=== PATIENT | female | born 1940 | race Caucasian/White ===

== ENCOUNTER 2016-07-27 20:22 | Emergency (ER) | payer OTHER, MEDICARE ==
--- NOTE | 2016-07-27 20:46 | EDPHY ---
H & P Stated Complaint: fell today, c/o L sided URIBE, L wrist, L rib pain Time Seen by Provider: 07/27/16 20:40 HPI/ROS: CHIEF COMPLAINT: Mechanical fall HISTORY OF PRESENT ILLNESS: This patient is a 75 year old female who was referred to the Emergency Department by [facility] for complaints of left rib pain and head trauma secondary to a mechanical fall this morning. She was working in her garage when she fell and hit the left side of her head on the brick side of the house. She presented to the clinic when her facial wounds were treated; the patient declined further imaging at that time. She then returned to the Clinic two hours later when she was developed low left sided rib pain . They referred her to the ED. Upon arrival, she tells me that her rib pain has entirely subsided. Although the provider at [facility] reported to our staff that the patient had complained of acute headache and confusion prompting her second visit, the patient denies headache at any point in time. She denies confusion, lightheadedness, gait or visual changes, or any additional neurological complaints. Medical history includes polycystic kidney disease for which she is currently on dialysis. REVIEW OF SYSTEMS: Aside from elements discussed in the HPI, a comprehensive 10-point review of systems was reviewed and is negative. PAST MEDICAL HISTORY: Polycystic kidney disease, on dialysis. Low platelets. No anticoagulant use. SOCIAL HISTORY: Roommate/POA at bedside. Smokes tobacco regularly. PHYSICAL EXAM: VITAL SIGNS: Reviewed by me; see NN. GENERAL: Well-developed, well-nourished, in no acute distress. HEENT: Head: Steri-stripped laceration over left islam, normocephalic. Face: Atraumatic. PERRL, EOMI, no nystagmus. Oropharynx: No trauma, normal occlusion. Neck: Nontender to palpation, no pain with range of motion, no adenopathy. CHEST: Nontender, no subcutaneous air palpable. Indicates area where pain had been previously is left lateral chest. LUNGS: Clear to auscultation bilaterally, breath sounds are equal. CARDIAC: Regular rate and rhythm, no rubs, or gallops. Systolic ejection murmur. ABDOMEN: Two bilateral palpable masses, presumably polycystic kidneys; no tenderness; bowel sounds normal. BACK: No CVA tenderness, no spinal tenderness. EXTREMITIES: Fistula to left upper extremity, ecchymosis to left upper extremity normal range of motion. PULSES: 2+ and equal throughout. NEURO: Alert and oriented x3, cranial nerves are intact throughout, normal motor , normal sensation. SKIN: Warm and dry, no rash. Portions of this note were transcribed by a biomedical engineering technician. I personally performed a history, physical exam, medical decision making, and confirmed accuracy of information the transcribed note. - Personal History Current Tetanus/Diphtheria Vaccine: Unsure Current Tetanus Diphtheria and Acellular Pertussis (TDAP): Unsure - Medical/Surgical History Hx Asthma: No Hx Chronic Respiratory Disease: No Hx Diabetes: No Hx Cardiac Disease: Yes Hx Renal Disease: Yes Hx Cirrhosis: No Hx Alcoholism: No Hx HIV/AIDS: No Hx Splenectomy or Spleen Trauma: No Other PMH: pmh- renal failyre with LUE fistula, EKWOK, polycystic kidney disease, htn, anemia - Social History Smoking Status: Current every day smoker Constitutional: Initial Vital Signs Temperature (C) 36.6 C 07/27/16 20:31 Heart Rate 83 07/27/16 20:31 Respiratory Rate 18 07/27/16 20:31 Blood Pressure 137/42 H 07/27/16 20:31 O2 Sat (%) 92 07/27/16 20:31 O2 Delivery Mode Room Air Allergies/Adverse Reactions: No Allergies [NKA] Allergy (Verified 07/27/16 20:29) Home Medications: Medication Instructions Recorded Epoetin Milind [Epogen 2000 UNIT/ML 20,000 unit SQ WE #0 12/19/15 (*)] Calcium Acetate [Phoslo (*)] 667 mg PO TIDMEAL 12/29/15 Herbals/Supplements -Info Only 1 ea PO DAILY 12/29/15 Labetalol HCl [Trandate 200 mg (*)] 300 mg PO DAILY 12/29/15 Labetalol HCl [Trandate] 300 mg PO DAILY@20 12/29/15 Lisinopril [Zestril 40 mg (*)] 40 mg PO BID 12/29/15 amLODIPine BESYLATE [Norvasc 10 mg 10 mg PO DAILY 12/29/15 (*)] Ferrous Sulfate [Ferrous Sulf 325 325 mg PO EVERY OTHER DAY 04/01/16 MG (*)] Sevelamer Carbonate [Renvela] 800 mg PO TIDMEAL 04/01/16 Renvela 07/27/16 Vitamin C 07/27/16 Medical Decision Making - Diagnostics Imaging: Study: CT of the head Indication: Trauma Results: CT scan of the head was obtained. The results of the study are: normal. The study was read by the radiologist, Dr. Joe Alatorre. I viewed the images myself on the PACS system. Study: CT of the abdomen and pelvis Indication: Trauma Results: CT scan of the abdomen and pelvis was obtained. The results of the study are: non-acute. The study was read by the radiologist, Dr. Joe Alatorre. I viewed the images myself on the PACS system. ED Course/Re-evaluation: Plan for CT of the head and CT of the abdomen and pelvis. Imagaing studies negative. Lower chest visualized on CT of abdomen pelvis normal. Patient states pain in lower ribs, but when she indicates were pain was, it seems to be upper left flank. Feel patient is ok for discharge. No SOB, chest pain currently, normal O2 sat, ambulatory without difficulty, brisk, conversant, anxious to go home. States feels well. Differential Diagnosis: Differential diagnosis of this patients injury was considered including but not limited to intracranial injury, long bone and pelvic bone fracture, spinal injury, intrathoracic injury, extremity injury, intra-abdominal injury, lacerations, abrasions, and contusions. Departure - Departure Disposition: Home, Routine, Self-Care Clinical Impression: Rib pain on left side Head trauma Qualifiers: Qualifier Code: (S09.90XA) Unspecified injury of head, initial encounter Fall Qualifiers: Qualifier Code: (W19.XXXA) Unspecified fall, initial encounter Condition: Good Instructions: Head Injury (ED) Additional Instructions: 1. Alternate 650mg Tylenol and 400mg Ibuprofen every 6 hours as needed for pain. 2. Return to the Emergency Department if you experience confusion, changes to your vision, difficulty speaking or walking, severe headache, or other serious concerns. 3. Follow-up with your primary care provider for further evaluation in 3-5 days if you do not return to feeling normal by that time. We have referred you to our on-call primary care provider if you do not already have one. Referrals: Tiffany Newman MD [Medical Doctor] - As per Instructions Report Scribed for: Taisha Erazo Report Scribed by: Alba Shrestha Date of Report: 07/27/16 Time of Report: 20:42
--- NOTE | 2016-07-27 21:42 | CT ---
CT Head (Without Contrast) at 2117 hours Indication: Trauma. Technique: Standard noncontrast head CT protocol utilizing 5-mm thick collimated slices and field-of -view of 23 cm. Dose reduction techniques were utilized. Findings: Minimal left periorbital soft tissue swelling. No scalp hematoma or acute skull or facial fracture. No intracranial hemorrhage, mass lesion, swelling, or extraaxial fluid collection. Minim al diffuse cerebral and cerebellar atrophy evidenced by enlargement of the overlying sulci. The vent ricular system is midline. Minimal low-attenuation subcortical white matter disease is present in th e frontal lobes. Minimal focal encephalomalacia involves the low left paramedian left frontal lobe. No evidence of acute ischemia or mass. Impression: 1. Minimal left periorbital soft tissue swelling. 2. No acute fracture. 3. No acute intracranial hemorrhage. 4. Mild atrophy and low left frontal encephalomalacia. Comment: Results were discussed with Dr. Erazo at 930 p.m. on July 27, 2016. E:TIERNEY/dayday
[2016-07-27 22:01] VITALS: BP 139/90; PULSE 76; RESP 16; TEMP 98.4; O2SAT 96
--- NOTE | 2016-07-27 22:15 | CT ---
CT Scan Abdomen and Pelvis, Without Contrast Indication: Fall. Left upper quadrant pain. Technique: Multidetector helical CT imaging was performed from the kidneys to the urinary bladder, w ithout contrast. Dose reduction techniques were utilized. Comparison: CT abdomen and pelvis dated December 29, 2015. Findings Abdomen: No acute fracture, pneumoperitoneum, free fluid, or evidence of solid organ injury. Numerous simple cysts scattered throughout the liver, the massively enlarged kidneys containing numer ous cysts consistent with autosomal dominant polycystic kidney disease are unchanged since December 2015. No evidence of hemorrhagic renal cyst. The noncontrast pancreas, contracted gallbladder, and bowel are unremarkable. Several diverticula throughout the descending and sigmoid colon are unchanged. T he adrenal glands are obscured. The lung bases are clear. The abdominal aorta is normal caliber, wi th extensive mural calcification. Pelvis: No bony lesions, adenopathy, or mass. Impressions 1. No acute fracture or evidence of solid organ injury. 2. Stigmata of autosomal polycystic kidney disease are unchanged. No hemorrhagic renal cyst. 3. Sigmoid diverticulosis, unchanged. Comment: Sensitivity for detecting low-grade solid organ contusions or lacerations is diminished sin ce IV contrast was not administered. Comment: Results were called to Dr. Erazo.
== END 2016-07-27 22:03 | disposition home or self-care (01) ==
DX: S09.90XA Unspecified injury of head, initial encounter (principal); S29.9XXA Unspecified injury of thorax, initial encounter; I10 Essential (primary) hypertension; F17.200 Nicotine dependence, unspecified, uncomplicated; Z99.2 Dependence on renal dialysis; W18.39XA Other fall on same level, initial encounter

== ENCOUNTER → 2017-02-08 | Outpatient (CLI) | payer OTHER, MEDICARE | LOC: BHFA 09:15 | PROVIDERS: ATTEND Internal Medicine Cardiovascular Disease | DX: I34.0 Nonrheumatic mitral (valve) insufficiency (principal); I10 Essential (primary) hypertension ==

== ENCOUNTER → 2017-02-17 | Outpatient (CLI) | payer OTHER, MEDICARE | LOC: FIMAGING 15:09 | PROVIDERS: ATTEND Thoracic Surgery (Cardiothoracic Vascular Surgery) | DX: R06.89 Other abnormalities of breathing (principal); I51.7 Cardiomegaly; I25.10 Atherosclerotic heart disease of native coronary artery without angina pectoris ==

== ENCOUNTER 2017-02-23 05:50 | Inpatient (IN) | payer OTHER, MEDICARE ==
[2017-02-23] MEDS ORDERED: VERAPAMIL 5 MG, NITROGLYCERIN 2.5 MG, HEPARIN 500 UNIT, SODIUM BICARBONATE 0.2 MEQ in L... MISC ONE (06:00)
[2017-02-23] MEDS ORDERED: niCARdipine/NACL 200 ML IV SCH (06:00)
[2017-02-23] MEDS ORDERED: CITRATE DEXTROSE SOLN 500 ML BAG MISC ONE (06:00)
[2017-02-23] MEDS ORDERED: PHENYLEPHRINE HCL 50 MG in NS 250 ML IV ONE (06:00)
[2017-02-23] MEDS ORDERED: NOREPINEPHRINE BITARTRATE 16 MG in NS 250 ML IV ONE (06:00)
[2017-02-23] MEDS ORDERED: MUPIROCIN 2% 22 GM OINT NS ONE (06:00)
[2017-02-23] MEDS ORDERED: ceFAZolin 2 GM/DEXTROSE 100 ML IV ONE (06:00)
[2017-02-23] MEDS ORDERED: INSULIN REGULAR HUMAN 100 UNIT in NS 100 ML IV ONE (06:00)
[2017-02-23] MEDS ORDERED: AMINOCAPROIC ACID 5 GM/20 ML VIAL IV ONE (06:00)
[2017-02-23] MEDS ORDERED: MANNITOL 25% 12.5 GM/50 ML VIAL IV ONE (06:00)
[2017-02-23] MEDS ORDERED: SODIUM BICARBONATE 20 MEQ, LIDOCAINE 1% 10 ML in NORMOSOL-R 1,000 ML MISC ONE (06:00)
[2017-02-23] MEDS ORDERED: LIDOCAINE 1% 2 ML INJ ID PRN (06:22)
[2017-02-23] MEDS ORDERED: NS 1,000 ML IV ONE (06:22)
[2017-02-23] MEDS ORDERED: MANNITOL 20% 125 ML IV ONE (06:30)
[2017-02-23] MEDS ORDERED: PROTAMINE SULFATE 50 MG/5 ML VIAL IVP ONE (06:34)
[2017-02-23] MEDS ORDERED: POTASSIUM Cl (KCl) 20 MEQ/50 ML BAG IV ONE (06:35)
[2017-02-23] MEDS ORDERED: DOPamine/DEXTROSE/250 ML BAG IV ONE (06:35)
[2017-02-23] MEDS ORDERED: CALCIUM CHLORIDE 1 GM/10 ML INJ ONE ×2 (06:35→06:36)
[2017-02-23] MEDS ORDERED: AMIODARONE HCL 150 MG/3 ML VIAL ONE ×2 (06:35→06:37)
[2017-02-23] MEDS ORDERED: AMINOCAPROIC ACID 5 GM/20 ML VIAL ONE ×2 (06:35→06:36)
[2017-02-23] MEDS ORDERED: niCARdipine/NACL/200 ML BAG IV ONE (06:35)
[2017-02-23] MEDS ORDERED: MILRINONE/DEXTROSE/100 ML BAG IV ONE (06:35)
[2017-02-23] MEDS ORDERED: NA BICARBONATE 50 MEQ/50 ML VIAL ONE (06:35)
[2017-02-23] MEDS ORDERED: ADENOSINE 6 MG/2 ML VIAL ONE (06:35)
[2017-02-23] MEDS ORDERED: ALBUMIN 5% 250 ML BOTTLE IV ONE (06:36)
[2017-02-23] MEDS ORDERED: ceFAZolin 1 GM VIAL ONE (06:36)
[2017-02-23] MEDS ORDERED: HEPARIN 10,000 UNIT/10 ML MDV ONE ×2 (06:36→06:37)
[2017-02-23] MEDS ORDERED: CITRATE DEXTROSE SOLN 500 ML BAG ONE (06:37)
[2017-02-23] MEDS ORDERED: methylPREDNISolone SOD SUCC 1 GM/8 ML VIAL ONE (06:37)
[2017-02-23] MEDS ORDERED: MAGNESIUM SULFATE 1 GM/2 ML VIAL ONE (06:37)
[2017-02-23] MEDS ORDERED: LIDOCAINE 2% 100 MG/5 ML SYR ONE (06:37)
--- NOTE | 2017-02-23 06:37 | PDGENHP ---
History and Physical - Chief Complaint CAD - History of Present Illness 76F with ESRD here for elective CABG in anticipation of receiving a renal transplant. Pt seen yesterday at [facility] where final questions were answered. She reports feeling well although c/o shoulder and knee pain. Denies CP/SOB. History Information - Allergies/Home Medication List Allergies/Adverse Reactions: No Allergies [NKA] Allergy (Verified 02/15/17 12:22) Home Medications: Epoetin Milind [Epogen 2000 UNIT/ML (*)] #0 12/19/15 [Last Taken 02/22/17] Labetalol HCl [Trandate] 12/29/15 [Last Taken 02/22/17] amLODIPine BESYLATE [Norvasc 10 mg (*)] 12/29/15 [Last Taken 02/22/17] Renvela 07/27/16 [Last Taken 02/22/17] Vitamin C 07/27/16 [Last Taken Unknown] Align 02/15/17 [Last Taken 02/22/17] IRON 02/15/17 [Last Taken 02/22/17] Lisinopril 02/15/17 [Last Taken 02/22/17] I have personally reviewed and updated: family history, medical history, social history, surgical history - Past Medical History coronary artery disease, COPD, ESRD, hypertension Additional medical history: mod-sev MR, PKD, chronic anemia, thrombocyopenia - Social History Smoking Status: Current every day smoker Review of Systems Constitutional: Reports: no symptoms EENMT: Reports: no symptoms Cardiac: Reports: no symptoms Respiratory: Reports: no symptoms Gastrointestinal: Reports: no symptoms Genitourinary: Reports: no symptoms Muscolosketal: Reports: joint pain Skin: Reports: no symptoms Neurological: Reports: no symptoms Physical Exam Constitutional: no apparent distress, appears nourished, not in pain Eyes: anicteric sclera Ears, Nose, Mouth, Throat: moist mucous membranes, hard of hearing Cardiovascular: regular rate and rhythym, systolic murmur Respiratory: no respiratory distress Gastrointestinal: soft, non-tender abdomen, distension Genitourinary: no bladder fullness Skin: warm, normal color Musculoskeletal: full muscle strength Neurologic: AAOx3 Psychiatric: interacting appropriately, not anxious, not encephalopathic, thought process linear Lab Data & Imaging Review All pre-op labs reviewed Visualized and Interpreted Chest x-ray results: Yes Chest X-Ray results: no infiltrate Assessment & Plan Assessment: 76F with severe CAD/ESRD Plan: CABG today with intra-op HD
[2017-02-23] MEDS ORDERED: MIDAZOLAM 2 MG/2 ML VIAL IVP ONE (07:01)
--- NOTE | 2017-02-23 07:01 | PDANEPAE ---
ANE History of Present Illness cab ANE Past Medical History - Cardiovascular History Hx Hypertension: Yes Hx Arrhythmias: Yes Hx Chest Pain: No Hx Coronary Artery / Peripheral Vascular Disease: Yes Hx CHF / Valvular Disease: No Hx Palpitations: No Cardiovascular History Comment: HTN. MURMUR. CAD 3V. MITRAL INSUFFICIENCY. LEFT CEPHALIC VEIN STENT - Pulmonary History Hx COPD: Yes Hx Asthma/Reactive Airway Disease: No Hx Recent Upper Respiratory Infection: No Hx Oxygen in Use at Home: No Hx Sleep Apnea: No Sleep Apnea Screening Result - Last Documented: Negative Pulmonary History Comment: POSSIBLE COPD. SOB, PT BELIEVES THIS IS FROM HER ENLARGED KIDNEYS, VERY ANXIETY PRODUCING - Neurologic History Hx Cerebrovascular Accident: No Hx Seizures: No Hx Dementia: No Neurologic History Comment: POSS STROKE IN LEFT EYE THAT CAUSED BLEEDING- UNKNOWN - Endocrine History Hx Diabetes: No - Renal History Hx Renal Disorders: Yes Renal History Comment: POLYCYSTIC KIDNEY. DIALYSIS M-W-. KIDNEYS ARE ABOUT 12 POUNDS EACH PER PT - Liver History Hx Hepatic Disorders: Yes Hepatic History Comment: THROMBOCYTOPENIA - Neurological & Psychiatric Hx Hx Neurological and Psychiatric Disorders: No - Cancer History Hx Cancer: No - Congenital Disorder History Hx Congenital Disorders: No Congenital History Comment: GENETIC POLYCYSTIC KIDNEYS - GI History Hx Gastrointestinal Disorders: Yes Gastrointestinal History Comment: ULERACTIVE COLITIS- USES PROBIOTIC - Other Health History Other Health History: WEARS BILATERAL HEARING AIDES. WEARS GLASSES. SCABS AND ITCHING. BILAT ROTATOR CUFF TEARS- RANGE OF MOTION EXTREMELY LIMITED, FLUID BUILT UP IN SHOULDERS. CATARACT TO LEFT CURRENTLY. BLOOD BEHIND LEFT EYE- SEE' S DIEGO FOR INJECTIONS - Chronic Pain History Chronic Pain: Yes (BILATERAL KNEES, BACK PAIN) - Surgical History Prior Surgeries: LEFT KNEE SURG- ARTHROSCOPIC. CATARACT SURGERY RIGHT EYE. T& A. RIGHT BREAST BX. FISTULA REPAIR X3 LEFT ARM. LEFT CEPHALIC VEIN STENT. ORAL SURGERY ANE Review of Systems - Exercise capacity METS (RN): 2 METS ANE Patient History - Allergies Allergies/Adverse Reactions: No Allergies [NKA] Allergy (Verified 02/15/17 12:22) - Home Medications Home Medications: Epoetin Milind [Epogen 2000 UNIT/ML (*)] #0 12/19/15 [Last Taken 02/22/17] Labetalol HCl [Trandate] 12/29/15 [Last Taken 02/22/17] amLODIPine BESYLATE [Norvasc 10 mg (*)] 12/29/15 [Last Taken 02/22/17] Renvela 07/27/16 [Last Taken 02/22/17] Vitamin C 07/27/16 [Last Taken Unknown] Align 02/15/17 [Last Taken 02/22/17] IRON 02/15/17 [Last Taken 02/22/17] Lisinopril 02/15/17 [Last Taken 02/22/17] - NPO status NPO Since - Liquids (Date): 02/22/17 NPO Since - Liquids (Time): 00:00 NPO Since - Solids (Date): 02/22/17 NPO Since - Solids (Time): 21:00 - Anes Hx Anes Hx: no prior problems - Smoking Hx Smoking Status: Light smoker - Family Anes Hx Family Hx Anesthesia Complications: NONE ANE Labs/Vital Signs - Vital Signs Blood Pressure: 149/51 Heart Rate: 67 Respiratory Rate: 22 O2 Sat (%): 96 Height: 162.3 cm Weight: 70.1 kg ANE Physical Exam - Airway Mallampati Score: Class 2 Mouth exam: normal dental/mouth exam - Pulmonary Pulmonary: no respiratory distress - Cardiovascular Cardiovascular: regular rate and rhythym - ASA Status ASA Status: III ANE Anesthesia Plan Anesthesia Plan: general endotracheal anesthesia Lines/Monitors: arterial line, central line, ENDY
[2017-02-23] MEDS ORDERED: ROCURONIUM 50 MG/5 ML VIAL ONE ×2 (07:11→09:40)
[2017-02-23] MEDS ORDERED: PROPOFOL 200 MG/20 ML VIAL ONE (07:12)
[2017-02-23] MEDS ORDERED: LIDOCAINE 2% 5 ML SDV ONE (07:12)
[2017-02-23] MEDS ORDERED: PHENYLEPHRINE 10 MG/ML SDV ONE (07:12)
[2017-02-23] MEDS ORDERED: fentaNYL 100 MCG/2 ML INJ ONE ×5 (07:12→07:13)
[2017-02-23] MEDS ORDERED: MINERAL OIL 10 ML VIAL ONE (07:36)
[2017-02-23] MEDS ORDERED: VERAPAMIL 5 MG/2 ML VIAL ONE (07:36)
[2017-02-23] MEDS ORDERED: PAPAVERINE HCL 60 MG/2 ML SDV ONE (07:36)
[2017-02-23] MEDS ORDERED: epHEDrine SULFATE 10 MG/ML SYR ONE (08:38)
[2017-02-23] MEDS ORDERED: MIDAZOLAM 2 MG/2 ML VIAL ONE (09:39)
[2017-02-23] MEDS ORDERED: CISATRACURIUM BESYLATE 20 MG/10 ML VIAL IV ONE (10:25)
[2017-02-23] MEDS ORDERED: MAGNESIUM SULF 2 GM/WATER 50 ML BAG IV ONE (11:26)
[2017-02-23] MEDS ORDERED: NEOSTIGMINE METHYLSULFATE 5 MG/5 ML SYR ONE (11:42)
[2017-02-23] MEDS ORDERED: GLYCOPYRROLATE 0.2 MG/1 ML VIAL ONE ×2 (11:42)
[2017-02-23 11:47] LABS: HEMOGLOBIN A1C 4.5 % (4.0-6.0)
[2017-02-23] MEDS ORDERED: SUCCINYLCHOLINE CHLORIDE*ANESTHESIA ONLY*200 MG/10 ML SYR IVP ONE (11:51)
[2017-02-23] MEDS ORDERED: METOCLOPRAMIDE 10 MG/2 ML VIAL IVP PRN (12:22)
[2017-02-23] MEDS ORDERED: BISACODYL 10 MG SUPP PR PRN (12:22)
[2017-02-23] MEDS ORDERED: POTASSIUM Cl (KCl) 50 ML IV PRN (12:22)
[2017-02-23] MEDS ORDERED: LACTULOSE 20 GM/30 ML UDCUP PO PRN (12:22)
[2017-02-23] MEDS ORDERED: MEPERIDINE 25 MG/ML SYR IVP PRN (12:22)
[2017-02-23] MEDS ORDERED: ACETAMINOPHEN 650 MG SUPP PR PRN (12:22)
[2017-02-23] MEDS ORDERED: ONDANSETRON DISINTEGRATING 4 MG TAB PO PRN (12:22)
[2017-02-23] MEDS ORDERED: MAGNESIUM SULF 2 GM/WATER 50 ML IV ONE (12:22)
[2017-02-23] MEDS ORDERED: SODIUM CL NASAL 45 ML BTL EACHNARE PRN (12:22)
[2017-02-23] MEDS ORDERED: D50W 25 GM/50 ML SYR IVP PRN (12:22)
[2017-02-23] MEDS ORDERED: ALBUMIN 5% 250 ML IV PRN (12:22)
[2017-02-23] MEDS ORDERED: CEPACOL LOZENGE PO PRN (12:22)
[2017-02-23] MEDS ORDERED: POLYETHYLENE GLYCOL 3350 17 GM PKT PO PRN (12:22)
[2017-02-23] MEDS ORDERED: MAGNESIUM HYDROXIDE 30 ML UDCUP PO PRN (12:22)
[2017-02-23] MEDS ORDERED: ONDANSETRON 4 MG/2 ML VIAL IVP PRN (12:22)
[2017-02-23] MEDS ORDERED: PANTOPRAZOLE SODIUM 40 MG in NS 100 ML IV ONE (12:22)
[2017-02-23] MEDS ORDERED: INSULIN REGULAR HUMAN 100 UNIT in NS 100 ML IV SCH (12:30)
--- NOTE | 2017-02-23 12:37 | POSTANESTH ---
Post Anesthetic Evaluation Cardiovascular Status: Normal, Stable Respiratory Status: Normal, Stable Level of Consciousness/Mental Status: Can Participate in Eval Pain Control: Adequate, Prn Tx Ordered Nausea/Vomiting Control: Adequate, Prn Tx Ordered Complications Possibly Related to Anesthesia: None Noted
[2017-02-23] MEDS ORDERED: ALBUTEROL 3 ML DEYVIAL IH PRN (12:38)
[2017-02-23] MEDS ORDERED: NALOXONE HCL 0.4 MG/ML INJ IVP PRN (12:38)
--- NOTE | 2017-02-23 12:55 | POSTOPPROG ---
Post Op Note Date of Operation: 02/23/17 Surgeon: Chan Ortega Pit Steward: Guille Anesthesiologist: Tyrel Anesthesia: GET(General Endotracheal) Pre-op Diagnosis: ASHD, CRF,MR, ischemic CM Procedure: CAB 4 Markham-Lad, SVG-Dg, Lcx,RCA, EVH, DAVID atriclip Inf/Abcess present in the surg proc area at time of surgery?: No EBL: 50-100
[2017-02-23] MEDS ORDERED: KETOROLAC 15 MG/1 ML SDV IVP ONE (13:00)
[2017-02-23] MEDS ORDERED: LORazepam 2 MG/ML INJ ONE (13:11)
[2017-02-23] MEDS ORDERED: LORazepam 2 MG/ML INJ IVP ONE (13:30)
--- NOTE | 2017-02-23 13:57 | GOP ---
[f rep st] OPERATIVE REPORT DATE OF OPERATION: 02/23/2017 SURGEON: Chan Ortega DO PREOPERATIVE DIAGNOSIS: Arteriosclerotic heart disease and moderate mitral insufficiency. POSTOPERATIVE DIAGNOSIS: Arteriosclerotic heart disease and moderate mitral insufficiency. PROCEDURE PERFORMED: 1. Coronary artery bypass grafting x4 with the left internal mammary artery to the left anterior de scending, saphenous vein graft to the diagonal, saphenous vein graft to the lateral circumflex, saph enous vein graft to the right coronary artery. 2. Endoscopic vein harvest. 3. AtriClip to the left atrial appendage. FINDINGS: The patient was noted to have [id number] mitral regurgitation preoperatively. She is a chronic hemodialysis patient. She had never had atrial fibrillation or congestive heart failur e. She had typical anginal symptoms. In anticipation of resecting her kidneys because of polycysti c kidney disease, she was advised to undergo coronary bypass grafting. The plan was to not address her mitral valve unless it looked worse today at surgery because of the ongoing dialysis and concern s for infection. DESCRIPTION OF PROCEDURE: She was brought to the operating room and intubated, and monitoring lines were placed. She was prepped and draped in sterile classical manner. Sternotomy was performed. L eft internal mammary artery was harvested. Vein was harvested from the leg by Siddharth Han PA-C, wh o first assisted throughout the procedure. Patient was then heparinized and cannulated in standard fashion. Intraoperative transesophageal echo revealed [id number] mitral regurgitation reviewe d with Dr. Finney, with relatively preserved LV function and mild enlargement of the left atrium. G iven her age and comorbidities, it was felt to be best to avoid putting a prosthetic valve in her, s preethi the likelihood repair looked to be low, particularly given her extensive mitral annular calcifi cation. Cardiopulmonary bypass was begun. Cardioplegic arrest was obtained with antegrade cardioplegia, top ical hypothermia, and systemic cooling. Hemodialysis was performed on pump to manage potassium and volumes. Intermittent cardioplegia was administered throughout the procedure. After cardioplegic a rrest was obtained, all distal's and proximal's were performed with a cross-clamp on. Her distal ta rgets were excellent, measuring 3 mm or more in diameter. Conduits were excellent. We then placed an AtriClip across the base of the left atrial appendage. Cross-clamp was removed with suction on t he ascending aortic vent. Spontaneous cardiac activity was noted to resume. The patient was easily weaned from bypass. Heparin was reversed with protamine. The cannula was removed and oversewn. T wo pacing wires and 1 left pleural and 1 mediastinal drain were placed. The thymic fat and pericard ium were closed. Chest was closed in standard fashion. Patient was returned to ICU in stable condi tion. /[id number]/MODL
[2017-02-23] MEDS: fentaNYL 100 MCG/2 ML INJ IVP PRN ×4 (14:25→19:14)
[2017-02-23 16:13] LABS: CALCULATED OXYGEN SATURATION 92 % (92-95)
[2017-02-23] MEDS: DEXMEDETOMIDINE HCL 400 MCG in NS 100 ML IV SCH ×2 (21:38→23:49)
[2017-02-23] MEDS: ceFAZolin 2 GM/DEXTROSE 100 ML IV SCH (21:41)
[2017-02-23] MEDS: MUPIROCIN 2% 22 GM OINT NS SCH (22:33)
[2017-02-23] MEDS: SENNOSIDES/DOCUSATE SODIUM TAB PO SCH (22:33)
--- NOTE | 2017-02-23 23:18 | GCON ---
[f rep st] CONSULTATION BENZOL OPERATOR CONSULTATION REASON FOR CONSULTATION: Patient examined postoperatively after receiving coronary bypass graft. HISTORY OF PRESENT ILLNESS: The patient is a 76-year-old white female with an extensive past medica l history of polycystic kidney disease, for which she has end-stage renal disease. She is on dialys is. She is also awaiting possible transplant at the [facility]. She has a history of h ypertension, ulcerative colitis, and anemia. Again, she is examined postoperatively. Currently, kristina us is still somewhat somnolent after surgery. All history is gleaned from the medical record. PAST MEDICAL HISTORY: Significant for end-stage renal disease, polycystic kidney disease, hypertens ion, anemia, ulcerative colitis, and coronary artery disease. ALLERGIES: No known allergies to medications. SOCIAL HISTORY: She is a half-pack smoker and has smoked for many years. No significant alcohol us e. MEDICATIONS: At home include Epogen, labetalol, amlodipine, Renvela, vitamin C, Align, iron, and li sinopril. PHYSICAL EXAMINATION: VITAL SIGNS: Blood pressure is 149/51, pulse 67, respirations 22, temperatur e 36.6, oxygen saturation is 96% on supplemental oxygen. GENERAL: She is a mildly overweight, elde rly white female, who is resting comfortably postoperatively. HEENT: Eyes are MATTIE, EOMI. Throat shows no erythema or tonsillar hypertrophy. NECK: Supple. There is no cervical adenopathy. HEART : Regular rate and rhythm with a 2/6 systolic murmur at the left sternal border without radiation. LUNGS: Diminished breath sounds. Mild prolongation of expiratory phase, but no wheeze. ABDOMEN: Distended. Bowel sounds are markedly diminished. EXTREMITIES: Left extremity shows a fistula. LABORATORY DATA: Hemoglobin A1c is 4.5. All the rest of her labs are currently pending. IMPRESSION: 1. Status post coronary bypass graft. 2. End-stage renal disease. 3. Polycystic kidney disease. 4. Hypertension. 5. Tobacco abuse. RECOMMENDATIONS: 1. Adequate pain control. 2. Wean FiO2 as tolerated. 3. DVT and PE prophylaxis, holding anticoagulation for now. 4. Dialysis per Nephrology. /[id number]/MODL
[2017-02-23 23:38] LABS: CALCULATED OXYGEN SATURATION 88 % (92-95); O2 CONCENTRATIION 25 % (0-100)
--- NOTE | 2017-02-23 23:38 | GCON ---
[f rep st] CONSULTATION DATE OF CONSULTATION: 02/23/2017 REASON FOR CONSULTATION: Opinion regarding end-stage kidney failure. HISTORY OF PRESENT ILLNESS: The patient is a 76-year-old female with end-stage kidney disease due t o autosomal dominant polycystic kidneys. She is currently on 3 times weekly hemodialysis on Mondays , Wednesdays, and Fridays. The patient has known vascular disease and has been evaluated for her co ronary disease. She had significant 4-vessel disease and underwent coronary artery bypass grafting x4 today. She also has moderate to severe mitral regurgitation, but she seems to be tolerating that okay. Mitral valve repair was not undertaken during her surgery today. Her surgery included BOB to LAD graft, saphenous vein graft to the diagonal, circumflex and right coronary arteries. Currently, the patient is still sedated. She has an oral airway in place. She arouses, but does no t answer questions. PAST MEDICAL HISTORY: Significant. 1. End-stage kidney failure due to autosomal dominant polycystic kidney disease. 2. Autosomal dominant polycystic kidney disease. 3. COPD. 4. Hypertension. 5. Mitral regurgitation. 6. Anemia. 7. Secondary hyperparathyroidism. 8. History of ulcerative colitis. 9. Status post left knee arthroscopy. 10. History of AV fistula with multiple repairs. CURRENT MEDICATIONS: Includes 1. Fentanyl. 2. Dulcolax. 3. Aspirin 81 mg daily. 4. Albuterol. 5. Insulin as necessary. 6. Lactulose. 7. Reglan. 8. Morphine. 9. Narcan. 10. Nicardipine. 11. Protonix. 12. She also has Demerol and magnesium written for. I would not give her those medicines. ALLERGIES: None. FAMILY HISTORY: Positive for polycystic kidney disease. SOCIAL HISTORY: She was formerly employed at [employer]. She is now retired. She denies alcohol, IV o r recreational drugs. REVIEW OF SYSTEMS: Not obtainable from the patient today. PHYSICAL EXAMINATION: VITAL SIGNS: Blood pressure is 149/51, pulse 67, respirations 22, temperatur e 36.6 degrees. GENERAL: She is sedated. HEENT: Pupils are reactive to light. Extraocular movem ents are intact. Mucous membranes are moist. NECK: No lymphadenopathy or thyromegaly. HEART: Re gular. No rub. No S3. LUNGS: No rhonchi or wheezes. ABDOMEN: Quiet, nontender, nondistended. EXTREMITIES: No edema. NEUROLOGIC: No asterixis. SKIN: Occasional ecchymoses. LYMPH: No palpa ble lymphadenopathy or lymphedema. MUSCULOSKELETAL: No effusions or tenderness. LABORATORY: Postoperatively, her potassium was 4.3. Hemoglobin A1c 4.5. IMPRESSION: 1. End-stage kidney failure on 3 times weekly dialysis. 2. Coronary artery disease. 3. Hypertension. 4. Chronic obstructive pulmonary disease. 5. Anemia of chronic kidney disease. 6. Secondary hyperparathyroidism. RECOMMENDATIONS: 1. As the patient did have intraoperative hemodialysis today, we will assess for dialysis needs blair orrow. I suspect she will be able to have her next dialysis on Tuesday. 2. Pain control. 3. Blood pressure control. Thank you for allowing me to participate in the care of your patient. If there are any questions, desi schaeffer do not hesitate to contact us. We will be following along with you. /[id number]/MODL
[2017-02-24] MEDS: fentaNYL 100 MCG/2 ML INJ IVP PRN (04:27)
[2017-02-24] MEDS: LORazepam 2 MG/ML INJ IVP PRN ×2 (04:32→23:34)
[2017-02-24] MEDS: DEXMEDETOMIDINE HCL 400 MCG in NS 100 ML IV SCH (04:42)
[2017-02-24] MEDS: ceFAZolin 2 GM/DEXTROSE 100 ML IV SCH (05:06)
[2017-02-24 05:24] LABS: % IMMATURE GRANULYOCYTES 0.4 % (0.0-1.1); ABSOLUTE IMMATURE GRANULOCYTES 0.03 10^3/uL (0.00-0.10); ADD DIFF? NO; ADD MORPH? NO; ADD SCAN? NO; ATYPICAL LYMPHOCYTE FLAG 0 (0-99); FRAGMENT RBC FLAG 0 (0-99); HEMATOCRIT 26.2 % (38.0-47.0); HEMOGLOBIN 8.8 g/dL (12.6-16.3); LEFT SHIFT FLG 0 (0-99); LIPEMIA HEMOLYSIS FLAG 80 (0-99); MEAN CELL HEMOGLOBIN 32.1 pg (27.9-34.1); MEAN CELL HEMOGLOBIN CONCENTR. 33.6 g/dL (32.4-36.7); MEAN CELL VOLUME 95.6 fL (81.5-99.8); MEAN PLATELET VOLUME 11.8 fL (8.7-11.7); PLATELET CLUMPS FLAG 0 (0-99); PLATELET COUNT 79 10^3/uL (150-400); RED BLOOD CELL COUNT 2.74 10^6/uL (4.18-5.33); RED CELL DISTRIBUTION WIDTH 19.3 % (11.5-15.2)
[2017-02-24 05:38] LABS: ANION GAP 12 mEq/L (8-16); CALCIUM 9.1 mg/dL (8.5-10.4); CARBON DIOXIDE 22 mEq/l (22-31); CHLORIDE 100 mEq/L (97-110); CREATININE 5.1 mg/dL (0.6-1.0); GLOMERULAR FILTRATION RATE 8; GLUCOSE 94 mg/dL (70-100); POTASSIUM 5.4 mEq/L (3.5-5.2); SODIUM 134 mEq/L (134-144)
[2017-02-24] MEDS ORDERED: HEPARIN 5,000 UNIT/0.5 ML SYR SC SCH (06:00)
--- NOTE | 2017-02-24 07:21 | SOAPPROG ---
SOAP Progress Note Assessment/Plan: Assessment: POD#1 CABG x 4 (BOB-LAD, SV-D1, SV-LCX, SV-RCA), EVH LLE, prophylactic AtriClip ligation left atrial appendage Dialysis access LUE AVF Asx CAD - Discovered during cardiac clearance (abnl MPI/nuc) for kidney transplant listing. Full revascularization achieved w CABG. Extubated in the OR. No prolonged vasoactive gtts, dysrhythmias, or backup pacing. Secondary prevention with ASA, BB as tolerated, and statin when eating well. Acute expected blood loss anemia with thrombocytopenia and coagulopathy - Baseline Hct 27, plt 70s range. Procrit on HD. Surgical coagulopathy corrected with 4u PRBC and 1u platelets. No evidence active bleeding. VTE prophylaxis with ASA and SCDs. Postop acute encephalopathy - Agitation and confusion of unclear etiology. ETOH use denied. Responsive to anxiolytics. No focal neurologic deficits. Appears to be clearing. HTN - Controlled on combination therapy. Early postop control with nicardipine. Transition back to labetalol planned. Mild-moderate MS/MR - Significant MAC. Surveillance per cards. ESRD/PKD - Dialyzed intraop. No significant volume overload. Nephrology following. Tobacco abuse - 1/2 ppd, 25 pk yr hx, quitting 2 wks ago. Nl PFTs in Jul 2015. Plan: Routine POD#1 orders re lines, drains and mobility. Strict NPO until orals cleared by WIRELESS OPERATOR. HD tomorrow or as per nephrology. Observe in ICU today. 02/24/17 07:17 Subjective: Doing ok. Thirsty. No nausea. No dizziness OOB. Objective: Vital Signs Temp Pulse Resp BP Pulse Ox 37.3 C 69 16 137/39 H 92 02/24/17 04:00 02/24/17 07:00 02/24/17 07:00 02/24/17 07:00 02/24/17 07:00 Laboratory Results 02/24/17 05:00 02/24/17 05:00 02/23/17 02/24/17 02/25/17 05:59 05:59 05:59 Intake Total 754.1 250 Output Total 1274 Balance -519.9 250 No gtts, backup pacing or dysrhythmias overnoc. Transitioned from precedex to lorazepam for agitation/anxiety. Robust SBP. Min suppl O2 req. CTOP moderate but quality thin. Labs as expected. Physical Exam - Physical Exam General Appearance: alert, no apparent distress Respiratory: lungs clear (grossly), other (blakes x 2 y-d to pleurovac, serosang drainage, no tidal, no air leak) Cardiac/Chest: regular rate, rhythm, other (Sternum grossly stable. Sternotomy CDI. Vwires intact.) Abdomen: normal bowel sounds, non-tender, soft Skin: warm/dry Extremities: swelling (trace-1+), other (LLE wrap intact) ICD10 Worksheet Patient Problems: Problems Problem Status Onset S/P CABG x 4 Acute Anemia Chronic Coronary arteriosclerosis Chronic ESRD (end stage renal disease) on dialysis Chronic Hypertension Chronic Polycystic kidney disease Chronic Thrombocytopenia Chronic
--- NOTE | 2017-02-24 08:28 | PDINTPN ---
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 Query alcohol. Patient is markedly confused and somewhat agitated * Tobacco abuse * Hypertension Plan: Dialysis today Continue pain meds Blood pressure control Continued Re orientation Subjective: Sitting up in chair. Markedly confused and agitated. Objective: Vital Signs Temp Pulse Resp BP Pulse Ox 37.0 C 69 17 124/39 H 93 02/24/17 07:57 02/24/17 07:57 02/24/17 07:57 02/24/17 07:57 02/24/17 07:57 Laboratory Results 02/24/17 05:00 02/24/17 05:00 02/23/17 02/24/17 02/25/17 05:59 05:59 05:59 Intake Total 754.1 250 Output Total 1274 Balance -519.9 250 Physical Exam - Physical Exam General Appearance: other (Confused), No alert EENT: PERRL/EOMI, normal ENT inspection Neck: non-tender, full range of motion, supple, normal inspection Respiratory: decreased breath sounds, prolonged expiration, No wheezing Cardiac/Chest: normal peripheral pulses, regular rate, rhythm, systolic murmur Abdomen: normal bowel sounds, non-tender, soft Pelvic Exam: deferred Rectal: deferred Skin: normal color, warm/dry Extremities: normal range of motion, non-tender, normal inspection, normal capillary refill Neuro/Psych: No alert ICD10 Worksheet Patient Problems: Problems Problem Status Onset S/P CABG x 4 Acute Anemia Chronic Coronary arteriosclerosis Chronic ESRD (end stage renal disease) on dialysis Chronic Hypertension Chronic Polycystic kidney disease Chronic Thrombocytopenia Chronic
[2017-02-24] MEDS: HYDROCODONE/APAP 5/325 TAB PO PRN ×2 (08:40→15:12)
[2017-02-24] MEDS: ASPIRIN 81 MG CHEWABLE TAB PO SCH (08:41)
[2017-02-24] MEDS: MUPIROCIN 2% 22 GM OINT NS SCH ×2 (08:43→21:12)
[2017-02-24] MEDS ORDERED: METOPROLOL TARTRATE 25 MG TAB PO PRN (09:33)
[2017-02-24] MEDS: SENNOSIDES/DOCUSATE SODIUM TAB PO SCH ×2 (10:14→21:11)
--- NOTE | 2017-02-24 10:24 | SOAPPROG ---
[facility] Progress Note Assessment/Plan: Assessment: 1. ESRD Intraop HD yesterday. K early this am 5.4. Will dialyze today, no UF. 2. Anemia Mild decrease, but stable 3. Doing well post op, with exception of some delirium. 4. Urology seeing related to future nephrectomies Plan: 02/24/17 10:20 Subjective: Stable postop Objective: Vital Signs Temp Pulse Resp BP Pulse Ox 37.0 C 71 16 142/41 H 98 02/24/17 07:57 02/24/17 10:00 02/24/17 10:00 02/24/17 10:00 02/24/17 10:00 Laboratory Results 02/24/17 05:00 02/24/17 05:00 02/23/17 02/24/17 02/25/17 05:59 05:59 05:59 Intake Total 754.1 250 Output Total 1274 Balance -519.9 250 Physical Exam - Physical Exam General Appearance: other (confused) Respiratory: lungs clear Cardiac/Chest: regular rate, rhythm Abdomen: other (distended relating to polycystic kidneys) Extremities: pedal edema Neuro/Psych: disoriented to place, disoriented to time ICD10 Worksheet Patient Problems: Problems Problem Status Onset S/P CABG x 4 Acute Anemia Chronic Coronary arteriosclerosis Chronic ESRD (end stage renal disease) on dialysis Chronic Hypertension Chronic Polycystic kidney disease Chronic Thrombocytopenia Chronic
[2017-02-24 11:04] LABS: POTASSIUM 5.1 mEq/L (3.5-5.2)
--- NOTE | 2017-02-24 11:10 | GCON ---
[f rep st] CONSULTATION DATE OF CONSULTATION: 02/24/2017 REASON FOR CONSULT: Polycystic kidney disease, end-stage kidney failure. HISTORY OF PRESENT ILLNESS: This is a 76-year-old female, who has a known history including signifi cant polycystic kidney disease causing end-stage renal disease, for which she undergoes dialysis 3 t imes a week, along with a history of hypertension, ulcerative colitis and anemia. She was admitted to the hospital and underwent coronary bypass graft, and is being seen after this procedure in parti al evaluation of her kidneys. She reports that she is being perhaps considered for a kidney transpl ant at the [facility] but was told that she did have enough room in her abdomen unless s he had a nephrectomy. She reports talking to Dr. Manan Cain at the [facility], jackelin pantoja recently according to her history, regarding a possible single or bilateral nephrectomy in prepa ration for kidney transplant. However, she also states that she has not decided if she wants to hav e the procedure done or with whom. PAST MEDICAL HISTORY: Significant for end-stage renal disease, polycystic kidney disease, hypertens ion, anemia, ulcerative colitis, coronary artery disease. SURGICAL HISTORY: Includes coronary bypass graft done on 02/23/2017. ALLERGIES: No known drug allergies. SOCIAL HISTORY: Half pack smoker for many years. Reportedly no significant alcohol use. MEDICATIONS: Epogen, labetalol, amlodipine, Renvela, vitamin C, Align, iron, lisinopril. PHYSICAL EXAM: VITAL SIGNS: Blood pressure 142/41, heart rate 71, respirations 16, O2 98 on 2 L/mi nute, temperature 37. GENERAL: This is a well-developed, well-nourished female in no acute distres s. HEENT: Normocephalic, atraumatic. Extraocular movements intact. NECK: Supple. No lymphadeno aimee palpable, although patient has many monitors in place. RESPIRATORY: Patient is breathing wit h the assistance of oxygen, otherwise normal breath sounds, no accessory respiratory muscle use. CA RDIAC: No lower extremity edema. No JVD at the time of exam, regular rate. GI: Abdomen in genera l is somewhat diffuse and distended, likely from polycystic kidneys. No palpable hepatosplenomegaly . No palpable pain. She as noted does have a palpable mass diffusely from likely polycystic kidney disease, polycystic kidneys. INTEGUMENT: Patient's skin is somewhat bronzed. No obvious rashes o r lesions otherwise. MUSCULOSKELETAL: She is lying in bed, moving upper extremities without diffic ulty. NEURO: Patient was alert and oriented. Able to give a seemingly appropriate history of kidn ey disease. LABS: White blood cell count 7.54, hemoglobin 8.8, hematocrit 26.2, platelets 79. Chemistry: Sodi um 134, potassium 5.4, chloride 100, carbon dioxide 22, and anion gap 12, BUN 39, creatinine 5.1. G lucose 94. Estimated GFR is 8. Calcium 9.1. The patient did have a CT scan of the abdomen and pel vis done in June that I have personally reviewed which shows extensive bilateral cysts on both ki dneys consistent with polycystic kidney disease. ASSESSMENT: Polycystic kidney disease, end-stage kidney disease. PLAN: It sounds like patient is under consideration for a kidney transplant done at the [facility]. In order to likely accommodate a transplanted kidney, she would need to have at least a single if not bilateral nephrectomy done. By her history, she has been discussing this with Dr. Samia bashir at the [facility]. We will be happy to provide further assistance in helping th is patient consider her surgical options through our office if she desires. /[id number]/MODL
[2017-02-24] MEDS: PANTOPRAZOLE SODIUM 40 MG TAB PO SCH (12:04)
[2017-02-24 13:44] LABS: ANION GAP 16 mEq/L (8-16); CALCIUM 9.1 mg/dL (8.5-10.4); CARBON DIOXIDE 20 mEq/l (22-31); CHLORIDE 96 mEq/L (97-110); CREATININE 5.4 mg/dL (0.6-1.0); GLOMERULAR FILTRATION RATE 8; GLUCOSE 121 mg/dL (70-100); POTASSIUM 5.1 mEq/L (3.5-5.2); SODIUM 132 mEq/L (134-144)
[2017-02-24 13:50] LABS: HEPATITIS Bs Ab QUANT <5.0 mIU/mL
[2017-02-24] MEDS: traMADol 50 MG TAB PO PRN (15:12)
[2017-02-24] MEDS ORDERED: KETOROLAC 15 MG/1 ML SDV IVP ONE (17:30)
[2017-02-24 18:23] LABS: POTASSIUM 5.2 mEq/L (3.5-5.2)
[2017-02-24] MEDS: ACETAMINOPHEN 325 MG TAB PO PRN (21:11)
[2017-02-24] MEDS: METOPROLOL TARTRATE 25 MG TAB PO SCH (21:12)
[2017-02-25 01:38] LABS: POTASSIUM 5.1 mEq/L (3.5-5.2)
[2017-02-25 05:49] LABS: % IMMATURE GRANULYOCYTES 0.9 % (0.0-1.1); ABSOLUTE IMMATURE GRANULOCYTES 0.05 10^3/uL (0.00-0.10); ADD DIFF? NO; ADD MORPH? YES; ADD SCAN? NO; ATYPICAL LYMPHOCYTE FLAG 0 (0-99); FRAGMENT RBC FLAG 0 (0-99); HEMOGLOBIN 6.9 g/dL (12.6-16.3); LEFT SHIFT FLG 0 (0-99); LIPEMIA HEMOLYSIS FLAG 80 (0-99); MEAN CELL HEMOGLOBIN 31.9 pg (27.9-34.1); MEAN CELL HEMOGLOBIN CONCENTR. 32.9 g/dL (32.4-36.7); MEAN CELL VOLUME 97.2 fL (81.5-99.8); MEAN PLATELET VOLUME 10.8 fL (8.7-11.7); PLATELET CLUMPS FLAG 0 (0-99); PLATELET COUNT 75 10^3/uL (150-400); RED BLOOD CELL COUNT 2.16 10^6/uL (4.18-5.33); RED CELL DISTRIBUTION WIDTH 18.4 % (11.5-15.2)
[2017-02-25 06:22] LABS: ANION GAP 14 mEq/L (8-16); CALCIUM 9.2 mg/dL (8.5-10.4); CARBON DIOXIDE 21 mEq/l (22-31); CHLORIDE 95 mEq/L (97-110); CREATININE 6.5 mg/dL (0.6-1.0); GLOMERULAR FILTRATION RATE 6; GLUCOSE 96 mg/dL (70-100); POTASSIUM 5.1 mEq/L (3.5-5.2); SODIUM 130 mEq/L (134-144)
--- NOTE | 2017-02-25 06:44 | SOAPPROG ---
SOAP Progress Note Assessment/Plan: POD#2 CABG x 4 (BOB-LAD, SV-D1, SV-LCX, SV-RCA), EVH LLE, prophylactic AtriClip ligation left atrial appendage Dialysis access LUE AVF Asx CAD - Discovered during cardiac clearance (abnl MPI/nuc) for kidney transplant listing. Full revascularization achieved w CABG. Extubated in the OR. No prolonged vasoactive gtts, dysrhythmias, or backup pacing. Secondary prevention with ASA, BB as tolerated, and statin when eating well. Acute expected blood loss anemia with thrombocytopenia and coagulopathy - Baseline Hct 27, plt 70s range. Procrit on HD. Surgical coagulopathy corrected with 4u PRBC and 1u platelets. No evidence active bleeding. VTE prophylaxis with ASA and SCDs. Postop acute encephalopathy - Agitation and confusion of unclear etiology. ETOH use denied. Responsive to anxiolytics. No focal neurologic deficits. Appears to be clearing. HTN - Controlled on combination therapy. Early postop control with nicardipine. Beta-xiang started. Mild-moderate MS/MR - Significant MAC. Surveillance per cards. ESRD/PKD - Dialyzed intraop. No significant volume overload. Nephrology following. Tobacco abuse - 1/2 ppd, 25 pk yr hx, quitting 2 wks ago. Nl PFTs in Jul 2015. Subjective: Angry with the lack of attention to her needs. Pain under control. Denies SOB. Objective: Vital Signs Temp Pulse Resp BP Pulse Ox 36.7 C 73 16 143/43 H 97 02/25/17 00:00 02/25/17 04:00 02/25/17 04:00 02/25/17 04:00 02/25/17 04:00 Laboratory Results 02/25/17 05:40 02/25/17 05:40 02/24/17 02/25/17 02/26/17 05:59 05:59 05:59 Intake Total 754.1 1350 Output Total 1274 265 Balance -519.9 1085 Physical Exam - Physical Exam General Appearance: WD/WN, alert, no apparent distress EENT: No scleral icterus (R), No scleral icterus (L) Neck: normal inspection Respiratory: No respiratory distress Cardiac/Chest: regular rate, rhythm Abdomen: non-tender, soft, No distended Skin: normal color, warm/dry Extremities: No pedal edema Neuro/Psych: no motor/sensory deficits, alert, normal mood/affect, oriented x 3 ICD10 Worksheet Patient Problems: Problems Problem Status Onset S/P CABG x 4 Acute Anemia Chronic Coronary arteriosclerosis Chronic ESRD (end stage renal disease) on dialysis Chronic Hypertension Chronic Polycystic kidney disease Chronic Thrombocytopenia Chronic
[2017-02-25 06:57] LABS: HYPOCHROMIA 1+; PLATELET ESTIMATE DECREASED (ADEQ); POLYCHROMASIA 1+
[2017-02-25] MEDS: ACETAMINOPHEN 325 MG TAB PO PRN (07:11)
[2017-02-25] MEDS: traMADol 50 MG TAB PO PRN (08:38)
[2017-02-25] MEDS: METOPROLOL TARTRATE 25 MG TAB PO SCH ×3 (08:38→22:30)
[2017-02-25] MEDS: PANTOPRAZOLE SODIUM 40 MG TAB PO SCH (08:38)
[2017-02-25] MEDS ORDERED: MAGNESIUM HYDROXIDE 30 ML UDCUP PO PRN (08:38)
[2017-02-25] MEDS: ASPIRIN 81 MG CHEWABLE TAB PO SCH (08:38)
[2017-02-25] MEDS: SENNOSIDES/DOCUSATE SODIUM TAB PO SCH ×2 (08:38→22:13)
[2017-02-25] MEDS: HYDROCODONE/APAP 5/325 TAB PO PRN ×2 (08:39→13:46)
--- NOTE | 2017-02-25 08:55 | PDINTPN ---
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 Has concerns about dialysis. Denies any breathlessness but does admit to some appropriate chest pain Objective: Vital Signs Temp Pulse Resp BP Pulse Ox 36.7 C 77 20 138/73 H 96 02/25/17 00:00 02/25/17 08:38 02/25/17 06:00 02/25/17 08:38 02/25/17 06:00 Laboratory Results 02/25/17 07:50 02/25/17 05:40 02/24/17 02/25/17 02/26/17 05:59 05:59 05:59 Intake Total 754.1 1350 Output Total 1274 265 Balance -519.9 1085 Physical Exam - Physical Exam General Appearance: alert EENT: PERRL/EOMI, normal ENT inspection Neck: non-tender, full range of motion, supple, normal inspection Respiratory: crackles (Few), No respiratory distress, No wheezing Cardiac/Chest: normal peripheral pulses, regular rate, rhythm, systolic murmur Peripheral Pulses: 2+: carotid (R), carotid (L), femoral (R), femoral (L), dorsalis-pedis (R), dorsalis-pedis (L) Abdomen: normal bowel sounds, non-tender, soft Pelvic Exam: deferred Rectal: deferred Skin: normal color, warm/dry Neuro/Psych: no motor/sensory deficits, alert, normal mood/affect, oriented x 3 ICD10 Worksheet Patient Problems: Problems Problem Status Onset S/P CABG x 4 Acute Anemia Chronic Coronary arteriosclerosis Chronic ESRD (end stage renal disease) on dialysis Chronic Hypertension Chronic Polycystic kidney disease Chronic Thrombocytopenia Chronic
[2017-02-25] MEDS: MUPIROCIN 2% 22 GM OINT NS SCH (09:02)
--- NOTE | 2017-02-25 11:00 | SOAPPROG ---
SOAP Progress Note Assessment/Plan: Assessment/Plan: ESRD: Pt last dialyzed yesterday. - Will do HD again today per routine, unclear how long she will tolerate HD from pain and cramping. - Plan for next HD on Tuesday, but if required can be done over the weekend, will monitor. Anemia: Hgb down to 6.9, getting transfused while on HD today. Hyperkalemia: will modulate further with dialysis. Hyponatremia: will modulate with dialysis. Subjective: Ms. Blanco has a lot of concerns this am getting onto dialysis. Pt states that she gets severe cramping and wants to walk around in the middle of treatment, as she is allowed to in her dialysis unit, she gets rinsed back and walked and then put back on. She also does not want to lay in bed, concerned the cramping will get worse, although sitting in chair her groin pain gets worse. She denies any dyspnea or chest pain currently. Objective: Vital Signs Temp Pulse Resp BP Pulse Ox 36.9 C 77 19 138/73 H 96 02/25/17 08:00 02/25/17 08:38 02/25/17 08:00 02/25/17 08:38 02/25/17 08:00 Laboratory Results 02/25/17 07:50 02/25/17 05:40 02/24/17 02/25/17 02/26/17 05:59 05:59 05:59 Intake Total 754.1 1350 Output Total 1274 265 Balance -519.9 1085 General: alert and oriented, no acute distress Eyes; EOMI, PERRL OP: Clear CV: RRR Resp: nonlabored respiraitons on NC Abd: Soft, NT/ND Ext: trace edema BLE Neuro: CN II-XII grossly intact, no asterixis Psych; cooperative, appropriate mood and affect Access: LUE AVF with thrill and bruit appreciated ICD10 Worksheet Patient Problems: Problems Problem Status Onset S/P CABG x 4 Acute Anemia Chronic Coronary arteriosclerosis Chronic ESRD (end stage renal disease) on dialysis Chronic Hypertension Chronic Polycystic kidney disease Chronic Thrombocytopenia Chronic
[2017-02-25 11:38] LABS: MAGNESIUM 2.1 mg/dL (1.6-2.3); POTASSIUM 4.1 mEq/L (3.5-5.2)
[2017-02-25] MEDS ORDERED: LORazepam 2 MG/ML INJ IVP ONE ×2 (11:45→16:20)
[2017-02-25] MEDS ORDERED: D10W 250 ML PRN HYPOGLYCEMIA IV (12:30)
[2017-02-25] MEDS ORDERED: AMIODARONE HCL 200 ML IV ONE (13:55)
[2017-02-25] MEDS ORDERED: AMIODARONE HCL 100 ML IV ONE (13:55)
--- NOTE | 2017-02-25 14:50 | ASMTCASEMG ---
Living Arrangements What is your living Answers: Alone arrangement? Who do you live with? Type Of Residence What kind of residence do Answers: House you live in? Discharge Plan Comments Coordination Status Comments Notes: Patient has coronary artery disease and was admitted for an elective CABG in anticipation of receiving a renal transplant. Dr. Ortega is surgeon. PT/OT/SPL have been ordered. Awaiting therapies to d/t d/c plan. CM will follow. Date Signed: 02/25/2017 02:49 PM Electronically Signed By:Lissett Mccoy
[2017-02-25] MEDS ORDERED: LORazepam 0.5 MG TAB PO PRN (16:00)
[2017-02-25 19:37] LABS: POTASSIUM 4.4 mEq/L (3.5-5.2)
[2017-02-25] MEDS ORDERED: AMIODARONE HCL 540 MG in D5W 300 ML IV ONE (20:00)
[2017-02-25] MEDS: LORazepam 2 MG/ML INJ IVP PRN (22:01)
[2017-02-25] MEDS: OXYCODONE/APAP 5/325 TAB PO PRN (22:34)
[2017-02-25] MEDS ORDERED: HALOPERIDOL LACT 5 MG/ML INJ IVP ONE (23:01)
[2017-02-26] MEDS: LORazepam 2 MG/ML INJ IVP PRN (04:04)
[2017-02-26] MEDS: OXYCODONE/APAP 5/325 TAB PO PRN (05:40)
[2017-02-26] MEDS ORDERED: HALOPERIDOL LACT 5 MG/ML INJ IVP ONE (05:45)
[2017-02-26 06:38] LABS: % IMMATURE GRANULYOCYTES 1.2 % (0.0-1.1); ABSOLUTE IMMATURE GRANULOCYTES 0.08 10^3/uL (0.00-0.10); ADD DIFF? NO; ADD MORPH? NO; ADD SCAN? NO; ATYPICAL LYMPHOCYTE FLAG 0 (0-99); FRAGMENT RBC FLAG 0 (0-99); HEMATOCRIT 29.3 % (38.0-47.0); HEMOGLOBIN 9.9 g/dL (12.6-16.3); LEFT SHIFT FLG 0 (0-99); LIPEMIA HEMOLYSIS FLAG 90 (0-99); MEAN CELL HEMOGLOBIN 32.1 pg (27.9-34.1); MEAN CELL HEMOGLOBIN CONCENTR. 33.8 g/dL (32.4-36.7); MEAN CELL VOLUME 95.1 fL (81.5-99.8); MEAN PLATELET VOLUME 11.2 fL (8.7-11.7); PLATELET CLUMPS FLAG 10 (0-99); PLATELET COUNT 77 10^3/uL (150-400); RED BLOOD CELL COUNT 3.08 10^6/uL (4.18-5.33); RED CELL DISTRIBUTION WIDTH 17.2 % (11.5-15.2)
[2017-02-26 06:55] LABS: ALANINE AMINOTRANSFERASE 21 IU/L (9-52); ALBUMIN 3.2 g/dL (3.5-5.0); ALKALINE PHOSPHATASE 66 IU/L (38-126); ANION GAP 15 mEq/L (8-16); ASPARTATE AMINOTRANSFERASE 40 IU/L (14-46); BILIRUBIN,TOTAL 0.8 mg/dL (0.1-1.4); BILIRUBIN-CONJUGATED 0.7 mg/dL (0.0-0.5); BILIRUBIN-UNCONJUGATED 0.1 mg/dL (0.0-1.1); CALCIUM 9.4 mg/dL (8.5-10.4); CARBON DIOXIDE 22 mEq/l (22-31); CHLORIDE 95 mEq/L (97-110); CREATININE 5.3 mg/dL (0.6-1.0); GLOMERULAR FILTRATION RATE 8; GLUCOSE 104 mg/dL (70-100); POTASSIUM 4.8 mEq/L (3.5-5.2); SODIUM 132 mEq/L (134-144); TOTAL PROTEIN 5.1 g/dL (6.3-8.2)
[2017-02-26] MEDS ORDERED: OXYCODONE/APAP 5/325 TAB PO PRN (09:22)
--- NOTE | 2017-02-26 09:27 | SOAPPROG ---
SOAP Progress Note Assessment/Plan: Assessment: POD#3 CABG x 4 (BOB-LAD, SV-D1, SV-LCX, SV-RCA), EVH LLE, prophylactic AtriClip ligation left atrial appendage Dialysis access LUE AVF Asx CAD - Discovered during cardiac clearance (abnl MPI/nuc) for kidney transplant listing. Full revascularization achieved w CABG. Extubated in the OR. No prolonged vasoactive gtts, dysrhythmias, or backup pacing. Secondary prevention with ASA, BB as tolerated, and statin when eating well. Acute expected blood loss anemia with thrombocytopenia and coagulopathy - Baseline Hct 27, plt 70s range. Procrit on HD. Surgical coagulopathy corrected with 7u PRBC and 1u platelets. No evidence active bleeding. VTE prophylaxis with ASA and SCDs. Postop PAF - Onset during dialysis yest. SR restored on amio. Adjunctive BB uptitrated as tolerated. High threshold for DOAC as DAVID excluded. Postop acute encephalopathy - Agitation and confusion of unclear etiology. ETOH use denied. No focal neurologic deficits or metabolic derangements. Responsive to anxiolytics. HTN - Controlled on combination therapy. Early postop control with nicardipine. Transition back to labetalol and norvasc in progress. Mild-moderate MS/MR - Significant MAC. Surveillance per cards. ESRD/PKD - Dialyzed intraop. No significant volume overload. Nephrology following. Tobacco abuse - 1/2 ppd, 25 pk yr hx, quitting 2 wks ago. Nl PFTs in Jul 2015. Nebs and mucolytics prn. Plan: Change to scheduled lorazepam. Add Haldol prn severe agitation. Remove jodie drains. Clip Vwires. Cont IV maintenance amio until improved po. Switch metoprolol to 1/3 home dose labetalol. Resume Norvasc 10 mg daily. Bowel regimen. HD MWF. Dispo - Anticipate SNF after HD on Tue02/26/17 09:22 Subjective: Calm and cooperative. Light activity well tolerated. Still no appetite. Objective: Vital Signs Temp Pulse Resp BP Pulse Ox 36.8 C 69 14 167/58 H 97 02/26/17 07:43 02/26/17 07:43 02/26/17 07:43 02/26/17 07:43 02/26/17 07:43 Laboratory Results 02/26/17 06:20 02/26/17 06:22 02/25/17 02/26/17 02/27/17 05:59 05:59 05:59 Intake Total 1350 300.4 Output Total 265 320 Balance 1085 -19.6 Intermittent agitation and combativeness, worse in evening. Haldol used with good effect. Brief AF, holding SR since yest pm. Upward trending BP. Min suppl O2. CTOP at removal criteria. CXR-> hypovent, bibasilar atelectasis L>R. Labs, incl LFTs, ok. - Pending Discharge Pending Discharge Within 48 Hours: Yes Pending Discharge Date: 02/28/17 Pending Discharge Time: 11:00 Physical Exam - Physical Exam General Appearance: alert, no apparent distress Respiratory: crackles (diffuse), other (Blakes x 2 to bulb suction, thin serosang drainage) Cardiac/Chest: regular rate, rhythm, other (Sternum grossly stable. Sternotomy and LLE venotomy CDI. Vwires intact.) Abdomen: normal bowel sounds, non-tender, distended Skin: warm/dry Extremities: swelling (trace) ICD10 Worksheet Patient Problems: Problems Problem Status Onset Paroxysmal atrial fibrillation Acute S/P CABG x 4 Acute Anemia Chronic Coronary arteriosclerosis Chronic ESRD (end stage renal disease) on dialysis Chronic Hypertension Chronic Polycystic kidney disease Chronic Thrombocytopenia Chronic
[2017-02-26] MEDS: ASPIRIN 81 MG CHEWABLE TAB PO SCH (09:31)
[2017-02-26] MEDS: PANTOPRAZOLE SODIUM 40 MG TAB PO SCH (09:31)
[2017-02-26] MEDS: METOPROLOL TARTRATE 25 MG TAB PO SCH (09:34)
[2017-02-26] MEDS: SENNOSIDES/DOCUSATE SODIUM TAB PO SCH ×2 (09:36→22:14)
[2017-02-26] MEDS ORDERED: HALOPERIDOL LACT 5 MG/ML INJ IVP PRN (10:00)
[2017-02-26] MEDS ORDERED: LORazepam 0.5 MG TAB PO SCH (10:00)
[2017-02-26] MEDS: traMADol 50 MG TAB PO PRN (11:40)
[2017-02-26] MEDS ORDERED: IPRATROPIUM/ALBUTEROL 3 ML DEYVIAL IH PRN (12:20)
[2017-02-26] MEDS ORDERED: IPRATROPIUM/ALBUTEROL 3 ML DEYVIAL ONE (12:30)
--- NOTE | 2017-02-26 14:59 | SOAPPROG ---
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 She denies any cp , n/v. Some SOB but O2 sats ok. RN tells me she was ambulating and eating ok earlier. Drains removed. Objective: Vital Signs Temp Pulse Resp BP Pulse Ox 36.5 C 65 17 153/58 H 100 02/26/17 12:00 02/26/17 12:42 02/26/17 12:42 02/26/17 12:00 02/26/17 12:42 Laboratory Results 02/26/17 06:20 02/26/17 06:22 02/25/17 02/26/17 02/27/17 05:59 05:59 05:59 Intake Total 1350 300.4 250 Output Total 265 320 Balance 1085 -19.6 250 Physical Exam - Physical Exam General Appearance: no apparent distress, other (on O2 by NC) Neck: supple Respiratory: crackles (bases bilat) Cardiac/Chest: regular rate, rhythm Abdomen: non-tender, soft Extremities: other (no edema) Neuro/Psych: alert, oriented x 3 ICD10 Worksheet Patient Problems: Problems Problem Status Onset Paroxysmal atrial fibrillation Acute S/P CABG x 4 Acute Anemia Chronic Coronary arteriosclerosis Chronic ESRD (end stage renal disease) on dialysis Chronic Hypertension Chronic Polycystic kidney disease Chronic Thrombocytopenia Chronic
--- NOTE | 2017-02-26 15:32 | ASMTCMCOM ---
CM Note CM Note Notes: Reviewed chart, spoke w/RN and met w/patient. Per Milena Heck (Jordan SMITH) note plan for SNF d/c on Tuesday. Discussed w/patient. Pt expressed preference for [place] facilities in order to continue dialysis in [place]. Case management faxed referrals to the following [facility]: [facility], [facility], [facility]. In addition, faxed referral to [facility] [place]. Case management will follow. Date Signed: 02/26/2017 03:32 PM Electronically Signed By:Jaquelin Garcia
[2017-02-26] MEDS ORDERED: LORazepam 0.5 MG TAB PO PRN (17:39)
[2017-02-26] MEDS: LORazepam 0.5 MG TAB PO SCH (17:44)
[2017-02-26] MEDS: Sevelamer Carbonate [Renvela] 800 MG PO SCH (18:24)
[2017-02-26] MEDS: CALCIUM ACETATE 667 MG CAP PO SCH (18:35)
[2017-02-26 19:19] LABS: POTASSIUM 5.1 mEq/L (3.5-5.2)
[2017-02-26] MEDS: LABETALOL HCL 100 MG TAB PO SCH (22:13)
[2017-02-27] MEDS: LORazepam 0.5 MG TAB PO SCH ×4 (00:30→21:06)
[2017-02-27 06:36] LABS: HEMATOCRIT 28.7 % (38.0-47.0); HEMOGLOBIN 9.7 g/dL (12.6-16.3)
[2017-02-27 06:56] LABS: ALBUMIN 2.9 g/dL (3.5-5.0); ANION GAP 14 mEq/L (8-16); CALCIUM 9.3 mg/dL (8.5-10.4); CARBON DIOXIDE 23 mEq/l (22-31); CHLORIDE 93 mEq/L (97-110); CREATININE 6.5 mg/dL (0.6-1.0); GLOMERULAR FILTRATION RATE 6; GLUCOSE 87 mg/dL (70-100); POTASSIUM 5.2 mEq/L (3.5-5.2); SODIUM 130 mEq/L (134-144)
--- NOTE | 2017-02-27 07:37 | SOAPPROG ---
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 Denies cp. Occasional SOB sensation but O2 sats ok. Sitting up in chair, ate breakfast ok. Objective: Vital Signs Temp Pulse Resp BP Pulse Ox 36.5 C 68 14 162/72 H 98 02/27/17 07:03 02/27/17 07:03 02/27/17 07:03 02/27/17 07:03 02/27/17 07:03 Laboratory Results 02/27/17 06:20 02/27/17 06:20 02/26/17 02/27/17 02/28/17 05:59 05:59 05:59 Intake Total 300.4 700 Output Total 320 Balance -19.6 700 Physical Exam - Physical Exam General Appearance: no apparent distress, other (sitting in chair) EENT: other Neck: other (RIJ central line) Respiratory: lungs clear Cardiac/Chest: regular rate, rhythm, other (sternal incision c/d/i) Abdomen: non-tender, soft Skin: warm/dry Extremities: other (trace LE edema, AVF +thrill.bruit) Neuro/Psych: alert, oriented x 3 ICD10 Worksheet Patient Problems: Problems Problem Status Onset Paroxysmal atrial fibrillation Acute S/P CABG x 4 Acute Anemia Chronic Coronary arteriosclerosis Chronic ESRD (end stage renal disease) on dialysis Chronic Hypertension Chronic Polycystic kidney disease Chronic Thrombocytopenia Chronic
[2017-02-27] MEDS: PANTOPRAZOLE SODIUM 40 MG TAB PO SCH (07:57)
[2017-02-27] MEDS: FERROUS SULFATE 325 MG TAB PO SCH (07:57)
[2017-02-27] MEDS: ASPIRIN 81 MG CHEWABLE TAB PO SCH (07:58)
[2017-02-27] MEDS: SENNOSIDES/DOCUSATE SODIUM TAB PO SCH ×2 (07:58→21:06)
[2017-02-27] MEDS: LABETALOL HCL 100 MG TAB PO SCH (07:58)
[2017-02-27] MEDS: AMIODARONE HCL 200 MG TAB PO SCH (07:58)
[2017-02-27] MEDS: Sevelamer Carbonate [Renvela] 800 MG PO SCH (07:59)
[2017-02-27] MEDS: CALCIUM ACETATE 667 MG CAP PO SCH ×3 (07:59→21:10)
--- NOTE | 2017-02-27 08:17 | SOAPPROG ---
SOAP Progress Note Assessment/Plan: Assessment: POD#4 CABG x 4 (BOB-LAD, SV-D1, SV-LCX, SV-RCA), EVH LLE, prophylactic AtriClip ligation left atrial appendage Dialysis access LUE AVF Asx CAD - Discovered during cardiac clearance (abnl MPI/nuc) for kidney transplant listing. Full revascularization achieved w CABG. Extubated in the OR. No prolonged vasoactive gtts, dysrhythmias, or backup pacing. Secondary prevention with ASA, statin and BB uptitrated as tolerated. Acute expected blood loss anemia with thrombocytopenia and coagulopathy - Baseline Hct 27, plt 70s range. Procrit on HD. Surgical coagulopathy corrected with 7u PRBC and 1u platelets. No evidence active bleeding. VTE prophylaxis with ASA and SCDs. Postop PAF - Onset during dialysis on POD#2. SR promptly restored on amio. Holding SR on adjunctive BB. High threshold for DOAC as DAVID excluded. Postop acute encephalopathy - Agitation and confusion of unclear etiology. ETOH use denied. No focal neurologic deficits or metabolic derangements. Responsive to anxiolytics. HTN - Controlled on combination therapy. Early postop control with nicardipine. Transition back to home doses labetalol and norvasc in progress. Mild-moderate MS/MR - Significant MAC. Surveillance per cards. ESRD/PKD - Dialyzed intraop. No significant volume overload. Nephrology following. Tobacco abuse - 1/2 ppd, 25 pk yr hx, quitting 2 wks ago. Nl PFTs in Jul 2015. Nebs and mucolytics prn. Plan: Cont scheduled lorazepam. Cont Haldol prn severe agitation. Cont Amio 200 mg daily. Cont Norvasc 10 mg daily. Inc labetalol to 2/3 home dose. Start lipitor. HD MWF. Dispo - Anticipate SNF ([facility]) after HD on 02/27/17 08:14 Subjective: Up and about this am with good stamina. Pulling 1000 on IS. Roommate helping her decide on best SNF location. Objective: Vital Signs Temp Pulse Resp BP Pulse Ox 36.5 C 68 14 162/72 H 98 02/27/17 07:03 02/27/17 07:03 02/27/17 07:03 02/27/17 07:03 02/27/17 07:03 Laboratory Results 02/27/17 06:20 02/27/17 06:20 02/26/17 02/27/17 02/28/17 05:59 05:59 05:59 Intake Total 300.4 700 Output Total 320 Balance -19.6 700 HR and rhythm stable. SBP remains elev on CCB and inc BB. Suppl O2 needs resolving. Labs ok. - Pending Discharge Pending Discharge Within 24 Hours: Yes Pending Discharge Date: 02/28/17 Pending Discharge Time: 11:00 Physical Exam - Physical Exam General Appearance: alert, no apparent distress Respiratory: decreased breath sounds (bases) Cardiac/Chest: regular rate, rhythm, other (Sternum grossly stable. Sternotomy and LLE venotomy CDI) Abdomen: normal bowel sounds Skin: warm/dry Extremities: other (no visible edema) ICD10 Worksheet Patient Problems: Problems Problem Status Onset Paroxysmal atrial fibrillation Acute S/P CABG x 4 Acute Anemia Chronic Coronary arteriosclerosis Chronic ESRD (end stage renal disease) on dialysis Chronic Hypertension Chronic Polycystic kidney disease Chronic Thrombocytopenia Chronic
[2017-02-27] MEDS ORDERED: LABETALOL HCL 100 MG TAB PO ONE (09:00)
[2017-02-27] MEDS: SEVELAMER HCL 800 MG TAB PO SCH ×4 (12:28→21:06)
[2017-02-27] MEDS ORDERED: LABETALOL HCL 100 MG TAB ONE (12:32)
[2017-02-27 18:43] LABS: POTASSIUM 5.1 mEq/L (3.5-5.2)
[2017-02-27] MEDS ORDERED: LABETALOL HCL 200 MG TAB PO SCH (21:00)
[2017-02-27] MEDS: ATORVASTATIN CALCIUM 10 MG TAB PO SCH (21:06)
[2017-02-28 03:43] LABS: POTASSIUM 5.4 mEq/L (3.5-5.2)
--- NOTE | 2017-02-28 07:34 | SOAPPROG ---
SOAP Progress Note Assessment/Plan: POD#5 CABG x 4 (BOB-LAD, SV-D1, SV-LCX, SV-RCA), EVH LLE, prophylactic AtriClip ligation left atrial appendage Dialysis access LUE AVF Asx CAD - Discovered during cardiac clearance (abnl MPI/nuc) for kidney transplant listing. Full revascularization achieved w CABG. Extubated in the OR. No prolonged vasoactive gtts, dysrhythmias, or backup pacing. Secondary prevention with ASA, BB as tolerated, and statin when eating well. Acute expected blood loss anemia with thrombocytopenia and coagulopathy - Surgical coagulopathy corrected with 7u PRBC and 1u platelets. No evidence active bleeding. VTE prophylaxis with ASA and SCDs. Postop acute encephalopathy - Resolved. HTN - Controlled on combination therapy. Mild-moderate MS/MR - Significant MAC. Surveillance per cards. ESRD/PKD - Dialyzed intraop. Nephrology following. Tobacco abuse - 1/2 ppd, 25 pk yr hx, quitting 2 wks ago. Nl PFTs in Jul 2015. Subjective: No complaints. Would like to be discharfed today after HD. Objective: Vital Signs Temp Pulse Resp BP Pulse Ox 36.7 C 75 20 160/80 H 94 02/28/17 04:00 02/28/17 04:00 02/28/17 04:00 02/28/17 04:00 02/28/17 04:00 Laboratory Results 02/27/17 06:20 02/28/17 03:25 02/27/17 02/28/17 03/01/17 05:59 05:59 05:59 Intake Total 700 300 Balance 700 300 Physical Exam - Physical Exam General Appearance: WD/WN, alert, no apparent distress EENT: No scleral icterus (R), No scleral icterus (L) Neck: normal inspection Respiratory: No respiratory distress Cardiac/Chest: regular rate, rhythm Abdomen: non-tender, soft, No distended Skin: normal color, warm/dry Extremities: No pedal edema Neuro/Psych: no motor/sensory deficits, alert, normal mood/affect, oriented x 3 ICD10 Worksheet Patient Problems: Problems Problem Status Onset Paroxysmal atrial fibrillation Acute S/P CABG x 4 Acute Anemia Chronic Coronary arteriosclerosis Chronic ESRD (end stage renal disease) on dialysis Chronic Hypertension Chronic Polycystic kidney disease Chronic Thrombocytopenia Chronic
[2017-02-28] MEDS: CALCIUM ACETATE 667 MG CAP PO SCH ×3 (09:28→16:27)
[2017-02-28] MEDS: AMIODARONE HCL 200 MG TAB PO SCH (09:29)
[2017-02-28] MEDS: ASPIRIN 81 MG CHEWABLE TAB PO SCH (09:29)
[2017-02-28] MEDS: SENNOSIDES/DOCUSATE SODIUM TAB PO SCH ×2 (09:30→20:18)
--- NOTE | 2017-02-28 10:08 | SOAPPROG ---
SOAP Progress Note Assessment/Plan: Assessment: 1)ESRD- HD MWF -Next HD today 2)s/p CABG- progressing well, encouraged IS use 3)Anemia of CKD -s/p PRBCS with HD Tuesday -will give Epo with HD Tuesday 4)MBD of CKD -renal diet, on binder -phos high- ensure Ca Acetate given with meals and renal diet (I discussed with RN) 5)Anxiety -discussed with RN, she is taking low dose ativan which is helping- improved and discussed with RN changing it to prn use now 6)mild hyperK- -ensure renal diet- I reviewed with RN as well 7)HTN -improved on home meds- i will defer to cards for management given recent CABG Alyssia Cage MD [facility] [phone] pager 02/28/17 10:15 Subjective: Sitting in chair, looks much better today. No BM and plans to try now. Thinks breathing much better. No cp. Nursing reports anxiety better, much calmer. Objective: Vital Signs Temp Pulse Resp BP Pulse Ox 36.7 C 69 20 161/58 H 97 02/28/17 04:00 02/28/17 08:00 02/28/17 08:00 02/28/17 08:00 02/28/17 08:00 Laboratory Results 02/27/17 06:20 02/28/17 03:25 02/27/17 02/28/17 03/01/17 05:59 05:59 05:59 Intake Total 700 300 Balance 700 300 Physical Exam - Physical Exam General Appearance: no apparent distress, other (looks much better, sitting in chair) EENT: other (mmm) Neck: supple, other (RIJ triple lumen c/d/i) Respiratory: other (crackles base bilat) Cardiac/Chest: regular rate, rhythm, other (incision c/d/i) Abdomen: normal bowel sounds, non-tender, soft Extremities: other (AVF +thrill/bruit) Neuro/Psych: alert, oriented x 3 ICD10 Worksheet Patient Problems: Problems Problem Status Onset Paroxysmal atrial fibrillation Acute S/P CABG x 4 Acute Anemia Chronic Coronary arteriosclerosis Chronic ESRD (end stage renal disease) on dialysis Chronic Hypertension Chronic Polycystic kidney disease Chronic Thrombocytopenia Chronic
[2017-02-28] MEDS: PANTOPRAZOLE SODIUM 40 MG TAB PO SCH (10:10)
[2017-02-28] MEDS: SEVELAMER HCL 800 MG TAB PO SCH (10:10)
[2017-02-28] MEDS: LORazepam 0.5 MG TAB PO SCH (10:11)
[2017-02-28] MEDS: ASCORBIC ACID 500 MG TAB PO SCH (10:11)
[2017-02-28] MEDS ORDERED: EPOETIN ALFA 10,000 UNIT/ML VIAL SC SCH ×2 (10:30→15:30)
[2017-02-28] MEDS ORDERED: LORazepam 0.5 MG TAB PO PRN (11:51)
--- NOTE | 2017-02-28 12:43 | ASMTCMCOM ---
CM Note CM Note Notes: Spoke with [facility] who confirmed that they will be able to take patient on Tuesday. They said because patient is getting dialysis and they would not be able to get her until later today they felt that Tuesday would be preferable. She also said they would be better staffed on Tuesday. Case management will continue to follow. Date Signed: 02/28/2017 12:42 PM Electronically Signed By:Kym Hurst
[2017-02-28] MEDS: LABETALOL HCL 200 MG TAB PO SCH ×2 (15:02→20:19)
[2017-02-28] MEDS: ATORVASTATIN CALCIUM 10 MG TAB PO SCH (20:18)
[2017-03-01 04:29] VITALS: O2SAT 94
[2017-03-01 06:02] LABS: ALBUMIN 2.7 g/dL (3.5-5.0); ANION GAP 12 mEq/L (8-16); CALCIUM 9.1 mg/dL (8.5-10.4); CARBON DIOXIDE 23 mEq/l (22-31); CHLORIDE 96 mEq/L (97-110); CREATININE 6.1 mg/dL (0.6-1.0); GLOMERULAR FILTRATION RATE 7; GLUCOSE 92 mg/dL (70-100); POTASSIUM 4.4 mEq/L (3.5-5.2); SODIUM 131 mEq/L (134-144)
[2017-03-01 08:00] VITALS: BP 161/55; PULSE 74; RESP 15; TEMP 97.5
[2017-03-01] MEDS: ACETAMINOPHEN 325 MG TAB PO PRN (08:11)
--- NOTE | 2017-03-01 08:53 | PDIAF ---
- Diagnosis Diagnosis: CAD s/p CABG, postop PAF, postop deirium/anxiety, ESRD on HD M,W,F Code Status: Full Code - Medication Management Discharge Medications: Medications to Continue on Transfer amLODIPine BESYLATE [Norvasc 10 mg (*)] 10 mg PO DAILY 12/29/15 [Last Taken ] Ascorbic Acid [Vitamin C 500 mg (*)] 500 mg PO DAILY 07/27/16 [Last Taken Unknown] Sevelamer Carbonate [Renvela] 800 mg PO BIDMEAL 07/27/16 [Last Taken 02/22/17] Ferrous Sulfate [Ferrous Sulf 325 MG (*)] 325 mg PO Q48H 02/15/17 [Last Taken ] Calcium Acetate [Phoslo (*)] 4 cap PO TIDMEAL 02/26/17 [Last Taken Unknown] Labetalol HCl [Trandate 200 mg (*)] 300 mg PO BID 02/26/17 [Last Taken Unknown] Acetaminophen [Tylenol 325mg (*)] 325 - 650 mg PO Q4HRS PRN #0 tab 02/28/17 [ Last Taken Unknown] Amiodarone HCl [Pacerone (*)] 200 mg PO DAILY #0 tab 02/28/17 [Last Taken Unknown] Aspirin [Aspirin 81mg (*)] 81 mg PO DAILY #0 tab.chew 02/28/17 [Last Taken Unknown] Atorvastatin Calcium [Lipitor 10 mg (*)] 10 mg PO HS #0 tab 02/28/17 [Last Taken Unknown] Epoetin Milind [Procrit 59920 UNIT/ML (*)] 5,000 unit SC Q7D #0 vial 02/28/17 [ Last Taken Unknown] LORazepam [Ativan (*)] 0.5 mg PO BID PRN #0 tab 02/28/17 [Last Taken Unknown] Discharge Medications: Refer to the Discharge Home Medication list for PRN reason. PICC Care - Routine: N/A - Orders Services needed: Registered Nurse (cardiorespiratory monitoring), Physical Therapy (sternal precautions x 3 more weeks), Occupational Therapy (functional mobility) Oxygen: 1-2 Lpm continuously or as directed by SpO2; titrate to sat > 89% Diet Recommendation: potassium restricted, cardiac -low fat low salt Diet Texture: Regular Texture Diet, Thin Liquids, Meds Whole in Puree Wound Care Instructions: Daily soap and water. Ok to leave all wounds open to air. Avoid underwater immersion until scabs off. Avoid ointments until scabs off Activity/Weight Bearing Restrictions: Avoid lifting > 10 lbs with an outstretched arm. Avoid push pull activities Additional: No BPs LUE (AV fistula). Call [facility] ([place]) for resting HR < 60 or > 120, SBP < 88 or > 180, or any wound concerns. Call trauma coordinator ( [facility]) for any labwork questions or fistula concerns. - Labs/Radiology Imaging Orders: CXR prior to surgical appt. Please budget 30 min for radiology dept. - Follow Up Care Current Providers and Referrals: Deidre Mahajan MD [Primary Care Provider] - Chan Ortega DO [Doctor of Osteopathy] - 03/08/17 10:00 am Ced Rivera MD [Medical Doctor] - (Follow up in 6 weeks. Appointment to be established during surgical visit)
[2017-03-01] MEDS: LABETALOL HCL 200 MG TAB PO SCH (09:42)
[2017-03-01] MEDS: CALCIUM ACETATE 667 MG CAP PO SCH (09:42)
[2017-03-01] MEDS: AMIODARONE HCL 200 MG TAB PO SCH (09:42)
[2017-03-01] MEDS: ASCORBIC ACID 500 MG TAB PO SCH (09:42)
[2017-03-01] MEDS: ASPIRIN 81 MG CHEWABLE TAB PO SCH (09:43)
[2017-03-01] MEDS: PANTOPRAZOLE SODIUM 40 MG TAB PO SCH (09:43)
[2017-03-01] MEDS: SENNOSIDES/DOCUSATE SODIUM TAB PO SCH (09:43)
[2017-03-01] MEDS: FERROUS SULFATE 325 MG TAB PO SCH (09:43)
--- NOTE | 2017-03-01 12:51 | SOAPPROG ---
CINTHYA Progress Note Assessment/Plan: Assessment:Plan: ESRD-Hd MWF at [facility] [phone] -next Hd tomorrow as outpatient -she will get transportation from [facility] to there -DC reviewed Volume overload-after CABG -UF as tolerated Access-stable Anemia-on EPO -she will get this at the dialysis unit, so she does not need to have that given at Rehab HTN-should get better as her volume status normalizes Anxiety-chronic issue -she appears to be doing pretty well right now 03/01/17 12:51 Subjective: stable overnite Objective: Vital Signs Temp Pulse Resp BP Pulse Ox 36.4 C 74 15 161/55 H 94 03/01/17 07:55 03/01/17 07:55 03/01/17 07:55 03/01/17 07:55 03/01/17 07:55 Laboratory Results 02/27/17 06:20 03/01/17 05:25 02/28/17 03/01/17 03/02/17 05:59 05:59 05:59 Intake Total 300 500 Output Total 300 Balance 300 200 Physical Exam - Physical Exam General Appearance: alert, no apparent distress EENT: normal ENT inspection Neck: normal inspection Respiratory: decreased breath sounds (1/4 at bases bilaterally), No respiratory distress Cardiac/Chest: regular rate, rhythm, No diastolic murmur, No systolic murmur Abdomen: normal bowel sounds, non-tender, soft, distended, other (PCKD) Skin: other (bruising in LLE) Extremities: swelling (into thighs) Neuro/Psych: alert, normal mood/affect (at baseline) ICD10 Worksheet Patient Problems: Problems Problem Status Onset Paroxysmal atrial fibrillation Acute S/P CABG x 4 Acute Anemia Chronic Coronary arteriosclerosis Chronic ESRD (end stage renal disease) on dialysis Chronic Hypertension Chronic Polycystic kidney disease Chronic Thrombocytopenia Chronic
--- NOTE | 2017-03-01 16:48 | PDDCSUM ---
Discharge Summary Discharge Summary: DATE OF ADMISSION: 02/23/17 DATE OF DISCHARGE: 03/01/17 DISPOSITION: Transferred to [facility] PRINCIPAL DISCHARGE DIAGNOSES: 1. Severe multivessel coronary artery disease treated with coronary artery bypass grafting x 4 2. Acute on chronic anemia 3. Acute on chronic thrombocytopenia 4. Postoperative paroxysmal atrial fibrillation 5. Postoperative confusional state attributed to hyperactive delirium FOLLOW UP APPOINTMENTS: 1. CV surgery: with Dr Ortega at [facility] on 03/08 at 10am. 2. Cardiology: with Dr Rivera at [facility] within 4-6 weeks. Appointment to be established during surgical visit. FOLLOW UP TESTING: CXR prior to surgical appointment ALLERGIES/SENSITIVITIES: NKDA DISCHARGE MEDICATIONS: see medical administration record for full details Essentially as on admission (Vit C, Renvela, Phoslo, ferrous sulfate, labetalol , amlodipine)with the following adjustments: 1. Hold Lisinopril 40 mg BID 2. Decrease Epogen to 5,000 units q7d on HD NEW prescriptions: 1. ASA 81 mg daily 2. Lipitor 10 mg daily or as directed by cardiology 3. Amiodarone 200 mg daily thru 03/13/17 4. Lorazepam 0.5 mg BID prn anxiety 5. O2 continuously at 1-2 Lpm, or as directed by SpO2. CONSULTANTS: Nephrology (Patricia), Pulmonology/critical care (Jose) PROCEDURES/IMAGIN/30 ([place]): Coronary artery bypass grafting x 4 (BOB-LAD, SV-D1, SV-LCX, SV- RCA). Takedown left internal mammary artery. EVH left thigh. Prophylactic AtriClip ligation of the left atrial appendage. HISTORY OF PRESENT ILLNESS: 76 yo female with ESRD, discovered during cardiac clearance for kidney transplant listing to have severe multivessel CAD. No associated LVSD or significant valvular dysfunction. Admitted for elective surgical revascularization. PERTINENT PAST MEDICAL HISTORY: ESRD/polycystic kidney disease, secondary hyperparathyroidism, anemia of chronic disease, chronic thrombocytopenia, multiple revisions of AV fistula, severe mitral annular calcification with mild to moderate MS and MR, HTN, tobacco abuse, chronic anxiety ABBREVIATED HOSPITAL COURSE BY ACTIVE PROBLEM LIST: 1. Asx CAD with preserved LV systolic fx - Full revascularization achieved w CABG. Extubated in the OR. Hemodynamically stable postop course. Secondary prevention with ASA, BB, and statin. Skilled by PT for SNF rehab to regain functional mobility. 2. Acute expected blood loss anemia with thrombocytopenia and coagulopathy - Baseline Hct 27, plt 70s range. Surgical coagulopathy expected and corrected with 7u PRBC and 1u platelets. Adjustments to Procrit dose made by nephrology. Iron supplement resumed. 3. Postop PAF - Onset during dialysis on POD#2. SR promptly restored on amio. Sufficient BP to escalate BB back to home dosage. High threshold for DOAC as DAVID excluded. 4. Postop acute encephalopathy - Fluctuating agitation and confusion early postop. ETOH use denied. No focal neurologic deficits, metabolic derangements, or evidence of infection. Responsive to haldol, lorazepam, reorientation and sleep. Presumed delirium. SNF rehab to enforce sternal precautions. 5. HTN - Controlled on combination therapy. Staggered reintroduction of home meds. Insufficient BP for ACEI. 6. ESRD/LUE AVF - Dialyzed intraop. No significant volume overload. Postop HD directed by nephrology. To resume dialysis at [facility] 03/02/17. 7. Tobacco abuse - 1/2 ppd, 25 pk yr hx, quitting 2 wks ago. Nl PFTs in Jul 2015. No postop need for bronchodilators or mucolytics.
== END 2017-03-01 14:30 | DRG 235 ==
LOC: F3N 05:50 → F2N 11:23 → F2W 02-25 14:55
PROVIDERS: ADMIT Thoracic Surgery (Cardiothoracic Vascular Surgery); ATTEND Thoracic Surgery (Cardiothoracic Vascular Surgery)
PROC: 5A1D00Z (ICD-10-PCS; principal; 2017-02-23 07:15)
PROC: 021209W Bypass Coronary Artery, Three Arteries from Aorta with Autologous Venous Tissue, Open Approach (ICD-10-PCS; principal; 2017-02-23 07:15)
PROC: 02100Z9 Bypass Coronary Artery, One Artery from Left Internal Mammary, Open Approach (ICD-10-PCS; principal; 2017-02-23 07:15)
PROC: 02L70CK Occlusion of Left Atrial Appendage with Extraluminal Device, Open Approach (ICD-10-PCS; principal; 2017-02-23 07:15)
PROC: 5A1221Z Performance of Cardiac Output, Continuous (ICD-10-PCS; principal; 2017-02-23 07:15)
PROC: 06BQ0ZZ Excision of Left Saphenous Vein, Open Approach (ICD-10-PCS; principal; 2017-02-23 07:15)
DX: I25.10 Atherosclerotic heart disease of native coronary artery without angina pectoris (principal); N18.6 End stage renal disease; D62 Acute posthemorrhagic anemia; Q61.2 Polycystic kidney, adult type; G93.40 Encephalopathy, unspecified; I48.0 Paroxysmal atrial fibrillation; E87.5 Hyperkalemia; E87.1 Hypo-osmolality and hyponatremia; I34.0 Nonrheumatic mitral (valve) insufficiency; N25.81 Secondary hyperparathyroidism of renal origin; D69.6 Thrombocytopenia, unspecified; F41.9 Anxiety disorder, unspecified; D63.1 Anemia in chronic kidney disease; J44.9 Chronic obstructive pulmonary disease, unspecified; F17.210 Nicotine dependence, cigarettes, uncomplicated; Z99.2 Dependence on renal dialysis
CPT/HCPCS: 82947-QW; 86704-90; 92507-GN; 92523-GN; 92526-GN; 92610-GN; 97116-GP; 97161-GP; 97166-GO; 97530-GP; 97535-GO; G8978-GP-CK; G8979-GP-CI; G8987-GO-CL; G8988-GO-CI; G8996-GN-CI; G8997-GN-CI; G9165-GN-CK; G9166-GN-CK; G9167-GN-CK; J0153; J0171; J0282; J0330; J0690; J0885; J1265; J1644; J1815; J1885; J2001; J2060; J2150; J2250; J2260; J2370; J2440; J2704; J2710; J2720; J2930; J3010; J7060; P9016; P9035; P9041

== ENCOUNTER → 2017-03-08 | Outpatient (CLI) | payer OTHER, MEDICARE | LOC: FIMAGING 09:50 | PROVIDERS: ATTEND Thoracic Surgery (Cardiothoracic Vascular Surgery) | DX: J98.11 Atelectasis (principal); Z98.890 Other specified postprocedural states; Z86.79 Personal history of other diseases of the circulatory system ==

== ENCOUNTER → 2017-03-14 | Outpatient (CLI) | payer OTHER, MEDICARE | LOC: FIMAGING 08:14 | PROVIDERS: ATTEND Ophthalmology | DX: I70.8 Atherosclerosis of other arteries (principal); I10 Essential (primary) hypertension; F17.200 Nicotine dependence, unspecified, uncomplicated ==

== ENCOUNTER 2017-07-13 18:38 | Inpatient (IN) | payer OTHER, MEDICARE ==
[2017-07-13] MEDS ORDERED: IPRATROPIUM/ALBUTEROL 3 ML DEYVIAL IH ONE (19:18)
--- NOTE | 2017-07-13 19:29 | EDPHY ---
H & P Stated Complaint: Sob with extertion Time Seen by Provider: 07/13/17 19:05 HPI/ROS: CHIEF COMPLAINT: Dyspnea HISTORY OF PRESENT ILLNESS: The patine is a 76 y/o female with recent bilateral nephrectomy (May 2017) and CABGx4 (January 2017) complaining of worsening shortness of breath over the last couple days. She's had shortness of breath for many months that seemed to worsen after her CABG in January 2017, about 6 months ago. On Tuesday, she was extremely short of breath walking around her house and felt chilled like she had a fever. She continued to feel short of breath yesterday and today, but her chills resolved. After dialysis today she felt wheezy and her friend brought her to the ED for evaluation. She does not use home O2. She also notes her right upper shoulder developed a fluid collection after having the blood pressure cuff on it for 3 hours at dialysis. Patient did have her typical and usual dialysis today. She has baseline decreased appetite, occasional leg swelling before dialysis, and baseline rhinorrhea. She did not get a flu vaccination this season. No sore throat, sneezing, chest pain, abdominal pain, palpitations, vomiting, diarrhea, urinary complaints, headache, lightheadedness. REVIEW OF SYSTEMS: Aside from elements discussed in the HPI, a comprehensive 10-point review of systems was reviewed and is negative. PAST MEDICAL HISTORY: 1. CABG x4 2016 2. Polycystic kidney disease on dialysis for last 5 years. 3. Double nephrectomy at [facility] 06/16/17 due to severely enlarged kidneys ( 25lbs). 4. COPD SOCIAL HISTORY: Smoker. Friend at bedside is good historian of patient's history. VITAL SIGNS: Reviewed by me. BP 170/50, 95% on room air. GENERAL: Well-developed, well-nourished, slightly tachypneic, intermittent wheezes heard. HEENT: Atraumatic. Eyes: No icterus, no injection. Mouth: moist mucous membranes. Mild erythema of posterior pharynx, no lesions. Neck: supple with no adenopathy. LUNGS: Wheezes and wet-sounding rhonchi especially at bases, no rales. Tachypneic. Diminished breath sounds on the left. CARDIAC: Regular rate and rhythm, systolic murmur, no gallops. Questionable pericardial rub. ABDOMEN: Soft, nontender, nondistended, bowel sounds normal. Well-healed midline scarring. BACK: No CVA tenderness. EXTREMITIES: No trauma. Trace pitting edema over bilateral low extremities. Subcutaneous fluid collection hematoma vs. seroma right shoulder. Left upper arm fistula with palpable thrill and bruit. NEURO: Alert and oriented, grossly nonfocal. SKIN: Warm and dry, no rash. PSYCHIATRIC: Normal mentation, no agitation. Portions of this note were transcribed by a medical editor. I personally performed a history, physical exam, medical decision making, and confirmed accuracy of information the transcribed note. - Personal History Current Tetanus Diphtheria and Acellular Pertussis (TDAP): Yes - Medical/Surgical History Hx Asthma: No Hx Chronic Respiratory Disease: Yes Hx Diabetes: No Hx Cardiac Disease: Yes Hx Renal Disease: Yes Hx Cirrhosis: No Hx Alcoholism: No Hx HIV/AIDS: No Hx Splenectomy or Spleen Trauma: No Other PMH: pmh- renal failyre with LUE fistula, [place], polycystic kidney disease, htn, anemia, COPD, bilat nephrectomy 05/2017 - Social History Smoking Status: Current every day smoker Constitutional: Initial Vital Signs Temperature (C) 37.1 C 07/13/17 18:55 Heart Rate 76 07/13/17 18:55 Respiratory Rate 24 H 07/13/17 18:55 Blood Pressure 170/50 H 07/13/17 18:55 O2 Sat (%) 95 07/13/17 18:55 O2 Delivery Mode Nasal Cannula O2 (L/minute) 2 Allergies/Adverse Reactions: No Allergies [NKA] Allergy (Verified 02/15/17 12:22) No Allergies Allergy (Unknown, Uncoded 03/18/17 14:51) Home Medications: Medication Instructions Recorded Sevelamer Carbonate [Renvela] 800 mg PO BIDMEAL 07/27/16 Labetalol HCl [Trandate 200 mg (*)] 300 mg PO BID 02/26/17 Epoetin Milind [Procrit 69212 5,000 unit SC Q7D #0 vial 02/28/17 UNIT/ML (*)] Align 07/13/17 Lipitor 07/13/17 Lisinopril 07/13/17 RENVELA 07/13/17 VITAMIN D 07/13/17 Medical Decision Making - Diagnostics EKG Interpretation: 12-LEAD EKG: Please see the full report in [facility]. My interpretation: Sinus rhythm Imaging Results: Imaging Impressions Chest X-Ray 07/13/17 19:44 Impression: 1. Suspect congestive heart failure/fluid overload. 2. Left basilar opacity is probably atelectasis versus less likely pneumonia. 3. Patchy right lung opacity is suspicious for superimposed pneumonia rather than asymmetric cardiogenic pulmonary edema. Imaging: I viewed and interpreted images myself ED Course/Re-evaluation: This is a 76 y/o female arriving from dialysis with increasing shortness of breath over last week in the setting of bilateral nephrectomy almost 4 weeks ago and CABG x4 6 months ago. She has wheezes and wet-sounding rhonchi especially at bases and is tachypneic. Benign abdomen. Plan for IV, labs, chest x-ray, EKG, and limited bedside cardiac ultrasound to rule out pericardial effusion. Duo neb ordered for wheezes. Procedure: Limited transthoracic echocardiogram. A limited transthoracic echocardiogram was performed and interpreted by myself for dyspnea, possible rub on auscultation. Limited transthoracic echocardiogram: The pericardium was visualized and found to be negative for pericardial fluid. Cardiac activity was present. The procedure was interpreted and performed by myself, Dr. Erazo. Labs show BNP 50,000, anemia, leukopenia. Chest x-ray: Fluid overload, and left-sided pleural effusion. Patchy consolidation on the right lung suspicious for pneumonia. Patient did provide a history initially that she felt chilled and maybe had a fever 2 days ago. Influenza is negative. Lactic acid was drawn and ceftriaxone was administered. Reassessed patient and discussed results thus far. Recommended admission for CHF , effusion, and anemia, which she agrees to. 1000mg PO Tylenol ordered for pain at her request. Spoke with hospitalist service. Dr. Mora accepts admission. Differential Diagnosis: Differential diagnosis for the patient's shortness of breath was considered including but not limited to pulmonary infectious processes, COPD exacerbation, pulmonary emboli, pulmonary edema, congestive heart failure, and cardiac causes. - Data Points Laboratory Results: Laboratory Results 07/13/17 19:35 07/13/17 19:35 07/13/17 07/13/17 07/13/17 19:50 19:35 19:35 WBC 1.68 10^3/uL L 10^3/uL (3.80-9.50) RBC 1.95 10^6/uL L 10^6/uL (4.18-5.33) Hgb 6.6 g/dL L g/dL (12.6-16.3) Hct 20.4 % L % (38.0-47.0) MCV 104.6 fL H fL (81.5-99.8) MCH 33.8 pg pg (27.9-34.1) MCHC 32.4 g/dL g/dL (32.4-36.7) RDW 16.6 % H % (11.5-15.2) Plt Count 78 10^3/uL L 10^3/uL (150-400) MPV 9.7 fL fL (8.7-11.7) Neut % (Auto) 79.7 % H % (39.3-74.2) Lymph % (Auto) 3.0 % L % (15.0-45.0) Emery % (Auto) 13.7 % H % (4.5-13.0) Eos % (Auto) 3.6 % % (0.6-7.6) Baso % (Auto) 0.0 % L % (0.3-1.7) Nucleat RBC Rel Count 0.0 % % (0.0-0.2) Absolute Neuts (auto) 1.34 10^3/uL L 10^3/uL (1.70-6.50) Absolute Lymphs (auto) 0.05 10^3/uL L 10^3/uL (1.00-3.00) Absolute Monos (auto) 0.23 10^3/uL L 10^3/uL (0.30-0.80) Absolute Eos (auto) 0.06 10^3/uL 10^3/uL (0.03-0.40) Absolute Basos (auto) 0.00 10^3/uL L 10^3/uL (0.02-0.10) Absolute Nucleated RBC 0.00 10^3/uL 10^3/uL (0-0.01) Immature Gran % 0.0 % % (0.0-1.1) Immature Gran # 0.00 10^3/uL 10^3/uL (0.00-0.10) Platelet Estimate DECREASED L (ADEQ) Polychromasia 1+ H Hypochromasia 2+ H Tear Drop Cells 1+ H Oval Macrocytes 1+ H Elliptocytes 1+ H Keratocytes 1+ H Smear Review By Pending Sodium 136 mEq/L mEq/L (135-145) Potassium 4.2 mEq/L mEq/L (3.5-5.2) Chloride 96 mEq/L L mEq/L (97-110) Carbon Dioxide 29 mEq/l mEq/l (22-31) Anion Gap 11 mEq/L mEq/L (8-16) BUN 35 mg/dL H mg/dL (7-23) Creatinine 5.1 mg/dL H mg/dL (0.6-1.0) Estimated GFR 8 Glucose 82 mg/dL mg/dL (70-100) Calcium 9.0 mg/dL mg/dL (8.5-10.4) Total Bilirubin 0.5 mg/dL mg/dL (0.1-1.4) Conjugated Bilirubin 0.4 mg/dL mg/dL (0.0-0.5) Unconjugated Bilirubin 0.1 mg/dL mg/dL (0.0-1.1) AST 8 IU/L L IU/L (14-46) ALT 15 IU/L IU/L (9-52) Alkaline Phosphatase 74 IU/L IU/L (38-126) Troponin I 0.030 ng/mL ng/mL (0.000-0.034) NT-Pro-B Natriuret Pep 60548 pg/mL H pg/mL (0-125) Total Protein 4.8 g/dL L g/dL (6.3-8.2) Albumin 2.8 g/dL L g/dL (3.5-5.0) Nasal Influenza A PCR NEGATIVE FOR FLU A (NEGATIVE) Nasal Influenza B PCR NEGATIVE FOR FLU B (NEGATIVE) Medications Given: Discontinued Medications Acetaminophen (Tylenol) 1,000 mg PO EDNOW ONE Stop: 07/13/17 21:23 Last Admin: 07/13/17 21:25 Dose: 1,000 mg Albuterol (Proventil Neb) 3 ml IH EDNOW ONE Stop: 07/13/17 19:45 Last Admin: 07/13/17 19:50 Dose: 3 ml Albuterol/Ipratropium (Duoneb) 3 ml IH EDNOW ONE Stop: 07/13/17 19:19 Last Admin: 07/13/17 19:22 Dose: 3 ml Furosemide (Lasix Injection) 20 mg IVP EDNOW ONE Stop: 07/13/17 21:06 Last Admin: 07/13/17 21:44 Dose: Not Given Departure - Departure Disposition: [facility] Inpatient Acute Clinical Impression: Pleural effusion, Possible pneumonia CHF (congestive heart failure) Qualifiers: Congestive heart failure type: unspecified Congestive heart failure chronicity : unspecified Qualified Code(s): I50.9 - Heart failure, unspecified Anemia Qualifiers: Anemia type: other cause Other causes of anemia: other cause, not classified Qualified Code(s): D64.89 - Other specified anemias Leukopenia Qualifiers: Leukopenia type: other Qualified Code(s): D72.818 - Other decreased white blood cell count Condition: Fair Report Scribed for: Taisha Erazo Report Scribed by: Fiona Bran Date of Report: 07/13/17 Time of Report: 19:29
--- NOTE | 2017-07-13 19:33 | CPEKG ---
Heart Rate: 75 RR Interval: 800 P-R Interval: 152 QRSD Interval: 90 QT Interval: 420 QTC Interval: 470 P Leslie: 64 QRS Leslie: 48 T Wave Leslie: 45 EKG Severity - NORMAL ECG - EKG Impression: SINUS RHYTHM Electronically Signed By: Taisha Erazo 13-Jul-2017 20:01:14
[2017-07-13] MEDS ORDERED: ALBUTEROL 3 ML DEYVIAL IH ONE (19:44)
[2017-07-13 19:51] LABS: PLATELET COUNT 78 10^3/uL (150-400)
[2017-07-13] MEDS ORDERED: ACETAMINOPHEN 500 MG TAB PO ONE (21:22)
[2017-07-13] MEDS: FUROSEMIDE 20 MG/2 ML VIAL IVP ONE ×2 (21:25→21:44)
[2017-07-13] MEDS ORDERED: traMADol 50 MG TAB PO ONE (21:44)
[2017-07-13] MEDS ORDERED: traMADol 50 MG TAB ONE (21:45)
[2017-07-13] MEDS ORDERED: ACETAMINOPHEN 325 MG TAB PO PRN (22:59)
[2017-07-13] MEDS ORDERED: ONDANSETRON 4 MG/2 ML VIAL IVP PRN (22:59)
--- NOTE | 2017-07-13 23:31 | PDGENHP ---
History and Physical - Chief Complaint shortness of breath - History of Present Illness Source - patient provides history and appears reliable. HPI - Pleasant 76 yo F with pmhx significant for ESRD on HD 2/2 hx PCKD s/p bilateral nephrectomy completed 05/2017 at [place], CAD s/p CABG 4v 01/2017, CHF, PAF, anemia of chronic kidney disease, HTN, COPD and Ulcerative colitis to presents to the ED today with c/o progressively worsening SOB x 2 days from her baseline. Patient reports she developed URI sx 4 days ago. unsure if any sick contacts and reports some exposure possibly during dialysis which he undergoes MWF. Primary [employer] Dr. [place]. Patient reports subjective fevers/ chills on Tuesday but nothing since that time. acute worsening of chronic LED. + orthopnea. + cough nonproductive but congested sounding. pt with chronic rhinorrhea at her baseline. Patient noted she had decreased appetite without nausea/vomiting. Patient completed her dialysis today and at home had significant COLON with only short distances at home. She asked her friend/ roommate to drive her to the ED for further evaluation. Patient denies any chest pain, palpitations, presyncope. History Information - Allergies/Home Medication List Allergies/Adverse Reactions: No Allergies [NKA] Allergy (Verified 02/15/17 12:22) No Allergies Allergy (Unknown, Uncoded 03/18/17 14:51) Home Medications: Labetalol HCl [Trandate 200 mg (*)] 200 mg PO BID 02/26/17 [Last Taken 07/13/17 09:00] Aspirin EC [Aspirin EC 81 mg (*)] 81 mg PO DAILY 07/13/17 [Last Taken 07/13/17] Atorvastatin Calcium [Lipitor 10 mg (*)] 10 mg PO DAILY 07/13/17 [Last Taken ] Calcitriol [Calcitriol (*)] 0.75 mcg PO AD 07/13/17 [Last Taken 07/13/17] Epoetin Milind [Epogen] 20,000 unit IJ AD 07/13/17 [Last Taken 07/13/17] Ferrous Sulfate [Ferrous Sulf 325 MG (*)] 325 mg PO Q2D 07/13/17 [Last Taken ] Herbals/Supplements -Info Only 1 ea PO DAILY 07/13/17 [Last Taken 07/13/17] Lisinopril [Zestril 40 mg (*)] 40 mg PO BID 07/13/17 [Last Taken 07/13/17 09:00] Sevelamer Carbonate [Renvela] 1,600 mg PO BID PRN 07/13/17 [Last Taken 07/13/17] Sevelamer Carbonate [Renvela] 3,200 mg PO TIDMEAL 07/13/17 [Last Taken 07/13/17 09:00] I have personally reviewed and updated: family history, medical history, social history, surgical history - Past Medical History coronary artery disease, COPD, ESRD, hypertension Additional medical history: ESRD on HD, PCKD s/p bilateral nephrectomy, CHF, PAF , CAD s/p CABG, thrombocytopenia, anemia of chronic kidney disease, HTN, COPD, Ulcerative colitis. mild/mod mitral valve stenosis/regurg - Surgical History Additional surgical history: bilateral nephrectomy 05/2017, CABG x 4v, LUE fistula, T/A, breast bx that was benign, LUE fistula with multiple revisions, R cataract extraction/lens placement. - Family History Additional family history: mother - PCKD - Social History Smoking Status: Current every day smoker Tobacco Use: Cigarettes (pt reports occasionally) Alcohol Use: None Drug Use: None Additional social history: COR - FULL but no prolonged life support. Patient roommate Sudha Moe [facility]. Review of Systems Review of Systems: ROS: 10pt was reviewed & negative except for what was stated in HPI & below Constitutional: Reports: chills, fever, recent illness EENMT: Reports: nose congestion, other (wears glasses). Denies: blurred vision , double vision, sore throat Cardiac: Reports: edema. Denies: chest pain, palpitations, syncope Respiratory: Reports: cough, orthopnea, shortness of breath. Denies: wheezing Gastrointestinal: Reports: no symptoms. Denies: vomitting, black stools, diarrhea, nausea Genitourinary: Reports: other (anuric) Muscolosketal: Reports: joint pain (left knee, bilateral rotator cuff tear), joint swelling (right shoulder effusion), other Skin: Reports: no symptoms Neurological: Reports: no symptoms. Denies: anxiety, depressed, headache, numbness Hematologic/Lymphatic: Reports: anemia, easy bruising. Denies: easy bleeding Physical Exam Physical Exam: Selected Entries 07/13/17 18:55 Blood Pressure Automatic Method Heart Rate 76 Respiratory 24 H Rate O2 Sat (%) 95 Temperature (C) 37.1 C Blood Pressure 170/50 H Mean Arterial 90 Pressure (MAP) O2 Delivery Room Air Mode Temperature Oral Source Temp Pulse Resp BP Pulse Ox 37.1 C 76 16 182/66 H 99 07/13/17 18:55 07/13/17 23:24 07/13/17 23:24 07/13/17 23:24 07/13/17 23:24 O2 (L/minute) 2 Constitutional: no apparent distress, chronically ill appearing, No uncomfortable Eyes: PERRL, anicteric sclera, EOMI, other (right lens reflex), No scleral injection Ears, Nose, Mouth, Throat: dry mucous membranes, other (no nasal discharge. ), No poor dentition Cardiovascular: regular rate and rhythym, systolic murmur, JVD, edema (2+ bilateral LE.), No tachycardia Peripheral Pulses: 1+: dorsalis-pedis (R), dorsalis-pedis (L) Respiratory: no respiratory distress, reduced air movement (bibasilar), inspiratory crackles (right anterior/posterior mid-lungfields) Gastrointestinal: normoactive bowel sounds, soft, non-tender abdomen, no palpable masses, tenderness (minimal ttp at surgical scar.), other (well healed midline lower abdominal scar.), No guarding, No rebound Skin: warm, normal color, other (bruising right lower abdomen, bilateral forearms), No abrasion Musculoskeletal: joint effusion (right shoulder), generalized weakness, No joint tenderness Neurologic: AAOx3, sensation intact bilaterally, weakness (generalized.), CN II- XII Intact, No facial droop Psychiatric: interacting appropriately, not anxious, not encephalopathic, thought process linear, No depressed Lymph, Heme, Immunologic: other (bruises various stages of healing right lower abdomen, forearms.), No petechiae Lab Data & Imaging Review 07/13/17 19:35 07/14/17 05:52 WBC 1.68 10^3/uL (3.80-9.50) L 07/13/17 19:35 RBC 1.95 10^6/uL (4.18-5.33) L 07/13/17 19:35 Hgb 6.6 g/dL (12.6-16.3) L 07/13/17 19:35 Hct 20.4 % (38.0-47.0) L 07/13/17 19:35 MCV 104.6 fL (81.5-99.8) H 07/13/17 19:35 MCH 33.8 pg (27.9-34.1) 07/13/17 19:35 MCHC 32.4 g/dL (32.4-36.7) 07/13/17 19:35 RDW 16.6 % (11.5-15.2) H 07/13/17 19:35 Plt Count 78 10^3/uL (150-400) L 07/13/17 19:35 MPV 9.7 fL (8.7-11.7) 07/13/17 19:35 Neut % (Auto) 79.7 % (39.3-74.2) H 07/13/17 19:35 Lymph % (Auto) 3.0 % (15.0-45.0) L 07/13/17 19:35 [place] % (Auto) 13.7 % (4.5-13.0) H 07/13/17 19:35 Eos % (Auto) 3.6 % (0.6-7.6) 07/13/17 19:35 Baso % (Auto) 0.0 % (0.3-1.7) L 07/13/17 19:35 Nucleat RBC Rel Count 0.0 % (0.0-0.2) 07/13/17 19:35 Absolute Neuts (auto) 1.34 10^3/uL (1.70-6.50) L 07/13/17 19:35 Absolute Lymphs (auto) 0.05 10^3/uL (1.00-3.00) L 07/13/17 19:35 Absolute Monos (auto) 0.23 10^3/uL (0.30-0.80) L 07/13/17 19:35 Absolute Eos (auto) 0.06 10^3/uL (0.03-0.40) 07/13/17 19:35 Absolute Basos (auto) 0.00 10^3/uL (0.02-0.10) L 07/13/17 19:35 Absolute Nucleated RBC 0.00 10^3/uL (0-0.01) 07/13/17 19:35 Immature Gran % 0.0 % (0.0-1.1) 07/13/17 19:35 Immature Gran # 0.00 10^3/uL (0.00-0.10) 07/13/17 19:35 Platelet Estimate DECREASED (ADEQ) L 07/13/17 19:35 Polychromasia 1+ H 07/13/17 19:35 Hypochromasia 2+ H 07/13/17 19:35 Tear Drop Cells 1+ H 07/13/17 19:35 Oval Macrocytes 1+ H 07/13/17 19:35 Elliptocytes 1+ H 07/13/17 19:35 Keratocytes 1+ H 07/13/17 19:35 VBG Lactic Acid 0.7 mmol/L (0.7-2.1) 07/13/17 22:10 Sodium 136 mEq/L (135-145) 07/13/17 19:35 Potassium 4.2 mEq/L (3.5-5.2) 07/13/17 19:35 Chloride 96 mEq/L (97-110) L 07/13/17 19:35 Carbon Dioxide 29 mEq/l (22-31) 07/13/17 19:35 Anion Gap 11 mEq/L (8-16) 07/13/17 19:35 BUN 35 mg/dL (7-23) H 07/13/17 19:35 Creatinine 5.1 mg/dL (0.6-1.0) H 07/13/17 19:35 Estimated GFR 8 07/13/17 19:35 Glucose 82 mg/dL (70-100) 07/13/17 19:35 Calcium 9.0 mg/dL (8.5-10.4) 07/13/17 19:35 Total Bilirubin 0.5 mg/dL (0.1-1.4) 07/13/17 19:35 Conjugated Bilirubin 0.4 mg/dL (0.0-0.5) 07/13/17 19:35 Unconjugated Bilirubin 0.1 mg/dL (0.0-1.1) 07/13/17 19:35 AST 8 IU/L (14-46) L 01/17/18 19:35 ALT 15 IU/L (9-52) 07/13/17 19:35 Alkaline Phosphatase 74 IU/L (38-126) 07/13/17 19:35 Troponin I 0.030 ng/mL (0.000-0.034) 07/13/17 19:35 NT-Pro-B Natriuret Pep 37794 pg/mL (0-125) H 07/13/17 19:35 Total Protein 4.8 g/dL (6.3-8.2) L 07/13/17 19:35 Albumin 2.8 g/dL (3.5-5.0) L 07/13/17 19:35 Nasal Influenza A PCR NEGATIVE FOR FLU A (NEGATIVE) 07/13/17 19:50 Nasal Influenza B PCR NEGATIVE FOR FLU B (NEGATIVE) 07/13/17 19:50 Imaging Review: PA and Lateral Chest Clinical Indications: Shortness of breath in a 76-year-old female; comparison prior study March 08, 2017. Findings: Heart is enlarged. Perihilar opacities are seen more prominent on the right side in the upper lobe. Stigmata of prior open heart surgery noted. There is a left pleural effusion and left basilar opacity is noted. Impression: 1. Suspect congestive heart failure/fluid overload. 2. Left basilar opacity is probably atelectasis versus less likely pneumonia. 3. Patchy right lung opacity is suspicious for superimposed pneumonia rather than asymmetric cardiogenic pulmonary edema. Visualized and Interpreted Chest x-ray results: Yes Chest X-Ray results: infiltrate, effusion EKG additional interpertation: NSR 70s. small q waves inferolateral leads. no acute ST elevations. QTc 470. Assessment & Plan Assessment: Very Pleasant 76 yo F with pmx significant for ESRD, PCKD s/p bilateral nephrectomy, CAD s/p CABG x4v, CHF, COPD, HTN, HLD, #PNA - Patient without sirs/sepsis criteria but new leukopenia. R infiltrate with coarse breath sounds on exam. pt with subjective fevers/chills and leukopenia. patient started on levaquin respiratory dosing will plan to continue with appropriate renal dosing. flu negative. #CHF (congestive heart failure) - acute on chronic decompensated NOS with hx multivalvular heart disease. no available echo for [facility] [place] will try to obtain o/p records in AM. pt reports recent echo completed at [place] in May and believes EF was preserved. pt followed by Dr. Ced Rivera. with with pleural effusions, edema and evidence of volume overload. nephrology consultation to assist with HD. #dyspnea - multifactorial including pna, chf, effusions. plan as above. #Leukopenia (Acute) - patient appears to now have pancytopenia previously with anemia and thrombocytopenia. no SIRS criteria. additionally patient reports she has had evaluation o/p with hematology reports of which I also do not have access to at this time #Pleural effusion (Acute) - insetting of chf exacerbation, ESRD on HD. nephrology consultation as above. #Anemia of chronic kidney disease. patient with a few small old contusions bilateral forearms and right lower abdomen but no evidence of active bleeding. she is on EPO. h/h noted to be declined 6.6/20.4 but BP and HR stable. will defer transfusion until evaluation by nephrology to go along with HD. holding patient ASA at this time. #hypoalbuminemia - likely related to chf, esrd and acute illness contributing. #PAF - postoperative after CABG 01/2017. currently NSR pt on labetalol will continue. #benign essential HTN - continue patient labetalol. pt concerned her lisinopril which has also been ordered. hydralazine prn. #hx PCKD s/p bilateral nephrectomy #colitis - asymptomatic at this time. afebrile. #COPD without exacerbation - oxygen prn. neb prn. FEN - SLIV. fluid/salt restriction. electrolytes will be monitored placement as appropriate. renal diet. PPX - SCDs if tolerated with edema. no anticoagulation with pancytopenia COR - FULL. no prolonged intubation patient roommate Angelica Moe is MDPOA. Dispo - Admit observation at this time pending specialty recs.
[2017-07-13] MEDS: LABETALOL HCL 200 MG TAB PO SCH (23:43)
[2017-07-14] MEDS: LISINOPRIL 40 MG TAB PO SCH ×3 (00:45→19:53)
[2017-07-14] MEDS: ALBUTEROL 3 ML DEYVIAL IH PRN ×4 (04:02→22:17)
[2017-07-14 06:08] LABS: PLATELET COUNT 65 10^3/uL (150-400)
[2017-07-14] MEDS ORDERED: ACETAMINOPHEN 325 MG TAB PO ONE (08:49)
--- NOTE | 2017-07-14 09:35 | GCON ---
[f rep st] CONSULTATION DATE OF CONSULTATION: 07/14/2017 REASON FOR CONSULTATION: Opinion regarding end-stage kidney failure. HISTORY OF PRESENT ILLNESS: The patient is a very pleasant, nearly 77-year-old female with end-stage kidney failure due to autosomal dominant polycystic kidney disease. She is on dialysis Mondays, Tue, and Fridays. The patient had a busy 2017. She underwent bypass surgery in January and had b ilateral nephrectomies of her polycystic kidneys at the [facility] on June 16, 2017. The patien judd says she has been doing reasonably well until the past few days when she had increasing shortness o f breath, cough, sputum production, decreased energy, and anorexia. She denies having had fevers, bl urry vision, double vision, headache, orthopnea, paroxysmal nocturnal dyspnea, palpitations, syncope, hemoptysis, hematemesis, epistaxis, melena, or hematochezia. She missed her dialysis treatment ; she did have dialysis yesterday. PAST MEDICAL HISTORY: Significant for: 1. End-stage kidney failure on 3 times weekly hemodialysis. 2. Autosomal dominant polycystic kidney disease. 3. Bilateral nephrectomies on 06/16/2017. 4. Coronary artery disease. 5. Status post coronary artery bypass grafting in January 2017. 6. Anemia of chronic kidney disease. 7. Peripheral vascular occlusive disease. 8. COPD. 9. Ulcerative colitis. 10. Secondary hyperparathyroidism. 11. Left upper extremity arteriovenous fistula. 12. Tobacco use. ALLERGIES: None. CURRENT MEDICATIONS: Include: 1. Tylenol. 2. Albuterol. 3. Lipitor 10 mg a day. 4. Calcitriol 0.75 mcg daily. 5. Iron sulfate 325 mg twice daily. 6. Labetalol 200 mg twice daily. 7. Levaquin 500 mg IV x1. 8. Lisinopril 40 mg twice daily. 9. Renvela 3200 mg with meals, 2400 mg with snacks. 10. Zofran as needed. 11. Tramadol as needed. FAMILY HISTORY: Positive for polycystic kidney disease. SOCIAL HISTORY: She is not . She has a roommate. She continues to smoke daily. She does no t use alcohol, IV or recreational drugs. REVIEW OF SYSTEMS: A complete 12-point review of systems was performed with pertinent positives and negatives as per the previous sections. PHYSICAL EXAMINATION: VITAL SIGNS: Blood pressure is 203/175, pulse 75, respirations 18, temperatur e 37.2. GENERAL: She is awake, alert, cooperative. She is short of breath and has supplemental oxy gen in place. NECK: No lymphadenopathy or thyromegaly. She has bilateral carotid artery bruits. H EART: Regular with a grade 2/6 systolic murmur. No rub. LUNGS: Decreased breath sounds throughout . She does have rales in her bases bilaterally. No rhonchi. She has occasional end-expiratory whee zes as well. ABDOMEN: Bowel sounds are positive. Soft, nontender, nondistended. EXTREMITIES: Pos itive for edema. No cyanosis or clubbing. NEUROLOGIC: No asterixis. She moves all her extremities . SKIN: No unusual rashes or lesions. LYMPH: No palpable lymphadenopathy or lymphedema. MUSCULOS KELETAL: No effusions or tenderness. She has a left upper arm arteriovenous fistula with a good bru it and thrill. LABORATORY: WBC 1.67, hemoglobin 5.9, hematocrit 18.6, platelet count 65,000. Serum sodium is 139, potassium 4.8, chloride 96, CO2 of 29, BUN 41, creatinine 5.7, glucose 82, calcium 9, magnesium 1.9, phosphorus 5.1, albumin 2.8, total protein of 4.8, AST 8, ALT 15. BNP 50,500. Troponin 0.03. Lacti c acid 0.7. Influenza A and B are negative. Total bilirubin is 0.5. Chest x-ray showed a likely right lower lobe pneumonia. IMPRESSION: 1. End-stage kidney failure on 3 times weekly dialysis Mondays, Wednesdays, and Fridays. She missed her Tuesday dialysis treatment this week. She did have dialysis yesterday, and we will plan on dialy sis tomorrow and potentially Tuesday as well. 2. Pancytopenia for which she has been seen by Hematology and Oncology here in [place] in the last 4 or 5 months, per her report. She says she had a bone marrow biopsy that was negative. 3. Fairly profound anemia with a hemoglobin of 5.9. When she had her [place] kidneys, there was appa rently enough intrinsic erythropoietin production so that her anemia was not quite this profound. I suspect with removal of her kidneys in May, we are now seeing resultant under-production of red blood cells. We will transfuse her slowly over 4 hours today. We will also give her a transfusion o n dialysis tomorrow. 4. Pneumonia. She has received Levaquin in the emergency department. 5. Coronary artery disease, status post recent bypass grafting, seems to be quiescent today. 6. Hypertension, needs better control. She is currently taking labetalol and lisinopril for her blo od pressure. We may need to add some hydralazine unless her blood pressure comes under better contro l. RECOMMENDATIONS: 1. We will transfuse her slowly over 4 hours today for her anemia and shortness of breath. 2. Continue her antibiotics. 3. Dialysis tomorrow and likely again on Tuesday. 4. Supplemental oxygen as necessary. Thank you for allowing me to participate in the care of your patient. If there are any questions, pl ease do not hesitate to contact us. We will be following along with you. /[id number]/MODL
[2017-07-14] MEDS: ATORVASTATIN CALCIUM 10 MG TAB PO SCH (09:41)
[2017-07-14] MEDS: LABETALOL HCL 200 MG TAB PO SCH ×2 (09:42→19:53)
[2017-07-14] MEDS: SEVELAMER CARBONATE 3200 MG PO SCH ×3 (10:00→18:33)
--- NOTE | 2017-07-14 14:41 | GCON ---
[f rep st] CONSULTATION CHIEF COMPLAINT: Shortness of breath. This patient is admitted to the hospital with shortness of breath. She has known coronary artery disease, had bypass surgery January 2017. Did very well with that. She had [address] Cahn Ortega. She has been fine in all regards to the heart, except she has been increasingly short of breath. Her history includes polycystic kidneys that were removed at [facility] in [place], [place] on . She was discharged from [place], and returned to [place] on 06/23/2017. She had 1 of the k idneys removed because they were so large, they were just making it impossible for her to breathe, an d that was very uncomfortable. Her breathing did get better after surgery. She felt better after morales rgery, but over the last couple weeks, she has felt more shortness of breath, and she missed her dial ysis on Tuesday and then came in yesterday because of increasing shortness of breath. She has no fever, chills, or cough. She has no sputum production. She has no new rashes. Her blood pressure is elevated, which is often the case. She does not complain of nausea or vomiting right now. She has been as active as she can be, but she has been slowing down because she is short of breath. She missed her dialysis on Tuesday because of shortness of breath and feeling too sick. She intermitt ently has a cough. She intermittently has poor appetite. She is a very brave woman, and is putting up with all these illnesses in an amazing fashion. She has been on dialysis for 5 years. Usually she does not miss at all. She had her kidneys removed because they had gotten so large, they were pressing hard on her stomach. She could not bend over, her stomach was entirely bloated and full, according to her, of kidneys. CARDIAC RISK FACTORS: Positive for hypertension, for known coronary artery disease with bypass in 2016. Cardiac risk factors are positive for smoking. She has positive family history also of premature cor onary disease. Cardiac risk factors negative for diabetes, hyperuricemia, obesity. ALLERGIES: None. MEDICATIONS: She is on quite a group of medications. Renvela, lisinopril, many herbs, iron, Epogen, labetalol, aspirin, atorvastatin, calcitriol, Epogen. REVIEW OF SYSTEMS: 10-point review of systems negative, except as noted above and noted in the recor d. Review of systems includes COPD. End-stage renal disease. Hypertension. Bilateral nephrectomy. Thrombocytopenia. Chronic anemia. Ulcerative colitis. COPD. History in the past of valvular mitral stenosis and regurgitation. SURGICAL HISTORY: As above, including bilateral nephrectomies, bypass surgery, left upper extremity fistula, tonsillectomy, breast biopsy, left upper extremity fistula, multiple revisions, right catara ct extraction. FAMILY HISTORY: Her parents did have coronary artery disease at young age. Her mother at 58, a nd other members had it very young as well. The mother also had polycystic kidney disease. SOCIAL HISTORY: She was born in [place], [place]. She came out here in the early 1970s, and has be en here since. She lives with a roommate. 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 She does smoke. She does not drink significant amounts of alcohol. PHYSICAL EXAMINATION: VITAL SIGNS: Her blood pressure is 175/100. NECK: Supple. CARDIOVASCULAR: S1, S2. Systolic murmur at the left sternal border. No diastolic murmur. No S3, S4. No rubs. PU LMONARY: Rhonchi bilaterally. Decreased breath sounds bilaterally. ABDOMEN: Soft, nontender, with out masses. EXTREMITIES: Trace edema. NEURO: She is weak and she is tired. PSYCH: No obvious an xiety or depression. SKIN: Age-related changes. DIAGNOSTIC DATA: White count 1.6, hematocrit 18.6, platelet count 65. Sodium 139, potassium 4.8, ch loride 96, BUN 41, creatinine 5.7. BNP 50,000. Chest x-ray: She has fluid overload, basilar opacity on the left. Patchy right lung opacity with a question of superimposed pneumonia or asymmetric cardiogenic pulmonary edema. Electrocardiogram demonstrates sinus rhythm, diffuse nonspecific ST-T changes. ASSESSMENT AND PLAN: 1. Fluid overload. 2. Coronary artery disease. 3. End-stage renal disease. 4. Missed dialysis on Tuesday. 5. Smoking history. 6. Early history of premature coronary artery disease. 7. Polycystic kidney disease. 8. Status post bilateral nephrectomies. She is currently doing better, sitting here in the hospital. She is going to be dialyzed tomorrow, a nd they will start to take off some of this fluid. There is nothing to suggest an acute coronary syndrome. There is nothing to suggest that her coronar y anatomy is in any way compromised. I think she should do very well overall. We will watch her with you, and Renal has seen her and is going to coordinate the getting off the flu id from her. She has a ridiculously low white count, and this is something the hospitalists are looking at. She h as a chronic anemia, which is very significant. At this point in time, we will follow her with you clinically. I do not think we need to intervene a ny more aggressively than that right at this minute, but were prepared to do anything as required as she did goes through this process. All her questions have been answered. Thank you very much. /[id number]/MODL
[2017-07-14] MEDS ORDERED: SEVELAMER CARBONATE 800 MG PO PRN (15:45)
--- NOTE | 2017-07-14 16:05 | HOSPPROG ---
Hospitalist Progress Note Assessment/Plan: new patient encounter medically complex #Volume overload #ESRD, hx of polycystic kidney diseas, s/p bilateral nephrectomies -Renal following #Right sided pneumonia #HTN #Anemia, pancytopenia -s/p one unit PRBC today #CAD, Recent Bypass, pAfib -in SR -no active cardiac issues -cards following Plan: -s/p PRBC transfusion today, will get another unit tomorrow -Levaquin, check PC -Dialysis tomorrow, remove fluid -start Hydralazine PRN for elevated BP. -PT/OT -change to inpatient Subjective: feels better. Just had one unit blood. tolerated well. pleasant. no cp. no increased work of breathing Objective: Vital Signs Temp Pulse Resp BP Pulse Ox 37 C 70 22 H 170/55 H 99 07/14/17 15:29 07/14/17 15:29 07/14/17 15:29 07/14/17 15:29 07/14/17 15:29 Laboratory Results 07/14/17 05:52 07/14/17 05:52 - Physical Exam Constitutional: no apparent distress Eyes: PERRL Ears, Nose, Mouth, Throat: moist mucous membranes Cardiovascular: regular rate and rhythym, edema Respiratory: other (coarse) Gastrointestinal: normoactive bowel sounds, soft, non-tender abdomen Skin: warm Neurologic: AAOx3 Psychiatric: interacting appropriately, not anxious, not encephalopathic Lymph, Heme, Immunologic: No petechiae ICD10 Worksheet Patient Problems: Problems Problem Status Onset CHF (congestive heart failure) Acute Leukopenia Acute Pleural effusion Acute Anemia Chronic Paroxysmal atrial fibrillation Acute S/P CABG x 4 Acute chronic disease mgmt/transitional care Acute Coronary arteriosclerosis Chronic ESRD (end stage renal disease) on dialysis Chronic Hypertension Chronic Polycystic kidney disease Chronic Thrombocytopenia Chronic
[2017-07-14] MEDS: hydrALAZINE 20 MG/ML VIAL IVP PRN (22:13)
[2017-07-14] MEDS ORDERED: diphenhydrAMINE 25 MG CAP PO PRN (22:43)
[2017-07-15 05:23] LABS: PLATELET COUNT 86 10^3/uL (150-400)
[2017-07-15] MEDS: hydrALAZINE 20 MG/ML VIAL IVP PRN (06:26)
--- NOTE | 2017-07-15 09:29 | SOAPPROG ---
SODAVIDA Progress Note Assessment/Plan: Assessment/Plan: ESRD: on HD MWF. - Pt seen on HD this am. - Next HD planned for Tuesday. HTN: uncontrolled, noted that these are ankle pressures. - Will continue current meds. - Will add po hydralazine, which can be uptitrated if needed. - Will also remove fluid on HD today. Anemia: Hgb up to 7.8 s/p 1 unit PRBCs. She may have more profound anemia s/p bilateral nephrectomies and has higher epo needs, also noted to be pancytopenic. - Will continue to monitor. - Please let us know if you want pt to be transfused on HD at any time. - Will continue epo. Subjective: No acute events overnight. Pt states that her breathing feels a little better today. She has had elevated BP in 200s, these are ankle pressures. Objective: Vital Signs Temp Pulse Resp BP Pulse Ox 36.9 C 78 25 H 205/68 H 100 07/15/17 04:00 07/15/17 04:00 07/15/17 04:00 07/15/17 06:26 07/15/17 04:00 Laboratory Results 07/15/17 04:50 07/15/17 04:50 07/14/17 07/15/17 07/16/17 05:59 05:59 05:59 Intake Total 450 Balance 450 General: alert and oriented, no acute distress Eyes: EOMI, PERRL OP: Clear CV: RRR Resp: nonlabored respirations on NC Abd: Soft, NT Ext: trace edema BLE Neuro: CN II-XII grossly intact, no asterixis Psych: cooperative, appropriate mood and affect Access: LUE AVF cannulated ICD10 Worksheet Patient Problems: Problems Problem Status Onset CHF (congestive heart failure) Acute Leukopenia Acute Pleural effusion Acute Anemia Chronic Paroxysmal atrial fibrillation Acute S/P CABG x 4 Acute chronic disease mgmt/transitional care Acute Coronary arteriosclerosis Chronic ESRD (end stage renal disease) on dialysis Chronic Hypertension Chronic Polycystic kidney disease Chronic Thrombocytopenia Chronic
[2017-07-15] MEDS: CALCITRIOL 0.25 MCG CAP PO SCH (09:43)
[2017-07-15] MEDS: FERROUS SULFATE 325 MG TAB PO SCH (09:43)
[2017-07-15] MEDS: ATORVASTATIN CALCIUM 10 MG TAB PO SCH (09:44)
[2017-07-15] MEDS: LISINOPRIL 40 MG TAB PO SCH ×2 (09:44→20:27)
[2017-07-15] MEDS: LABETALOL HCL 200 MG TAB PO SCH ×2 (09:44→20:27)
[2017-07-15] MEDS: hydrALAZINE 25 MG TAB PO SCH ×4 (09:52→22:38)
--- NOTE | 2017-07-15 10:07 | PDMN ---
Medical Necessity Medical necessity: change to IP; los>2mn for volume overload, PNA, anemia, pancytopenia, and HTN; requires further transfusions 07/14&, HD 07/15, add prn Hydralazine for elevated BP, PT/OT; comorbid CAD/CABG, afib, ESRD on HD s/p bilat nephrectomy, COPD, CHF; per order and progress note 07/14/17
--- NOTE | 2017-07-15 10:16 | ASMTCASEMG ---
Living Arrangements What is your living Answers: Alone arrangement? Who do you live with? Type Of Residence What kind of residence do Answers: House you live in? Discharge Plan Comments Coordination Status Comments Notes: Pt is a 76 y/o female admitted for dyspnea, CHF, anemia, and leukopenia. Pt had a CABG in Jan 2017. Pt is on a MWF schedule for dialysis. Needs are TBD at this time. No therapies ordered. CM available for d/c needs. Plan: TBD Date Signed: 07/15/2017 10:15 AM Electronically Signed By:BRIDGETT Rojas
[2017-07-15] MEDS: Sevelamer Carbonate [Renvela] 800MG TAB PO SCH ×3 (11:34→17:03)
--- NOTE | 2017-07-15 12:28 | HOSPPROG ---
Hospitalist Progress Note Assessment/Plan: medically complex #Volume overload #ESRD, hx of polycystic kidney diseas, s/p bilateral nephrectomies -Renal following #Right sided pneumonia #HTN with HTN urgency #Anemia, pancytopenia -s/p one unit PRBC on 07/14 #CAD, Recent Bypass, pAfib -in SR -no active cardiac issues -cards following #Encephalopathy, will follow #Generalized Weakness Plan: -getting dialysis now. -bp is better with fluid removal. Will also provide a.m. meds which have not yet been given. Hydralazine IV PRN -hold off on additional blood today -cont Levaquin, Pharmacy to dose -PT/OT -cont inpatient Subjective: getting dialysis. no cp or sob. had elevated bp in the 200's systolic yesterday evening and overnight. She was given hydralazine but we were not notified. She does not focal deficits. BP now decreasing while getting dialysis Objective: Vital Signs Temp Pulse Resp BP Pulse Ox 37.1 C 71 40 H 182/49 H 100 07/15/17 11:41 07/15/17 11:41 07/15/17 11:41 07/15/17 11:41 07/15/17 11:41 Laboratory Results 07/15/17 04:50 07/15/17 04:50 07/14/17 07/15/17 07/16/17 05:59 05:59 05:59 Intake Total 450 Balance 450 - Physical Exam Constitutional: no apparent distress Eyes: PERRL Ears, Nose, Mouth, Throat: moist mucous membranes, hearing normal Cardiovascular: regular rate and rhythym, edema Respiratory: reduced air movement Gastrointestinal: normoactive bowel sounds, soft, non-tender abdomen Skin: warm Musculoskeletal: generalized weakness Neurologic: No AAOx3 Psychiatric: not anxious, encephalopathic, No interacting appropriately, No not encephalopathic, No thought process linear Lymph, Heme, Immunologic: petechiae ICD10 Worksheet Patient Problems: Problems Problem Status Onset CHF (congestive heart failure) Acute Leukopenia Acute Pleural effusion Acute Anemia Chronic Paroxysmal atrial fibrillation Acute S/P CABG x 4 Acute chronic disease mgmt/transitional care Acute Coronary arteriosclerosis Chronic ESRD (end stage renal disease) on dialysis Chronic Hypertension Chronic Polycystic kidney disease Chronic Thrombocytopenia Chronic
[2017-07-15] MEDS: ASPIRIN EC 81 MG TAB PO SCH (12:38)
--- NOTE | 2017-07-15 12:39 | SOAPPROG ---
CINTHYA Progress Note Assessment/Plan: Assessment: 1. Coronary artery disease 2. Dyslipidemia 3. End-stage renal disease 4. Polycystic kidney disease 5. pneumonia She is doing very well today and feels much better. she did get several L of fluid off with this dialysis. Renal is going to decide what they would like to dialyze her again. there is nothing to suggest an acute coronary syndrome or any significant cardiovascular deterioration we will sign off the case if there is anything we can do to help please let us know and we are happy to see her any time. Plan: 07/15/17 12:40 Subjective: She is feeling much better today. her breathing is much better she has no nausea vomiting she is not having chest pain she is having no fevers or chills. Objective: Vital Signs Temp Pulse Resp BP Pulse Ox 37.1 C 71 40 H 182/49 H 100 07/15/17 11:41 07/15/17 11:41 07/15/17 11:41 07/15/17 11:41 07/15/17 11:41 Laboratory Results 07/15/17 04:50 07/15/17 04:50 07/14/17 07/15/17 07/16/17 05:59 05:59 05:59 Intake Total 450 Balance 450 Selected Entries 07/13/17 07/13/17 07/14/17 20:50 23:24 00:00 Heart Rate 79 76 68 Blood Pressure 179/71 H 168/59 H Mean Arterial 107 H 95 Pressure (MAP) 07/14/17 07/14/17 04:00 07:47 Heart Rate 70 75 Blood Pressure 137/102 H 203/175 H Mean Arterial 113 H 184 H Pressure (MAP) Laboratory Tests 07/13/17 07/13/17 07/13/17 19:35 19:35 19:50 WBC 1.68 L RBC 1.95 L Hgb 6.6 L Hct 20.4 L MCV 104.6 H Plt Count 78 L Creatinine 5.1 H NT-Pro-B Natriuret Pep 33391 H Nasal Influenza A PCR NEGATIVE FOR FLU A Nasal Influenza B PCR NEGATIVE FOR FLU B 07/14/17 07/14/17 05:52 05:52 WBC 1.61 L RBC 1.77 L Hgb 5.9 L* Hct MCV 105.1 H Plt Count 65 L Creatinine 5.7 H NT-Pro-B Natriuret Pep Nasal Influenza A PCR Nasal Influenza B PCR Physical Exam - Physical Exam General Appearance: alert, no apparent distress Neck: non-tender (All) Respiratory: rhonchi Cardiac/Chest: regular rate, rhythm, edema, JVD, systolic murmur, No gallop Abdomen: non-tender, soft, No organomegaly Skin: pallor Extremities: non-tender, pedal edema Neuro/Psych: alert, normal mood/affect ICD10 Worksheet Patient Problems: Problems Problem Status Onset CHF (congestive heart failure) Acute Leukopenia Acute Pleural effusion Acute Anemia Chronic Paroxysmal atrial fibrillation Acute S/P CABG x 4 Acute chronic disease mgmt/transitional care Acute Coronary arteriosclerosis Chronic ESRD (end stage renal disease) on dialysis Chronic Hypertension Chronic Polycystic kidney disease Chronic Thrombocytopenia Chronic
[2017-07-16 05:43] LABS: PLATELET COUNT 87 10^3/uL (150-400)
[2017-07-16] MEDS: hydrALAZINE 25 MG TAB PO SCH ×4 (06:17→20:58)
[2017-07-16] MEDS ORDERED: SEVELAMER HCL 800 MG TAB PO PRN (08:47)
--- NOTE | 2017-07-16 08:53 | SOAPPROG ---
SODAVIDA Progress Note Assessment/Plan: Assessment/Plan: ESRD: on HD MWF. - Next HD planned for Tuesday. HTN: still not controlled but improved with hydralazine. - Will continue current meds. - Will also help modulate with fluid removal, will plan on extra UF tomorrow. Anemia: Hgb up to 7.8 s/p 1 unit PRBCs and stable there. She may have more profound anemia s/p bilateral nephrectomies and has higher epo needs, also noted to be pancytopenic. - Will continue to monitor. - Please let us know if you want pt to be transfused on HD at any time. - Will continue epo, last dose was on 07/13/17. Subjective: No acute events overnight. Pt has had better BP with hydralazine. She had HD yesterday with 2.5L removed and tolerated well. She notes she is still wheezing. Objective: Vital Signs Temp Pulse Resp BP Pulse Ox 36.8 C 74 20 163/82 H 100 07/16/17 07:46 07/16/17 07:46 07/16/17 07:46 07/16/17 07:46 07/16/17 07:46 Laboratory Results 07/16/17 04:29 07/16/17 04:29 07/15/17 07/16/17 07/17/17 05:59 05:59 05:59 Intake Total 450 250 Balance 450 250 General: alert and oriented, no acute distress Eyes: EOMI, PERRL OP: Clear CV: RRR Resp: CTAB, nonlabored respirations on NC Abd: Soft, NT Ext: no edema BLE Neuro: CN II-XII Grossly intact, no asterixis Psych: cooperative, appropriate mood and affect Access: LUE AVF with thrill and bruit appreciated ICD10 Worksheet Patient Problems: Problems Problem Status Onset CHF (congestive heart failure) Acute Leukopenia Acute Pleural effusion Acute Anemia Chronic Paroxysmal atrial fibrillation Acute S/P CABG x 4 Acute chronic disease mgmt/transitional care Acute Coronary arteriosclerosis Chronic ESRD (end stage renal disease) on dialysis Chronic Hypertension Chronic Polycystic kidney disease Chronic Thrombocytopenia Chronic
[2017-07-16] MEDS: FERROUS SULFATE 325 MG TAB PO SCH (09:26)
[2017-07-16] MEDS: LABETALOL HCL 200 MG TAB PO SCH ×2 (09:26→20:58)
[2017-07-16] MEDS: ASPIRIN EC 81 MG TAB PO SCH (09:26)
[2017-07-16] MEDS: ATORVASTATIN CALCIUM 10 MG TAB PO SCH (09:27)
[2017-07-16] MEDS: LISINOPRIL 40 MG TAB PO SCH ×2 (09:27→20:57)
[2017-07-16] MEDS: Sevelamer Carbonate [Renvela] 800MG TAB PO SCH ×3 (09:33→18:11)
[2017-07-16] MEDS ORDERED: SEVELAMER HCL 800 MG TAB PO SCH (12:00)
[2017-07-16] MEDS ORDERED: SEVELAMER CARBONATE 800 MG PO PRN (12:48)
--- NOTE | 2017-07-16 14:29 | HOSPPROG ---
Hospitalist Progress Note Assessment/Plan: medically complex #Volume overload, improving #ESRD, hx of polycystic kidney diseas, s/p bilateral nephrectomies -Renal following #Right sided pneumonia #HTN with HTN urgency, improving #Anemia, pancytopenia -s/p one unit PRBC on 07/14 -stable, no further decrease #CAD, Recent Bypass, pAfib -in SR -no active cardiac issues -cards following #Encephalopathy, resolved #Generalized Weakness Plan: -HD tomorrow -check labs tomorrow -cont bp meds -cont Levaquin, Pharmacy to dose -PT/OT -cont inpatient Subjective: feels better. no cp or sob. no n/v Objective: Vital Signs Temp Pulse Resp BP Pulse Ox 36.6 C 69 20 134/67 H 98 07/16/17 11:24 07/16/17 11:24 07/16/17 11:24 07/16/17 11:24 07/16/17 11:24 Laboratory Results 07/16/17 04:29 07/16/17 04:29 07/15/17 07/16/17 07/17/17 05:59 05:59 05:59 Intake Total 450 250 Balance 450 250 - Physical Exam Constitutional: no apparent distress Eyes: PERRL Ears, Nose, Mouth, Throat: moist mucous membranes, hearing normal Cardiovascular: regular rate and rhythym, No edema Respiratory: no respiratory distress Gastrointestinal: normoactive bowel sounds Genitourinary: no bladder fullness Skin: warm Musculoskeletal: full muscle strength Neurologic: AAOx3 Psychiatric: interacting appropriately, not anxious, not encephalopathic Lymph, Heme, Immunologic: No petechiae ICD10 Worksheet Patient Problems: Problems Problem Status Onset CHF (congestive heart failure) Acute Leukopenia Acute Pleural effusion Acute Anemia Chronic Paroxysmal atrial fibrillation Acute S/P CABG x 4 Acute chronic disease mgmt/transitional care Acute Coronary arteriosclerosis Chronic ESRD (end stage renal disease) on dialysis Chronic Hypertension Chronic Polycystic kidney disease Chronic Thrombocytopenia Chronic
[2017-07-17] MEDS: hydrALAZINE 25 MG TAB PO SCH ×4 (07:11→20:18)
[2017-07-17] MEDS: Sevelamer Carbonate [Renvela] 800MG TAB PO SCH ×3 (10:31→19:17)
[2017-07-17] MEDS: ATORVASTATIN CALCIUM 10 MG TAB PO SCH (10:32)
[2017-07-17] MEDS: LABETALOL HCL 200 MG TAB PO SCH ×2 (10:35→20:18)
[2017-07-17] MEDS: LISINOPRIL 40 MG TAB PO SCH ×2 (10:35→20:18)
[2017-07-17] MEDS: ASPIRIN EC 81 MG TAB PO SCH (10:35)
--- NOTE | 2017-07-17 13:29 | HOSPPROG ---
Hospitalist Progress Note Assessment/Plan: medically complex #Volume overload, improving #ESRD, hx of polycystic kidney diseas, s/p bilateral nephrectomies -Renal following #Right sided pneumonia #HTN with HTN urgency, improving #Anemia, pancytopenia -s/p one unit PRBC on 07/14 -decreased further today. Plan for 1 unit transfusion on 07/18 during dialysis #CAD, Recent Bypass, pAfib -in SR -no active cardiac issues -cards following #Encephalopathy, resolved #Generalized Weakness Plan: -HD tomorrow -transfusion during HD -cont bp meds -cont Levaquin, Pharmacy to dose -PT/OT -cont inpatient, likely d/c tomorrow after HD Subjective: no complaints. Had HD today. Hgb has decreased. Objective: Vital Signs Temp Pulse Resp BP Pulse Ox 36.7 C 65 12 139/41 H 92 07/17/17 04:00 07/17/17 13:12 07/17/17 10:26 07/17/17 13:07 07/17/17 13:12 Laboratory Results 07/17/17 04:20 07/17/17 04:20 07/16/17 07/17/17 07/18/17 05:59 05:59 05:59 Intake Total 250 750 Balance 250 750 - Physical Exam Constitutional: no apparent distress Eyes: PERRL Ears, Nose, Mouth, Throat: moist mucous membranes Cardiovascular: regular rate and rhythym, No edema Respiratory: no respiratory distress, clear to auscultation Gastrointestinal: normoactive bowel sounds, soft, non-tender abdomen Skin: warm Musculoskeletal: full muscle strength Neurologic: AAOx3 Psychiatric: interacting appropriately, not anxious, not encephalopathic Lymph, Heme, Immunologic: No petechiae ICD10 Worksheet Patient Problems: Problems Problem Status Onset CHF (congestive heart failure) Acute Leukopenia Acute Pleural effusion Acute Anemia Chronic Paroxysmal atrial fibrillation Acute S/P CABG x 4 Acute chronic disease mgmt/transitional care Acute Coronary arteriosclerosis Chronic ESRD (end stage renal disease) on dialysis Chronic Hypertension Chronic Polycystic kidney disease Chronic Thrombocytopenia Chronic
--- NOTE | 2017-07-17 15:25 | SOAPPROG ---
SOAP Progress Note Assessment/Plan: Assessment/Plan: ESRD: on HD MWF. - Next HD planned for Tuesday. HTN: improved with addition of hydralazine and fluid removal, will continue to monitor. Anemia: Hgb up to 7.8 s/p 1 unit PRBCs, now down to 7.0 She may have more profound anemia s/p bilateral nephrectomies and has higher epo needs, also noted to be pancytopenic. - Will transfuse 1 unit PRBCs on HD tomorrow. - Will continue epo, last dose was on 07/13/17. Subjective: No acute events overnight. Pt had UF today and tolerated well. Her breathing is overall improved, now just having some congestion. Objective: Vital Signs Temp Pulse Resp BP Pulse Ox 36.7 C 65 12 139/41 H 92 07/17/17 04:00 07/17/17 13:12 07/17/17 10:26 07/17/17 13:07 07/17/17 13:12 Laboratory Results 07/17/17 04:20 07/17/17 04:20 07/16/17 07/17/17 07/18/17 05:59 05:59 05:59 Intake Total 250 750 Balance 250 750 General: alert and oriented, no acute distress Eyes: EOMI, PERRL OP: Clear CV: RRR Resp: nonlabored respirations, CTAb Abd: Soft, NT/ND Ext: no edema BLE neuro: CN II-XII grossly intact, no asterixis Psych: cooperative, appropriate mood and affect Access: LUE AVF with thrill and bruit appreciated ICD10 Worksheet Patient Problems: Problems Problem Status Onset CHF (congestive heart failure) Acute Leukopenia Acute Pleural effusion Acute Anemia Chronic Paroxysmal atrial fibrillation Acute S/P CABG x 4 Acute chronic disease mgmt/transitional care Acute Coronary arteriosclerosis Chronic ESRD (end stage renal disease) on dialysis Chronic Hypertension Chronic Polycystic kidney disease Chronic Thrombocytopenia Chronic
[2017-07-17] MEDS: hydrALAZINE 20 MG/ML VIAL IVP PRN (17:29)
[2017-07-18 02:08] LABS: HEPATITIS B SURFACE ANTIGEN NEGATIVE (NEGATIVE)
[2017-07-18 02:26] LABS: HEPATITIS B CORE AB TOTAL NEGATIVE (NEGATIVE)
[2017-07-18] MEDS ORDERED: EPOETIN ALFA 10,000 UNIT/ML VIAL SC ONE (06:45)
[2017-07-18] MEDS: hydrALAZINE 25 MG TAB PO SCH ×5 (06:54→20:18)
[2017-07-18] MEDS: LISINOPRIL 40 MG TAB PO SCH ×2 (07:29→20:18)
[2017-07-18] MEDS: LABETALOL HCL 200 MG TAB PO SCH ×2 (07:30→20:17)
[2017-07-18] MEDS: ASPIRIN EC 81 MG TAB PO SCH (07:30)
[2017-07-18] MEDS: ATORVASTATIN CALCIUM 10 MG TAB PO SCH (07:31)
[2017-07-18] MEDS: CALCITRIOL 0.25 MCG CAP PO SCH (07:41)
[2017-07-18] MEDS: Sevelamer Carbonate [Renvela] 800MG TAB PO SCH ×4 (07:41→18:19)
[2017-07-18] MEDS ORDERED: hydrALAZINE 25 MG TAB PO ONE (09:42)
--- NOTE | 2017-07-18 10:02 | SOAPPROG ---
CINTHYA Progress Note Assessment/Plan: Assessment/Plan: ESRD: on HD MWF. - Pt seen on HD this am. - Next HD on Tuesday per routine, can be done at outpatient dialysis unit if discharged. HTN: remains uncontrolled, agree with increasing hyrdralazine and continuing other meds. Anemia: Hgb up to 7.8 s/p 1 unit PRBCs and then again drifted down to 7.0 She may have more profound anemia s/p bilateral nephrectomies and has higher epo needs, also noted to be pancytopenic. - Pt transfused 1 unit PRBCs today on HD. - Will continue epo, gave dose today. Subjective: No acute events overnight. Pt again had HTN early this am up to 200s systolic, down with dialysis and meds this am but still elevated. Pt feeling well, hoping to go home today. She still has some congestion. Objective: Vital Signs Temp Pulse Resp BP Pulse Ox 36.6 C 62 16 204/94 H 98 07/18/17 04:00 07/18/17 07:58 07/18/17 04:00 07/18/17 07:58 07/18/17 04:00 Laboratory Results 07/18/17 04:35 07/18/17 04:35 07/17/17 07/18/17 07/19/17 05:59 05:59 05:59 Intake Total 1100 0 Balance 1100 0 General: alert and oriented, no acute distress Eyes; EOMI, PERRL OP: clear CV: RRR Resp: nonlabored respirations on NC Abd: Soft, NT/ND Ext: no edema BLE Neuro: CN II-XII Grossly intact, no asterixis Psych: cooperative, appropriate mood and affect Access: LUE AVF cannulated ICD10 Worksheet Patient Problems: Problems Problem Status Onset CHF (congestive heart failure) Acute Leukopenia Acute Pleural effusion Acute Anemia Chronic Paroxysmal atrial fibrillation Acute S/P CABG x 4 Acute chronic disease mgmt/transitional care Acute Coronary arteriosclerosis Chronic ESRD (end stage renal disease) on dialysis Chronic Hypertension Chronic Polycystic kidney disease Chronic Thrombocytopenia Chronic
[2017-07-18] MEDS: guaiFENesin 600 MG TAB.ER PO SCH ×2 (14:15→20:17)
[2017-07-18] MEDS: FLUTICASONE NASAL 120 SPRAYS/16 GM MDI EACHNARE SCH (14:34)
--- NOTE | 2017-07-18 15:34 | HOSPPROG ---
Hospitalist Progress Note Assessment/Plan: Assessment: 76 yo F p/w hypertensive emergency resulting in acute diastolic CHF in setting of ESRD Plan: # Acute diastolic CHF exacerbation. 2/2 elevated SBP s/p bilat nephrectomies -attempting to manage SBP w/ a goal range 120-160 -volume removal w/ HD -cont supp o2, wean # ESRD. Hx of polycystic kidney disease, s/p bilateral nephrectomies 06/12 -HD today -appreciate ongoing renal mgmt # Possible right sided pneumonia. POA, evidenced by CXR w/ R and left infiltrates, leukopenia, resp sx -renally dosed levofloxacin, D#5/6 # Hypertensive emergency. Evidenced by dCHF, controlled w/ IV hydral + HD -adjusted to hydralazine 50mg qid today, cont lisinopril 40 bid, labet 200 bid -patient very concerned about her BP and risk of readmission, counseled her that given that we have made these adjustments today, will monitor for additional 24hrs to ensure they are successful prior to DC # Pancytopenia. Unclear etiology, although worsening anemia may be 2/2 nephrectomy -s/p one 2u PRBC, monitor # CAD. Chronic, recent Bypass, cont ASA, bblocker # Paroxysmal Afib. Cont bblocker, not on AC # Atelectasis. Acute, 2/2 PNA, IS # Pleural effusion. Acute, 2/2 CHF # Sinus congestion. Patient very symptomatic, does not appear to have over sinusitis -start flonase, anti-histamine, mucolytic, gauge effect Diet. Renal PPx. High risk, Hep SC Code. Full Dispo. ADD 07/19, pending stabilization of BP Subjective: patient very anxious about BP, reports significant sinus congestion Objective: Vital Signs Temp Pulse Resp BP Pulse Ox 36.3 C 79 15 165/75 H 98 07/18/17 12:00 07/18/17 12:00 07/18/17 12:00 07/18/17 12:00 07/18/17 12:00 Laboratory Results 07/18/17 04:35 07/18/17 04:35 07/17/17 07/18/17 07/19/17 05:59 05:59 05:59 Intake Total 1100 0 Balance 1100 0 - Physical Exam Constitutional: no apparent distress, not in pain, chronically ill appearing, uncomfortable Ears, Nose, Mouth, Throat: moist mucous membranes, hearing normal, ears appear normal, no oral mucosal ulcers Cardiovascular: systolic murmur (II/ at sternum and apex), edema (trace bilat LE), No irregularly irregular, No tachycardia Respiratory: reduced air movement (R base), inspiratory crackles, No expiratory wheeze, No bronchial breath sounds Gastrointestinal: normoactive bowel sounds, soft, non-tender abdomen, no palpable masses, No distension Neurologic: AAOx3, No weakness, No numbness Psychiatric: not encephalopathic, anxious, No agitated ICD10 Worksheet Patient Problems: Problems Problem Status Onset CHF (congestive heart failure) Acute Leukopenia Acute Pleural effusion Acute Anemia Chronic Paroxysmal atrial fibrillation Acute S/P CABG x 4 Acute chronic disease mgmt/transitional care Acute Coronary arteriosclerosis Chronic ESRD (end stage renal disease) on dialysis Chronic Hypertension Chronic Polycystic kidney disease Chronic Thrombocytopenia Chronic
--- NOTE | 2017-07-18 16:13 | ASMTCMCOM ---
CM Note CM Note Notes: Chart reviewed. Patient also discussed in rounds. Dialysis today, Initially hypertensive but did get blood. Plan to dc home tomorrow. No needs identified. CM available should needs arise. Date Signed: 07/18/2017 04:12 PM Electronically Signed By:Lisa Paulino RN
[2017-07-18] MEDS ORDERED: CETIRIZINE 10 MG TAB PO SCH (21:00)
[2017-07-19] MEDS: hydrALAZINE 25 MG TAB PO SCH ×2 (06:53→12:23)
[2017-07-19] MEDS: guaiFENesin 600 MG TAB.ER PO SCH (09:01)
[2017-07-19] MEDS: ATORVASTATIN CALCIUM 10 MG TAB PO SCH (09:01)
[2017-07-19] MEDS: ASPIRIN EC 81 MG TAB PO SCH (09:01)
[2017-07-19] MEDS: LABETALOL HCL 200 MG TAB PO SCH (09:01)
[2017-07-19] MEDS: FERROUS SULFATE 325 MG TAB PO SCH ×2 (09:01→09:21)
[2017-07-19] MEDS: LISINOPRIL 40 MG TAB PO SCH (09:02)
[2017-07-19] MEDS: FLUTICASONE NASAL 120 SPRAYS/16 GM MDI EACHNARE SCH (09:04)
[2017-07-19] MEDS: Sevelamer Carbonate [Renvela] 800MG TAB PO SCH ×2 (09:21→12:23)
[2017-07-19 11:42] VITALS: BP 145/55; PULSE 65; RESP 18; TEMP 98.2; O2SAT 95
--- NOTE | 2017-07-19 12:30 | SOAPPROG ---
SOAP Progress Note Assessment/Plan: Assessment: ESRD, meryl HD without problems Pneumonia: Levaquin anemia and SOB, better after transfusion Plan: Home today follow up outpatient HD usual day and time 07/19/17 12:27 Subjective: feels a lot better than when I last saw her SOB improved, still has a stuffy nose no cp nausea vomiting or anorexia spirits and energy good Objective: Vital Signs Temp Pulse Resp BP Pulse Ox 36.8 C 65 18 145/55 H 95 07/19/17 11:42 07/19/17 11:42 07/19/17 11:42 07/19/17 11:42 07/19/17 11:42 Laboratory Results 07/19/17 04:21 07/19/17 04:21 07/18/17 07/19/17 07/20/17 05:59 05:59 05:59 Intake Total 0 0 Balance 0 0 Physical Exam - Physical Exam General Appearance: alert, thin Respiratory: No rhonchi, No wheezing Cardiac/Chest: regular rate, rhythm, edema, systolic murmur, No friction rub Abdomen: normal bowel sounds, non-tender, soft Extremities: No pedal edema Neuro/Psych: alert, normal mood/affect, oriented x 3 ICD10 Worksheet Patient Problems: Problems Problem Status Onset CHF (congestive heart failure) Acute Leukopenia Acute Pleural effusion Acute Anemia Chronic Paroxysmal atrial fibrillation Acute S/P CABG x 4 Acute chronic disease mgmt/transitional care Acute Coronary arteriosclerosis Chronic ESRD (end stage renal disease) on dialysis Chronic Hypertension Chronic Polycystic kidney disease Chronic Thrombocytopenia Chronic
--- NOTE | 2017-07-19 17:25 | ASDISCHSUM ---
Discharge Information Plan Status:Home with No Needs Medically Cleared to Leave:07/18/2017 Discharge Date:07/19/2017 02:18 PM CM D/C Disposition:Home, Routine, Self-Care ADT D/C Disposition:Home, Routine, Self-Care Projected Discharge Date:07/19/2017 02:18 PM Transportation at D/C: Discharge Delay Reason: Follow-Up Date:07/19/2017 02:18 PM Discharge Slot: Final Diagnosis: Placement Information Patient Contact Information Contact Name:BETZY Relationship:Friend Address:[address] [place] [address] Work Phone: City:[place] Alternate Phone: State/Zip Code:[place] [address] Email: Financial Information Financial Class: Primary Plan Desc:MEDICARE INPATIENT Primary Plan Number:[id number] Secondary Plan Desc:[employer]/M[employer] SUPPLEMENT Secondary Plan Number:[id number] Assessment Information LACE LACE Acuity / Level of Care Answers: Was the patient admitted to hospital via the emergency department? Yes: Comorbidities - select Answers: Moderate or severe liver all that apply disease or renal disease Emergency dept visits in Answers: 2 last 6 months Score: 9 Date Signed: 07/14/2017 02:52 PM Electronically Signed By:Beckie Kirkland RN [facility] Initial CM Assessment Living Arrangements What is your living Answers: Alone arrangement? Who do you live with? Type Of Residence What kind of residence do Answers: House you live in? Discharge Plan Comments Coordination Status Comments Notes: Pt is a 76 y/o female admitted for dyspnea, CHF, anemia, and leukopenia. Pt had a CABG in Jan 2017. Pt is on a MWF schedule for dialysis. Needs are TBD at this time. No therapies ordered. CM available for d/c needs. Plan: TBD Date Signed: 07/15/2017 10:15 AM Electronically Signed By:BRIDGETT Rojas [facility] CM Progress Note CM Note CM Note Notes: Chart reviewed. Patient also discussed in rounds. Dialysis today, Initially hypertensive but did get blood. Plan to dc home tomorrow. No needs identified. CM available should needs arise. Date Signed: 07/18/2017 04:12 PM Electronically Signed By:Lisa Paulino RN Intervention Information
--- NOTE | 2017-07-19 19:44 | PDDCSUM ---
Discharge Summary Discharge Summary: DISCHARGE SUMMARY FOLLOW-UP ITEMS: Fall blood pressure readings at hemodialysis center DATE OF ADMISSION: 07/13/2017 DATE OF DISCHARGE: 07/19/2017 DISCHARGE DIAGNOSES: 1. Acute diastolic congestive heart failure exacerbation 2. End-stage renal disease 3. Possible right-sided pneumonia present on admission 4. Acute hypertensive emergency 5. Pancytopenia 6. Chronic coronary artery disease 7. Paroxysmal atrial fibrillation 8. Acute atelectasis and pleural effusion 9. Sinus congestion CONSULTATIONS: Nephrology PROCEDURES / IMAGING: Hemodialysis CHIEF COMPLAINT: Acute shortness of breath, sinus congestion SUBJECTIVE: Patient is feeling well at time discharge, she is requesting discharge, her sinus congestion has improved PHYSICAL EXAM ON DISCHARGE: Systolic blood pressure 1 40-180, lungs are clear to auscultation bilaterally, alert awake oriented x3, no lower extremity edema LABS ON DISCHARGE: Hemoglobin 8.8, white blood count 3000, potassium 4.6, hep panel negative HOSPITAL COURSE BY PROBLEM: 1. Acute diastolic congestive heart failure exacerbation. Evidenced by interstitial markings on chest x-ray and pleural effusion, secondary to elevated systolic blood pressure and hypertensive emergency status post bilateral nephrectomies. Patient received volume removal with hemodialysis and had up titration of her antihypertensives. She appeared to be euvolemic at time of discharge. She ongoing management her hemodialysis center. 2. End-stage renal disease. Patient has a history of polycystic kidney disease and she is status post recent bilateral nephrectomies in May of 2017. She received ongoing dialysis and I discussed her case with Dr. Siddharth Gomez prior to discharge. Will monitor this patient as outpatient. 3. Possible right-sided pneumonia. Present on admission, evidenced by chest x- ray with right-sided and left-sided infiltrates as well as leukopenia and respiratory symptoms. Patient received 6 days of renally dosed levofloxacin. 4. Acute hypertensive emergency. Evidenced by systolic blood pressure greater than 200 with resultant diastolic CHF, patient initially received IV hydralazine and then up titration of her oral hydralazine. This was up titrated to 50 mg 4 times daily and she was continued on her lisinopril 40 mg twice daily, labetalol 200 mg twice daily. To receive ongoing up titration of the hydralazine as an outpatient if needed and should be noted that her right lower extremity blood pressure readings do correlate to her right upper extremity blood pressure readings. 5. Pancytopenia. Unclear etiology, happy panel negative, may be secondary to recent nephrectomy. She did receive 2 U packed red blood cells. She demonstrates no evidence of blood loss. 6. Acute atelectasis and pleural effusion. Most likely secondary to pneumonia and CHF, incentive spirometer. Volume removal with HD. 7. Paroxysmal atrial fibrillation. Patient was continued on her beta-xiang, she is currently not on systemic anticoagulation, she is on aspirin for CVA prevention. 8. Sinus congestion. Unclear whether patient is experiencing seasonal rhinitis or recent URI, but she did respond well to supportive care with cetirizine, Mucinex, Flonase, continue. DISCHARGE MEDICATIONS: Please see official discharge medication reconciliation sheet in chart , continue all home medications with the addition of scheduled Mucinex, scheduled cetirizine, scheduled Flonase, up titration of hydralazine to 50 mg 4 times daily. DISCHARGE INSTRUCTIONS: Please follow up at hemodialysis tomorrow and have blood pressure reassess. TIME SPENT: Greater than 30 minutes were spent on direct patient care, as well as discharge planning and preparation.
== END 2017-07-19 14:18 | disposition home or self-care (01) | DRG 291 ==
LOC: F2W 07-14 15:45 → OBSVTOIN 07-14 15:49
PROVIDERS: ADMIT Internal Medicine; ATTEND Internal Medicine
PROC: 30233N1 Transfusion of Nonautologous Red Blood Cells into Peripheral Vein, Percutaneous Approach (ICD-10-PCS; 2017-07-14)
PROC: 5A1D70Z Performance of Urinary Filtration, Intermittent, Less than 6 Hours Per Day (ICD-10-PCS; principal; 2017-07-15)
DX: I13.2 Hypertensive heart and chronic kidney disease with heart failure and with stage 5 chronic kidney disease, or end stage renal disease (principal); I50.31 Acute diastolic (congestive) heart failure; N18.6 End stage renal disease; J18.9 Pneumonia, unspecified organism; I16.1 Hypertensive emergency; D61.818 Other pancytopenia; J98.11 Atelectasis; I25.10 Atherosclerotic heart disease of native coronary artery without angina pectoris; I48.0 Paroxysmal atrial fibrillation; R09.81 Nasal congestion; Z95.1 Presence of aortocoronary bypass graft; Z63.1 Problems in relationship with in-laws; Z99.2 Dependence on renal dialysis
CPT/HCPCS: 86704-90; 97161-GP; 97166-GO; 97535-GO; G0378; G8978-GP-CJ; G8979-GP-CI; G8987-GO-CJ; G8988-GO-CH; J0360; J0885; J1200; J1940; J1956; J7613; P9016

== ENCOUNTER → 2017-08-01 | Outpatient (CLI) | payer OTHER, MEDICARE | LOC: FIMAGING 15:32 | PROVIDERS: ATTEND Internal Medicine Nephrology | DX: M79.89 Other specified soft tissue disorders (principal); M71.22 Synovial cyst of popliteal space [Baker], left knee; Z95.1 Presence of aortocoronary bypass graft ==

== ENCOUNTER → 2017-08-23 | Outpatient (CLI) | payer OTHER, MEDICARE | LOC: FIMAGING 13:39 | PROVIDERS: ATTEND Orthopaedic Surgery Sports Medicine | DX: R22.42 Localized swelling, mass and lump, left lower limb (principal); M17.12 Unilateral primary osteoarthritis, left knee; R93.6 Abnormal findings on diagnostic imaging of limbs ==

== ENCOUNTER 2017-10-11 15:03 | Emergency (ER) | payer OTHER, MEDICARE ==
--- NOTE | 2017-10-11 15:19 | EDPHY ---
H & P Time Seen by Provider: 10/11/17 15:03 HPI/ROS: Chief complaint. Fall HPI. 77-year-old female presents emergency EMS. She had a fall the wind knocked her over. She was home in her yd in the large just when taking patient onto her left side. She had also fallen onto her left side 3 days ago. She did not strike head lose consciousness. She has no neck or back pain. Chest discomfort breathing. Abdominal pain. She has abrasions knee, left hand and laceration to the wrist and left upper arm. The patient has end-stage renal failure Tuesday dialysis. The injury to her left arm is just above the AV shunt and there was concern by the patient that it may have injured discharged. ROS Constitutional. no fever/chills, no weakness Eyes. no problems with vision ENT. no sore throat, no nasal drainage Cardiovascular. no chest pain Respiratory. no shortness of breath, no cough Abdominal. no abdominal pain, no nausea/vomiting, no diarrhea . no problems urinating MS. No neck or back pain Skin. Abrasion to left knee, left hand, laceration to left wrist and left upper arm Lymph. no swollen glands Neuro. no headache, no dizziness, no difficulty walking or with speech Past Medical/Surgical History: Past medical history significant for polycystic kidney disease with bilateral nephrectomies. Tuesday dialysis AV fistula in the left upper extremity. Hypertension, anemia, COPD, coronary artery bypass Social History: Single, daily smoker, no alcohol Smoking Status: Current every day smoker Physical Exam: General Appearance: Alert pleasant well-developed female mild distress vital signs significant for blood pressure 155/101 Eyes: Pupils equal and round no pallor or injection. ENT, Mouth: Mucous membranes are moist. Respiratory: There are no retractions, lungs are clear to auscultation. Cardiovascular: Regular rate and rhythm. Gastrointestinal: Abdomen is soft and nontender, no masses, bowel sounds normal. Neurological: Awake and alert, sensory and motor exams grossly normal. Skin: Skin tear to the left upper arm, measuring 3 cm, above and lateral to the AV fistula which appears to be intact in functioning. Skin tear to the left wrist measuring 2 cm. Superficial abrasion to the 4th metacarpal left hand and to the left anterior knee Musculoskeletal: Neck is supple nontender. Extremities symmetrical, full range of motion. Psychiatric: Patient is oriented X 3, there is no agitation. Constitutional: Initial Vital Signs Temperature (C) 36.5 C 10/11/17 15:15 Heart Rate 72 10/11/17 15:15 Respiratory Rate 18 10/11/17 15:15 Blood Pressure 155/101 H 10/11/17 15:15 O2 Sat (%) 97 10/11/17 15:15 O2 Delivery Mode Room Air Allergies/Adverse Reactions: No Allergies [NKA] Allergy (Verified 02/15/17 12:22) No Allergies Allergy (Unknown, Uncoded 03/18/17 14:51) Home Medications: Medication Instructions Recorded Labetalol HCl [Trandate 200 mg (*)] 200 mg PO BID 02/26/17 Aspirin EC [Aspirin EC 81 mg (*)] 81 mg PO DAILY 07/13/17 Atorvastatin Calcium [Lipitor 10 10 mg PO DAILY 07/13/17 mg (*)] Calcitriol [Calcitriol (*)] 0.75 mcg PO AD 07/13/17 Epoetin Milind [Epogen] 20,000 unit IJ AD 07/13/17 Ferrous Sulfate [Ferrous Sulf 325 325 mg PO Q2D 07/13/17 MG (*)] Herbals/Supplements -Info Only 1 ea PO DAILY 07/13/17 Lisinopril [Zestril 40 mg (*)] 40 mg PO BID 07/13/17 Sevelamer Carbonate [Renvela] 1,600 mg PO BID PRN 07/13/17 Sevelamer Carbonate [Renvela] 3,200 mg PO TIDMEAL 07/13/17 Cetirizine [ZyrTEC 10 mg (*)] 10 mg PO HS #10 tab 07/19/17 Fluticasone Nasal [Flonase Nasal 2 sprays EACHNARE DAILY #1 mdi 07/19/17 [place]] guaiFENesin [Mucinex 600 MG (*)] 1,200 mg PO BID #20 tab.er 07/19/17 hydrALAZINE [Apresoline] 50 mg PO QID #120 tab 07/19/17 Medical Decision Making Procedures: Wounds are cleaned and dressed using Steri-Strips ED Course/Re-evaluation: Re-evaluation again at 4:05 p.m.. Patient is stable. Wounds are being cleaned and dressed Recheck again at 4:50 p.m.. Patient is stable. The patient and I discussed treatment plan including criteria for return importance of follow-up and further evaluation. She expresses understanding and agreement Differential Diagnosis: This appears to be all superficial injuries. I considered fractures and dislocations. No evidence for injury to the AV shunt. Departure - Departure Disposition: Home, Routine, Self-Care Clinical Impression: Laceration of arm, left, multiple sites Qualifiers: Encounter type: initial encounter Qualified Code(s): S41.112A - Laceration without foreign body of left upper arm, initial encounter Condition: Good Instructions: Laceration Without Closure (ED) Additional Instructions: Keep cut clean and dry. You may shower. Return for signs of infection. Steri- Strips on for 10 days. You may go to dialysis tomorrow Referrals: NONE *PRIMARY CARE P,. [Primary Care Provider] - As per Instructions
[2017-10-11] MEDS ORDERED: LET GEL TOPICAL 1 EA SYR TP ONE (15:44)
[2017-10-11 17:12] VITALS: BP 161/83
== END 2017-10-11 17:12 | disposition home or self-care (01) ==
LOC: EDUNIT#
DX: S41.112A Laceration without foreign body of left upper arm, initial encounter (principal); J44.9 Chronic obstructive pulmonary disease, unspecified; I25.10 Atherosclerotic heart disease of native coronary artery without angina pectoris; I12.0 Hypertensive chronic kidney disease with stage 5 chronic kidney disease or end stage renal disease; N18.6 End stage renal disease; F17.200 Nicotine dependence, unspecified, uncomplicated; Z79.82 Long term (current) use of aspirin; W01.0XXA Fall on same level from slipping, tripping and stumbling without subsequent striking against object, initial encounter; Y92.009 Unspecified place in unspecified non-institutional (private) residence as the place of occurrence of the external cause; Y99.8 Other external cause status; Y93.89 Activity, other specified

== ENCOUNTER → 2017-10-17 | Outpatient (CLI) | payer OTHER, MEDICARE | LOC: FIMAGING 15:25 | PROVIDERS: ATTEND Family Medicine | DX: J90 Pleural effusion, not elsewhere classified (principal); Z95.1 Presence of aortocoronary bypass graft ==

== ENCOUNTER 2017-12-19 08:28 | Emergency (ER) | payer OTHER, MEDICARE ==
[2017-12-19] MEDS ORDERED: oxyCODONE IR 5 MG TAB PO ONE (08:57)
--- NOTE | 2017-12-19 08:57 | EDPHY ---
H & P Stated Complaint: chronic l shoulder pain/rotator cuff/mri months ago Time Seen by Provider: 12/19/17 08:50 HPI/ROS: HPI: This is a 77-year-old female who presents with Chief Complaint: chronic l shoulder pain/rotator cuff/mri months ago Location: Left shoulder Quality: Pain Duration: Since yesterday Signs and Symptoms: No bleeding, no radiation, no numbness, no weakness, no tingling, no incontinence, + decreased range of motion, no swelling, + pain, no fever Timing: Acute on chronic Severity: 12/04 Context: Patient is right-hand dominant, presents with complaints of left shoulder pain since yesterday a insidious onset that is now constant in nature and worsened with touching the area are attempting to move her arms overhead. Patient reports that she is followed by Orthopedics, Dr. Tolbert, who has followed her over the last 1-2 years for bilateral chronic shoulder pain secondary to rotator cuff arthropathy. She reports that she has limited range of motion at baseline and has to wear wig for the last several years as she is unable to extend her arms over her head. Patient reports that her pain is minimally worsened from her baseline. She took Tylenol last night and this morning without any pain relief. She called Dr. Tolbert's office this morning and was unable to get an appointment as he is only in the office on Tuesday and . In the past he has done intra-articular steroid injections and she believes that she may benefit from another one. She denies any trauma, injury, swelling. Denies paresthesias, weakness, chest pain, shortness of breath, dizziness, nausea, vomiting. Patient is end stage renal disease patient on Tuesday schedule and is supposed to be at [facility] at 10 o'clock in approximately 1 hr. Modifying Factors: Comment: ROS: see HPI Constitutional: No fever, no chills, no weight loss Eyes: No blurred vision Respiratory: No shortness of breath, no cough Cardiovascular: No chest pain Gastrointestinal: No nausea, no vomiting no diarrhea Genitourinary: No dysuria Extremities: No myalgias Neurologic: No weakness, no numbness Skin: No rashes Hematologic: No bruising, no bleeding MEDICAL/SURGICAL/SOCIAL HISTORY: Medical history: pmh- renal failyre with LUE fistula, [place], polycystic kidney disease, htn, anemia, COPD, bilat nephrectomy 05/2017, CABG Feb 10 Surgical history: Av fistula Social history: Disable. Retired. Lives with a roommate. CONSTITUTIONAL: Chronically ill-appearing but polite and cooperative elderly white female, awake and alert, no obvious distress HEENT: Atraumatic and normocephalic. EXTREMITIES: 2/2 pulses, strength 5/5, left arm shows AV fistula that has good pulses. No erythema, warmth, tenderness, swelling. Left SHOULDER: Deltoid strength is only 3/5 but equal bilaterally. Patient has relatively good internal rotation external rotation. Patient is unable to perform arc test or to lift arms above breast level secondary to to rotator cuff injury. DIP/PIP/ MCP flexion/extension intact with good light touch sensation. no deformities, no clubbing, no cyanosis or edema. NEUROLOGICAL: no focal neuro deficits. GCS 15. Light touch sensation intact. SKIN: Warm and dry, no erythema. no rash. Good capillary refill. Source: Patient, Old records Exam Limitations: No limitations - Personal History Current Tetanus Diphtheria and Acellular Pertussis (TDAP): Yes - Medical/Surgical History Hx Asthma: No Hx Chronic Respiratory Disease: Yes Hx Diabetes: No Hx Cardiac Disease: Yes Hx Renal Disease: Yes Hx Cirrhosis: No Hx Alcoholism: No Hx HIV/AIDS: No Hx Splenectomy or Spleen Trauma: No Other PMH: pmh- renal failyre with LUE fistula, [place], polycystic kidney disease, htn, anemia, COPD, bilat nephrectomy 05/2017, CABG Feb 10 - Social History Smoking Status: Current every day smoker Constitutional: Initial Vital Signs Temperature (C) 36.8 C 12/19/17 08:35 Heart Rate 72 12/19/17 08:35 Respiratory Rate 18 12/19/17 08:35 Blood Pressure 183/57 H 12/19/17 08:35 O2 Sat (%) 97 12/19/17 08:35 O2 Delivery Mode Room Air Allergies/Adverse Reactions: No Known Allergies Allergy (Unverified 12/19/17 08:32) Home Medications: Medication Instructions Recorded Labetalol HCl [Trandate 200 mg (*)] 200 mg PO BID 02/26/17 Aspirin EC [Aspirin EC 81 mg (*)] 81 mg PO DAILY 07/13/17 Atorvastatin Calcium [Lipitor 10 10 mg PO DAILY 07/13/17 mg (*)] Calcitriol [Calcitriol (*)] 0.75 mcg PO AD 07/13/17 Epoetin Milind [Epogen] 20,000 unit IJ AD 07/13/17 Ferrous Sulfate [Ferrous Sulf 325 325 mg PO Q2D 07/13/17 MG (*)] Herbals/Supplements -Info Only 1 ea PO DAILY 07/13/17 Lisinopril [Zestril 40 mg (*)] 40 mg PO BID 07/13/17 Sevelamer Carbonate [Renvela] 1,600 mg PO BID PRN 07/13/17 Sevelamer Carbonate [Renvela] 3,200 mg PO TIDMEAL 07/13/17 Cetirizine [ZyrTEC 10 mg (*)] 10 mg PO HS #10 tab 07/19/17 Fluticasone Nasal [Flonase Nasal 2 sprays EACHNARE DAILY #1 mdi 07/19/17 [place]] guaiFENesin [Mucinex 600 MG (*)] 1,200 mg PO BID #20 tab.er 07/19/17 hydrALAZINE [Apresoline] 50 mg PO QID #120 tab 07/19/17 Amlodipine Bes/Olmesartan Med 12/19/17 oxyCODONE/APAP 5/325 [Percocet 1 - 2 tab PO Q4H PRN #10 tab 12/19/17 5/325 (*)] Medical Decision Making ED Course/Re-evaluation: Vital signs reviewed and noted elevated blood pressure consistent with end- stage renal disease and hypertension. Patient is scheduled to be at dialysis in approximately 1 hr. Patient has an orthopedist that she has followed for over 2 years regarding her bilateral shoulder chronic pain related to a rotator cuff arthropathy. She has had recent MRIs of both shoulders. She has been deemed a poor surgical candidate. I do not feel like this is cardiac in nature at this time. Patient given oxycodone 5 mg x1 in the ER with adequate pain relief. She is not a good NSAID candidate. I did give her a small prescription of Percocet dispense #10 with a follow-up appointment on Tuesday or with her orthopedist. She may benefit from intra-articular steroid injection. No signs of neurovascular compromise/tenting of skin/compartment syndrome/ extremities and joints examined above and below area of concern and are neurovascularly intact/DVT/septic arthritis/gouty arthropathy. This patient was seen under the supervision of my secondary supervising physician. I evaluated care for this patient independently. Discussed this patient with Dr. Oconnell who did not see the patient. Differential Diagnosis: Differential diagnosis includes but is not limited to rotator cuff arthropathy, labral tear, acute on chronic shoulder pain, acute coronary syndrome, deep venous thrombosis, AV fistula malfunction. Departure - Departure Disposition: Home, Routine, Self-Care Clinical Impression: Chronic pain in left shoulder, Left rotator cuff tear arthropathy, Uncontrolled pain Condition: Good Instructions: Shoulder Pain (ED) Additional Instructions: Take Tylenol 650 mg every 4 hours as needed for pain. Use Percocet every 6 hours as needed for severe/break through pain. Do not use Tylenol and Percocet concomitantly. Apply a heating pad for 30 minutes at a time; 2-3 times per day for the next 1- 2 days. Follow up with Orthopedics in 1-3 days at which time they will evaluate and recommend with you if conservative management versus further adjuvant therapy is indicated. Please go directly to dialysis as previously scheduled. Referrals: Gilbert Tolbert MD [Medical Doctor] - 2-3 days without fail Prescriptions: oxyCODONE/APAP 5/325 [Percocet 5/325 (*)] 1 - 2 tab PO Q4H PRN #10 tab PRN Reason: Pain, Severe
[2017-12-19 09:07] VITALS: BP 158/90
== END 2017-12-19 09:07 | disposition home or self-care (01) ==
DX: M75.102 Unspecified rotator cuff tear or rupture of left shoulder, not specified as traumatic (principal); G89.29 Other chronic pain; I10 Essential (primary) hypertension; J44.9 Chronic obstructive pulmonary disease, unspecified; F17.200 Nicotine dependence, unspecified, uncomplicated; Z79.82 Long term (current) use of aspirin

== ENCOUNTER 2018-01-22 18:48 | Inpatient (IN) | payer OTHER, MEDICARE ==
--- NOTE | 2018-01-22 19:11 | EDPHY ---
H & P Stated Complaint: fall, R hip deform Time Seen by Provider: 01/22/18 18:58 HPI/ROS: CHIEF COMPLAINT: Right hip pain right pelvic pain HISTORY OF PRESENT ILLNESS: 77-year-old female with extensive medical history including history of CABG in January 2017, bilateral nephrectomy at the [facility] in May 2017, Tuesday dialysis schedule, arrives via ambulance with her partner complaining of acute right hip and pelvic pain. She describes sitting down on a chair on her concrete patio when the chair foot slipped and she landed hard on her buttock and right hip. She is unable to bear weight. Noted shortening and malrotation by EMS. Skin intact. This was a mechanical incident. No head injury. No chest pain or injury. No back pain injury. No neck pain or injury. No peripheral paresthesia, weakness, numbness. No prolonged periods of mobility on the ground. PRIMARY CARE PROVIDER: Zaina REVIEW OF SYSTEMS: A ten point review of systems was performed and is negative with the exception of the items mentioned in the HPI PAST MEDICAL/SURGICAL HISTORY: Tuesday dialysis schedule. Today is Tuesday and she has recently kept her Tuesday dialysis. History of CABG. History of left upper extremity fistula. History of polycystic kidney disease with subsequent bilateral nephrectomy at the [facility] in May 2017. CABG x4 January 2017. SOCIAL HISTORY: denies alcohol use at time of incident PHYSICAL EXAM 1) GENERAL: Well-developed, well-nourished, alert and oriented. Appears uncomfortable Answering questions appropriately. 2) HEAD: Normocephalic, atraumatic 3) HEENT: Pupils equal, round, reactive to light bilaterally. Negative Horn[place]. Nasopharynx, oropharynx, clear. No deformity or angulation of nose. No septal hematoma. No rhinorrhea. No oral trauma. Ears bilaterally with normal tympanic membranes. No hemotympanum. No fluid or blood in the external auditory canal. No raccoon eyes. No Wade sign. Teeth are normally aligned with no gross malocclusion, TMJ bilaterally nontender, facial bones nontender including the zygomatic arch, maxilla mandible. 4) NECK: No cervical collar is on. Posterior cervical spine is nontender, no stepoff, no effusion. Full range of motion which does not elicit any midline cervical spine pain, no posterior midline tenderness, no step-off. 5) LUNGS: Clear to auscultation bilaterally, no wheezes, no rhonchi, no retractions. No obvious signs of trauma. No chest wall pain. No flaring, no grunting. Moving symmetrically. No crepitus. 6) HEART: Regular rate and rhythm, 7) ABDOMEN: No guarding, no rebound, no focal tenderness, no peritoneal signs, no signs of trauma, no ecchymosis 8) MUSCULOSKELETAL: Right lower extremity: Shortening and external rotation noted. Brisk DP PT pulses. Tender to palpation proximal femur. Intact skin. Soft compartments. Brisk capillary refill. Pain to the hip and pelvis and femur with movement. Knee, ankle foot nontender with DP PT pulses present and brisk. Normal color temperature. Brisk capillary refill. Otherwise, Moving all extremities, no focal areas of tenderness, no obvious trauma. 9) BACK: No midline vertebral tenderness, no fluctuance, no step-off, no obvious trauma, no visual or palpable abnormality. 10) SKIN: No laceration. No abrasion DIFFERENTIAL DIAGNOSIS: In no particular order including but not limited to fracture, sprain, strain, dislocation - Personal History Current Tetanus/Diphtheria Vaccine: Yes - Medical/Surgical History Hx Asthma: No Hx Chronic Respiratory Disease: Yes Hx Diabetes: No Hx Cardiac Disease: Yes Hx Renal Disease: Yes Hx Cirrhosis: No Hx Alcoholism: No Hx HIV/AIDS: No Hx Splenectomy or Spleen Trauma: No Other PMH: pmh- renal failyre with LUE fistula, [place], polycystic kidney disease, htn, anemia, COPD, bilat nephrectomy 05/2017, CABG Feb 10 - Social History Smoking Status: Current every day smoker Constitutional: Initial Vital Signs Temperature (C) 36.4 C 01/22/18 18:55 Heart Rate 69 01/22/18 18:55 Respiratory Rate 18 01/22/18 18:55 Blood Pressure 174/101 H 01/22/18 18:55 O2 Sat (%) 94 01/22/18 18:55 O2 Delivery Mode Room Air Allergies/Adverse Reactions: No Known Allergies Allergy (Verified 01/22/18 18:55) Home Medications: Medication Instructions Recorded Labetalol HCl [Trandate 200 mg (*)] 200 mg PO BID 02/26/17 Aspirin EC [Aspirin EC 81 mg (*)] 81 mg PO DAILY 07/13/17 Atorvastatin Calcium [Lipitor 10 10 mg PO DAILY 07/13/17 mg (*)] Calcitriol [Calcitriol (*)] 0.75 mcg PO AD 07/13/17 Epoetin Milind [Epogen] 20,000 unit IJ AD 07/13/17 Ferrous Sulfate [Ferrous Sulf 325 325 mg PO Q2D 07/13/17 MG (*)] Herbals/Supplements -Info Only 1 ea PO Q2D 07/13/17 Lisinopril [Zestril 40 mg (*)] 40 mg PO BID 07/13/17 Sevelamer Carbonate [Renvela] 1,600 mg PO BID PRN 07/13/17 Sevelamer Carbonate [Renvela] 3,200 mg PO TIDMEAL 07/13/17 hydrALAZINE [Apresoline] 50 mg PO QID #120 tab 07/19/17 amLODIPine BESYLATE [Amlodipine 5 mg PO DAILY 12/19/17 Besylate] Cinacalcet HCl [Sensipar (*)] 30 mg PO DAILY 01/22/18 Parenteral Amino Acid 20% No.1 2,000 ml IV AD 01/22/18 [Prosol] Medical Decision Making - Diagnostics Imaging Results: Imaging Impressions Chest X-Ray 01/22/18 19:07 Impression: 1. Difficult to exclude impending CHF on this supine chest x-ray. 2. Chronic versus recurrent left lower lobe consolidation with effusion. 2. Right Hip Technique: AP pelvis and frog-leg right hip. Clinical Indications: Trauma, fall, pain Findings: Is an acute comminuted right intertrochanteric hip fracture with 90 degrees angulation between the femoral neck and the femoral shaft. No pelvic ring fracture is identified. There is dense atherosclerotic calcification. There are lower abdominal surgical clips. Impression: Intertrochanteric right hip fracture. 3. Right femur, 4 views History: Trauma, pain, fall Findings: The comminuted intertrochanteric hip fracture is confirmed. The more distal femur is intact. Knee joint is normally aligned. There is a small knee joint effusion. It is difficult to exclude an acute quadriceps tendon avulsion of hypertrophic change of the anterior superior patella. There is atherosclerotic calcification of the superficial femoral artery. Pression: 1. Intertrochanteric hip fracture 2. Cannot exclude a quadriceps tendon avulsion of anterior superior patellar spurs. Femur X-Ray 01/22/18 19:07 Impression: 1. Difficult to exclude impending CHF on this supine chest x-ray. 2. Chronic versus recurrent left lower lobe consolidation with effusion. 2. Right Hip Technique: AP pelvis and frog-leg right hip. Clinical Indications: Trauma, fall, pain Findings: Is an acute comminuted right intertrochanteric hip fracture with 90 degrees angulation between the femoral neck and the femoral shaft. No pelvic ring fracture is identified. There is dense atherosclerotic calcification. There are lower abdominal surgical clips. Impression: Intertrochanteric right hip fracture. 3. Right femur, 4 views History: Trauma, pain, fall Findings: The comminuted intertrochanteric hip fracture is confirmed. The more distal femur is intact. Knee joint is normally aligned. There is a small knee joint effusion. It is difficult to exclude an acute quadriceps tendon avulsion of hypertrophic change of the anterior superior patella. There is atherosclerotic calcification of the superficial femoral artery. Pression: 1. Intertrochanteric hip fracture 2. Cannot exclude a quadriceps tendon avulsion of anterior superior patellar spurs. Hip X-Ray 01/22/18 19:07 Impression: 1. Difficult to exclude impending CHF on this supine chest x-ray. 2. Chronic versus recurrent left lower lobe consolidation with effusion. 2. Right Hip Technique: AP pelvis and frog-leg right hip. Clinical Indications: Trauma, fall, pain Findings: Is an acute comminuted right intertrochanteric hip fracture with 90 degrees angulation between the femoral neck and the femoral shaft. No pelvic ring fracture is identified. There is dense atherosclerotic calcification. There are lower abdominal surgical clips. Impression: Intertrochanteric right hip fracture. 3. Right femur, 4 views History: Trauma, pain, fall Findings: The comminuted intertrochanteric hip fracture is confirmed. The more distal femur is intact. Knee joint is normally aligned. There is a small knee joint effusion. It is difficult to exclude an acute quadriceps tendon avulsion of hypertrophic change of the anterior superior patella. There is atherosclerotic calcification of the superficial femoral artery. Pression: 1. Intertrochanteric hip fracture 2. Cannot exclude a quadriceps tendon avulsion of anterior superior patellar spurs. Images reviewed myself ED Course/Re-evaluation: 7:10 p.m.: Patient was evaluated by myself and case discussed with Dr. Suzie Snyder secondary supervising physician after evaluating the patient. The patient has soft compartments with suspected hip fracture. Will obtain imaging studies. She has multiple medical comorbidities. Her she is here with her power of business attorney/partner. 8:40 p.m.: Phone Consultation with on-call orthopedics Dr. Zay Fuentes has reviewed the patient's images. Will plan on possible operative intervention tomorrow 8:42 p.m.: Phone Consultation with hospitalist Dr. Benjamin Geiger who will admit patient - Data Points Laboratory Results: Laboratory Results 01/22/18 19:57 01/22/18 19:57 01/22/18 01/22/18 01/22/18 19:57 19:57 19:57 WBC 9.07 10^3/uL 10^3/uL (3.80-9.50) RBC 2.21 10^6/uL L 10^6/uL (4.18-5.33) Hgb 7.5 g/dL L g/dL (12.6-16.3) Hct 23.0 % L % (38.0-47.0) MCV 104.1 fL H fL (81.5-99.8) MCH 33.9 pg pg (27.9-34.1) MCHC 32.6 g/dL g/dL (32.4-36.7) RDW 14.7 % % (11.5-15.2) Plt Count 112 10^3/uL L 10^3/uL (150-400) MPV 9.3 fL fL (8.7-11.7) Neut % (Auto) Not Reported Lymph % (Auto) Not Reported Boundary % (Auto) Not Reported Eos % (Auto) Not Reported Baso % (Auto) Not Reported Nucleat RBC Rel Count Not Reported Absolute Neuts (auto) Not Reported Absolute Lymphs (auto) Not Reported Absolute Monos (auto) Not Reported Absolute Eos (auto) Not Reported Absolute Basos (auto) Not Reported Absolute Nucleated RBC Not Reported Immature Gran % Not Reported Seg Neutrophils % 88.0 % % Band Neutrophils % 0 % % Lymphocytes % 2.0 % % Monocytes % 3.0 % % Eosinophils % 6.0 % % Basophils % 0 % % Metamyelocytes % 1.0 % % Myelocytes % 0 % % Promyelocytes % 0 % % Blast Cells % 0 % % Immature Gran # Not Reported Absolute Seg Neuts 7.98 10^/uL H 10^/uL (1.70-6.50) Absolute Band Neuts 0.00 10^3/uL 10^3/uL (0.00-0.70) Absolute Lymphocytes 0.18 10^3/uL L 10^3/uL (1.00-3.00) Absolute Monocytes 0.27 10^3/uL L 10^3/uL (0.30-0.80) Absolute Eosinophils 0.54 10^3/uL H 10^3/uL (0.03-0.40) Absolute Basophils 0.00 10^3/uL L 10^3/uL (0.02-0.10) Absolute Metamyelocyte 0.09 10^3/mL H 10^3/mL (0.00-0.00) Absolute Myelocytes 0.00 10^3/mL 10^3/mL (0.00-0.00) Absolute Promyelocytes 0.00 10^3/uL 10^3/uL (0.00-0.00) Absolute Plasma Cells 0.00 10^3/uL 10^3/uL (0.00-0.00) Nucleated RBCs 0 /100 WBC /100 WBC (0-0) Absolute Blast Cells 0.00 10^3/uL 10^3/uL (0.00-0.00) Plasma Cells % 0 % % Platelet Estimate DECREASED L (ADEQ) Polychromasia 1+ H Hypochromasia 1+ H Tear Drop Cells 1+ H Oval Macrocytes 1+ H Schistocytes 1+ H PT 13.9 SEC SEC (12.0-15.0) INR 1.05 (0.83-1.16) APTT 29.8 SEC SEC (23.0-38.0) Sodium 132 mEq/L L mEq/L (135-145) Potassium 4.9 mEq/L mEq/L (3.3-5.0) Chloride 94 mEq/L L mEq/L (97-110) Carbon Dioxide 26 mEq/l mEq/l (22-31) Anion Gap 12 mEq/L mEq/L (8-16) BUN 63 mg/dL H mg/dL (7-23) Creatinine 6.0 mg/dL H mg/dL (0.6-1.0) Estimated GFR 7 Glucose 101 mg/dL H mg/dL (70-100) Calcium 9.0 mg/dL mg/dL (8.5-10.4) Medications Given: Discontinued Medications Fentanyl (Sublimaze) 50 mcg IVP EDNOW ONE Stop: 01/22/18 19:26 Last Admin: 01/22/18 19:27 Dose: 50 mcg Lorazepam (Ativan Injection) 1 mg IVP EDNOW ONE Stop: 01/22/18 19:19 Last Admin: 01/22/18 19:21 Dose: 1 mg Departure - Departure Disposition: [facility] Inpatient Acute Clinical Impression: Closed right hip fracture Qualifiers: Encounter type: initial encounter Qualified Code(s): S72.001A - Fracture of unspecified part of neck of right femur, initial encounter for closed fracture Condition: Fair
[2018-01-22] MEDS ORDERED: LORazepam 2 MG/ML INJ IVP ONE (19:18)
[2018-01-22] MEDS ORDERED: fentaNYL 100 MCG/2 ML INJ ONE (19:19)
[2018-01-22] MEDS ORDERED: fentaNYL 100 MCG/2 ML INJ IVP ONE (19:25)
[2018-01-22 20:12] LABS: PLATELET COUNT 112 10^3/uL (150-400)
[2018-01-22 20:20] LABS: INR 1.05 (0.83-1.16); PROTIME(PATIENT) 13.9 SEC (12.0-15.0)
--- NOTE | 2018-01-22 20:57 | CPEKG ---
Heart Rate: 68 RR Interval: 882 P-R Interval: 180 QRSD Interval: 98 QT Interval: 440 QTC Interval: 469 P [place]: 72 QRS [place]: 72 T Wave [place]: 68 EKG Severity - NORMAL ECG - EKG Impression: SINUS RHYTHM Electronically Signed By: Patricio Mcgill 23-Jan-2018 08:46:14
--- NOTE | 2018-01-22 20:58 | SOAPPROG ---
SOAP Progress Note Assessment/Plan: Assessment: Left femur subtroch fracture Plan: OR tomorrow for TFN is able to be medically cleared for surgery, tentatively planning for 17:00 NPO after midnight full consult to follow 01/22/18 20:57 Objective: Vital Signs Temp Pulse Resp BP Pulse Ox 36.4 C 67 20 169/59 H 96 01/22/18 18:55 01/22/18 20:03 01/22/18 20:03 01/22/18 20:03 01/22/18 20:03 PT 13.9 SEC (12.0-15.0) 01/22/18 19:57 INR 1.05 (0.83-1.16) 01/22/18 19:57 ICD10 Worksheet Patient Problems: Problems Problem Status Onset CHF (congestive heart failure) Acute Leukopenia Acute Paroxysmal atrial fibrillation Acute Pleural effusion Acute S/P CABG x 4 Acute chronic disease mgmt/transitional care Acute Anemia Chronic Coronary arteriosclerosis Chronic ESRD (end stage renal disease) on dialysis Chronic Hypertension Chronic Polycystic kidney disease Chronic Thrombocytopenia Chronic
[2018-01-22] MEDS ORDERED: ONDANSETRON 4 MG/2 ML VIAL IVP PRN (21:30)
[2018-01-22] MEDS ORDERED: ONDANSETRON DISINTEGRATING 4 MG TAB PO PRN (21:30)
[2018-01-22] MEDS: fentaNYL 100 MCG/2 ML INJ IVP PRN (22:06)
--- NOTE | 2018-01-22 23:18 | PDGENHP ---
History and Physical - Chief Complaint R hip pain - History of Present Illness 77 yo F w/ hx of ESRD on HD w/w PCKD s/p b/l nephrectomy, CAD s/p CABG 01/2017, CHF, pAF, anemia, HTN, COPD, and UC presents with R hip pain. Patient tells me that she was trying to sit on a patio chair when the chair gave out and she fell onto her R hip. She immediately experienced severe pain so she came to the ED. She denies head trauma or LOC. In the ED XR was notable for R intertrochanteric femur fracture. The remainder of her work-up is generally at her baseline with anemia and labs c/w ESRD. At the time my evaluation patient is only complaining of R hip pain. She denies chest pain, shortness of breath, orthopnea, or fever. Case discussed with Dr. Geiger. Previous records reviewed including DC Summary by Dr. Fofana dated 07/19/17. History Information - Allergies/Home Medication List Allergies/Adverse Reactions: No Known Allergies Allergy (Verified 01/22/18 18:55) Home Medications: Labetalol HCl [Trandate 200 mg (*)] 200 mg PO BID 02/26/17 [Last Taken 07/13/17 09:00] Aspirin EC [Aspirin EC 81 mg (*)] 81 mg PO DAILY 07/13/17 [Last Taken 07/13/17] Atorvastatin Calcium [Lipitor 10 mg (*)] 10 mg PO DAILY 07/13/17 [Last Taken ] Calcitriol [Calcitriol (*)] 0.75 mcg PO AD 07/13/17 [Last Taken 07/13/17] Epoetin Milind [Epogen] 20,000 unit IJ AD 07/13/17 [Last Taken 07/13/17] Ferrous Sulfate [Ferrous Sulf 325 MG (*)] 325 mg PO Q2D 07/13/17 [Last Taken ] Herbals/Supplements -Info Only 1 ea PO Q2D 07/13/17 [Last Taken 07/13/17] Lisinopril [Zestril 40 mg (*)] 40 mg PO BID 07/13/17 [Last Taken 07/13/17 09:00] Sevelamer Carbonate [Renvela] 1,600 mg PO BID PRN 07/13/17 [Last Taken 07/13/17] Sevelamer Carbonate [Renvela] 3,200 mg PO TIDMEAL 07/13/17 [Last Taken 07/13/17 09:00] amLODIPine BESYLATE [Amlodipine Besylate] 5 mg PO DAILY 12/19/17 [Last Taken Unknown] Cinacalcet HCl [Sensipar (*)] 30 mg PO DAILY 01/22/18 [Last Taken Unknown] Parenteral Amino Acid 20% No.1 [Prosol] 2,000 ml IV AD 01/22/18 [Last Taken Unknown] I have personally reviewed and updated: family history, medical history - Past Medical History coronary artery disease, COPD, ESRD, hypertension Additional medical history: ESRD on HD, PCKD s/p bilateral nephrectomy, CHF, PAF , CAD s/p CABG, thrombocytopenia, anemia of chronic kidney disease, HTN, COPD, Ulcerative colitis. mild/mod mitral valve stenosis/regurg - Surgical History Additional surgical history: bilateral nephrectomy 05/2017, CABG x 4v, LUE fistula, T/A, breast bx that was benign, LUE fistula with multiple revisions, R cataract extraction/lens placement. - Family History Additional family history: mother - PCKD - Social History Smoking Status: Current every day smoker Additional social history: COR - FULL but no prolonged life support. Patient roommate Sudha Moe [facility]. Review of Systems Review of Systems: ROS: 10pt was reviewed & negative except for what was stated in HPI & below Physical Exam Physical Exam: Temp Pulse Resp BP Pulse Ox 36.4 C 67 20 176/62 H 95 01/22/18 18:55 01/22/18 21:03 01/22/18 21:03 01/22/18 21:03 01/22/18 21:03 Constitutional: appears nourished, uncomfortable Eyes: PERRL, EOMI Ears, Nose, Mouth, Throat: moist mucous membranes, no oral mucosal ulcers Cardiovascular: regular rate and rhythym, other (Whooshing murmur throughout cardiac cycle 2/2 fistula) Gastrointestinal: normoactive bowel sounds, soft, non-tender abdomen Skin: warm, normal color Musculoskeletal: other (R hip ttp, painful ROM, LUE fistula w/ palpable thrill) Neurologic: AAOx3, CN II-XII Intact Psychiatric: interacting appropriately, not anxious, other (Mildly sedated 2/2 pain medication.) Lab Data & Imaging Review 01/22/18 19:57 01/22/18 19:57 WBC 9.07 10^3/uL (3.80-9.50) 01/22/18 19:57 RBC 2.21 10^6/uL (4.18-5.33) L 01/22/18 19:57 Hgb 7.5 g/dL (12.6-16.3) L 01/22/18 19:57 Hct 23.0 % (38.0-47.0) L 01/22/18 19:57 MCV 104.1 fL (81.5-99.8) H 01/22/18 19:57 MCH 33.9 pg (27.9-34.1) 01/22/18 19:57 MCHC 32.6 g/dL (32.4-36.7) 01/22/18 19:57 RDW 14.7 % (11.5-15.2) 01/22/18 19:57 Plt Count 112 10^3/uL (150-400) L 01/22/18 19:57 MPV 9.3 fL (8.7-11.7) 01/22/18 19:57 Neut % (Auto) Not Reported 01/22/18 19:57 Lymph % (Auto) Not Reported 01/22/18 19:57 Stearns % (Auto) Not Reported 01/22/18 19:57 Eos % (Auto) Not Reported 01/22/18 19:57 Baso % (Auto) Not Reported 01/22/18 19:57 Nucleat RBC Rel Count Not Reported 01/22/18 19:57 Absolute Neuts (auto) Not Reported 01/22/18 19:57 Absolute Lymphs (auto) Not Reported 01/22/18 19:57 Absolute Monos (auto) Not Reported 01/22/18 19:57 Absolute Eos (auto) Not Reported 01/22/18 19:57 Absolute Basos (auto) Not Reported 01/22/18 19:57 Absolute Nucleated RBC Not Reported 01/22/18 19:57 Immature Gran % Not Reported 01/22/18 19:57 Seg Neutrophils % 88.0 % 01/22/18 19:57 Band Neutrophils % 0 % 01/22/18 19:57 Lymphocytes % 2.0 % 01/22/18 19:57 Monocytes % 3.0 % 01/22/18 19:57 Eosinophils % 6.0 % 01/22/18 19:57 Basophils % 0 % 01/22/18 19:57 Metamyelocytes % 1.0 % 01/22/18 19:57 Myelocytes % 0 % 01/22/18 19:57 Promyelocytes % 0 % 01/22/18 19:57 Blast Cells % 0 % 01/22/18 19:57 Immature Gran # Not Reported 01/22/18 19:57 Absolute Seg Neuts 7.98 10^/uL (1.70-6.50) H 01/22/18 19:57 Absolute Band Neuts 0.00 10^3/uL (0.00-0.70) 01/22/18 19:57 Absolute Lymphocytes 0.18 10^3/uL (1.00-3.00) L 01/22/18 19:57 Absolute Monocytes 0.27 10^3/uL (0.30-0.80) L 01/22/18 19:57 Absolute Eosinophils 0.54 10^3/uL (0.03-0.40) H 01/22/18 19:57 Absolute Basophils 0.00 10^3/uL (0.02-0.10) L 01/22/18 19:57 Absolute Metamyelocyte 0.09 10^3/mL (0.00-0.00) H 01/22/18 19:57 Absolute Myelocytes 0.00 10^3/mL (0.00-0.00) 01/22/18 19:57 Absolute Promyelocytes 0.00 10^3/uL (0.00-0.00) 01/22/18 19:57 Absolute Plasma Cells 0.00 10^3/uL (0.00-0.00) 01/22/18 19:57 Nucleated RBCs 0 /100 WBC (0-0) 01/22/18 19:57 Absolute Blast Cells 0.00 10^3/uL (0.00-0.00) 01/22/18 19:57 Plasma Cells % 0 % 01/22/18 19:57 Platelet Estimate DECREASED (ADEQ) L 01/22/18 19:57 Polychromasia 1+ H 01/22/18 19:57 Hypochromasia 1+ H 01/22/18 19:57 Tear Drop Cells 1+ H 01/22/18 19:57 Oval Macrocytes 1+ H 01/22/18 19:57 Schistocytes 1+ H 01/22/18 19:57 PT 13.9 SEC (12.0-15.0) 01/22/18 19:57 INR 1.05 (0.83-1.16) 01/22/18 19:57 APTT 29.8 SEC (23.0-38.0) 01/22/18 19:57 Sodium 132 mEq/L (135-145) L 01/22/18 19:57 Potassium 4.9 mEq/L (3.3-5.0) 01/22/18 19:57 Chloride 94 mEq/L (97-110) L 01/22/18 19:57 Carbon Dioxide 26 mEq/l (22-31) 01/22/18 19:57 Anion Gap 12 mEq/L (8-16) 01/22/18 19:57 BUN 63 mg/dL (7-23) H 01/22/18 19:57 Creatinine 6.0 mg/dL (0.6-1.0) H 01/22/18 19:57 Estimated GFR 7 01/22/18 19:57 Glucose 101 mg/dL (70-100) H 01/22/18 19:57 Calcium 9.0 mg/dL (8.5-10.4) 01/22/18 19:57 Imaging Review: Imaging Impressions Chest X-Ray 01/22/18 19:07 Impression: 1. Difficult to exclude impending CHF on this supine chest x-ray. 2. Chronic versus recurrent left lower lobe consolidation with effusion. 2. Right Hip Technique: AP pelvis and frog-leg right hip. Clinical Indications: Trauma, fall, pain Findings: Is an acute comminuted right intertrochanteric hip fracture with 90 degrees angulation between the femoral neck and the femoral shaft. No pelvic ring fracture is identified. There is dense atherosclerotic calcification. There are lower abdominal surgical clips. Impression: Intertrochanteric right hip fracture. 3. Right femur, 4 views History: Trauma, pain, fall Findings: The comminuted intertrochanteric hip fracture is confirmed. The more distal femur is intact. Knee joint is normally aligned. There is a small knee joint effusion. It is difficult to exclude an acute quadriceps tendon avulsion of hypertrophic change of the anterior superior patella. There is atherosclerotic calcification of the superficial femoral artery. Pression: 1. Intertrochanteric hip fracture 2. Cannot exclude a quadriceps tendon avulsion of anterior superior patellar spurs. Femur X-Ray 01/22/18 19:07 Impression: 1. Difficult to exclude impending CHF on this supine chest x-ray. 2. Chronic versus recurrent left lower lobe consolidation with effusion. 2. Right Hip Technique: AP pelvis and frog-leg right hip. Clinical Indications: Trauma, fall, pain Findings: Is an acute comminuted right intertrochanteric hip fracture with 90 degrees angulation between the femoral neck and the femoral shaft. No pelvic ring fracture is identified. There is dense atherosclerotic calcification. There are lower abdominal surgical clips. Impression: Intertrochanteric right hip fracture. 3. Right femur, 4 views History: Trauma, pain, fall Findings: The comminuted intertrochanteric hip fracture is confirmed. The more distal femur is intact. Knee joint is normally aligned. There is a small knee joint effusion. It is difficult to exclude an acute quadriceps tendon avulsion of hypertrophic change of the anterior superior patella. There is atherosclerotic calcification of the superficial femoral artery. Pression: 1. Intertrochanteric hip fracture 2. Cannot exclude a quadriceps tendon avulsion of anterior superior patellar spurs. Hip X-Ray 01/22/18 19:07 Impression: 1. Difficult to exclude impending CHF on this supine chest x-ray. 2. Chronic versus recurrent left lower lobe consolidation with effusion. 2. Right Hip Technique: AP pelvis and frog-leg right hip. Clinical Indications: Trauma, fall, pain Findings: Is an acute comminuted right intertrochanteric hip fracture with 90 degrees angulation between the femoral neck and the femoral shaft. No pelvic ring fracture is identified. There is dense atherosclerotic calcification. There are lower abdominal surgical clips. Impression: Intertrochanteric right hip fracture. 3. Right femur, 4 views History: Trauma, pain, fall Findings: The comminuted intertrochanteric hip fracture is confirmed. The more distal femur is intact. Knee joint is normally aligned. There is a small knee joint effusion. It is difficult to exclude an acute quadriceps tendon avulsion of hypertrophic change of the anterior superior patella. There is atherosclerotic calcification of the superficial femoral artery. Pression: 1. Intertrochanteric hip fracture 2. Cannot exclude a quadriceps tendon avulsion of anterior superior patellar spurs. Assessment & Plan Assessment: 77 yo F w/ hx of ESRD on HD w/w PCKD s/p b/l nephrectomy, CAD s/p CABG 01/2017, CHF, pAF, anemia, HTN, COPD, and UC presents with R hip pain found to have R intertrochanteric hip fracture. Plan: 1. R intertrochanteric hip fracture - Suffered as a result of mechanical fall from standing height. This qualifies as a fragility fracture and she should be evaluated and treated for osteoporosis in the outpatient setting. In terms of surgical risk, the patient has multiple chronic medical conditions (ESRD, CHF, pAF, COPD) but these appear to be well controlled. She has been recently revascularized from a cardiac standpoint (02/10 CABG), is currently in NSR, is compliant with MWF HD, and has no signs of acute respiratory disease. NSQIP calculator results detailing her surgical risk is displayed below. Tentative plan is for TFN by Dr. Fuentes tomorrow afternoon, which is safe from a medical standpoint. I will maintain NPO after midnight and check Vitamin D with morning labs. 2. ESRD - Compliant with MWF HD. Current laboratory work-up consistent with ESRD. - Continue home medications 3. CAD - S/p CABG 02/10; denies chest pain and ECG in NSR with no signs of acute ischemia. - Continue home medications 4. pAF - Currently in NSR, will monitor on telemetry. 5. dCHF - Currently without signs of acute exacerbation. CXR does show some vascular congestion but she is saturating high 90's on RA and has no other signs of volume overload. 6. Anemia - Near baseline, most likely 2/2 ESRD. May need blood transfusion after surgery. Currently on iron and Epo therapy. - Monitor CBC 7. HTN - Continue home medications (amlodipine, lisinopril, labetalol, hydralazine). 8 COPD - Current smoker, no signs of acute exacerbation. Diet - NPO @ [place] Code - Full Ppx - SCDs Dispo - Admit under observation status
[2018-01-23] MEDS: oxyCODONE IR 5 MG TAB PO PRN (01:59)
[2018-01-23] MEDS: ACETAMINOPHEN 325 MG TAB PO PRN ×2 (02:05→22:44)
[2018-01-23] MEDS: fentaNYL 100 MCG/2 ML INJ IVP PRN ×6 (03:58→19:10)
[2018-01-23 05:16] LABS: INR 1.19 (0.83-1.16); PROTIME(PATIENT) 15.3 SEC (12.0-15.0)
[2018-01-23] MEDS: hydrALAZINE 25 MG TAB PO SCH ×4 (06:24→21:43)
[2018-01-23 06:51] LABS: PLATELET COUNT 84 10^3/uL (150-400)
[2018-01-23] MEDS: amLODIPine BESYLATE 5 MG TAB PO SCH (10:52)
[2018-01-23] MEDS: SEVELAMER HCL 800 MG TAB PO SCH ×3 (10:52→18:15)
[2018-01-23] MEDS: ASPIRIN EC 81 MG TAB PO SCH (10:53)
[2018-01-23] MEDS: LABETALOL HCL 200 MG TAB PO SCH ×2 (10:53→21:43)
[2018-01-23] MEDS: LISINOPRIL 40 MG TAB PO SCH ×2 (10:53→21:43)
[2018-01-23] MEDS: ATORVASTATIN CALCIUM 10 MG TAB PO SCH (10:53)
[2018-01-23] MEDS: CINACALCET HCL 30 MG TAB PO SCH (10:53)
--- NOTE | 2018-01-23 11:33 | GCON ---
[f rep st] CONSULTATION EMERGENCY ROOM CONSULT NOTE DATE OF CONSULTATION: 01/23/2018 CHIEF COMPLAINT: Right femur fracture, subtroch fracture. HISTORY OF PRESENT ILLNESS: A 77-year-old female with multiple medical problems , who fell onto her right hip. She had severe pain and was taken to the hospital and the right subtrochanteric femur fracture was identified. She was admitted to the hospital by the hospitalist service. She complains really mostly of right hip and thigh pain. She also complains of some anterior knee pain and has some chronic knee pain on the left side. PAST MEDICAL HISTORY: Significant for end-stage kidney disease, status post bilateral nephrectomy, coronary artery disease and CABG, CHF, anemia, hypertension, COPD. MEDICATIONS: Please see inpatient medication list. ALLERGIES: No known drug allergies. SURGICAL HISTORY: As above, plus a fistula and a breast biopsy. FAMILY HISTORY: Mother has PCKD. SOCIAL HISTORY: She is a current everyday smoker. She has a DPOA. REVIEW OF SYSTEMS: Ten-point review of systems is negative other than what is above. PHYSICAL EXAM: GENERAL: She appears alert. She is in mild distress. She is hard of hearing. HEENT: Eyes are equal and reactive. Her face is atraumatic. Her mouth shows moist mucous membranes. CARDIAC: Her heart is regular rate and rhythm. RESPIRATORY: Her lungs, she has good inspiratory effort. ABDOMEN : Soft. EXTREMITIES: Upper extremities are without abnormality. She moves them well. No pain. Is neurovascular intact. Her right lower extremity is externally rotated. She has significant swelling about the thigh. The compartments are soft. Her knee appears intact. She does not have significant pain around the knee or quad tendon. On the left knee, there is some bruising in the area of her quad tendon, however, this is intact. She can perform a straight leg-raise. She can move her left leg without abnormality. Distally, she is neurovascularly intact with 5/5 strength. IMAGING: X-rays show a comminuted multipart subtrochanteric right femur fracture. LABS: Her hemoglobin has significantly dropped today at 5.6. Please see inpatient record for full labs. IMPRESSION: Right subtrochanteric hip fracture. PLAN: I reviewed my findings with her, her durable [id number], and the hospitalists taking care of her. She will undergo a transfusion as her hemoglobin has dropped significantly. She may also undergo dialysis before the procedure based on the thoughts of the Internal Medicine physicians and Nephrology teams. We will aim to get her to the OR today, if at all possible, for fixation of her fracture once she is medically stable to do so. This will involve a TFN nail. I do not believe she has any quad tendon injury despite some suspicion from her initial presentation. This will be easier to evaluate after surgery when her hip is stabilized. She is n.p.o. We discussed risks including , heart attack, stroke, blood clots, continued pain, nonunion, malunion. She elects to proceed. /[id number]/MODL MTDD
--- NOTE | 2018-01-23 11:41 | SOAPPROG ---
SOAP Progress Note Assessment/Plan: Assessment: ESRD- [facility] MWF -HD today per usual schedule -AVF -will give PRBCs with HD -please minimize IVF post op given ESRD, risk of volume overload Femur Fx after mechanical fall -plans for OR later today Mild Hyperkalemia -run 2K bath with HD -renal diet when taking po Anemia CKD and acute blood loss -getting 2U PRBCs now with HD -will dose EPo 10,000 units sq weekly MBD of CKD -on cinacalcet, sevelamer-- will decrease dose of binder as anticipate won't eat as much -check phos am labs -renal diet when taking po CAD s/p CABG COPD UC I discussed with hospitalist Alyssia Cage MD [facility] pager [phone] 01/23/18 13:22 Subjective: 77 W with ESRD (PKD, [facility] MWF), CAD s/p CABG, UC, COPD admitted after fall at home with R femur fracture. Pt tried to sit in chair and fell down. No LOC. Hb down to 5.6 and getting PRBCs with HD. Seen on dialysis- using LUE AVF Qb 400, 2K/2.5Ca bath, goal UF 2kg. She is moaning in pain during HD then falls asleep after fentanyl. She has been on IDPN as outpt given poor nutritional status. Objective: Vital Signs Temp Pulse Resp BP Pulse Ox 36.9 C 76 20 133/49 H 90 L 01/23/18 08:00 01/23/18 08:00 01/23/18 08:00 01/23/18 08:00 01/23/18 08:00 Laboratory Results 01/23/18 06:15 01/23/18 04:51 PT 15.3 SEC (12.0-15.0) H 01/23/18 04:51 INR 1.19 (0.83-1.16) H 01/23/18 04:51 Physical Exam - Physical Exam General Appearance: other (chronically ill, moaning in pain, then fell asleep) EENT: other (mmm) Neck: supple Respiratory: lungs clear (ant bilat) Cardiac/Chest: regular rate, rhythm Abdomen: non-tender, soft Skin: warm/dry Extremities: other (no edema, abrasions/bruising) Neuro/Psych: other (sleeping but arouses) ICD10 Worksheet Patient Problems: Problems Problem Status Onset Closed right hip fracture Acute CHF (congestive heart failure) Acute Leukopenia Acute Paroxysmal atrial fibrillation Acute Pleural effusion Acute S/P CABG x 4 Acute chronic disease mgmt/transitional care Acute Anemia Chronic Coronary arteriosclerosis Chronic ESRD (end stage renal disease) on dialysis Chronic Hypertension Chronic Polycystic kidney disease Chronic Thrombocytopenia Chronic
[2018-01-23] MEDS: hydrALAZINE 20 MG/ML VIAL IVP PRN (12:56)
[2018-01-23] MEDS ORDERED: LIDOCAINE 1% 300 MG/30 ML SDV ONE (13:00)
[2018-01-23] MEDS ORDERED: hydrALAZINE 20 MG/ML VIAL IVP ONE (13:14)
[2018-01-23] MEDS ORDERED: ENALAPRILAT DIHYDRATE 1.25 MG/ML VIAL IVP PRN (13:16)
[2018-01-23] MEDS: HYDROmorphONE/DILAUDID 1 MG/ML INJ IVP PRN (14:08)
--- NOTE | 2018-01-23 14:29 | HOSPPROG ---
Hospitalist Progress Note Assessment/Plan: 77y female with c/o fall and hip pain. First encounter, chart reviewed. D/W Dr Cage #Femur fx -mechanical fall -to OR today with Dr Fuentes #ESRD -MWF -HD today per usual schedule -AVF -will give 2 units PRBCs with HD -please minimize IVF post op given ESRD, risk of volume overload #pain -start dilaudid #Mild Hyperkalemia -manage with HD -renal diet when taking po #Anemia CKD and acute blood loss -getting 2U PRBCs with HD -will dose EPo 10,000 units sq weekly # CAD - S/p CABG 02/10; denies chest pain and ECG in NSR with no signs of acute ischemia. - Continue home medications # pAF - Currently in NSR, will monitor on telemetry. # dCHF - Currently without signs of acute exacerbation. - CXR does show some vascular congestion but she is saturating high 90's on RA and has no other signs of volume overload. # Anemia - Near baseline, most likely 2/2 ESRD. - May need blood transfusion after surgery. Currently on iron and Epo therapy. - Monitor CBC # HTN - Continue home medications (amlodipine, lisinopril, labetalol, hydralazine) -medications not given this am, pt refused -give hydralazine and vasotec IV until PO # COPD - Current smoker, no signs of acute exacerbation. Diet - NPO @ MN #Dispo -change to inpt status -to OR today -follow Subjective: C/O pain. Frustrated. Objective: Vital Signs Temp Pulse Resp BP Pulse Ox 36.9 C 76 20 204/69 H 90 L 01/23/18 08:00 01/23/18 08:00 01/23/18 08:00 01/23/18 12:56 01/23/18 08:00 Laboratory Results 01/23/18 06:15 01/23/18 04:51 PT 15.3 SEC (12.0-15.0) H 01/23/18 04:51 INR 1.19 (0.83-1.16) H 01/23/18 04:51 - Physical Exam Constitutional: appears nourished, chronically ill appearing, uncomfortable Eyes: PERRL, anicteric sclera, EOMI Ears, Nose, Mouth, Throat: moist mucous membranes, hearing normal, ears appear normal Cardiovascular: No JVD, No tachycardia, No edema Respiratory: no respiratory distress, no rales or rhonchi, reduced air movement Gastrointestinal: No tenderness, No ascites, No guarding Skin: warm, abrasion, erythema Musculoskeletal: joint tenderness, pain with ROM, muscular tenderness, generalized weakness Psychiatric: not anxious, poor insight, poor judgement, poor memory ICD10 Worksheet Patient Problems: Problems Problem Status Onset Closed right hip fracture Acute CHF (congestive heart failure) Acute Leukopenia Acute Paroxysmal atrial fibrillation Acute Pleural effusion Acute S/P CABG x 4 Acute chronic disease mgmt/transitional care Acute Anemia Chronic Coronary arteriosclerosis Chronic ESRD (end stage renal disease) on dialysis Chronic Hypertension Chronic Polycystic kidney disease Chronic Thrombocytopenia Chronic
[2018-01-23] MEDS ORDERED: NS 1,000 ML IV ONE (15:16)
--- NOTE | 2018-01-23 15:43 | PDANEPAE ---
ANE Past Medical History - Cardiovascular History Hx Hypertension: Yes Hx Arrhythmias: Yes Hx Chest Pain: No Hx Coronary Artery / Peripheral Vascular Disease: Yes Hx CHF / Valvular Disease: No Hx Palpitations: No Cardiovascular History Comment: HTN. MURMUR. CAD 3V. MITRAL INSUFFICIENCY. LEFT CEPHALIC VEIN STENT - Pulmonary History Hx COPD: Yes Hx Asthma/Reactive Airway Disease: No Hx Recent Upper Respiratory Infection: No Hx Oxygen in Use at Home: No Hx Sleep Apnea: No Sleep Apnea Screening Result - Last Documented: Positive Pulmonary History Comment: POSSIBLE COPD. SOB, PT BELIEVES THIS IS FROM HER ENLARGED KIDNEYS, VERY ANXIETY PRODUCING - Neurologic History Hx Cerebrovascular Accident: No Hx Seizures: No Hx Dementia: No Neurologic History Comment: POSS STROKE IN LEFT EYE THAT CAUSED BLEEDING- UNKNOWN - Endocrine History Hx Diabetes: No - Renal History Hx Renal Disorders: Yes Renal History Comment: POLYCYSTIC KIDNEY. DIALYSIS --. KIDNEYS ARE ABOUT 12 POUNDS EACH PER PT - Liver History Hx Hepatic Disorders: Yes Hepatic History Comment: THROMBOCYTOPENIA - Neurological & Psychiatric Hx Hx Neurological and Psychiatric Disorders: No - Cancer History Hx Cancer: No - Congenital Disorder History Hx Congenital Disorders: No Congenital History Comment: GENETIC POLYCYSTIC KIDNEYS - GI History Hx Gastrointestinal Disorders: Yes Gastrointestinal History Comment: ULERACTIVE COLITIS- USES PROBIOTIC - Other Health History Other Health History: WEARS BILATERAL HEARING AIDES. WEARS GLASSES. SCABS AND ITCHING. BILAT ROTATOR CUFF TEARS- RANGE OF MOTION EXTREMELY LIMITED, FLUID BUILT UP IN SHOULDERS. CATARACT TO LEFT CURRENTLY. BLOOD BEHIND LEFT EYE- SEE' S DIEGO FOR INJECTIONS - Chronic Pain History Chronic Pain: Yes (BILATERAL KNEES, BACK PAIN) - Surgical History Prior Surgeries: LEFT KNEE SURG- ARTHROSCOPIC. CATARACT SURGERY RIGHT EYE. T& A. RIGHT BREAST BX. FISTULA REPAIR X3 LEFT ARM. LEFT CEPHALIC VEIN STENT. ORAL SURGERY ANE Review of Systems Review of Systems: ANE Patient History - Allergies Allergies/Adverse Reactions: No Known Allergies Allergy (Verified 01/22/18 18:55) - Home Medications Home Medications: Labetalol HCl [Trandate 200 mg (*)] 200 mg PO BID 02/26/17 [Last Taken 07/13/17 09:00] Aspirin EC [Aspirin EC 81 mg (*)] 81 mg PO DAILY 07/13/17 [Last Taken 07/13/17] Atorvastatin Calcium [Lipitor 10 mg (*)] 10 mg PO DAILY 07/13/17 [Last Taken ] Calcitriol [Calcitriol (*)] 0.75 mcg PO AD 07/13/17 [Last Taken 07/13/17] Epoetin Milind [Epogen] 20,000 unit IJ AD 07/13/17 [Last Taken 07/13/17] Ferrous Sulfate [Ferrous Sulf 325 MG (*)] 325 mg PO Q2D 07/13/17 [Last Taken ] Herbals/Supplements -Info Only 1 ea PO Q2D 07/13/17 [Last Taken 07/13/17] Lisinopril [Zestril 40 mg (*)] 40 mg PO BID 07/13/17 [Last Taken 07/13/17 09:00] Sevelamer Carbonate [Renvela] 1,600 mg PO BID PRN 07/13/17 [Last Taken 07/13/17] Sevelamer Carbonate [Renvela] 3,200 mg PO TIDMEAL 07/13/17 [Last Taken 07/13/17 09:00] amLODIPine BESYLATE [Amlodipine Besylate] 5 mg PO DAILY 12/19/17 [Last Taken Unknown] Cinacalcet HCl [Sensipar (*)] 30 mg PO DAILY 01/22/18 [Last Taken Unknown] Parenteral Amino Acid 20% No.1 [Prosol] 2,000 ml IV AD 01/22/18 [Last Taken Unknown] - NPO status NPO Since - Liquids (Date): 01/22/18 NPO Since - Liquids (Time): 23:55 NPO Since - Solids (Date): 01/22/18 NPO Since - Solids (Time): 23:55 - Smoking Hx Smoking Status: Current every day smoker - Family Anes Hx Family Hx Anesthesia Complications: NONE ANE Labs/Vital Signs - Labs Result Diagrams: 01/23/18 14:35 01/23/18 04:51 - Vital Signs Blood Pressure: 145/48 Heart Rate: 92 Respiratory Rate: 14 O2 Sat (%): 97 Height: 157.48 cm Weight: 55.338 kg ANE Physical Exam - Airway Neck exam: FROM Mallampati Score: Class 3 Mouth exam: poor dentition - Pulmonary Pulmonary: no respiratory distress - Cardiovascular Cardiovascular: regular rate and rhythym - ASA Status ASA Status: IV, E ANE Anesthesia Plan Anesthesia Plan: general endotracheal anesthesia
[2018-01-23] MEDS ORDERED: CEFAZOLIN 1 GM/DEXTROSE/50 ML BAG IV ONE (15:57)
--- NOTE | 2018-01-23 16:13 | ASMTCMCOM ---
CM Note CM Note Notes: Pt came to ER after falling trying to sit in chair, she has a hip fracture and will go to OR today. Pt also gets dialysis MWF. Sudha Danilo is listed as a CW who is mdpoa but in H&P states she is a roomate. DC needs unclear, PT/OT to eval. DC Plan: TBD Date Signed: 01/23/2018 04:12 PM Electronically Signed By:Rosamaria Zapata RN
[2018-01-23] MEDS ORDERED: fentaNYL 100 MCG/2 ML INJ ONE ×3 (16:28→18:52)
[2018-01-23] MEDS ORDERED: PROPOFOL 200 MG/20 ML VIAL ONE (16:29)
[2018-01-23] MEDS ORDERED: ROCURONIUM 50 MG/5 ML VIAL ONE (16:29)
[2018-01-23] MEDS ORDERED: LIDOCAINE 2% 100 MG/5 ML SYR ONE (16:29)
--- NOTE | 2018-01-23 17:06 | PDMN ---
Medical Necessity Medical necessity: Status change OBS to Inpt per MD 01/23/18@1437. [facility] [id number] Open Repair, 3 days: 77 y/o w/ fall, right femur and hip fracture, surgery pending (fixation and TFN nail). On IV opioids and IV antiemetics for s/ sx control, H&H 5.6/17.3, transfusion required, hx CABG, end stage kidney disease w/ bilateral nephrectomy, hemodialysis, COPD.
[2018-01-23] MEDS ORDERED: BUPIVACAINE/EPI 0.5% 30 ML SDV ONE (17:26)
[2018-01-23] MEDS ORDERED: SUGAMMADEX SODIUM 200 MG/2 ML VIAL IVP ONE (18:09)
--- NOTE | 2018-01-23 18:37 | POSTOPPROG ---
Post Op Note Date of Operation: 01/23/18 Surgeon: Zay Fuentes Anesthesiologist: Paula Anesthesia: GET(General Endotracheal) Pre-op Diagnosis: R IT fx Post-op Diagnosis: same Indication: above Procedure: R TFN Findings: fx Inf/Abcess present in the surg proc area at time of surgery?: No EBL: 50-100
[2018-01-23] MEDS ORDERED: ONDANSETRON 4 MG/2 ML VIAL IVP PRN (18:38)
[2018-01-23] MEDS ORDERED: ALBUTEROL 3 ML DEYVIAL IH PRN (18:38)
[2018-01-23] MEDS ORDERED: NALOXONE HCL 0.4 MG/ML INJ IVP PRN (18:38)
--- NOTE | 2018-01-23 18:40 | POSTANESTH ---
Post Anesthetic Evaluation Cardiovascular Status: Similar to Pre-Op Cond Respiratory Status: Similar to Pre-op Cond. Level of Consciousness/Mental Status: Mildly Sleepy, Arousable Pain Control: Adequate, Prn Tx Ordered Nausea/Vomiting Control: Adequate, Prn Tx Ordered Complications Possibly Related to Anesthesia: None Noted
--- NOTE | 2018-01-23 19:14 | GOP ---
[f rep st] OPERATIVE REPORT DATE OF OPERATION: 01/23/2018 SURGEON: Zay Fuentes MD CONTENT ANALYST: None. ANESTHESIA: General. PREOPERATIVE DIAGNOSIS: Right intertrochanteric femur fracture, multiple three- part fracture. POSTOPERATIVE DIAGNOSIS: Right intertrochanteric femur fracture, multiple three -part fracture. PROCEDURE PERFORMED: FINDINGS: SPECIMENS: None. ESTIMATED BLOOD LOSS: 50 mL. INDICATIONS: This 77-year-old female sustained this fracture in a fall. She has significant medical comorbidities. She was admitted to the hospital, given 2 units of blood and dialyzed. She is deemed ready for surgery and we elected to proceed. She understood the risk of , heart attack, stroke, blood clot , nonunion, malunion, continued pain, need for rehabilitation. She elected to proceed. Informed consent obtained. All questions were answered. DESCRIPTION OF PROCEDURE: She was taken to the operative suite, sterilely prepped and draped in normal fashion, positioned on the fracture table. The fracture was reduced using the fracture table and this was confirmed by x-ray. Sterilely prepped and draped. Time-out was performed verifying site, side, location, and there was agreement with the team. I localized the spot for the incision, made an incision, dissected down the trochanter, placed the guide pin across the fracture, used the entry reamer. I placed a guide inocencia down the femur, measured this, selected the nail, reamed up starting with 8-1/2 end cutting reamer to the appropriate size nail. After reaming to 12.5, placed an 11 mm nail. I then used x-ray to get this in position. I used the aiming arm to direct for the blade. Placed a guidewire up this, checked this. Selected a 90 blade, drilled and placed this up and locked this into place. I then did perfect circles and placed the distal static screw in the distal slot hole. Final x-rays were taken confirming the fixation fracture reduction. She was irrigated, closed with #1 Vicryl, 2-0 Vicryl, 3-0 Quill, and Dermabond. She was taken to the PACU in stable condition. PROCEDURE: Open reduction internal fixation, right intertrochanteric femur fracture with a trochanteric fixation nail. IMPLANT: Synthes TFN nail 11 x 360 nail and a 5.0 locking screw, 90 helical blade. COMPLICATIONS: None. DRAINS: None. CONDITION: Stable. /[id number]/MODL MTDD
[2018-01-24] MEDS: ACETAMINOPHEN 325 MG TAB PO PRN (05:01)
[2018-01-24] MEDS: hydrALAZINE 25 MG TAB PO SCH ×5 (05:18→22:33)
[2018-01-24 05:41] LABS: PLATELET COUNT 91 10^3/uL (150-400)
--- NOTE | 2018-01-24 09:40 | SOAPPROG ---
CINTHYA Progress Note Assessment/Plan: Assessment: 77 y/o F with femoral fx s/p ORIF. ESRD- [facility] MWF -HD tomorrow -AVF Femur Fx after mechanical fall -s/p OR -pain management renally dosed Anemia -s/p 2U yesterday, drop to <7 again this am -transfusion again per primary team, 1U today -will dose EPO 10,000 units weekly, changing to IV MBD of CKD -on cinacalcet, sevelamer-resume once eating -phos mildly elevated -renal diet when taking po 01/24/18 10:26 Subjective: Didn't take meds this AM. Still bleeding and getting 1U today. Roommate at bedside. Refusing EPO subq as gets it IV as outpt. Objective: Vital Signs Temp Pulse Resp BP Pulse Ox 37.2 C 88 16 122/43 H 96 01/24/18 07:21 01/24/18 07:21 01/24/18 07:21 01/24/18 07:21 01/24/18 07:21 Laboratory Results 01/24/18 05:16 01/24/18 05:16 01/23/18 01/24/18 01/25/18 05:59 05:59 05:59 Intake Total 300 Output Total 100 Balance 200 PT 15.3 SEC (12.0-15.0) H 01/23/18 04:51 INR 1.19 (0.83-1.16) H 01/23/18 04:51 Physical Exam - Physical Exam General Appearance: WD/WN, alert, mild distress EENT: PERRL/EOMI Neck: non-tender, full range of motion, supple Respiratory: chest non-tender, lungs clear, normal breath sounds Cardiac/Chest: normal peripheral pulses, regular rate, rhythm, other (AVF intact ) Abdomen: normal bowel sounds, non-tender, soft Back: Normal inspection Skin: normal color, warm/dry Extremities: other (Femoral fx, wrapped) Neuro/Psych: alert, normal mood/affect, oriented x 3 ICD10 Worksheet Patient Problems: Problems Problem Status Onset Closed right hip fracture Acute CHF (congestive heart failure) Acute Leukopenia Acute Paroxysmal atrial fibrillation Acute Pleural effusion Acute S/P CABG x 4 Acute chronic disease mgmt/transitional care Acute Anemia Chronic Coronary arteriosclerosis Chronic ESRD (end stage renal disease) on dialysis Chronic Hypertension Chronic Polycystic kidney disease Chronic Thrombocytopenia Chronic
[2018-01-24] MEDS: SEVELAMER HCL 800 MG TAB PO SCH ×4 (09:43→18:41)
[2018-01-24] MEDS: LISINOPRIL 40 MG TAB PO SCH ×3 (09:44→23:19)
[2018-01-24] MEDS: amLODIPine BESYLATE 5 MG TAB PO SCH ×2 (09:46→10:17)
[2018-01-24] MEDS: ASPIRIN EC 81 MG TAB PO SCH (09:46)
[2018-01-24] MEDS: CINACALCET HCL 30 MG TAB PO SCH ×2 (09:46→10:17)
[2018-01-24] MEDS: LABETALOL HCL 200 MG TAB PO SCH ×2 (09:46→10:18)
[2018-01-24] MEDS: ATORVASTATIN CALCIUM 10 MG TAB PO SCH ×2 (09:46→10:17)
[2018-01-24] MEDS: EPOETIN ALFA 10,000 UNIT/ML VIAL SC SCH ×2 (10:00→10:17)
[2018-01-24] MEDS ORDERED: ACETAMINOPHEN 325 MG TAB PO ONE (10:01)
--- NOTE | 2018-01-24 10:21 | SOAPPROG ---
SOAP Progress Note Assessment/Plan: Assessment: Left femur subtroch fracture L TFN 01/23 Plan: Wt bearing as tolerated may shower leave dressing in place PTOT f/u with me in 10 days 01/22/18 20:57 01/24/18 10:20 Subjective: pain improved Objective: Vital Signs Temp Pulse Resp BP Pulse Ox 37.2 C 90 16 115/47 L 96 01/24/18 07:21 01/24/18 10:18 01/24/18 07:21 01/24/18 10:18 01/24/18 07:21 Laboratory Results 01/24/18 05:16 01/24/18 05:16 01/23/18 01/24/18 01/25/18 05:59 05:59 05:59 Intake Total 300 Output Total 100 Balance 200 PT 15.3 SEC (12.0-15.0) H 01/23/18 04:51 INR 1.19 (0.83-1.16) H 01/23/18 04:51 dressing cdi ICD10 Worksheet Patient Problems: Problems Problem Status Onset Closed right hip fracture Acute CHF (congestive heart failure) Acute Leukopenia Acute Paroxysmal atrial fibrillation Acute Pleural effusion Acute S/P CABG x 4 Acute chronic disease mgmt/transitional care Acute Anemia Chronic Coronary arteriosclerosis Chronic ESRD (end stage renal disease) on dialysis Chronic Hypertension Chronic Polycystic kidney disease Chronic Thrombocytopenia Chronic
[2018-01-24] MEDS ORDERED: EPOETIN ALFA 10,000 UNIT/ML VIAL IVP SCH (10:30)
[2018-01-24] MEDS: oxyCODONE IR 5 MG TAB PO PRN (10:45)
--- NOTE | 2018-01-24 11:29 | HOSPPROG ---
Hospitalist Progress Note Assessment/Plan: 77y female with c/o fall and hip pain. First encounter, chart reviewed. #left Femur subtrochanteric fx -s/p left TFN on 01/23 -wbat -f/u with Dr Fuentes in 7-10 days *acute blood loss anemia and also caused by CKD -had been given 2 units of PRBC's -will give another unit today -epo per nephrology *ESRD due to polycystic kidney disease -MWF hemodialysis #Mild Hyperkalemia -resolved *thrombocytopenia * CAD - S/p CABG 02/10 # pAF -in sinus # dCHF - Currently without signs of acute exacerbation. # HTN - Continue home medications (amlodipine, lisinopril, labetalol, hydralazine) # COPD - Current smoker, no signs of acute exacerbation. *dvt prophylaxis: robert elise, athrombic pumps, will need heparin sq but on hold due to requiring another transfusion Subjective: Love said her leg is very painful when trying to get oob. Objective: Vital Signs Temp Pulse Resp BP Pulse Ox 37.2 C 90 16 115/47 L 96 01/24/18 07:21 01/24/18 10:18 01/24/18 07:21 01/24/18 10:18 01/24/18 07:21 Laboratory Results 01/24/18 05:16 01/24/18 05:16 01/23/18 01/24/18 01/25/18 05:59 05:59 05:59 Intake Total 300 Output Total 100 Balance 200 PT 15.3 SEC (12.0-15.0) H 01/23/18 04:51 INR 1.19 (0.83-1.16) H 01/23/18 04:51 - Physical Exam Constitutional: chronically ill appearing, uncomfortable Eyes: PERRL Ears, Nose, Mouth, Throat: hearing normal Cardiovascular: regular rate and rhythym, other (loud systolic murmur noted on both left and right side, secondary from AV graft, fistula) Respiratory: no respiratory distress, reduced air movement Gastrointestinal: normoactive bowel sounds Skin: other (pale, greyish in color. right upper thigh area with swelling.) Neurologic: AAOx3 Psychiatric: interacting appropriately ICD10 Worksheet Patient Problems: Problems Problem Status Onset Closed right hip fracture Acute CHF (congestive heart failure) Acute Leukopenia Acute Paroxysmal atrial fibrillation Acute Pleural effusion Acute S/P CABG x 4 Acute chronic disease mgmt/transitional care Acute Anemia Chronic Coronary arteriosclerosis Chronic ESRD (end stage renal disease) on dialysis Chronic Hypertension Chronic Polycystic kidney disease Chronic Thrombocytopenia Chronic
[2018-01-24] MEDS: HYDROCODONE/APAP 5/325 TAB PO PRN ×3 (14:59→23:17)
[2018-01-25] MEDS: LABETALOL HCL 200 MG TAB PO SCH ×3 (00:06→20:56)
[2018-01-25] MEDS: HYDROCODONE/APAP 5/325 TAB PO PRN ×3 (00:17→11:21)
[2018-01-25 05:50] LABS: PLATELET COUNT 79 10^3/uL (150-400)
[2018-01-25] MEDS: hydrALAZINE 25 MG TAB PO SCH ×4 (06:23→20:55)
[2018-01-25] MEDS ORDERED: ACETAMINOPHEN 325 MG TAB PO ONE (09:38)
--- NOTE | 2018-01-25 09:56 | SOAPPROG ---
SOAP Progress Note Assessment/Plan: Assessment: Pt of Dr. New, ESRD due to PKD, CAD, known thrombocytopenia (has seen [facility]) presents s/p traumatic R femur fx. 1. Seen on dialysis Stable, doing ok 2. s/p repair R femur fracture Doing well postop 3. Anemia Will transfuse one additional unit 4. Nutritional Risk Follow closely 5. DC planning Plan: 01/25/18 09:40 Subjective: Doing well Objective: Vital Signs Temp Pulse Resp BP Pulse Ox 36.9 C 88 18 165/54 H 93 01/25/18 04:00 01/25/18 04:00 01/25/18 04:00 01/25/18 06:23 01/25/18 04:00 Laboratory Results 01/25/18 05:10 01/25/18 05:10 01/24/18 01/25/18 01/26/18 05:59 05:59 05:59 Intake Total 300 200 Output Total 100 Balance 200 200 PT 15.3 SEC (12.0-15.0) H 01/23/18 04:51 INR 1.19 (0.83-1.16) H 01/23/18 04:51 Physical Exam - Physical Exam General Appearance: no apparent distress Respiratory: lungs clear Cardiac/Chest: regular rate, rhythm Abdomen: soft Extremities: pedal edema Neuro/Psych: oriented x 3 ICD10 Worksheet Patient Problems: Problems Problem Status Onset Closed right hip fracture Acute CHF (congestive heart failure) Acute Leukopenia Acute Paroxysmal atrial fibrillation Acute Pleural effusion Acute S/P CABG x 4 Acute chronic disease mgmt/transitional care Acute Anemia Chronic Coronary arteriosclerosis Chronic ESRD (end stage renal disease) on dialysis Chronic Hypertension Chronic Polycystic kidney disease Chronic Thrombocytopenia Chronic
[2018-01-25] MEDS ORDERED: EPOETIN ALFA 10,000 UNIT/ML VIAL IVP SCH (10:00)
[2018-01-25] MEDS: SEVELAMER HCL 800 MG TAB PO SCH ×3 (10:25→18:09)
[2018-01-25] MEDS: LISINOPRIL 40 MG TAB PO SCH ×2 (12:22→20:56)
[2018-01-25] MEDS: ASPIRIN EC 81 MG TAB PO SCH (13:00)
[2018-01-25] MEDS: ATORVASTATIN CALCIUM 10 MG TAB PO SCH (13:01)
[2018-01-25] MEDS: amLODIPine BESYLATE 5 MG TAB PO SCH (13:01)
[2018-01-25] MEDS: HYDROmorphONE/DILAUDID 1 MG/ML INJ IVP PRN (13:06)
[2018-01-25] MEDS: CINACALCET HCL 30 MG TAB PO SCH (14:04)
--- NOTE | 2018-01-25 14:48 | HOSPPROG ---
Hospitalist Progress Note Assessment/Plan: 77y female with c/o fall and hip pain. First encounter, chart reviewed. #right Femur subtrochanteric fx -s/p left TFN on 01/23 -wbat -f/u with Dr Fuentes in 7-10 days *acute blood loss anemia and also caused by CKD -had been given a total of 4 units of PRBC's -epo per nephrology *ESRD due to polycystic kidney disease -MWF hemodialysis #Mild Hyperkalemia -resolved *thrombocytopenia -has been seen by [facility] * CAD - S/p CABG 02/10 -on aspirin therapy # pAF -in sinus # dCHF - Currently without signs of acute exacerbation. # HTN - Continue home medications (amlodipine, lisinopril, labetalol, hydralazine) # COPD - Current smoker, no signs of acute exacerbation. *dvt prophylaxis: robert elise, athrombic pumps, will need heparin sq but on hold due to requiring another transfusion P Subjective: Love is c/o intense pain in her leg. Appetite is better (her roommate brought her lunch) Objective: Vital Signs Temp Pulse Resp BP Pulse Ox 37.1 C 88 18 134/41 H 95 01/25/18 12:00 01/25/18 12:00 01/25/18 12:00 01/25/18 12:00 01/25/18 12:00 Laboratory Results 01/25/18 05:10 01/25/18 05:10 01/24/18 01/25/18 01/26/18 05:59 05:59 05:59 Intake Total 300 200 Output Total 100 Balance 200 200 PT 15.3 SEC (12.0-15.0) H 01/23/18 04:51 INR 1.19 (0.83-1.16) H 01/23/18 04:51 - Physical Exam Constitutional: chronically ill appearing, uncomfortable Eyes: PERRL Ears, Nose, Mouth, Throat: hearing normal Cardiovascular: regular rate and rhythym, systolic murmur (loud) Respiratory: no respiratory distress Gastrointestinal: normoactive bowel sounds Skin: warm Musculoskeletal: generalized weakness Neurologic: AAOx3 Psychiatric: interacting appropriately ICD10 Worksheet Patient Problems: Problems Problem Status Onset Closed right hip fracture Acute CHF (congestive heart failure) Acute Leukopenia Acute Paroxysmal atrial fibrillation Acute Pleural effusion Acute S/P CABG x 4 Acute chronic disease mgmt/transitional care Acute Anemia Chronic Coronary arteriosclerosis Chronic ESRD (end stage renal disease) on dialysis Chronic Hypertension Chronic Polycystic kidney disease Chronic Thrombocytopenia Chronic
[2018-01-25] MEDS ORDERED: POLYETHYLENE GLYCOL 3350 17 GM PKT PO PRN (14:56)
[2018-01-25] MEDS ORDERED: LACTULOSE 20 GM/30 ML UDCUP PO PRN (14:56)
[2018-01-25] MEDS ORDERED: BISACODYL 10 MG SUPP PR PRN (14:56)
--- NOTE | 2018-01-25 16:55 | SOAPPROG ---
SOAP Progress Note Assessment/Plan: Assessment: Left femur subtroch fracture L TFN 01/23 Plan: Wt bearing as tolerated may shower leave dressing in place PTOT f/u with me in 7-10 days 01/22/18 20:57 01/24/18 10:20 01/25/18 16:54 Subjective: pain in hip Objective: Vital Signs Temp Pulse Resp BP Pulse Ox 36.9 C 86 20 155/51 H 93 01/25/18 16:00 01/25/18 16:00 01/25/18 16:00 01/25/18 16:00 01/25/18 16:00 Laboratory Results 01/25/18 05:10 01/25/18 05:10 01/24/18 01/25/18 01/26/18 05:59 05:59 05:59 Intake Total 300 200 Output Total 100 Balance 200 200 PT 15.3 SEC (12.0-15.0) H 01/23/18 04:51 INR 1.19 (0.83-1.16) H 01/23/18 04:51 can range hip firing quad tendon nvi distally dressing cdi ICD10 Worksheet Patient Problems: Problems Problem Status Onset Closed right hip fracture Acute CHF (congestive heart failure) Acute Leukopenia Acute Paroxysmal atrial fibrillation Acute Pleural effusion Acute S/P CABG x 4 Acute chronic disease mgmt/transitional care Acute Anemia Chronic Coronary arteriosclerosis Chronic ESRD (end stage renal disease) on dialysis Chronic Hypertension Chronic Polycystic kidney disease Chronic Thrombocytopenia Chronic
[2018-01-25] MEDS: SENNOSIDES/DOCUSATE SODIUM TAB PO SCH (20:58)
[2018-01-25] MEDS: hydrALAZINE 20 MG/ML VIAL IVP PRN (23:38)
[2018-01-26] MEDS: HYDROCODONE/APAP 5/325 TAB PO PRN ×2 (00:35→11:26)
[2018-01-26 05:48] LABS: PLATELET COUNT 91 10^3/uL (150-400)
[2018-01-26] MEDS: hydrALAZINE 25 MG TAB PO SCH ×5 (07:33→22:47)
[2018-01-26] MEDS: ATORVASTATIN CALCIUM 10 MG TAB PO SCH (08:10)
[2018-01-26] MEDS: LISINOPRIL 40 MG TAB PO SCH ×2 (08:11→22:48)
[2018-01-26] MEDS: LABETALOL HCL 200 MG TAB PO SCH ×2 (08:12→22:48)
[2018-01-26] MEDS: amLODIPine BESYLATE 5 MG TAB PO SCH (08:12)
[2018-01-26] MEDS: SENNOSIDES/DOCUSATE SODIUM TAB PO SCH ×2 (08:13→22:48)
[2018-01-26] MEDS: SEVELAMER HCL 800 MG TAB PO SCH ×5 (08:13→16:27)
[2018-01-26] MEDS: CINACALCET HCL 30 MG TAB PO SCH (08:13)
--- NOTE | 2018-01-26 10:19 | SOAPPROG ---
SOAP Progress Note Assessment/Plan: Assessment: 1. ESRD. HD tomorrow on MWF schedule. 2. R hip fx. S/p TFN. PT/OT. CM working on SNF. 3. Anemia. S/p 4 units PRBCs. Continue procrit. 4. Malnutrition. Needs to drink 3 shakes per day. Plan: 01/26/18 10:18 Subjective: Slow progress with PT. No complaints otherwise. Objective: Vital Signs Temp Pulse Resp BP Pulse Ox 36.5 C 86 16 190/62 H 92 01/26/18 07:44 01/26/18 07:44 01/26/18 07:44 01/26/18 07:44 01/26/18 07:44 Laboratory Results 01/26/18 04:58 01/25/18 05:10 01/25/18 01/26/18 01/27/18 05:59 05:59 05:59 Intake Total 200 Output Total 0 Balance 200 0 PT 15.3 SEC (12.0-15.0) H 01/23/18 04:51 INR 1.19 (0.83-1.16) H 01/23/18 04:51 Alert, in good spirits, in bed RRR, radiated sys/mcghee bruit from AVF vs murmur CTAB Abdom soft, nontender No edema Ice pack on R hip ICD10 Worksheet Patient Problems: Problems Problem Status Onset CHF (congestive heart failure) Acute Pleural effusion Acute Leukopenia Acute Closed right hip fracture Acute chronic disease mgmt/transitional care Acute Paroxysmal atrial fibrillation Acute Coronary arteriosclerosis Chronic Thrombocytopenia Chronic Anemia Chronic Hypertension Chronic Polycystic kidney disease Chronic ESRD (end stage renal disease) on dialysis Chronic S/P CABG x 4 Acute
[2018-01-26] MEDS: ASPIRIN EC 81 MG TAB PO SCH ×3 (11:26→12:48)
--- NOTE | 2018-01-26 12:16 | HOSPPROG ---
Hospitalist Progress Note Assessment/Plan: 77y female with c/o fall and hip pain. #right Femur subtrochanteric fx -s/p left TFN on 01/23 -wbat -f/u with Dr Fuentes in 7-10 days *acute blood loss anemia and also caused by CKD -had been given a total of 4 units of PRBC's -epo per nephrology *ESRD due to polycystic kidney disease -MWF hemodialysis #Mild Hyperkalemia -resolved *thrombocytopenia -has been seen by [facility] * CAD - S/p CABG 02/10 -on aspirin therapy # pAF -in sinus # dCHF - Currently without signs of acute exacerbation. # HTN - Continue home medications (amlodipine, lisinopril, labetalol, hydralazine) # COPD - Current smoker, no signs of acute exacerbation. #Nutrition -supplement *dvt prophylaxis: robert elise, athrombic pumps, will need heparin sq but on hold due to requiring another transfusion *Dispo -will need SNF rehab with outpatient HD Subjective: Feeling better today. No pain currently. Eating well. Objective: Vital Signs Temp Pulse Resp BP Pulse Ox 36.5 C 86 16 190/62 H 92 01/26/18 07:44 01/26/18 07:44 01/26/18 07:44 01/26/18 07:44 01/26/18 07:44 Laboratory Results 01/26/18 04:58 01/25/18 05:10 01/25/18 01/26/18 01/27/18 05:59 05:59 05:59 Intake Total 200 Output Total 0 Balance 200 0 PT 15.3 SEC (12.0-15.0) H 01/23/18 04:51 INR 1.19 (0.83-1.16) H 01/23/18 04:51 - Physical Exam Constitutional: appears nourished, not in pain, chronically ill appearing Eyes: PERRL, anicteric sclera, EOMI Ears, Nose, Mouth, Throat: moist mucous membranes, hearing normal, ears appear normal Cardiovascular: edema, No JVD, No tachycardia Respiratory: no respiratory distress, no rales or rhonchi, reduced air movement Gastrointestinal: normoactive bowel sounds, No tenderness, No ascites Skin: warm, No mottled, No erythema Musculoskeletal: joint tenderness, pain with ROM, muscular tenderness, generalized weakness Neurologic: AAOx3 Psychiatric: interacting appropriately, not anxious, not encephalopathic, thought process linear ICD10 Worksheet Patient Problems: Problems Problem Status Onset CHF (congestive heart failure) Acute Pleural effusion Acute Leukopenia Acute Closed right hip fracture Acute chronic disease mgmt/transitional care Acute Paroxysmal atrial fibrillation Acute Coronary arteriosclerosis Chronic Thrombocytopenia Chronic Anemia Chronic Hypertension Chronic Polycystic kidney disease Chronic ESRD (end stage renal disease) on dialysis Chronic S/P CABG x 4 Acute
--- NOTE | 2018-01-26 15:42 | ASMTCMCOM ---
CM Note CM Note Notes: CM met w/ pt for dispo planning. Therapies are both recommending SNF. Referrals made to [facility], [facility], [facility] and [facility]. Pt will have her friend/roommate go look at them. Non triggering PASRR completed. CM to follow. Plan: SNF Date Signed: 01/26/2018 03:41 PM Electronically Signed By:BRIDGETT Rojas
--- NOTE | 2018-01-26 17:14 | SOAPPROG ---
SOAP Progress Note Assessment/Plan: Assessment: Left femur subtroch fracture L TFN 01/23 Plan: Wt bearing as tolerated may shower leave dressing in place PTOT f/u with me in 7-10 days 01/22/18 20:57 01/24/18 10:20 01/25/18 16:54 Subjective: pain in thigh, worse with movement Objective: Vital Signs Temp Pulse Resp BP Pulse Ox 36.6 C 70 16 128/40 H 95 01/26/18 12:00 01/26/18 12:00 01/26/18 12:00 01/26/18 12:00 01/26/18 12:00 Laboratory Results 01/26/18 04:58 01/25/18 05:10 01/25/18 01/26/18 01/27/18 05:59 05:59 05:59 Intake Total 200 Output Total 0 Balance 200 0 PT 15.3 SEC (12.0-15.0) H 01/23/18 04:51 INR 1.19 (0.83-1.16) H 01/23/18 04:51 sitting at side of bed dressing cdi ICD10 Worksheet Patient Problems: Problems Problem Status Onset Closed right hip fracture Acute CHF (congestive heart failure) Acute Leukopenia Acute Paroxysmal atrial fibrillation Acute Pleural effusion Acute S/P CABG x 4 Acute chronic disease mgmt/transitional care Acute Anemia Chronic Coronary arteriosclerosis Chronic ESRD (end stage renal disease) on dialysis Chronic Hypertension Chronic Polycystic kidney disease Chronic Thrombocytopenia Chronic
[2018-01-27] MEDS: ACETAMINOPHEN 325 MG TAB PO PRN (03:39)
[2018-01-27 05:35] LABS: PLATELET COUNT 109 10^3/uL (150-400)
[2018-01-27] MEDS: HYDROCODONE/APAP 5/325 TAB PO PRN ×2 (06:46→13:20)
[2018-01-27] MEDS: hydrALAZINE 25 MG TAB PO SCH ×4 (06:51→22:27)
[2018-01-27] MEDS: LABETALOL HCL 200 MG TAB PO SCH ×2 (08:54→22:27)
[2018-01-27] MEDS: SEVELAMER HCL 800 MG TAB PO SCH ×3 (08:54→18:34)
[2018-01-27] MEDS: CINACALCET HCL 30 MG TAB PO SCH (08:55)
[2018-01-27] MEDS: LISINOPRIL 40 MG TAB PO SCH ×2 (08:55→22:27)
[2018-01-27] MEDS: ASPIRIN EC 81 MG TAB PO SCH (08:55)
[2018-01-27] MEDS: amLODIPine BESYLATE 5 MG TAB PO SCH (08:55)
[2018-01-27] MEDS: ATORVASTATIN CALCIUM 10 MG TAB PO SCH (08:55)
[2018-01-27] MEDS: SENNOSIDES/DOCUSATE SODIUM TAB PO SCH ×2 (08:55→22:27)
--- NOTE | 2018-01-27 09:48 | SOAPPROG ---
CINTHYA Progress Note Assessment/Plan: Assessment: Pt of Dr. New, ESRD due to PKD, CAD, known thrombocytopenia (has seen [facility]) presents s/p traumatic R femur fx. 1. ESRD MWF, initially refused today. Now agrees to go. 2. s/p repair R femur fracture Doing well postop. Looking at DC to SNF with PT. 3. Anemia Improved with transfusions. On Epo. 4. Nutritional Risk Dietary consult, flavia 5. DC planning Subjective: A bit agitated, but doing ok Objective: Vital Signs Temp Pulse Resp BP Pulse Ox 37.2 C 85 20 151/63 H 91 L 01/27/18 08:00 01/27/18 08:00 01/27/18 08:00 01/27/18 08:00 01/27/18 08:00 Laboratory Results 01/27/18 05:08 01/27/18 05:08 01/26/18 01/27/18 01/28/18 05:59 05:59 05:59 Output Total 0 0 Balance 0 0 PT 15.3 SEC (12.0-15.0) H 01/23/18 04:51 INR 1.19 (0.83-1.16) H 01/23/18 04:51 Physical Exam - Physical Exam General Appearance: no apparent distress Respiratory: other (Decreased BS L base) Cardiac/Chest: regular rate, rhythm, systolic murmur Extremities: other (No ankle edema. 1+ R thigh edema) Neuro/Psych: oriented x 3 ICD10 Worksheet Patient Problems: Problems Problem Status Onset Closed right hip fracture Acute CHF (congestive heart failure) Acute Leukopenia Acute Paroxysmal atrial fibrillation Acute Pleural effusion Acute S/P CABG x 4 Acute chronic disease mgmt/transitional care Acute Anemia Chronic Coronary arteriosclerosis Chronic ESRD (end stage renal disease) on dialysis Chronic Hypertension Chronic Polycystic kidney disease Chronic Thrombocytopenia Chronic
--- NOTE | 2018-01-27 14:42 | HOSPPROG ---
Hospitalist Progress Note Assessment/Plan: 77y female with c/o fall and hip pain. #right Femur subtrochanteric fx -s/p left TFN on 01/23 -wbat -f/u with Dr Fuentes in 7-10 days *acute blood loss anemia and also caused by CKD -had been given a total of 4 units of PRBC's -epo per nephrology *ESRD due to polycystic kidney disease -MWF hemodialysis #Mild Hyperkalemia -resolved *thrombocytopenia -has been seen by [facility] * CAD - S/p CABG 02/10 -on aspirin therapy # pAF -in sinus # dCHF - Currently without signs of acute exacerbation. # HTN - Continue home medications (amlodipine, lisinopril, labetalol, hydralazine) # COPD - Current smoker, no signs of acute exacerbation. #Nutrition -supplement *dvt prophylaxis: robert elise, athrombic pumps, will need heparin sq but on hold due to requiring another transfusion *Dispo -anticipate DC to SNF in am Subjective: Doesn't want to go to HD today. Not feeling well. Minimal interaction. Objective: Vital Signs Temp Pulse Resp BP Pulse Ox 37.2 C 85 20 151/63 H 91 L 01/27/18 08:00 01/27/18 08:00 01/27/18 08:00 01/27/18 08:00 01/27/18 08:00 Laboratory Results 01/27/18 05:08 01/27/18 05:08 01/26/18 01/27/18 01/28/18 05:59 05:59 05:59 Output Total 0 0 Balance 0 0 PT 15.3 SEC (12.0-15.0) H 01/23/18 04:51 INR 1.19 (0.83-1.16) H 01/23/18 04:51 - Physical Exam Constitutional: appears nourished, chronically ill appearing Eyes: PERRL, anicteric sclera Ears, Nose, Mouth, Throat: moist mucous membranes, hearing normal Cardiovascular: No JVD, No edema Respiratory: no respiratory distress, reduced air movement Gastrointestinal: No tenderness, No ascites Skin: warm, normal color Musculoskeletal: joint tenderness, pain with ROM, generalized weakness Neurologic: AAOx3 Psychiatric: anxious, poor insight, poor judgement, poor memory ICD10 Worksheet Patient Problems: Problems Problem Status Onset CHF (congestive heart failure) Acute Pleural effusion Acute Leukopenia Acute Closed right hip fracture Acute chronic disease mgmt/transitional care Acute Paroxysmal atrial fibrillation Acute Coronary arteriosclerosis Chronic Thrombocytopenia Chronic Anemia Chronic Hypertension Chronic Polycystic kidney disease Chronic ESRD (end stage renal disease) on dialysis Chronic S/P CABG x 4 Acute
--- NOTE | 2018-01-27 16:12 | ASMTCMCOM ---
CM Note CM Note Notes: CM met w/ pt for dispo planning. [facility] has accepted pt. Pt reports that she needs to talk to her roommate before making a decision. Pt reports that she prefers [facility] and prefers to be closer to her [facility] (where she gets dialysis). [facility] is able to provide transportation there without any cost to pt. CM to follow. Plan: SNF Date Signed: 01/27/2018 04:11 PM Electronically Signed By:BRIDGETT Rojas
[2018-01-28 05:50] LABS: PLATELET COUNT 130 10^3/uL (150-400)
[2018-01-28] MEDS: hydrALAZINE 25 MG TAB PO SCH ×2 (06:28→12:11)
[2018-01-28] MEDS: SEVELAMER HCL 800 MG TAB PO SCH ×2 (07:50→12:20)
[2018-01-28] MEDS: ATORVASTATIN CALCIUM 10 MG TAB PO SCH (07:52)
[2018-01-28] MEDS: ASPIRIN EC 81 MG TAB PO SCH (07:52)
[2018-01-28] MEDS: LABETALOL HCL 200 MG TAB PO SCH (07:52)
[2018-01-28] MEDS: CINACALCET HCL 30 MG TAB PO SCH (07:52)
[2018-01-28] MEDS: LISINOPRIL 40 MG TAB PO SCH (07:55)
[2018-01-28] MEDS: amLODIPine BESYLATE 5 MG TAB PO SCH (07:56)
[2018-01-28] MEDS: HYDROCODONE/APAP 5/325 TAB PO PRN ×2 (07:56→12:20)
[2018-01-28] MEDS: SENNOSIDES/DOCUSATE SODIUM TAB PO SCH (08:00)
[2018-01-28 08:01] VITALS: BP 168/67
--- NOTE | 2018-01-28 09:16 | HOSPPROG ---
Hospitalist Progress Note Assessment/Plan: 77y female with c/o fall and hip pain. Reviewed her care with nephrology and oncology. To dc today. #right Femur subtrochanteric fx -s/p left TFN on 01/23 -wbat -f/u with Dr Fuentes in 7-10 days *acute blood loss anemia and also caused by CKD -had been given a total of 4 units of PRBC's -epo per nephrology *ESRD due to polycystic kidney disease -MWF hemodialysis #Mild Hyperkalemia -resolved *thrombocytopenia -has been seen by [facility] * CAD - S/p CABG 02/10 -on aspirin therapy # pAF -in sinus # dCHF - Currently without signs of acute exacerbation. # HTN - Continue home medications (amlodipine, lisinopril, labetalol, hydralazine) # COPD - Current smoker, no signs of acute exacerbation. *dvt prophylaxis: robert elise, athrombic pumps, curb-sided hematology about treated with DVT prophylaxis and there is no contraindications, have ordered this. P Subjective: Love still has pain but doing better. Objective: Vital Signs Temp Pulse Resp BP Pulse Ox 37.2 C 82 18 168/67 H 95 01/28/18 02:34 01/28/18 08:00 01/28/18 08:00 01/28/18 08:00 01/28/18 08:00 Laboratory Results 01/28/18 05:05 01/28/18 05:05 01/27/18 01/28/18 01/29/18 05:59 05:59 05:59 Intake Total 750 Output Total 0 Balance 0 750 PT 15.3 SEC (12.0-15.0) H 01/23/18 04:51 INR 1.19 (0.83-1.16) H 01/23/18 04:51 - Physical Exam Constitutional: appears nourished, chronically ill appearing, No not in pain Eyes: PERRL Ears, Nose, Mouth, Throat: hearing normal Cardiovascular: regular rate and rhythym, systolic murmur (loud) Respiratory: no respiratory distress Skin: warm, No normal color (pale) Musculoskeletal: generalized weakness Neurologic: AAOx3 Psychiatric: interacting appropriately ICD10 Worksheet Patient Problems: Problems Problem Status Onset Closed right hip fracture Acute CHF (congestive heart failure) Acute Leukopenia Acute Paroxysmal atrial fibrillation Acute Pleural effusion Acute S/P CABG x 4 Acute chronic disease mgmt/transitional care Acute Anemia Chronic Coronary arteriosclerosis Chronic ESRD (end stage renal disease) on dialysis Chronic Hypertension Chronic Polycystic kidney disease Chronic Thrombocytopenia Chronic
--- NOTE | 2018-01-28 10:32 | SOAPPROG ---
[facility] Progress Note Assessment/Plan: Assessment: Pt of Dr. New, ESRD due to PKD, CAD, known thrombocytopenia (has seen [facility]) presents s/p traumatic R femur fx. 1. ESRD MWF, I spoke with JULIUS Dunn today. Informed them that she would likely be back on Tuesday, and updated on Hct and Weight. 2. s/p repair R femur fracture Doing well postop. Looking at DC to SNF with PT. 3. Anemia Improved with transfusions. On Epo. 4. Nutritional Risk Dietary consult, flavia 5. DC planning Possible DC today 01/28/18 10:32 Subjective: Doing pretty well Objective: Vital Signs Temp Pulse Resp BP Pulse Ox 37.2 C 82 18 168/67 H 95 01/28/18 02:34 01/28/18 08:00 01/28/18 08:00 01/28/18 08:00 01/28/18 08:00 Laboratory Results 01/28/18 05:05 01/28/18 05:05 01/27/18 01/28/18 01/29/18 05:59 05:59 05:59 Intake Total 750 Output Total 0 Balance 0 750 PT 15.3 SEC (12.0-15.0) H 01/23/18 04:51 INR 1.19 (0.83-1.16) H 01/23/18 04:51 Physical Exam - Physical Exam General Appearance: no apparent distress Respiratory: lungs clear Cardiac/Chest: regular rate, rhythm Extremities: other (R thigh edema) Neuro/Psych: oriented x 3 ICD10 Worksheet Patient Problems: Problems Problem Status Onset CHF (congestive heart failure) Acute Pleural effusion Acute Leukopenia Acute Closed right hip fracture Acute chronic disease mgmt/transitional care Acute Paroxysmal atrial fibrillation Acute Coronary arteriosclerosis Chronic Thrombocytopenia Chronic Anemia Chronic Hypertension Chronic Polycystic kidney disease Chronic ESRD (end stage renal disease) on dialysis Chronic S/P CABG x 4 Acute
--- NOTE | 2018-01-28 11:02 | PDIAF ---
- Diagnosis Diagnosis: r femur fx s/p repair, anemia, ESRD, thrombocytopenia Code Status: Full Code - Medication Management Discharge Medications: Medications to Continue on Transfer Labetalol HCl [Trandate 200 mg (*)] 200 mg PO DAILY 02/26/17 [Last Taken 09:00] Aspirin EC [Aspirin EC 81 mg (*)] 81 mg PO HS 07/13/17 [Last Taken 07/13/17] Atorvastatin Calcium [Lipitor 10 mg (*)] 10 mg PO DAILY 07/13/17 [Last Taken ] Calcitriol [Calcitriol (*)] 0.75 mcg PO MWF 07/13/17 [Last Taken 07/13/17] Epoetin Milind [Epogen] 20,000 unit IJ WE 07/13/17 [Last Taken 07/13/17] Herbals/Supplements -Info Only 1 ea PO Q2D 07/13/17 [Last Taken 07/13/17] Sevelamer Carbonate [Renvela] 3,200 mg PO TIDMEAL 07/13/17 [Last Taken 07/13/17 09:00] amLODIPine BESYLATE [Amlodipine Besylate] 5 mg PO DAILY 12/19/17 [Last Taken Unknown] Cinacalcet HCl [Sensipar (*)] 30 mg PO DAILY 01/22/18 [Last Taken Unknown] Parenteral Amino Acid 20% No.1 [Prosol] 2,000 ml IV MWF 01/22/18 [Last Taken Unknown] Heparin [Heparin SC 5000 unit/0.5 ml (*)] 5,000 unit SC Q8HRS inj 01/28/18 [ Last Taken Unknown] Hydrocodone/APAP 5/325 [[place] 5/325 (*)] 1 - 2 tab PO Q4HRS PRN tab 01/28/18 [ Last Taken Unknown] Lisinopril [Zestril 40 mg (*)] 40 mg PO BID tab 01/28/18 [Last Taken Unknown] Polyethylene Glycol 3350 [Miralax 17 gm (*)] 17 gm PO DAILY PRN pkt 01/28/18 [ Last Taken Unknown] Sennosides/Docusate Sodium [Senokot-S] 1 - 2 tab PO BID tab 01/28/18 [Last Taken Unknown] Discharge Medications: Refer to the Discharge Home Medication list for PRN reason. PICC Care - Routine: N/A - Orders Services needed: Physical Therapy, Occupational Therapy Isolation Type: None Diet Recommendation: no restrictions on diet Diet Texture: Regular Texture Diet Additional Instructions: Wt bearing as tolerated may shower leave dressing in place patient needs dialysis 3 x week closely monitor platelet count / started on heparin sq, cont x 14 more days unless her platelets keep dropping - Labs/Radiology BMP Date: 01/30/17 CBC w/diff Date: 02/09/17 - Follow Up Care Current Providers and Referrals: Zay Fuentes MD [Medical Doctor] - follow up in 10 days (7-10 DAYS FOR OFFICE VISIT. CALL FOR APT. ) Patient,NotPresent [Unknown] - As per Instructions
--- NOTE | 2018-01-28 12:28 | ASDISCHSUM ---
Discharge Information Plan Status:SNF Medically Cleared to Leave:01/28/2018 Discharge Date:01/28/2018 CM D/C Disposition:Fdc Facility ADT D/C Disposition:Fdc Facility Projected Discharge Date:01/28/2018 11:00 AM Transportation at D/C:Wheelchair Van Discharge Delay Reason: Follow-Up Date:01/28/2018 11:00 AM Discharge Slot: Final Diagnosis: Placement Information Referral Type:*Shelter/SNF Referral ID:[id number] Provider Name:Garrett mathews [place] Address 1:[address] Address 2: City:[place] Selection Factors: State:[place] Patient Contact Information Contact Name:BETZY Relationship:Other Address:[address] Work Phone: City:[place] Alternate Phone: State/Zip Code:[place] [address] Email: Financial Information Financial Class:Medicare Primary Plan Desc:MEDICARE INPATIENT Primary Plan Number:[id number] Secondary Plan Desc:[employer]ARP/MDR SUPPLEMENT Secondary Plan Number:[id number] Assessment Information [facility] CM Progress Note CM Note CM Note Notes: Pt came to ER after falling trying to sit in chair, she has a hip fracture and will go to OR today. Pt also gets dialysis MWF. Sudha Torresmayi is listed as a CW who is mdpoa but in H&P states she is a roomate. DC needs unclear, PT/OT to [facility]. DC Plan: TBD Date Signed: 01/23/2018 04:12 PM Electronically Signed By:Rosamaria Zapata RN [facility] CM Progress Note CM Note CM Note Notes: CM met w/ pt for dispo planning. Therapies are both recommending SNF. Referrals made to [facility], [facility], [facility] and [facility]. Pt will have her friend/roommate go look at them. Non triggering PASRR completed. CM to follow. Plan: [facility] Date Signed: 01/26/2018 03:41 PM Electronically Signed By:BRIDGETT Rojas [facility] CM Progress Note CM Note CM Note Notes: CM met w/ pt for dispo planning. [facility], [facility] and [facility] has accepted pt. Pt reports that she needs to talk to her roommate before making a decision. Pt reports that she prefers [place] and prefers to be closer to her [facility] [place] (where she gets dialysis). [facility] is able to provide transportation there without any cost to pt. CM to follow. Plan: [facility] Date Signed: 01/27/2018 04:11 PM Electronically Signed By:BRIDGETT Rojas Intervention Information
--- NOTE | 2018-01-28 12:32 | ASMTLACE ---
LACE Length of stay for Answers: 4-6 days current admission Acuity / Level of Answers: Yes Care: Did the patient have an inpatient admission? Comorbidities - select Answers: Chronic pulmonary disease all that apply Congestive heart failure Coronary Artery Disease Other Notes: HTN; Polycystic kidney disease # of Emergency department Answers: 3-4 visits in the last 6 months Score: 17 Date Signed: 01/28/2018 12:32 PM Electronically Signed By:APRIL Trejo
[2018-01-28] MEDS ORDERED: HEPARIN 5,000 UNIT/0.5 ML INJ SC SCH (14:00)
--- NOTE | 2018-01-28 16:30 | GDS ---
[f rep st] DISCHARGE SUMMARY DISCHARGE DIAGNOSES: 1. Right femur subtrochanteric fracture, status post right trochanteric fixation nail. 2. Acute blood loss anemia. 3. End-stage renal disease due to polycystic kidney disease. 4. Mild hyperkalemia. 5. Thrombocytopenia. 6. Coronary artery disease. 7. Paroxysmal atrial fibrillation. 8. Diastolic congestive heart failure. 9. Hypertension. 10. Chronic obstructive pulmonary disease. CONSULTATIONS: 1. Zay Fuentes MD. 2. Alyssia Banda MD. HISTORY: Briefly, the patient is a very nice 77-year-old woman with end-stage renal disease as well as thrombocytopenia who fell onto her right hip and was noted to have a right subtrochanteric femur fracture. She had surgery. Her postop recovery was complicated due to needing multiple transfusions. She has chronic renal failure on dialysis and also had some blood loss anemia. Today she is feeling better and overall stable. [facility]. HOSPITAL COURSE: 1. Right femur subtrochanteric fracture. She is status post right TFN on . She needs to follow up with Dr. Fuentes in 7-10 days. 2. Acute blood loss anemia. This is also caused by chronic kidney disease. She was given a total of 4 units of packed red blood cells. She will be given Epogen when she has dialysis. 3. End-stage renal disease, Tuesday, Tuesday, Tuesday hemodialysis. 4. Mild hyperkalemia, resolved. 5. Thrombocytopenia. She has been seen by Dr. Calixto in the outpatient setting. 6. Coronary artery disease. She is status post CABG on February 10. She is on aspirin therapy. 7. Paroxysmal atrial fibrillation, currently in sinus. 8. Diastolic heart failure. She has no signs or symptoms of any type of exacerbation and appears to be euvolemic. 9. Hypertension. Home medications resumed. 10. COPD. Current smoker. She does not show any signs of acute exacerbation. DISCHARGE CONDITION: Stable. Blood pressure is 168/67. Heart rate of 82. Respiratory rate 18. O2 sats on 2 L are 95%. Temperature is 37.2 Celsius. MEDICATIONS AT DISCHARGE: Please see the EMR. DISCHARGE INSTRUCTIONS: 1. To further follow up with Dr. Fuentes and with Nephrology. 2. Weightbearing as tolerated and to leave dressing in place. 3. If she develops worsening hip pain, fever, chills to return to the ER. 4. Recommendation is to continue heparin as DVT prophylaxis and to monitor her platelet count. Greater than 30 minutes discharging and coordinating the patient's care. Copy requested to: Dr. Fuentes /[id number]/MODL MTDD
== END 2018-01-28 14:59 | DRG 480 ==
LOC: EDUNIT# → F3N 21:43 → OBSVTOIN 01-23 14:37 → F3E 01-24 16:21
PROVIDERS: ADMIT Internal Medicine; ATTEND Internal Medicine
PROC: 5A1D70Z Performance of Urinary Filtration, Intermittent, Less than 6 Hours Per Day (ICD-10-PCS; 2018-01-23)
PROC: 30233N1 Transfusion of Nonautologous Red Blood Cells into Peripheral Vein, Percutaneous Approach (ICD-10-PCS; 2018-01-23)
PROC: 0QS604Z Reposition Right Upper Femur with Internal Fixation Device, Open Approach (ICD-10-PCS; principal; 2018-01-23 17:00)
DX: S72.141A Displaced intertrochanteric fracture of right femur, initial encounter for closed fracture (principal); I13.2 Hypertensive heart and chronic kidney disease with heart failure and with stage 5 chronic kidney disease, or end stage renal disease; N18.6 End stage renal disease; I50.30 Unspecified diastolic (congestive) heart failure; D62 Acute posthemorrhagic anemia; W17.89XA Other fall from one level to another, initial encounter; E87.5 Hyperkalemia; D69.6 Thrombocytopenia, unspecified; I25.10 Atherosclerotic heart disease of native coronary artery without angina pectoris; I48.0 Paroxysmal atrial fibrillation; J44.9 Chronic obstructive pulmonary disease, unspecified; Z72.0 Tobacco use; Z95.1 Presence of aortocoronary bypass graft; Z90.5 Acquired absence of kidney; Z99.2 Dependence on renal dialysis
CPT/HCPCS: 96374; 97110-GP; 97116-GP; 97162-GP; 97166-GO; 97530-GO; 97530-GP; 97535-GO; C1713; C1769; G0378; G8978-GP-CM; G8979-GP-CK; G8987-GO-CM; G8988-GO-CL; J0360; J0690; J0885; J1170; J2001; J2060; J2405; J2704; J3010; P9016; P9040

== ENCOUNTER 2018-06-09 17:27 | Inpatient (IN) | payer OTHER, MEDICARE ==
--- NOTE | 2018-06-09 17:40 | EDPHY ---
H & P Time Seen by Provider: 06/09/18 17:39 HPI/ROS: CHIEF COMPLAINT: Dyspnea HISTORY OF PRESENT ILLNESS: The patient has a history of end-stage renal disease on hemodialysis and presents the emergency department today with complaints of acute dyspnea. The patient has had a productive cough and symptoms consistent with bronchitis for the past week. She does finished azithromycin. The patient has remained has been sick with similar symptoms. The patient has been receiving her hemodialysis. She denies any asymmetric calf pain or swelling. REVIEW OF SYSTEMS: A comprehensive 10 point review of systems is otherwise negative aside from elements mentioned in the history of present illness. Source: Patient Exam Limitations: No limitations - Medical/Surgical History Hx Asthma: No Hx Chronic Respiratory Disease: Yes Hx Diabetes: No Hx Cardiac Disease: Yes Hx Renal Disease: Yes Hx Cirrhosis: No Hx Alcoholism: No Hx HIV/AIDS: No Hx Splenectomy or Spleen Trauma: No Other PMH: pmh- renal failyre with LUE fistula, [place], polycystic kidney disease, htn, anemia, COPD, bilat nephrectomy 05/2017, CABG Feb 10 - Social History Smoking Status: Current every day smoker - Physical Exam Exam: General Appearance: Alert, no distress Eyes: Pupils equal and round no pallor or injection ENT, Mouth: Mucous membranes moist Respiratory: Diffuse expiratory wheezing Cardiovascular: Regular rate and rhythm Gastrointestinal: Abdomen is soft and nontender, no masses, bowel sounds normal Neurological: 5/5 strength all 4 extremities Skin: Warm and dry, no rashes Musculoskeletal: Neck is supple nontender Extremities: symmetrical, full range of motion Constitutional: Initial Vital Signs Temperature (C) 36.3 C 06/09/18 17:44 Heart Rate 71 06/09/18 17:44 Respiratory Rate 23 H 06/09/18 17:44 Blood Pressure 140/64 H 06/09/18 17:44 O2 Sat (%) 97 06/09/18 17:44 O2 Delivery Mode Nasal Cannula Allergies/Adverse Reactions: No Known Allergies Allergy (Verified 01/22/18 18:55) Home Medications: Medication Instructions Recorded Labetalol HCl [Trandate 200 mg (*)] 200 mg PO DAILY 02/26/17 Aspirin EC [Aspirin EC 81 mg (*)] 81 mg PO HS 07/13/17 Atorvastatin Calcium [Lipitor 10 10 mg PO DAILY 07/13/17 mg (*)] Calcitriol [Calcitriol (*)] 0.75 mcg PO MWF 07/13/17 Epoetin Milind [Epogen] 20,000 unit IJ WE 07/13/17 Herbals/Supplements -Info Only 1 ea PO Q2D 07/13/17 Sevelamer Carbonate [Renvela] 3,200 mg PO TIDMEAL 07/13/17 amLODIPine BESYLATE [Amlodipine 5 mg PO DAILY 12/19/17 Besylate] Cinacalcet HCl [Sensipar (*)] 30 mg PO DAILY 01/22/18 Parenteral Amino Acid 20% No.1 2,000 ml IV MWF 01/22/18 [Prosol] Heparin [Heparin SC 5000 unit/0.5 5,000 unit SC Q8HRS inj 01/28/18 ml (*)] Hydrocodone/APAP 5/325 [[place] 1 - 2 tab PO Q4HRS PRN tab 01/28/18 5/325 (*)] Lisinopril [Zestril 40 mg (*)] 40 mg PO BID tab 01/28/18 Polyethylene Glycol 3350 [Miralax 17 gm PO DAILY PRN pkt 01/28/18 17 gm (*)] Sennosides/Docusate Sodium 1 - 2 tab PO BID tab 01/28/18 [Senokot-S] Medical Decision Making - Diagnostics EKG Interpretation: EKG: Complete interpretation has been separately recorded in the [facility] archive. Summary impression: Sinus rhythm, rate 71, nonspecific ST T wave changes noted Imaging Results: Imaging Impressions Chest X-Ray 06/09/18 17:43 Impression: 1. Moderate left pleural effusion increased slightly since the prior study with adjacent compressive atelectatic change. 2. Patchy alveolar infiltrates perihilar region bilaterally. Consider fluid overload/CHF versus pneumonia.. ED Course/Re-evaluation: Patient presents to the ED with a one-week history of a respiratory illness with worsening dyspnea. The patient was noted to be mildly hypoxemic upon arrival. Chest x-ray demonstrates fluid overload with the possibility of an infiltrate. Influenza panel has been ordered. The patient will be given an IV dose of Levaquin. I do believe she needs to be admitted to the hospital in a setting of her tachypnea, hypoxemia and underlying chronic renal failure. Consultation was made with the hospitalist service at 7:30 p.m.. Differential Diagnosis: Differential diagnosis considered includes asthma, bronchitis, pneumonia, influenza - Data Points Laboratory Results: Laboratory Results 06/09/18 17:59 06/09/18 17:59 18 06/09/18 17:59 17:59 WBC 3.89 10^3/uL 10^3/uL (3.80-9.50) RBC 2.33 10^6/uL L 10^6/uL (4.18-5.33) Hgb 7.6 g/dL L g/dL (12.6-16.3) Hct 24.0 % L % (38.0-47.0) MCV 103.0 fL H fL (81.5-99.8) MCH 32.6 pg pg (27.9-34.1) MCHC 31.7 g/dL L g/dL (32.4-36.7) RDW 14.8 % % (11.5-15.2) Plt Count 149 10^3/uL L 10^3/uL (150-400) MPV 9.7 fL fL (8.7-11.7) Neut % (Auto) 85.1 % H % (39.3-74.2) Lymph % (Auto) 2.1 % L % (15.0-45.0) [place] % (Auto) 11.8 % % (4.5-13.0) Eos % (Auto) 0.5 % L % (0.6-7.6) Baso % (Auto) 0.0 % L % (0.3-1.7) Nucleat RBC Rel Count 0.0 % % (0.0-0.2) Absolute Neuts (auto) 3.31 10^3/uL 10^3/uL (1.70-6.50) Absolute Lymphs (auto) 0.08 10^3/uL L 10^3/uL (1.00-3.00) Absolute Monos (auto) 0.46 10^3/uL 10^3/uL (0.30-0.80) Absolute Eos (auto) 0.02 10^3/uL L 10^3/uL (0.03-0.40) Absolute Basos (auto) 0.00 10^3/uL L 10^3/uL (0.02-0.10) Absolute Nucleated RBC 0.00 10^3/uL 10^3/uL (0-0.01) Immature Gran % 0.5 % % (0.0-1.1) Immature Gran # 0.02 10^3/uL 10^3/uL (0.00-0.10) RBC/WBC/PLT Morphology TNP Platelet Estimate ADEQUATE (ADEQ) Sodium 136 mEq/L mEq/L (135-145) Potassium 3.2 mEq/L L mEq/L (3.5-5.2) Chloride 95 mEq/L L mEq/L (97-110) Carbon Dioxide 28 mEq/l mEq/l (22-31) Anion Gap 13 mEq/L mEq/L (6-14) BUN 31 mg/dL H mg/dL (7-23) Creatinine 2.6 mg/dL H mg/dL (0.6-1.0) Estimated GFR 18 Glucose 94 mg/dL mg/dL (70-100) Calcium 9.0 mg/dL mg/dL (8.5-10.4) Medications Given: Discontinued Medications Albuterol/Ipratropium (Duoneb) 3 ml EDNOW ONE Stop: 06/09/18 17:51 Last Admin: 06/09/18 17:52 Dose: 3 ml Departure - Departure Disposition: [facility] Inpatient Acute Clinical Impression: Acute bronchitis, CHF (congestive heart failure) Condition: Good Referrals: Deidre Mahajan MD [Primary Care Provider] - As per Instructions
[2018-06-09] MEDS ORDERED: IPRATROPIUM/ALBUTEROL 3 ML DEYVIAL ONE (17:45)
[2018-06-09] MEDS ORDERED: IPRATROPIUM/ALBUTEROL 3 ML DEYVIAL IH ONE (17:50)
[2018-06-09 18:12] LABS: PLATELET COUNT 149 10^3/uL (150-400)
[2018-06-09] MEDS ORDERED: levOFLOXACIN 500 MG/DEXTROSE 100 ML IV ONE (19:16)
--- NOTE | 2018-06-09 19:22 | CPEKG ---
Test Reason : OPEN Blood Pressure : / mmHG Vent. Rate : 071 BPM Atrial Rate : 070 BPM P-R Int : 179 ms QRS Dur : 099 ms QT Int : 438 ms P-R-T Axes : 071 062 057 degrees QTc Int : 476 ms Sinus rhythm Probable left atrial enlargement Left ventricular hypertrophy Nonspecific T abnormalities, anterior leads Confirmed by Sacha Oconnell ([id number]) on 06/09/2018 7:22:23 PM Referred By: Confirmed By:Sacha Oconnell
[2018-06-09] MEDS ORDERED: HYDROCODONE/APAP 5/325 TAB PO PRN (20:09)
[2018-06-09] MEDS ORDERED: ONDANSETRON 4 MG/2 ML VIAL IVP PRN (20:09)
[2018-06-09] MEDS ORDERED: oxyCODONE IR 5 MG TAB PO PRN (20:09)
[2018-06-09] MEDS ORDERED: ALBUTEROL 3 ML DEYVIAL IH PRN (20:09)
[2018-06-09] MEDS ORDERED: PROMETHAZINE HCL 25 MG/ML INJ IVP PRN (20:09)
[2018-06-09] MEDS ORDERED: ONDANSETRON DISINTEGRATING 4 MG TAB PO PRN (20:09)
[2018-06-09] MEDS: IPRATROPIUM/ALBUTEROL 3 ML DEYVIAL IH SCH ×2 (21:16→21:51)
[2018-06-09] MEDS: ACETAMINOPHEN 325 MG TAB PO PRN (21:27)
--- NOTE | 2018-06-09 21:50 | PDGENHP ---
History and Physical - Chief Complaint cough,sob - History of Present Illness 77 yo F with PMH of ESRD on MWF HD presenting with complaints of cough, sob and generalized weakness and malaise x 1 week. She notes her roommate has been sick with similar sxs. They were both treated by their PCP with abx, patient completed a z pack, but despite that she notes her sxs continued. Patient has felt so poorly that she has not been able to smoke this week or it makes her too wheezy and 'isn't worth it.' She notes she has not had chest pain, she did miss HD on Tuesday but made it up on Tuesday. She does have chronic shoulder and knee pains but no other acute complaints. History Information - Allergies/Home Medication List Allergies/Adverse Reactions: No Known Allergies Allergy (Verified 01/22/18 18:55) Home Medications: Labetalol HCl [Trandate 200 mg (*)] 200 mg PO DAILY 02/26/17 [Last Taken 09:00] Aspirin EC [Aspirin EC 81 mg (*)] 81 mg PO HS 07/13/17 [Last Taken 07/13/17] Atorvastatin Calcium [Lipitor 10 mg (*)] 10 mg PO DAILY 07/13/17 [Last Taken ] Calcitriol [Calcitriol (*)] 0.75 mcg PO MWF 07/13/17 [Last Taken 07/13/17] Epoetin Milind [Epogen] 20,000 unit IJ WE 07/13/17 [Last Taken 07/13/17] Herbals/Supplements -Info Only 1 ea PO Q2D 07/13/17 [Last Taken 07/13/17] Sevelamer Carbonate [Renvela] 3,200 mg PO TIDMEAL 07/13/17 [Last Taken 07/13/17 09:00] amLODIPine BESYLATE [Amlodipine Besylate] 5 mg PO DAILY 12/19/17 [Last Taken Unknown] Cinacalcet HCl [Sensipar (*)] 30 mg PO DAILY 01/22/18 [Last Taken Unknown] Parenteral Amino Acid 20% No.1 [Prosol] 2,000 ml IV MWF 01/22/18 [Last Taken Unknown] I have personally reviewed and updated: family history, medical history, social history, surgical history - Past Medical History coronary artery disease, COPD, ESRD, hypertension Additional medical history: ESRD on HD, PCKD s/p bilateral nephrectomy, CHF, PAF , CAD s/p CABG, thrombocytopenia, anemia of chronic kidney disease, HTN, COPD, Ulcerative colitis. mild/mod mitral valve stenosis/regurg - Surgical History Additional surgical history: bilateral nephrectomy 05/2017, CABG x 4v, LUE fistula, T/A, breast bx that was benign, LUE fistula with multiple revisions, R cataract extraction/lens placement. - Family History Positive for: non-pertinent Additional family history: mother - PCKD - Social History Smoking Status: Current every day smoker Alcohol Use: Occasionally Drug Use: None Additional social history: COR - FULL but no prolonged life support. Patient roommate Sudha Moe [facility]. Review of Systems Review of Systems: ROS: 10pt was reviewed & negative except for what was stated in HPI & below Physical Exam Physical Exam: Temp Pulse Resp BP Pulse Ox 37.3 C 69 22 H 151/62 H 95 06/09/18 21:10 06/09/18 21:10 06/09/18 21:10 06/09/18 21:10 06/09/18 21:10 O2 (L/minute) 2 Constitutional: no apparent distress, chronically ill appearing Eyes: PERRL Ears, Nose, Mouth, Throat: hearing normal, dry mucous membranes Cardiovascular: regular rate and rhythym, no murmur, rub, or gallop, No edema Respiratory: reduced air movement, inspiratory crackles, respiratory distress Gastrointestinal: normoactive bowel sounds, soft, non-tender abdomen Genitourinary: no bladder tenderness Skin: warm, normal color Musculoskeletal: full muscle strength Neurologic: AAOx3 Psychiatric: interacting appropriately, not anxious Lab Data & Imaging Review 06/09/18 17:59 06/09/18 17:59 WBC 3.89 10^3/uL (3.80-9.50) 06/09/18 17:59 RBC 2.33 10^6/uL (4.18-5.33) L 06/09/18 17:59 Hgb 7.6 g/dL (12.6-16.3) L 06/09/18 17:59 Hct 24.0 % (38.0-47.0) L 06/09/18 17:59 MCV 103.0 fL (81.5-99.8) H 06/09/18 17:59 MCH 32.6 pg (27.9-34.1) 18 17:59 MCHC 31.7 g/dL (32.4-36.7) L 06/09/18 17:59 RDW 14.8 % (11.5-15.2) 06/09/18 17:59 Plt Count 149 10^3/uL (150-400) L 06/09/18 17:59 MPV 9.7 fL (8.7-11.7) 06/09/18 17:59 Neut % (Auto) 85.1 % (39.3-74.2) H 06/09/18 17:59 Lymph % (Auto) 2.1 % (15.0-45.0) L 06/09/18 17:59 Alcorn % (Auto) 11.8 % (4.5-13.0) 06/09/18 17:59 Eos % (Auto) 0.5 % (0.6-7.6) L 06/09/18 17:59 Baso % (Auto) 0.0 % (0.3-1.7) L 06/09/18 17:59 Nucleat RBC Rel Count 0.0 % (0.0-0.2) 06/09/18 17:59 Absolute Neuts (auto) 3.31 10^3/uL (1.70-6.50) 06/09/18 17:59 Absolute Lymphs (auto) 0.08 10^3/uL (1.00-3.00) L 06/09/18 17:59 Absolute Monos (auto) 0.46 10^3/uL (0.30-0.80) 06/09/18 17:59 Absolute Eos (auto) 0.02 10^3/uL (0.03-0.40) L 06/09/18 17:59 Absolute Basos (auto) 0.00 10^3/uL (0.02-0.10) L 06/09/18 17:59 Absolute Nucleated RBC 0.00 10^3/uL (0-0.01) 06/09/18 17:59 Immature Gran % 0.5 % (0.0-1.1) 06/09/18 17:59 Immature Gran # 0.02 10^3/uL (0.00-0.10) 06/09/18 17:59 RBC/WBC/PLT Morphology TNP 06/09/18 17:59 Platelet Estimate ADEQUATE (ADEQ) 06/09/18 17:59 Sodium 136 mEq/L (135-145) 06/09/18 17:59 Potassium 3.2 mEq/L (3.5-5.2) L 06/09/18 17:59 Chloride 95 mEq/L (97-110) L 06/09/18 17:59 Carbon Dioxide 28 mEq/l (22-31) 06/09/18 17:59 Anion Gap 13 mEq/L (6-14) 06/09/18 17:59 BUN 31 mg/dL (7-23) H 06/09/18 17:59 Creatinine 2.6 mg/dL (0.6-1.0) H 06/09/18 17:59 Estimated GFR 18 06/09/18 17:59 Glucose 94 mg/dL (70-100) 06/09/18 17:59 Calcium 9.0 mg/dL (8.5-10.4) 06/09/18 17:59 Nasal Influenza A PCR NEGATIVE FOR FLU A (NEGATIVE) 06/09/18 19:15 Nasal Influenza B PCR NEGATIVE FOR FLU B (NEGATIVE) 06/09/18 19:15 RSV (PCR) RSV DETECTED (NEGATIVE) H 06/09/18 19:15 Visualized and Interpreted Chest x-ray results: Yes Chest X-Ray results: infiltrate (patchy bilateral alveolar infilatrates) Visualized and Interpreted EKG results: Yes EKG Interpretation: Positive for: LVH, normal sinsus rhythm Assessment & Plan Assessment: Acute bronchitis (Acute) CHF (congestive heart failure) (Acute) 77 yo F with hx of ESRD due to PCKD and bilateral nephrectomy presenting with copd exacerbation in setting of pna # pna: patchy bilateral infiltrates in clinical scenario most c/w pna, started on ctx/azithro, overall HD stable and not septic, cultures requested # copd exacerbation: in the setting of above, relatively mild and not hypoxic but poor air movement on exam and patient initially in significant respiratory distress, started scheduled nebs, short course of prednisone # ESRD: on MWF HD, due to PCKD/nephrectomy, renal aware # anemia: chronic and due to renal disease, at baseline # cad: s/p cabg x 4, no complaints of chest pain # p afib: currently in sr, continue home meds # IP status, will require > 48 hours stay for above given severity of presenting sxs and multiple comorbid conditions Patient new to my care. Old records reviewed and summarized as above, care plan reviewed with ER doctor and renal
[2018-06-09] MEDS: HEPARIN 5,000 UNIT/0.5 ML INJ SC SCH ×3 (22:31→22:58)
[2018-06-10] MEDS: ACETAMINOPHEN 325 MG TAB PO PRN ×2 (05:02→10:06)
[2018-06-10] MEDS: HEPARIN 5,000 UNIT/0.5 ML INJ SC SCH ×4 (05:04→19:26)
[2018-06-10 05:43] LABS: PLATELET COUNT 160 10^3/uL (150-400)
[2018-06-10] MEDS: IPRATROPIUM/ALBUTEROL 3 ML DEYVIAL IH SCH ×4 (05:50→20:36)
--- NOTE | 2018-06-10 07:55 | PDMN ---
Medical Necessity Medical necessity: Pt meets INPT criteria per MD as of 06/09/18 and [facility] [place] [facility] Pneumonia (est. LOS >2 MN for eval/tx of pneumonia with COPD exacerbation; hx ESRD on HD, anemia, CAD, PAF).
--- NOTE | 2018-06-10 08:51 | PDCONSULT ---
Pillow Cleaner Note: Assessment/Plan: ESRD: on HD MWF. - Will plan on HD on Tuesday per routine. Hypokalemia: K 3.3, will give small dose today and monitor. DAY: will check phos with am labs. Anemia: Hgb 7.0. - Will check iron studies. - Will give a dose of epo. - Would transfuse if Hgb < 7. Thank you for the interesting consult. Nephrology will continue to follow, please call if you have any additional questions or concerns. H & P Stated Complaint: shortness of breath Time Seen by Provider: 06/09/18 17:39 HPI/ROS: HPI: Ms. Blanco is a 77 yo F with ESRD on HD MWF at [facility] under Dr. Banda. Pt was dialyzed this week off schedule on /Tue/Tue, did complete dialysis yesterday. She came in with complaints of dyspnea and cough along with malaise coming on for a week. She notes her roommate had a similar problem. She was given a Z-pack as outpatient and completed it but felt no better. After HD yesterday she felt some dsypnea so came in. ROS: positive per HPI, rest of 10-point ROS Negative - Medical/Surgical History Hx Asthma: No Hx Chronic Respiratory Disease: Yes Hx Diabetes: No Hx Cardiac Disease: Yes Hx Renal Disease: Yes Hx Cirrhosis: No Hx Alcoholism: No Hx HIV/AIDS: No Hx Splenectomy or Spleen Trauma: No Other PMH: pmh- renal failyre with LUE fistula, QAWALANGIN, polycystic kidney disease, htn, anemia, COPD, bilat nephrectomy 05/2017, CABG x 4 Feb 10 - Social History Smoking Status: Current every day smoker - Physical Exam Exam: General: alert and oriented, no acute distress Eyes: EOMI, PERRL OP: Clear, MMM Neck: supple, no thyromegaly CV: RRR, no edema BLE Resp: CTA bilat, +rhales, +dry cough Abd: Soft, NT/ND Neuro: CN II-XII grossly intact, no asterixis Psych: cooperative, appropriate mood and affect Skin: C/D/I, no rash Access: LUE AVF with thrill and bruit appreciated Constitutional: Initial Vital Signs Temperature (C) 36.3 C 06/09/18 17:44 Heart Rate 71 06/09/18 17:44 Respiratory Rate 23 H 06/09/18 17:44 Blood Pressure 140/64 H 06/09/18 17:44 O2 Sat (%) 97 06/09/18 17:44 O2 Delivery Mode Nasal Cannula Allergies/Adverse Reactions: No Known Allergies Allergy (Verified 01/22/18 18:55) Home Medications: Medication Instructions Recorded Labetalol HCl [Trandate 200 mg (*)] 200 mg PO DAILY 02/26/17 Aspirin EC [Aspirin EC 81 mg (*)] 81 mg PO HS 07/13/17 Atorvastatin Calcium [Lipitor 10 10 mg PO DAILY 07/13/17 mg (*)] Calcitriol [Calcitriol (*)] 0.75 mcg PO MWF 07/13/17 Epoetin Milind [Epogen] 20,000 unit IJ WE 07/13/17 Herbals/Supplements -Info Only 1 ea PO Q2D 07/13/17 Sevelamer Carbonate [Renvela] 3,200 mg PO TIDMEAL 07/13/17 amLODIPine BESYLATE [Amlodipine 5 mg PO DAILY 12/19/17 Besylate] Cinacalcet HCl [Sensipar (*)] 30 mg PO DAILY 01/22/18 Parenteral Amino Acid 20% No.1 2,000 ml IV MWF 01/22/18 [Prosol] Heparin [Heparin SC 5000 unit/0.5 5,000 unit SC Q8HRS inj 01/28/18 ml (*)] Hydrocodone/APAP 5/325 [[place] 1 - 2 tab PO Q4HRS PRN tab 01/28/18 5/325 (*)] Lisinopril [Zestril 40 mg (*)] 40 mg PO BID tab 01/28/18 Polyethylene Glycol 3350 [Miralax 17 gm PO DAILY PRN pkt 01/28/18 17 gm (*)] Sennosides/Docusate Sodium 1 - 2 tab PO BID tab 01/28/18 [Senokot-S] Lab and Imaging 06/10/18 04:35 06/10/18 04:35 WBC 3.18 10^3/uL (3.80-9.50) L 06/10/18 04:35 RBC 2.21 10^6/uL (4.18-5.33) L 06/10/18 04:35 Hgb 7.0 g/dL (12.6-16.3) L 06/10/18 04:35 Hct 21.6 % (38.0-47.0) L 06/10/18 04:35 MCV 97.7 fL (81.5-99.8) 06/10/18 04:35 MCH 31.7 pg (27.9-34.1) 06/10/18 04:35 MCHC 32.4 g/dL (32.4-36.7) 06/10/18 04:35 RDW 15.1 % (11.5-15.2) 06/10/18 04:35 Plt Count 160 10^3/uL (150-400) 06/10/18 04:35 MPV 10.3 fL (8.7-11.7) 06/10/18 04:35 Neut % (Auto) 83.4 % (39.3-74.2) H 06/10/18 04:35 Lymph % (Auto) 3.5 % (15.0-45.0) L 06/10/18 04:35 Turner % (Auto) 11.9 % (4.5-13.0) 06/10/18 04:35 Eos % (Auto) 0.3 % (0.6-7.6) L 06/10/18 04:35 Baso % (Auto) 0.3 % (0.3-1.7) 06/10/18 04:35 Nucleat RBC Rel Count 0.0 % (0.0-0.2) 06/10/18 04:35 Absolute Neuts (auto) 2.65 10^3/uL (1.70-6.50) 06/10/18 04:35 Absolute Lymphs (auto) 0.11 10^3/uL (1.00-3.00) L 06/10/18 04:35 Absolute Monos (auto) 0.38 10^3/uL (0.30-0.80) 06/10/18 04:35 Absolute Eos (auto) 0.01 10^3/uL (0.03-0.40) L 06/10/18 04:35 Absolute Basos (auto) 0.01 10^3/uL (0.02-0.10) L 06/10/18 04:35 Absolute Nucleated RBC 0.00 10^3/uL (0-0.01) 06/10/18 04:35 Immature Gran % 0.6 % (0.0-1.1) 06/10/18 04:35 Immature Gran # 0.02 10^3/uL (0.00-0.10) 06/10/18 04:35 RBC/WBC/PLT Morphology TNP 06/10/18 04:35 Platelet Estimate ADEQUATE (ADEQ) 06/10/18 04:35 Rouleaux PRESENT H 06/10/18 04:35 Sodium 136 mEq/L (135-145) 06/10/18 04:35 Potassium 3.3 mEq/L (3.5-5.2) L 06/10/18 04:35 Chloride 99 mEq/L (97-110) 06/10/18 04:35 Carbon Dioxide 25 mEq/l (22-31) 06/10/18 04:35 Anion Gap 12 mEq/L (6-14) 06/10/18 04:35 BUN 38 mg/dL (7-23) H 06/10/18 04:35 Creatinine 3.3 mg/dL (0.6-1.0) H 06/10/18 04:35 Estimated GFR 14 06/10/18 04:35 Glucose 78 mg/dL (70-100) 06/10/18 04:35 Calcium 8.8 mg/dL (8.5-10.4) 06/10/18 04:35 Nasal Influenza A PCR NEGATIVE FOR FLU A (NEGATIVE) 06/09/18 19:15 Nasal Influenza B PCR NEGATIVE FOR FLU B (NEGATIVE) 06/09/18 19:15 RSV (PCR) RSV DETECTED (NEGATIVE) H 06/09/18 19:15
[2018-06-10] MEDS: predniSONE 20 MG TAB PO SCH (08:55)
[2018-06-10] MEDS ORDERED: POTASSIUM CL 10 MEQ TAB PO ONE (08:55)
[2018-06-10] MEDS ORDERED: AZITHROMYCIN IV 500 MG in NS 250 ML IV SCH (09:00)
[2018-06-10] MEDS ORDERED: EPOETIN ALFA 10,000 UNIT/ML VIAL SC ONE (09:00)
--- NOTE | 2018-06-10 16:17 | HOSPPROG ---
Hospitalist Progress Note Assessment/Plan: 77 yo F with hx of ESRD due to PCKD and bilateral nephrectomy presenting with worsening dyspnea found to have multifocal infiltrates and + RSV. 1. RSV pneumonia: Multifocal. Low suspicion that she has superimposed bacterial infection. - Discontinue antibiotics - Continue supportive care, scheduled nebs, prednisone - Droplet/contact precautions 2. Acute exacerbation of obstructive lung disease: - Management per above with bronchodilators, steroids - Discussed smoking cessation 3. Acute hypoxemic respiratory insufficiency: Requiring 2-3L due to above. Wean as able. 4. Anemia: Iron replete. - Renal planning on giving epo - Transfuse if hgb<7 5. ESRD / PCKD: On HD MWF. Plan to dialyze if still here Tuesday. Renal aware. Cont phos binders. 6. CAD: s/p 4v CABG. No anginal sxs. On aspirin and statin. 7. Paroxysmal atrial fibrillation: Currently in sinus. Continue home beta xiang. She is not anticoagulated. 8. HTN: Home meds VTE ppx: SQH Code: full Dispo: Remain inpatient for mgmt of respiratory issues above. Unsafe to dc given comorbid conditions. Hopefully dc in 1-2 days. Subjective: Slightly better breathing now that she's gotten nebs. + cough. No fevers. Roommate with same symtpoms. Objective: Vital Signs Temp Pulse Resp BP Pulse Ox 36.9 C 69 22 H 142/54 H 100 06/10/18 07:46 06/10/18 15:48 06/10/18 15:48 06/10/18 07:46 06/10/18 15:48 Laboratory Results 06/10/18 04:35 06/10/18 04:35 06/09/18 06/10/18 06/11/18 05:59 05:59 05:59 Intake Total 350 Balance 350 - Physical Exam Constitutional: no apparent distress, appears nourished, not in pain Eyes: PERRL, anicteric sclera, EOMI Ears, Nose, Mouth, Throat: moist mucous membranes, hearing normal, ears appear normal, no oral mucosal ulcers Cardiovascular: regular rate and rhythym, systolic murmur, No edema Respiratory: no respiratory distress, no rales or rhonchi, reduced air movement , No expiratory wheeze Gastrointestinal: normoactive bowel sounds, soft, non-tender abdomen, no palpable masses Genitourinary: no bladder fullness, no bladder tenderness, no renal bruits Skin: no rashes or abrasions, no fluctuance, no induration, other (left arm fistula with thrill) Musculoskeletal: full muscle strength, no muscle tenderness, normal joint ROM Neurologic: AAOx3, sensation intact bilaterally Psychiatric: interacting appropriately, not anxious, not encephalopathic, thought process linear ICD10 Worksheet Patient Problems: Problems Problem Status Onset Acute bronchitis Acute CHF (congestive heart failure) Acute Closed right hip fracture Acute Leukopenia Acute Paroxysmal atrial fibrillation Acute Pleural effusion Acute S/P CABG x 4 Acute chronic disease mgmt/transitional care Acute Anemia Chronic Coronary arteriosclerosis Chronic ESRD (end stage renal disease) on dialysis Chronic Hypertension Chronic Polycystic kidney disease Chronic Thrombocytopenia Chronic
--- NOTE | 2018-06-10 16:29 | ASMTLACE ---
TRAVIS Acuity / Level of Answers: Yes Care: Did the patient have an inpatient admission? Comorbidities - select Answers: Chronic pulmonary disease all that apply Congestive heart failure Coronary Artery Disease Moderate or severe liver or renal disease Other Notes: HTN, bilateral nephrectomy, PAF, s/p CABG, anemia # of Emergency department Answers: 1-2 visits in the last 6 months Score: 15 Date Signed: 06/10/2018 04:28 PM Electronically Signed By:Cecile Bernal RN
--- NOTE | 2018-06-10 16:32 | ASMTCMCOM ---
CM Note CM Note Notes: Reviewed chart. Pt admitted with possible bronchitis, ESRD and hypoxemia. Per unit rounds, pt has RSV with increased oxygen demands. History is extensive and includes CAD w/ CABG, anemia, COPD, ESRD, HTN, bilateral nephrectomy, CHF, PAF, with multiple surgeries. Pt lives with a roommate. Pt will likely discharge home independently with supplemental oxygen when medically stable. CM will cont to follow. Discharge Plan: Home independently with home oxygen Date Signed: 06/10/2018 04:32 PM Electronically Signed By:Cecile Bernal RN
[2018-06-10] MEDS: SEVELAMER HCL 800 MG TAB PO SCH (19:27)
[2018-06-10] MEDS: ASPIRIN EC 81 MG TAB PO SCH (21:41)
[2018-06-10] MEDS: LISINOPRIL 40 MG TAB PO SCH (21:41)
[2018-06-10] MEDS: guaiFENesin 600 MG TAB.ER PO SCH (21:41)
[2018-06-10] MEDS: BENZONATATE 100 MG CAP PO PRN (21:42)
[2018-06-11] MEDS: HEPARIN 5,000 UNIT/0.5 ML INJ SC SCH ×3 (02:09→19:54)
[2018-06-11] MEDS: IPRATROPIUM/ALBUTEROL 3 ML DEYVIAL IH SCH ×4 (06:12→20:54)
[2018-06-11] MEDS: SEVELAMER HCL 800 MG TAB PO SCH ×4 (09:42→17:31)
[2018-06-11] MEDS: BENZONATATE 100 MG CAP PO PRN ×3 (09:42→20:05)
[2018-06-11] MEDS: predniSONE 20 MG TAB PO SCH (09:43)
[2018-06-11] MEDS: guaiFENesin 600 MG TAB.ER PO SCH ×2 (09:43→20:06)
[2018-06-11] MEDS: CINACALCET HCL 30 MG TAB PO SCH ×2 (09:44→10:00)
[2018-06-11] MEDS: LABETALOL HCL 200 MG TAB PO SCH (09:44)
[2018-06-11] MEDS: LISINOPRIL 40 MG TAB PO SCH ×2 (09:44→20:05)
[2018-06-11] MEDS: ATORVASTATIN CALCIUM 10 MG TAB PO SCH ×2 (09:44→10:11)
--- NOTE | 2018-06-11 10:21 | SOAPPROG ---
SOAP Progress Note Assessment/Plan: Assessment: ESRD: on HD MWF. - HD tomorrow per routine, can be at her outpatient unit if discharged. Hypokalemia: improved with small replacement yesterday, will modulate on HD. DAY: phos 5.0, continue phos binder. HTN: continue home meds. Anemia: hgb 7.4, no need for transfusion or iron supplement. Pt gets epo per outpatient dialysis unit. Subjective: No acute events overnight. Pt states that she feels much better, Jimbo Traore helped with the wheezing a lot yesterday. Objective: Vital Signs Temp Pulse Resp BP Pulse Ox 36.4 C 71 17 151/54 H 97 06/11/18 08:14 06/11/18 09:44 06/11/18 08:14 06/11/18 09:44 06/11/18 08:14 Laboratory Results 06/11/18 08:25 06/11/18 04:10 06/10/18 06/11/18 06/12/18 05:59 05:59 05:59 Intake Total 350 200 300 Balance 350 200 300 General: alert and oriented, no acute distress Eyes: EOMI, PERRL OP: Clear, MMM Neck: supple CV: RRR Resp: nonlabored respirations on NC Abd: Soft, NT Ext: no edema BLE Neuro: CN II-XII grossly intact Psych: cooperative Access: LUE AVF with thrill and bruit appreciated ICD10 Worksheet Patient Problems: Problems Problem Status Onset Acute bronchitis Acute CHF (congestive heart failure) Acute Closed right hip fracture Acute Leukopenia Acute Paroxysmal atrial fibrillation Acute Pleural effusion Acute S/P CABG x 4 Acute chronic disease mgmt/transitional care Acute Anemia Chronic Coronary arteriosclerosis Chronic ESRD (end stage renal disease) on dialysis Chronic Hypertension Chronic Polycystic kidney disease Chronic Thrombocytopenia Chronic
--- NOTE | 2018-06-11 15:21 | HOSPPROG ---
Hospitalist Progress Note Assessment/Plan: 77 yo F with hx of ESRD due to PCKD and bilateral nephrectomy presenting with worsening dyspnea found to have multifocal infiltrates and + RSV. 1. RSV pneumonia: Multifocal. Low suspicion that she has superimposed bacterial infection. - Discontinued antibiotics - Continue supportive care, scheduled nebs, prednisone - Droplet/contact precautions 2. Acute exacerbation of obstructive lung disease: - Management per above with bronchodilators, steroids - Discussed smoking cessation 3. Acute hypoxemic respiratory insufficiency: Resolving, now mostly ok on room air. Wean as able. 4. Anemia: Iron replete. - Renal gave epo - Transfuse if hgb<7 5. ESRD 2/2 PCKD: On HD MWF. Plan to dialyze tomorrow. Renal aware. Cont phos binders. 6. CAD: s/p 4v CABG. No anginal sxs. On aspirin and statin. 7. Paroxysmal atrial fibrillation: Currently in sinus. Continue home beta xiang. She is not anticoagulated. 8. HTN: Home meds 9. Deconditioning: Therapy recommending home care. VTE ppx: SQH Code: full Dispo: Remain inpatient for mgmt of respiratory issues above. Unsafe to dc given comorbid conditions. Plan to dc tomorrow after HD. May need home health PT /OT pending final recs Subjective: Very anxious about going home today. Shortness of breath better. Cough better with tesslon. No fevers. Objective: Vital Signs Temp Pulse Resp BP Pulse Ox 36.4 C 66 24 H 151/54 H 94 06/11/18 08:14 06/11/18 10:39 06/11/18 12:27 06/11/18 09:44 06/11/18 12:27 Laboratory Results 06/11/18 08:25 06/11/18 04:10 06/10/18 06/11/18 06/12/18 05:59 05:59 05:59 Intake Total 350 200 300 Balance 350 200 300 - Physical Exam Constitutional: no apparent distress, chronically ill appearing Eyes: anicteric sclera Ears, Nose, Mouth, Throat: moist mucous membranes, hearing normal, ears appear normal, no oral mucosal ulcers Cardiovascular: regular rate and rhythym, no murmur, rub, or gallop, other (LUE AV fistula with good thrill), No edema Respiratory: no respiratory distress, reduced air movement, No expiratory wheeze Gastrointestinal: normoactive bowel sounds, soft, non-tender abdomen, no palpable masses Genitourinary: no bladder fullness, no bladder tenderness, no renal bruits Skin: no rashes or abrasions, no fluctuance, no induration Musculoskeletal: other (right shoulder weakness (chronic)) Neurologic: AAOx3, sensation intact bilaterally Psychiatric: interacting appropriately, not anxious, not encephalopathic, thought process linear ICD10 Worksheet Patient Problems: Problems Problem Status Onset Acute bronchitis Acute CHF (congestive heart failure) Acute Closed right hip fracture Acute Leukopenia Acute Paroxysmal atrial fibrillation Acute Pleural effusion Acute S/P CABG x 4 Acute chronic disease mgmt/transitional care Acute Anemia Chronic Coronary arteriosclerosis Chronic ESRD (end stage renal disease) on dialysis Chronic Hypertension Chronic Polycystic kidney disease Chronic Thrombocytopenia Chronic
[2018-06-11] MEDS: ASPIRIN EC 81 MG TAB PO SCH (20:05)
[2018-06-11] MEDS: ACETAMINOPHEN 325 MG TAB PO PRN (20:09)
[2018-06-12] MEDS: HEPARIN 5,000 UNIT/0.5 ML INJ SC SCH ×2 (02:49→13:02)
[2018-06-12 03:10] LABS: HEPATITIS B CORE AB IGM NEGATIVE (NEGATIVE); HEPATITIS B SURFACE ANTIGEN NEGATIVE (NEGATIVE)
[2018-06-12] MEDS: IPRATROPIUM/ALBUTEROL 3 ML DEYVIAL IH SCH ×2 (05:37→11:21)
[2018-06-12] MEDS: ACETAMINOPHEN 325 MG TAB PO PRN (07:28)
[2018-06-12] MEDS: BENZONATATE 100 MG CAP PO PRN (07:28)
[2018-06-12] MEDS: SEVELAMER HCL 800 MG TAB PO SCH ×2 (07:29→13:02)
--- NOTE | 2018-06-12 07:48 | SOAPPROG ---
SOAP Progress Note Assessment/Plan: Assessment: #ESRD- [facility] MWF -HD today- will increase UF now to goal 2kg #RSV- still sob, reassess after HD -steroids, nebs -underlying COPD. tobacco active use #Anemia CKD -will give Epo 10,000 units now -high ferritin, no IV iron -transfuse if Hb <7 -i have referred her to see GI as outpt (underlying ulcerative colitis with severe anemia despite high dose PAULIE) #HypoK- improved #MBD of CKD -renal diet when taking po -binder renagel #HTN- good control currently Alyssia Cage MD [facility] pager [phone] 06/12/18 08:06 Subjective: Seen on dialysis at 08:02. Using LUE AVF, Qb 350, 3K/2.5Ca bath, goal UF 2kg. sitting upright in bed, just finished breakfast. Still feels SOB. No cp, n/v, dizziness. Objective: Vital Signs Temp Pulse Resp BP Pulse Ox 36.8 C 76 12 132/60 H 92 06/12/18 05:33 06/12/18 05:40 06/12/18 05:40 06/12/18 05:33 06/12/18 05:40 Laboratory Results 06/11/18 08:25 06/11/18 04:10 06/11/18 06/12/18 06/13/18 05:59 05:59 05:59 Intake Total 200 900 Balance 200 900 Physical Exam - Physical Exam General Appearance: alert, no apparent distress, other (chronically ill appearing) EENT: other (mmm) Neck: supple Respiratory: other (coarse rales bilat) Cardiac/Chest: regular rate, rhythm, other (no rub) Abdomen: normal bowel sounds, non-tender, soft Skin: warm/dry Extremities: other (no edema) Neuro/Psych: alert, oriented x 3 ICD10 Worksheet Patient Problems: Problems Problem Status Onset Acute bronchitis Acute CHF (congestive heart failure) Acute Closed right hip fracture Acute Leukopenia Acute Paroxysmal atrial fibrillation Acute Pleural effusion Acute S/P CABG x 4 Acute chronic disease mgmt/transitional care Acute Anemia Chronic Coronary arteriosclerosis Chronic ESRD (end stage renal disease) on dialysis Chronic Hypertension Chronic Polycystic kidney disease Chronic Thrombocytopenia Chronic
[2018-06-12] MEDS ORDERED: EPOETIN ALFA 10,000 UNIT/ML VIAL SC SCH (08:00)
[2018-06-12] MEDS ORDERED: CALCITRIOL 0.25 MCG CAP PO SCH (08:00)
[2018-06-12] MEDS: guaiFENesin 600 MG TAB.ER PO SCH (08:17)
[2018-06-12] MEDS: predniSONE 20 MG TAB PO SCH (08:18)
[2018-06-12] MEDS: LISINOPRIL 40 MG TAB PO SCH (08:19)
[2018-06-12] MEDS: LABETALOL HCL 200 MG TAB PO SCH (08:19)
[2018-06-12 08:20] VITALS: BP 151/119
--- NOTE | 2018-06-12 12:14 | GDS ---
ALL DIAGNOSES: 1. Respiratory syncytial virus pneumonia. 2. Acute exacerbation of chronic obstructive pulmonary disease. 3. Acute hypoxic respiratory insufficiency. 4. Anemia of end-stage renal disease. 5. End-stage renal disease due to polycystic kidney disease. 6. Coronary artery disease, status post 4-vessel coronary artery bypass graft. 7. Paroxysmal atrial fibrillation. 8. Hypertension. HOSPITAL COURSE: This is a 77-year-old female admitted with respiratory failure due to a COPD exacer bation, as well as an RSV pneumonia. She was initially treated with antibiotics; however, those have been discontinued. She has had ongoing treatment with steroids, as well as nebulizers, with improve ment in her pulmonary function. On the day of discharge, she is saturating at 98% on room air. She has undergone dialysis as an inpatient without any issue. Given her anemia, which has been resistant to epo, she has been referred to see GI as an outpatient. On the day of discharge, she is quite anx ious to leave. She will be discharged to home with her roommate with home health care. She will als o get followup with Kami. She has been given prescriptions for prednisone, as well as Tessalon Brady pathak on discharge. /[id number]/MODL
--- NOTE | 2018-06-12 12:22 | PDIAF ---
- Diagnosis Diagnosis: RSV pneumonia, ESRD Code Status: Full Code - Medication Management Discharge Medications: electronically signed and located in the Home Medication List. - Orders Services needed: Home Care, Physical Therapy, Occupational Therapy Home Care Face to Face: I certify that this patient was under my care and that I had the required [id number] encounter meeting the encounter requirements on the discharge day. My findings support the fact that the patient is homebound as defined in Home Care Face to Face Continued: CMS Chapter 7 Medicare Benefits Manual 30.1.1 , The condition of the patient is such that there exists a normal inability to leave home and consequently, leaving home would require a considerable and taxing effort. Isolation Type: Contact Isolation, Droplet Isolation Additional Instructions: I sent prescriptions for prednisone (steroid) and tesslon perls (cough medication) to your pharmacy. You should take the prednisone for 5 more days. - Follow Up Care Current Providers and Referrals: Deidre Mahajan MD [Primary Care Provider] - As per Instructions
--- NOTE | 2018-06-12 14:20 | ASMTCMCOM ---
CM Note CM Note Notes: CM met with patient and room mate Chen. Chen states she is caregiver/ MDPOA, patient stated she is hard of hearing so CM spoke mostly with Chen. Love is currently working with [facility] and would like to continue services with them when she is discharged. Patient will likely discharge tomorrow to home after dialysis. CM call to [facility] [phone], spoke with Paulette, they will continue services. CM sent referral as well. CM to follow. Current discharge plan: Likely 06/[address] [facility]. Date Signed: 06/11/2018 01:44 PM Electronically Signed By:Lucie Sainz
--- NOTE | 2018-06-12 14:59 | ASMTCMCOM ---
CM Note CM Note Notes: Patient plan of care reviewed in am rounds. She is medically cleared for discharge to home with HHC. Final orders hard faxed and this CM spoke to [facility]. Per Viviana Funez, the patient is also current with palliative care at home and her room mate Chen is her POA. Plan: Dc to home with resumption of HHC. Date Signed: 06/12/2018 02:59 PM Electronically Signed By:Lisa Paulino RN
--- NOTE | 2018-06-12 15:01 | ASDISCHSUM ---
Discharge Information Plan Status:Home with Home Health Medically Cleared to Leave:06/11/2018 Discharge Date:06/12/2018 01:31 PM CM D/C Disposition:Home Health Service ADT D/C Disposition:Home Health Service Projected Discharge Date:06/12/2018 11:00 AM Transportation at D/C:Friend Discharge Delay Reason: Follow-Up Date:06/12/2018 11:00 AM Discharge Slot: Final Diagnosis: Placement Information Referral Type:*Home Health Care Services Referral ID:[id number] Provider Name:[facility] Address 1:[address] [facility] [place] Phone Number: Address 2: Fax Number: City:[place] Selection Factors: State:[place] Patient Contact Information Contact Name:MIKEKHUSHIEben Relationship:Other Address:[address] [place] [address] Work Phone: City:[facility] Phone: State/Zip Code:[place] [address] Email: Financial Information Financial Class:Medicare Primary Plan Desc:MEDICARE INPATIENT Primary Plan Number:[id number] Secondary Plan Desc:AARP/MDR SUPPLEMENT Secondary Plan Number:[id number] Assessment Information LACE LACE Acuity / Level of Answers: Yes Care: Did the patient have an inpatient admission? Comorbidities - select Answers: Chronic pulmonary disease all that apply Congestive heart failure Coronary Artery Disease Moderate or severe liver or renal disease Other Notes: HTN, bilateral nephrectomy, PAF, s/p CABG, anemia # of Emergency department Answers: 1-2 visits in the last 6 months Score: 15 Date Signed: 06/10/2018 04:28 PM Electronically Signed By:Cecile Bernal RN [facility] CM Progress Note CM Note CM Note Notes: Reviewed chart. Pt admitted with possible bronchitis, ESRD and hypoxemia. Per unit rounds, pt has RSV with increased oxygen demands. History is extensive and includes CAD w/ CABG, anemia, COPD, ESRD, HTN, bilateral nephrectomy, CHF, PAF, with multiple surgeries. Pt lives with a roommate. Pt will likely discharge home independently with supplemental oxygen when medically stable. CM will cont to follow. Discharge Plan: Home independently with home oxygen Date Signed: 06/10/2018 04:32 PM Electronically Signed By:Cecile Bernal RN [facility] Progress Note CM Note CM Note Notes: CM met with patient and room mate Chen. Chen states she is caregiver/ MDPOA, patient stated she is hard of hearing so CM spoke mostly with Love is currently working with [facility] and would like to continue services with them when she is discharged. Patient will likely discharge tomorrow to home after dialysis. CM call to [facility] [phone], spoke with Paulette, they will continue services. CM sent referral as well. CM to follow. Current discharge plan: Likely 06/12 with [facility]. Date Signed: 06/11/2018 01:44 PM Electronically Signed By:Lucie Sainz [facility] Progress Note CM Note CM Note Notes: Patient plan of care reviewed in am rounds. She is medically cleared for discharge to home with [facility]. Final orders hard faxed and this CM spoke to [facility]. Per Viviana Funez, the patient is also current with palliative care at home and her room mate Chen is her POA. Plan: Dc to home with resumption of C. Date Signed: 06/12/2018 02:59 PM Electronically Signed By:Lisa Paulino RN Intervention Information
== END 2018-06-12 13:31 | disposition home health service (06) | DRG 190 ==
LOC: F1N 20:52
PROVIDERS: ADMIT Internal Medicine; ATTEND Internal Medicine
PROC: 5A1D70Z Performance of Urinary Filtration, Intermittent, Less than 6 Hours Per Day (ICD-10-PCS; principal; 2018-06-09)
DX: J44.1 Chronic obstructive pulmonary disease with (acute) exacerbation (principal); J44.0 Chronic obstructive pulmonary disease with (acute) lower respiratory infection; J12.1 Respiratory syncytial virus pneumonia; J96.01 Acute respiratory failure with hypoxia; E87.6 Hypokalemia; D63.1 Anemia in chronic kidney disease; N18.6 End stage renal disease; K51.90 Ulcerative colitis, unspecified, without complications; M25.519 Pain in unspecified shoulder; M25.569 Pain in unspecified knee; I48.0 Paroxysmal atrial fibrillation; I25.10 Atherosclerotic heart disease of native coronary artery without angina pectoris; I10 Essential (primary) hypertension; Z99.2 Dependence on renal dialysis; Z95.1 Presence of aortocoronary bypass graft; Z90.5 Acquired absence of kidney; F17.210 Nicotine dependence, cigarettes, uncomplicated
CPT/HCPCS: 86705-90; 96365; 97110-GP; 97116-GP; 97161-GP; 97166-GO; 97535-GO; G8978-GP-CI; G8979-GP-CI; G8987-GO-CK; G8988-GO-CI; J0456; J0696; J0885; J1644; J1956; J7512

== ENCOUNTER 2018-10-03 10:45 | Day surgery (SDC) | payer OTHER, MEDICARE ==
[2018-10-03] MEDS ORDERED: LR 1,000 ML IV ONE (10:59)
[2018-10-03] MEDS ORDERED: NS 500 ML IV SCH (11:45)
--- NOTE | 2018-10-03 12:10 | PDGENHP ---
History & Physical Chief Complaint: anemia, heme positive History of Present Illness: heme pos, anemia out of range for her anemia. no n/ v, abdo pain, no diarrhea Pertinent Past, Social, Family History: CKD on HD, anemia. HTN,. no fhx colon cancer to her knowledge. no alcohol, 4/5 pack tobacco per day Relevant Physical Exam: A+Ox3. coarse bs, no raels no rhonchi. s1s2, RRR + 4/ 6 murmer. + Bs soft nt Cardiorespiratory Assessment: class 3
--- NOTE | 2018-10-03 12:10 | PDPROPOC ---
Sedation Plan of Care Sedation Plan of Care: vital signs stable, mental status noted, patient educated of risks, benefits, alternatives, patient can tolerate sedation ASA Classification: ASA 3 Planned drugs: fentanyl, midazolam Mallampati Score: Class 1 Mallampati Reference Image: Patient passed 3-3-2 rule?: Yes
[2018-10-03] MEDS ORDERED: fentaNYL 100 MCG/2 ML INJ ONE (12:19)
[2018-10-03] MEDS ORDERED: MIDAZOLAM 2 MG/2 ML VIAL ONE (12:19)
--- NOTE | 2018-10-03 13:24 | GIREPORT ---
[facility] Surgical Services - Endoscopy Department Patient Name: Love Blanco Procedure Date: 10/03/2018 12:42 PM Patient Type: Outpatient Attending / ER Physician: Rene Stanford MD Procedure: Colonoscopy Indications: Iron deficiency anemia secondary to chronic blood loss, Personal histor y of ulcerative colitis Providers: Rene Stanford MD Referring MD: MD Alyssia Nuñez MD Medicines: Fentanyl 100 micrograms IV, Midazolam 4 mg IV, (medications documented represent total dosages for multiple procedures) Complications: No immediate complications. Estimated blood loss: Minimal. Description of Procedure: After obtaining informed consent, the scope was passed under direct vis ion. Throughout the procedure, the patient's blood pressure, pulse, and oxyg en saturations were monitored continuously. The Colonoscope with irrigatio n channel was introduced through the anus and advanced to the terminal il eum, with identification of the appendiceal orifice and IC valve. The colono scopy was performed without difficulty. The patient tolerated the procedure w ell. The quality of the bowel preparation was adequate to identify polyps 6 mm and larger in size. Reddish particles present throughout colon - query her binding agent? Moderate Sedation: Moderate (conscious) sedation was administered by the endoscopy nurse ivette hannah supervised by the endoscopist. The following parameters were monitored: oxygen saturation, heart rate, blood pressure, and response to care. To tere physician intraservice time was 45 minutes. Findings: The digital rectal exam was normal. The terminal ileum appeared normal. Many medium-mouthed diverticula were found in the sigmoid colon and descending colon. Normal mucosa was found in the rectum, in the sigmoid colon, in the descending colon, in the transverse colon, in the ascending colon and i n the cecum. Two biopsies were taken every 10 cm with a cold forceps from the entire colon for ulcerative colitis surveillance. These biopsy specimen s from the right colon and left colon were sent to Pathology. Estimated b lood loss was minimal. Seven semi-sessile polyps were found in the transverse colon. The polyp s were 1 to 3 mm in size. These polyps were removed with a cold biopsy forceps. Resection and retrieval were complete. Estimated blood loss wa s minimal. The exam was otherwise without abnormality. Estimated Blood Loss: Estimated blood loss was minimal. Post Op Diagnosis: - The examined portion of the ileum was normal. - Diverticulosis in the sigmoid colon and in the descending colon. - Normal mucosa in the rectum, in the sigmoid colon, in the descending colon, in the transverse colon, in the ascending colon and in the cecum . Biopsied. - Seven 1 to 3 mm polyps in the transverse colon, removed with a cold b iopsy forceps. Resected and retrieved. Query pseudopolyps - The examination was otherwise normal. Recommendation: - Await pathology results. - My office will call with the pathology result with 5-7 days. If you h ave not heard from my office by 12-14, do not assume the pathology is hilary l, please call [phone] to get the pathology results. - Repeat colonoscopy date to be determined after pending pathology resu lts are reviewed for surveillance based on pathology results. - See EGD for other recommendations. Her anemia is from her upper GI tr act - Jennings's esophagitis, gastritis - Resume previous diet. - A high fiber diet may decrease risk of complications from diverticulo sis. There is no need to avoid seeds or nuts. - Discharge patient to home (ambulatory). - Return to primary care physician as previously scheduled. - Thank you for allowing me to help in your patient's care. Do not hesi pérez to call with any questions. Attending Participation: I personally performed the entire procedure. Abdoulaye Romero M.D Rene Stanford MD 10/03/2018 1:24:20 PM This report has been signed electronicallyMatthew MD Abdoulaye Number of Addenda: 0 Note Initiated On: 10/03/2018 12:42 PM Total Procedure Duration Time 0 hours 23 minutes 21 seconds [id number]
[2018-10-03 13:27] VITALS: BP 160/51
--- NOTE | 2018-10-03 13:30 | GIREPORT ---
[facility] Surgical Services - Endoscopy Department Patient Name: Love Blanco Procedure Date: 10/03/2018 12:11 PM Patient Type: Outpatient Attending MD/ ER Physician: Rene Stanford MD Procedure: Upper GI endoscopy Indications: Suspected upper gastrointestinal bleeding in patient with unexplained i siobhan deficiency anemia Providers: Rene Stanford MD Referring MD: MD Alyssia Nuñez MD Medicines: Fentanyl 75 micrograms IV, Midazolam 4 mg IV Complications: No immediate complications. Estimated blood loss: Minimal. Description of Procedure: After obtaining informed consent, the endoscope was passed under direct vision. Throughout the procedure, the patient's blood pressure, pulse, and oxygen saturations were monitored continuously. The Endoscope was intro duced through the mouth, and advanced to the second part of duodenum. The [facility] er GI endoscopy was accomplished without difficulty. The patient tolerated th e procedure well. Findings: There were esophageal mucosal changes consistent with long-segment Cox ett's esophagus present in the middle third of the esophagus and in the lower third of the esophagus. The maximum longitudinal extent of these mucosa l changes was 10 cm in length. Mucosa was biopsied with a cold forceps fo r histology. A total of 2 specimen bottles were sent to pathology. Estima robert blood loss was minimal. A hiatal hernia was present. Scattered moderate inflammation with hemorrhage characterized by conges tion (edema), erythema, friability and granularity was found in the gastric body and in the gastric antrum. Biopsies were taken with a cold forceps for histology. Estimated blood loss was minimal. Patchy erythematous mucosa without active bleeding and with no stigmata of bleeding was found in the duodenal bulb. The second portion of the duodenum was normal. The exam was otherwise without abnormality. Estimated Blood Loss: Estimated blood loss was minimal. 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 Biopsied. - Hiatal hernia. - Gastritis with hemorrhage. Biopsied. - Erythematous duodenopathy. - Normal second portion of the duodenum. - The examination was otherwise normal. Recommendation: - Await pathology results. - My office will call with the pathology result with 5-7 days. If you h ave not heard from my office by 12-14, do not assume the pathology is hilary l, please call [phone] to get the pathology results. - Repeat upper endoscopy after studies are complete for surveillance ba sed on pathology results. - Follow an antireflux regimen. - Use Protonix (pantoprazole) 40 mg PO daily indefinitely. Take 30-60 minutes before breakfast. - Use Zantac (ranitidine) 300 mg PO at bedtime for 1 month. - Perform a colonoscopy today. - Return to primary care physician as previously scheduled. - Return to GI clinic in 3 months. - Thank you for allowing me to help in your patient's care. Do not hesi pérez to call with any questions. Attending Participation: I personally performed the entire procedure. Abdoulaye Romero M.D Rene Stanford MD 10/03/2018 1:30:27 PM This report has been signed electronicallyMatthew MD Abdoulaye Number of Addenda: 0 Note Initiated On: 10/03/2018 12:11 PM [email or web address]
[2018-10-03] MEDS ORDERED: MIDAZOLAM 2 MG/2 ML VIAL IVP ONE (13:35)
[2018-10-03] MEDS ORDERED: fentaNYL 100 MCG/2 ML INJ IVP ONE (13:36)
== END 2018-10-03 14:20 | disposition home or self-care (01) ==
LOC: FSGY 10:45
PROVIDERS: ATTEND Internal Medicine Gastroenterology
PROC: 0DBE8ZX Excision of Large Intestine, Via Natural or Artificial Opening Endoscopic, Diagnostic (ICD-10-PCS; principal; 2018-10-03 12:00)
PROC: 0DB28ZX Excision of Middle Esophagus, Via Natural or Artificial Opening Endoscopic, Diagnostic (ICD-10-PCS; principal; 2018-10-03 12:00)
PROC: 0DB38ZX Excision of Lower Esophagus, Via Natural or Artificial Opening Endoscopic, Diagnostic (ICD-10-PCS; principal; 2018-10-03 12:00)
PROC: 0DB68ZX Excision of Stomach, Via Natural or Artificial Opening Endoscopic, Diagnostic (ICD-10-PCS; principal; 2018-10-03 12:00)
PROC: 0DBL8ZX Excision of Transverse Colon, Via Natural or Artificial Opening Endoscopic, Diagnostic (ICD-10-PCS; principal; 2018-10-03 12:00)
DX: K22.70 Barrett's esophagus without dysplasia (principal); K44.9 Diaphragmatic hernia without obstruction or gangrene; D12.3 Benign neoplasm of transverse colon; K51.90 Ulcerative colitis, unspecified, without complications; D50.9 Iron deficiency anemia, unspecified; N18.6 End stage renal disease; I12.0 Hypertensive chronic kidney disease with stage 5 chronic kidney disease or end stage renal disease; F17.210 Nicotine dependence, cigarettes, uncomplicated; Z99.2 Dependence on renal dialysis
CPT/HCPCS: J2250; J3010

== ENCOUNTER 2018-10-19 14:40 | Observation (INO) | payer OTHER, MEDICARE ==
[2018-10-19] MEDS ORDERED: NS 1,000 ML IV ONE (14:57)
[2018-10-19 15:23] LABS: PLATELET COUNT 142 10^3/uL (150-400)
--- NOTE | 2018-10-19 16:08 | EDPHY ---
H & P Stated Complaint: called by dialysis clinic due anemia and told to come for blood transfusion Time Seen by Provider: 10/19/18 14:51 HPI/ROS: CHIEF COMPLAINT: Sent here for low blood count HISTORY OF PRESENT ILLNESS: 78-year-old female, dialysis dependent, referred to the emergency department from her informix developer with reports that her hemoglobin and hematocrit are low. Patient was also evaluated about 2 weeks ago here at [facility] for blood in her stools. She reports having endoscopy as well as a colonoscopy and was told that it was rectal bleeding secondary to hard stools. She denies feeling lightheaded, dizzy, weak , tired, chest pain, or shortness of breath. She has dialyzed Tuesday and Tuesday. No fever, chills, chest pain, shortness of breath, palpitations, vomiting, diarrhea, headache, lightheadedness. REVIEW OF SYSTEMS: A comprehensive 10 system review of systems was reviewed and is otherwise negative aside from elements mentioned in the history of present illness and medical decision making. PAST MEDICAL HISTORY: Hypertension, polycystic kidney disease, bilateral nephrectomies, dialysis dependent SOCIAL HISTORY: Nonsmoker. No alcohol. Here with friends. Often receives care at [facility] VITAL SIGNS Reviewed by me. GENERAL: Well-developed, well-nourished, resting comfortably in no respiratory distress. HEENT: Atraumatic. Eyes: No icterus, no injection. Mouth: moist mucous membranes. No erythema or lesions. Neck: supple with no adenopathy. LUNGS: Clear to auscultation bilaterally, no wheezes, rhonchi or rales. CARDIAC: Harsh systolic murmur, regular rate and rhythm. ABDOMEN: Soft, nontender, nondistended, bowel sounds normal. BACK: No CVA tenderness. RECTAL: No hemorrhoids, nontender, small amount of stool present on glove, no melena EXTREMITIES: No trauma. No edema. Range of motion is normal throughout. Dialysis graft with palpable thrill and bruit present in the right upper extremity. NEURO: Alert and oriented, grossly nonfocal. SKIN: Warm and dry, no rash. PSYCHIATRIC: Normal mentation, no agitation. - Personal History Current Tetanus/Diphtheria Vaccine: Unsure Current Tetanus Diphtheria and Acellular Pertussis (TDAP): Unsure - Medical/Surgical History Hx Asthma: No Hx Chronic Respiratory Disease: Yes Hx Diabetes: No Hx Cardiac Disease: Yes Hx Renal Disease: Yes Hx Cirrhosis: No Hx Alcoholism: No Hx HIV/AIDS: No Hx Splenectomy or Spleen Trauma: No Other PMH: pmh- renal failyre with LUE fistula, [place], polycystic kidney disease, htn, anemia, COPD, bilat nephrectomy 05/2017, CABG x 4 Feb 10 - Social History Smoking Status: Heavy smoker Constitutional: Initial Vital Signs Temperature (C) 36.7 C 10/19/18 14:46 Heart Rate 64 10/19/18 14:46 Respiratory Rate 20 10/19/18 14:46 Blood Pressure 129/40 H 10/19/18 14:46 O2 Sat (%) 93 10/19/18 14:46 O2 Delivery Mode Room Air Allergies/Adverse Reactions: corn Allergy (Verified 10/19/18 14:49) raw oninons Allergy (Uncoded 10/19/18 14:49) Home Medications: Medication Instructions Recorded Labetalol HCl [Trandate 200 mg (*)] 02/26/17 Aspirin EC [Aspirin EC 81 mg (*)] 07/13/17 Epoetin Milind [Epogen] 07/13/17 Sevelamer Carbonate [Renvela] 07/13/17 amLODIPine BESYLATE [Amlodipine 12/19/17 Besylate] Parenteral Amino Acid 20% No.1 01/22/18 [Prosol] Kayexalate 15GM/60 ML Oral Liquid 08/08/18 Lisinopril [Zestril 40 mg (*)] 08/08/18 Medical Decision Making ED Course/Re-evaluation: Hemoglobin hematocrit here 6.4 /21. Potassium 3.6. Stool for occult blood: Patient admitted to the hospitalist service. - Data Points Laboratory Results: Laboratory Results 10/19/18 15:05 10/19/18 15:05 10/19/18 10/19/18 10/19/18 15:05 15:05 15:05 WBC RBC Hgb Hct MCV MCH MCHC RDW Plt Count MPV Neut % (Auto) Lymph % (Auto) Lassen % (Auto) Eos % (Auto) Baso % (Auto) Nucleat RBC Rel Count Absolute Neuts (auto) Absolute Lymphs (auto) Absolute Monos (auto) Absolute Eos (auto) Absolute Basos (auto) Absolute Nucleated RBC Immature Gran % Immature Gran # RBC/WBC/PLT Morphology Platelet Estimate Hypochromasia Basophilic Stippling Microcytic Cells Elliptocytes Schistocytes Smear Review By Sodium 135 mEq/L mEq/L (135-145) Potassium 3.6 mEq/L mEq/L (3.5-5.2) Chloride 96 mEq/L L mEq/L (97-110) Carbon Dioxide 25 mEq/l mEq/l (22-31) Anion Gap 14 mEq/L mEq/L (6-14) BUN 59 mg/dL H mg/dL (7-23) Creatinine 3.9 mg/dL H mg/dL (0.6-1.0) Estimated GFR 11 Glucose 97 mg/dL mg/dL (70-100) Calcium 8.6 mg/dL mg/dL (8.5-10.4) Stool Occult Bld Scrn Pending Patient ABO/Rh Pending Antibody Screen Pending Crossmatch IS Only See Detail 10/19/18 15:05 WBC 3.68 10^3/uL L 10^3/uL (3.80-9.50) RBC 2.22 10^6/uL L 10^6/uL (4.18-5.33) Hgb 6.4 g/dL L g/dL (12.6-16.3) Hct 21.0 % L % (38.0-47.0) MCV 94.6 fL fL (81.5-99.8) MCH 28.8 pg pg (27.9-34.1) MCHC 30.5 g/dL L g/dL (32.4-36.7) RDW 18.0 % H % (11.5-15.2) Plt Count 142 10^3/uL L 10^3/uL (150-400) MPV 9.9 fL fL (8.7-11.7) Neut % (Auto) 84.0 % H % (39.3-74.2) Lymph % (Auto) 3.8 % L % (15.0-45.0) Lassen % (Auto) 9.8 % % (4.5-13.0) Eos % (Auto) 1.9 % % (0.6-7.6) Baso % (Auto) 0.0 % L % (0.3-1.7) Nucleat RBC Rel Count 0.0 % % (0.0-0.2) Absolute Neuts (auto) 3.09 10^3/uL 10^3/uL (1.70-6.50) Absolute Lymphs (auto) 0.14 10^3/uL L 10^3/uL (1.00-3.00) Absolute Monos (auto) 0.36 10^3/uL 10^3/uL (0.30-0.80) Absolute Eos (auto) 0.07 10^3/uL 10^3/uL (0.03-0.40) Absolute Basos (auto) 0.00 10^3/uL L 10^3/uL (0.02-0.10) Absolute Nucleated RBC 0.00 10^3/uL 10^3/uL (0-0.01) Immature Gran % 0.5 % % (0.0-1.1) Immature Gran # 0.02 10^3/uL 10^3/uL (0.00-0.10) RBC/WBC/PLT Morphology TNP Platelet Estimate DECREASED L (ADEQ) Hypochromasia 1+ H Basophilic Stippling 1+ H Microcytic Cells 1+ H Elliptocytes 1+ H Schistocytes 1+ H Smear Review By Pending Sodium Potassium Chloride Carbon Dioxide Anion Gap BUN Creatinine Estimated GFR Glucose Calcium Stool Occult Bld Scrn Patient ABO/Rh Antibody Screen Crossmatch IS Only Departure - Departure Referrals: Deidre Mahajan MD [Primary Care Provider] - As per Instructions
[2018-10-19] MEDS ORDERED: ACETAMINOPHEN 325 MG TAB PO PRN (17:07)
[2018-10-19] MEDS ORDERED: ONDANSETRON 4 MG/2 ML VIAL IVP PRN (17:07)
[2018-10-19] MEDS ORDERED: ONDANSETRON DISINTEGRATING 4 MG TAB PO PRN (17:07)
--- NOTE | 2018-10-19 17:21 | PDGENHP ---
<Amanda Tsang - Last Filed: 10/19/18 17:56> History and Physical - Chief Complaint ESRD w/worsening anemia - History of Present Illness This is a 78 y/o female w/ESRD presenting to the ED upon the recommendation of her construction and maintenance inspector, Dr. Alyssia Rodas, for worsening anemia. She was seen here at [facility] 2 weeks prior w/positive stool Hemoccult and underwent a colonoscopy and endoscopy which revealed her anemia is from her upper GI-tract - Jennings's esophagitis, gastritis and seven polyps removed w/ 6 showing no pathologic features and one early tubular adenoma in one piece. It was recommended for her to utilize pantoprazole indefinitely and Zantac @ HS for one month however pt reports doing this for one week and then stopping, feeling like she doesn't need these medications. She denies: fevers, chills, CP, nausea , vomiting. Endorses occasional constipation but since being admitted to [facility] 2 weeks prior, she has had normal bowel movements; stool Hemoccult today was negative. She receives dialysis MWF. She is being admitted for treatment and monitoring of her worsening anemia. History Information - Allergies/Home Medication List Allergies/Adverse Reactions: corn Allergy (Verified 10/19/18 14:49) raw oninons Allergy (Uncoded 10/19/18 14:49) Home Medications: Labetalol HCl [Trandate 200 mg (*)] 200 mg PO BID 02/26/17 [Last Taken 10/02/18] Aspirin EC [Aspirin EC 81 mg (*)] 81 mg PO DAILY 07/13/17 [Last Taken 10/02/18] Epoetin Milind [Epogen] 20,000 unit IV MOWEFR 07/13/17 [Last Taken 10/02/18] Parenteral Amino Acid 20% No.1 [Prosol] 2,000 ml IV MOWEFR 01/22/18 [Last Taken 10/02/18] Lisinopril [Zestril 40 mg (*)] 40 mg PO DAILY 08/08/18 [Last Taken 10/02/18] Sevelamer HCl [Renagel 800mg (*)] 2 each PO PRN PRN 10/19/18 [Last Taken Unknown ] Sevelamer HCl [Renagel 800mg (*)] 3 each PO TIDMEAL 10/19/18 [Last Taken Unknown ] Sodium Polystyrene Sulfonate 30 gm PO TU 10/19/18 [Last Taken Unknown] amLODIPine BESYLATE [Norvasc 10 mg (*)] 10 mg PO DAILY 10/19/18 [Last Taken Unknown] I have personally reviewed and updated: family history, medical history, social history, surgical history - Past Medical History coronary artery disease, COPD, ESRD, hypertension Additional medical history: ESRD on HD, PCKD s/p bilateral nephrectomy, CHF, PAF , CAD s/p CABG, thrombocytopenia, anemia of chronic kidney disease, HTN, COPD, Ulcerative colitis. mild/mod mitral valve stenosis/regurg - Surgical History Additional surgical history: bilateral nephrectomy 05/2017, CABG x 4v, LUE fistula, T/A, breast bx that was benign, LUE fistula with multiple revisions, R cataract extraction/lens placement. - Family History Positive for: non-pertinent Additional family history: mother - PCKD - Social History Smoking Status: Heavy smoker Alcohol Use: None Drug Use: None Additional social history: COR - FULL but no prolonged life support. Patient roommate Sudha Moe [facility]. Participant of [facility] w/goals of care being continue w/dialysis, get stronger and be able to walk around the block w/ knee brace and to take a trip w/Sudha. Review of Systems Review of Systems: ROS: 10pt was reviewed & negative except for what was stated in HPI & below Constitutional: Reports: other ("I'm being admitted?? Why? I hate being in the hospital!") Physical Exam Physical Exam: Lab data and imaging were reviewed. WBC: 3.68 H/H: 6.4/21.0 Plt count: 142 Na: 135 K: 3.6 Chloride: 96 CO2: 25 BUN/Cr: 59/3.9 Stool Hemoccult: negative EKG: NSR, normal axis Temp Pulse Resp BP Pulse Ox 36.7 C 71 17 143/61 H 96 10/19/18 16:45 10/19/18 16:45 10/19/18 16:45 10/19/18 16:45 10/19/18 16:45 Constitutional: no apparent distress, appears nourished, not in pain Eyes: PERRL, anicteric sclera, EOMI Ears, Nose, Mouth, Throat: moist mucous membranes, ears appear normal, no oral mucosal ulcers, hard of hearing Cardiovascular: regular rate and rhythym, systolic murmur Peripheral Pulses: 1+: dorsalis-pedis (R), dorsalis-pedis (L) Respiratory: reduced air movement Gastrointestinal: normoactive bowel sounds, soft, non-tender abdomen, no palpable masses Genitourinary: no bladder fullness, no bladder tenderness Skin: warm, normal color, no rashes or abrasions, no fluctuance, no induration, other (LUE fistula - bruit heard, thrill felt), No mottled Musculoskeletal: full muscle strength, no muscle tenderness, normal joint ROM, no joint effusions Neurologic: AAOx3, sensation intact bilaterally, CN II-XII Intact Psychiatric: interacting appropriately, not anxious, not encephalopathic, thought process linear Lymph, Heme, Immunologic: no cervical LAD, no supraclavicular LAD Lab Data & Imaging Review 10/19/18 15:05 10/19/18 15:05 WBC 3.68 10^3/uL (3.80-9.50) L 10/19/18 15:05 RBC 2.22 10^6/uL (4.18-5.33) L 10/19/18 15:05 Hgb 6.4 g/dL (12.6-16.3) L 10/19/18 15:05 Hct 21.0 % (38.0-47.0) L 10/19/18 15:05 MCV 94.6 fL (81.5-99.8) 10/19/18 15:05 MCH 28.8 pg (27.9-34.1) 10/19/18 15:05 MCHC 30.5 g/dL (32.4-36.7) L 10/19/18 15:05 RDW 18.0 % (11.5-15.2) H 10/19/18 15:05 Plt Count 142 10^3/uL (150-400) L 10/19/18 15:05 MPV 9.9 fL (8.7-11.7) 10/19/18 15:05 Neut % (Auto) 84.0 % (39.3-74.2) H 10/19/18 15:05 Lymph % (Auto) 3.8 % (15.0-45.0) L 10/19/18 15:05 [place] % (Auto) 9.8 % (4.5-13.0) 10/19/18 15:05 Eos % (Auto) 1.9 % (0.6-7.6) 10/19/18 15:05 Baso % (Auto) 0.0 % (0.3-1.7) L 10/19/18 15:05 Nucleat RBC Rel Count 0.0 % (0.0-0.2) 10/19/18 15:05 Absolute Neuts (auto) 3.09 10^3/uL (1.70-6.50) 10/19/18 15:05 Absolute Lymphs (auto) 0.14 10^3/uL (1.00-3.00) L 10/19/18 15:05 Absolute Monos (auto) 0.36 10^3/uL (0.30-0.80) 10/19/18 15:05 Absolute Eos (auto) 0.07 10^3/uL (0.03-0.40) 10/19/18 15:05 Absolute Basos (auto) 0.00 10^3/uL (0.02-0.10) L 10/19/18 15:05 Absolute Nucleated RBC 0.00 10^3/uL (0-0.01) 10/19/18 15:05 Immature Gran % 0.5 % (0.0-1.1) 10/19/18 15:05 Immature Gran # 0.02 10^3/uL (0.00-0.10) 10/19/18 15:05 RBC/WBC/PLT Morphology TNP 10/19/18 15:05 Platelet Estimate DECREASED (ADEQ) L 10/19/18 15:05 Hypochromasia 1+ H 10/19/18 15:05 Basophilic Stippling 1+ H 10/19/18 15:05 Microcytic Cells 1+ H 10/19/18 15:05 Elliptocytes 1+ H 10/19/18 15:05 Schistocytes 1+ H 10/19/18 15:05 Smear Review By Nikos RIVERA MD 10/19/18 15:05 Sodium 135 mEq/L (135-145) 10/19/18 15:05 Potassium 3.6 mEq/L (3.5-5.2) 10/19/18 15:05 Chloride 96 mEq/L (97-110) L 10/19/18 15:05 Carbon Dioxide 25 mEq/l (22-31) 10/19/18 15:05 Anion Gap 14 mEq/L (6-14) 10/19/18 15:05 BUN 59 mg/dL (7-23) H 10/19/18 15:05 Creatinine 3.9 mg/dL (0.6-1.0) H 10/19/18 15:05 Estimated GFR 11 10/19/18 15:05 Glucose 97 mg/dL (70-100) 10/19/18 15:05 Calcium 8.6 mg/dL (8.5-10.4) 10/19/18 15:05 POC Troponin I 0.01 ng/mL (0.00-0.08) 10/19/18 16:44 Stool Occult Bld Scrn NEGATIVE (NEGATIVE) 10/19/18 15:05 Crossmatch IS Only See Detail 10/19/18 15:05 Assessment & Plan Plan: 78 y/o female w/hx of bilateral nephrectomies (May 2017) d/t polycystic kidney disease, ESRD w/dialysis MWF, anemia of chronic diseases, CABG x 4, CHF, thrombocytopenia, HTN, COPD, ulcerative colitis, LUE fistula presents to the ED under the recommendation from her construction and maintenance inspector, Dr. Rodas, d/t worsening anemia. She received dialysis yesterday. She was admitted here 2 weeks ago w/ positive stool Hemoccult and colonoscopy and EGD were performed w/results of Jennings's esophagitis, gastritis as etiology for anemia w/recommendation to indefinitely utilize pantoprazole and Zantac @ HS for one month however the pt refuses this recommendation as she feels like she doesn't need the medications. Denies lightheadedness, CP, nausea, vomiting. Hemodynamically stable w/vitals : BP 143/61, HR 71, 17 resp, 96%RA, 36.7c. #Anemia: Chronic and d/t renal disease/Jennings's esophagitis/gastritis and not too far off her baseline. She will receive one unit of RBCs tonight. She is asymptomatic; negative stool Hemoccult #ESRD: On MWF HD d/t PCKD/nephrectomies. Dr. Govaerts aware of pt's admission and will consult w/pt either tonight or in AM. He is aware she will need dialysis tomorrow. Holding home ASA, epoetin, sodium polystyrene. Cont sevelamer and amino acid. #CAD s/p CABG x 4: No c/o CP. #HTN: BP stable, cont home amlodipine, labetalol, lisinopril. #COPD/Tobacco cessation: No respiratory distress. Occasionally feels SOB but this is not abnormal to her, does not wear oxygen supplementation at home and is saturating high 90s here on RA. Educated pt on tobacco cessation. Diet: Renal Code: Full VTE ppx: SCDs Dispo: Admit to obs <Yevgeniy Crane - Last Filed: 10/23/18 15:13> History and Physical - History of Present Illness Review of Systems Review of Systems: Physical Exam Physical Exam: Temp Pulse Resp BP Pulse Ox 36.7 C 72 18 175/60 H 92 10/20/18 07:49 10/20/18 12:33 10/20/18 07:49 10/20/18 12:33 10/20/18 07:49 Lab Data & Imaging Review 10/20/18 04:00 10/19/18 15:05 WBC 3.68 10^3/uL (3.80-9.50) L 10/19/18 15:05 RBC 2.22 10^6/uL (4.18-5.33) L 10/19/18 15:05 Hgb 6.8 g/dL (12.6-16.3) L 10/20/18 04:00 Hct 21.1 % (38.0-47.0) L 10/20/18 04:00 MCV 94.6 fL (81.5-99.8) 10/19/18 15:05 MCH 28.8 pg (27.9-34.1) 10/19/18 15:05 MCHC 30.5 g/dL (32.4-36.7) L 10/19/18 15:05 RDW 18.0 % (11.5-15.2) H 10/19/18 15:05 Plt Count 142 10^3/uL (150-400) L 10/19/18 15:05 MPV 9.9 fL (8.7-11.7) 10/19/18 15:05 Neut % (Auto) 84.0 % (39.3-74.2) H 10/19/18 15:05 Lymph % (Auto) 3.8 % (15.0-45.0) L 10/19/18 15:05 [place] % (Auto) 9.8 % (4.5-13.0) 10/19/18 15:05 Eos % (Auto) 1.9 % (0.6-7.6) 10/19/18 15:05 Baso % (Auto) 0.0 % (0.3-1.7) L 10/19/18 15:05 Nucleat RBC Rel Count 0.0 % (0.0-0.2) 10/19/18 15:05 Absolute Neuts (auto) 3.09 10^3/uL (1.70-6.50) 10/19/18 15:05 Absolute Lymphs (auto) 0.14 10^3/uL (1.00-3.00) L 10/19/18 15:05 Absolute Monos (auto) 0.36 10^3/uL (0.30-0.80) 10/19/18 15:05 Absolute Eos (auto) 0.07 10^3/uL (0.03-0.40) 10/19/18 15:05 Absolute Basos (auto) 0.00 10^3/uL (0.02-0.10) L 10/19/18 15:05 Absolute Nucleated RBC 0.00 10^3/uL (0-0.01) 10/19/18 15:05 Immature Gran % 0.5 % (0.0-1.1) 10/19/18 15:05 Immature Gran # 0.02 10^3/uL (0.00-0.10) 10/19/18 15:05 RBC/WBC/PLT Morphology TNP 10/19/18 15:05 Platelet Estimate DECREASED (ADEQ) L 10/19/18 15:05 Hypochromasia 1+ H 10/19/18 15:05 Basophilic Stippling 1+ H 10/19/18 15:05 Microcytic Cells 1+ H 10/19/18 15:05 Elliptocytes 1+ H 10/19/18 15:05 Schistocytes 1+ H 10/19/18 15:05 Smear Review By Nikos RIVERA MD 10/19/18 15:05 Sodium 135 mEq/L (135-145) 10/19/18 15:05 Potassium 3.6 mEq/L (3.5-5.2) 10/19/18 15:05 Chloride 96 mEq/L (97-110) L 10/19/18 15:05 Carbon Dioxide 25 mEq/l (22-31) 10/19/18 15:05 Anion Gap 14 mEq/L (6-14) 10/19/18 15:05 BUN 59 mg/dL (7-23) H 10/19/18 15:05 Creatinine 3.9 mg/dL (0.6-1.0) H 10/19/18 15:05 Estimated GFR 11 10/19/18 15:05 Glucose 97 mg/dL (70-100) 10/19/18 15:05 Calcium 8.6 mg/dL (8.5-10.4) 10/19/18 15:05 POC Troponin I 0.01 ng/mL (0.00-0.08) 10/19/18 16:44 Stool Occult Bld Scrn NEGATIVE (NEGATIVE) 10/19/18 15:05 Patient ABO/Rh O POSITIVE 10/19/18 15:05 Antibody Screen POSITIVE 10/19/18 15:05 Antibody Identification Anti-E 10/19/18 15:05 Red Cell Ag Pheno DNA E Antigen - NEGATIVE c Antigen - POSITIVE 10/19/18 15: 05 Red Cell Ag Pheno DNA E Antigen - NEGATIVE c Antigen - POSITIVE 10/19/18 15: 05 DANIEL, Polyspecific NEGATIVE (NEGATIVE) 10/19/18 15:05 Crossmatch IS Only See Detail 10/19/18 15:05 Enhanced Crossmatch See Detail 10/19/18 15:05 Assessment & Plan Plan: Patient seen and evaluated independently and care plan reviewed with JANN Tsang, agree with her assessment and plan as outlined above. Please see separate documentation for further details.
[2018-10-19] MEDS ORDERED: diphenhydrAMINE 25 MG CAP PO ONE ×2 (17:25→19:45)
--- NOTE | 2018-10-19 17:42 | HOSPPROG ---
Hospitalist Progress Note Assessment/Plan: 78 yo F with MMI including PKD s/p bilateral nephrectomy as well as COPD, CAD, p a fib and anemia of chronic renal disease with recently decreased h/h and egd/ colonscopy performed 2 weeks ago presenting with again low h/h # acute on chronic anemia: on EGD/colonoscopy performed earlier this month for the same issue she was found to have gastritis that was thought to be the etiology of her chronic GI blood loss, she was given rx for pantoprazole 40mg with a plan to continue daily indefinitely as well as ranitidine 300mg at HS to be taken for a month but she reports she never filled these prescriptions and has not been taking either one. Will start those both now, getting transfused, continue epo on her usual schedule. If h/h stable overnight she can likely dc in am. # ESRD: continued on her usual HD schedule which is MWF, renal aware of her admission, if she remains in house she will need her HD in the am. Her ESRD is due to PKD s/p bilateral nephrectomy # p afib: personally reviewed ecg, currently in SR. On asa for this chronically , holding for now given above # CAD: with hx of CABG, no chest pain, no ischemic changes on ecg, continue usual meds # htn: well controlled, continue amlodipine, lisinopril, labetalol # observation status # FC # Patient new to my care. Old records reviewed and summarized as above. Care plan reviewed with ER doctor, and JANN Tsang. Please see JANN Tsang's separate H&P for further details. Objective: Vital Signs Temp Pulse Resp BP Pulse Ox 36.7 C 71 17 143/61 H 96 10/19/18 16:45 10/19/18 16:45 10/19/18 16:45 10/19/18 16:45 10/19/18 16:45 10/18/18 10/19/18 10/20/18 05:59 05:59 05:59 Intake Total 0 Balance 0 ICD10 Worksheet Patient Problems: Problems Problem Status Onset CHF (congestive heart failure) Acute Pleural effusion Acute Leukopenia Acute Closed right hip fracture Acute Acute bronchitis Acute chronic disease mgmt/transitional care Acute Paroxysmal atrial fibrillation Acute Coronary arteriosclerosis Chronic Thrombocytopenia Chronic Anemia Chronic Hypertension Chronic Polycystic kidney disease Chronic ESRD (end stage renal disease) on dialysis Chronic S/P CABG x 4 Acute
[2018-10-19] MEDS ORDERED: SEVELAMER HCL 800 MG TAB PO PRN (17:44)
[2018-10-19] MEDS: SEVELAMER HCL 800 MG TAB PO SCH (18:25)
[2018-10-19] MEDS: PANTOPRAZOLE SODIUM 40 MG TAB PO SCH (18:28)
[2018-10-19] MEDS: LABETALOL HCL 200 MG TAB PO SCH (21:39)
--- NOTE | 2018-10-19 22:42 | GCON ---
[f rep st] CONSULTATION DATE OF CONSULTATION: 10/19/2018 REASON FOR CONSULTATION: Opinion regarding end-stage kidney failure. HISTORY OF PRESENT ILLNESS: The patient is a very pleasant 78-year-old female with end-stage kidney failure due to autosomal dominant polycystic kidney disease on 3 times weekly hemodialysis. The patient is status post bilateral enterprise nephrectomies. She was in her usual state of health until a couple weeks ago when her hemoglobin began dropping, it dropped from the middle 9's to the middle 7's and now down to 6.4. She was told by Dr. Banda to come to the emergency department for a transfusion. The patient has been admitted, she is receiving her 1st unit of packed red blood cells. She will receive 2 units of packed red blood cells. The patient has had difficulties with anemia in the past, she had endoscopies that showed a polyp in her colon, but did have significant esophagitis with Jennings's lesions and gastritis with a recent upper endoscopy. She was placed on proton pump inhibitor and H2 xiang. The proton pump inhibitor indefinitely, the H2 xiang for a month, after a week or 2 she stopped taking her medications because she did not think they were doing her any good and her hemoglobin began to fall. The patient is not having fevers, chills. She is not having nausea, vomiting, chest pain, or shortness of breath. She has occasional cough with some sputum production. No hemoptysis, hematemesis, epistaxis, blurry vision, double vision , headache, orthopnea, paroxysmal nocturnal dyspnea, palpitations, or syncope. PAST MEDICAL HISTORY: Significant for: 1. End-stage kidney failure due to polycystic kidney disease. 2. Polycystic kidney disease. 3. Status post bilateral enterprise nephrectomies. 4. Anemia of chronic kidney disease and more recently blood loss. 5. Coronary artery disease. 6. Status post coronary artery bypass grafting x4. 7. Hypertension. 8. COPD. 9. Ulcerative colitis. MEDICATIONS: Include: 1. Amlodipine 10 mg a day. 2. Pepcid 20 mg daily. 3. Labetalol 200 mg twice daily. 4. Lisinopril 40 mg daily. 5. Protonix 40 mg daily, she stopped this however. 6. Renagel 800 mg 2 with snacks, 3 with meals. REVIEW OF SYSTEMS: A complete 12-point review of systems was performed with the pertinent positives and negatives as per the previous sections. FAMILY HISTORY: Positive for polycystic kidney disease. SOCIAL HISTORY: She is a tobacco user, does not use alcohol, IV or recreational drugs. PHYSICAL EXAMINATION: VITAL SIGNS: Blood pressure 155/50, pulse 80, respirations 18, temperature is 37.3 degrees. GENERAL: She is awake, alert, cooperative. She is watching the [employer] hockey series. HEENT: Pupils are reactive to light. Extraocular movements are intact. Mucous membranes are moist. NECK: No lymphadenopathy or thyromegaly. HEART: Regular, grade 2/6 systolic murmur. No rub. LUNGS: Positive wheezes. No rhonchi. ABDOMEN: Bowel sounds are positive. Soft, nontender, nondistended. EXTREMITIES: No edema. NEUROLOGIC: No asterixis. SKIN: Changes of arterial insufficiency in the lower extremities bilaterally. LYMPH: No palpable lymphadenopathy or lymphedema. MUSCULOSKELETAL: She has a left upper arm arteriovenous fistula that has a good bruit and thrill. LABORATORY: WBC 3.7, hemoglobin 6.4, hematocrit 21, platelet count 142,000. Serum sodium 135, potassium 3.6, chloride 96, CO2 of 25, BUN 59, creatinine 3.9 , glucose 97, calcium 8.6. Fecal occult blood was negative. IMPRESSION: 1. Anemia of chronic kidney disease and blood loss. 2. End-stage kidney failure on 3 times weekly dialysis. 3. Shortness of breath. 4. Tobacco use. RECOMMENDATIONS: 1. She is going to receive 2 units of packed red blood cells today. 2. We will plan on doing hemodialysis tomorrow, hopefully she will be able to go home after hemodialysis. 3. Continue her home medications. 4. I have counseled the patient to go back to taking her PPI as well as her H2 xiang. Thank you for allowing me to participate in the care of your patient. If there is any questions, please do not hesitate to contact us. We will be following along with you. /[id number]/MODL MTDD
--- NOTE | 2018-10-20 08:20 | ASMTLACE ---
TRAVIS Comorbidities - select Answers: Chronic pulmonary disease all that apply Congestive heart failure Coronary Artery Disease Moderate or severe liver or renal disease Opioid dependence / Chronic pain Other Notes: HTN # of Emergency department Answers: 1-2 visits in the last 6 months Score: 16 Date Signed: 10/20/2018 08:19 AM Electronically Signed By:Elis Mosley
[2018-10-20] MEDS ORDERED: [UNRECOGNIZED DRUG - REMARK] IV SCH (09:00)
[2018-10-20] MEDS: SEVELAMER HCL 800 MG TAB PO SCH ×2 (09:27→13:44)
[2018-10-20] MEDS: PANTOPRAZOLE SODIUM 40 MG TAB PO SCH (09:31)
--- NOTE | 2018-10-20 09:56 | SOAPPROG ---
SOAP Progress Note Assessment/Plan: Assessment: Seen on HD will get her second unit on HD today prob blood loss from UGI tract after stopping PPI and H2 xiang OK for home after HD today Plan: HD today transfuse on HD says she will go back on her GI meds 10/20/18 09:54 Subjective: spirits good no cp sob nausea or vomiting tolerating HD just fine Objective: Vital Signs Temp Pulse Resp BP Pulse Ox 36.7 C 77 18 165/75 H 92 10/20/18 07:49 10/20/18 07:49 10/20/18 07:49 10/20/18 07:49 10/20/18 07:49 Laboratory Results 10/20/18 04:00 10/19/18 10/20/18 10/21/18 05:59 05:59 05:59 Intake Total 200 Balance 200 Physical Exam - Physical Exam General Appearance: alert, thin Neck: normal inspection Respiratory: wheezing, No rhonchi Cardiac/Chest: regular rate, rhythm, systolic murmur, No edema, No friction rub Abdomen: normal bowel sounds, non-tender, soft Skin: warm/dry Extremities: No swelling Neuro/Psych: alert, normal mood/affect, oriented x 3 ICD10 Worksheet Patient Problems: Problems Problem Status Onset Acute bronchitis Acute CHF (congestive heart failure) Acute Closed right hip fracture Acute Leukopenia Acute Paroxysmal atrial fibrillation Acute Pleural effusion Acute S/P CABG x 4 Acute chronic disease mgmt/transitional care Acute Anemia Chronic Coronary arteriosclerosis Chronic ESRD (end stage renal disease) on dialysis Chronic Hypertension Chronic Polycystic kidney disease Chronic Thrombocytopenia Chronic
[2018-10-20] MEDS: LABETALOL HCL 200 MG TAB PO SCH ×2 (11:38→12:33)
[2018-10-20] MEDS: LISINOPRIL 40 MG TAB PO SCH ×2 (11:39→12:33)
[2018-10-20 12:36] VITALS: BP 175/60
--- NOTE | 2018-10-20 13:17 | PDDCSUM ---
Discharge Summary Discharge Summary: 78 yo F with MMI including PKD s/p bilateral nephrectomy as well as COPD, CAD, p a fib and anemia of chronic renal disease with recently decreased h/h and egd/ colonscopy performed 2 weeks ago presenting with again low h/h. She had never started her PPI or [id number] She was transfused 2 units She had HD She is being d/c DDX: # acute on chronic anemia: on EGD/colonoscopy performed earlier this month for the same issue she was found to have gastritis that was thought to be the etiology of her chronic GI blood loss, she was given rx for pantoprazole 40mg with a plan to continue daily indefinitely as well as ranitidine 300mg at HS to be taken for a month but she reports she never filled these prescriptions and has not been taking either one. -she agrees to start meds # ESRD: continued on her usual HD schedule which is MWF, -Her ESRD is due to PKD s/p bilateral nephrectomy # p afib: personally reviewed ecg, currently in SR. On asa for this chronically , holding for now given above # CAD: with hx of CABG, no chest pain, no ischemic changes on ecg, continue usual meds # htn: well controlled, continue amlodipine, lisinopril, labetalol Exam: VSS NAD AAOX3 NO RESP DISTRESS NO LE EDEMA MEDS: SEE MED REC TOTAL TIME SPENT ON D/C IS 35 MINS
[2018-10-20] MEDS ORDERED: FAMOTIDINE 20 MG TAB PO SCH (21:00)
--- NOTE | 2018-10-23 17:31 | CPEKG ---
Test Reason : OPEN Blood Pressure : / mmHG Vent. Rate : 063 BPM Atrial Rate : 063 BPM P-R Int : 190 ms QRS Dur : 102 ms QT Int : 480 ms P-R-T Axes : 014 058 066 degrees QTc Int : 492 ms Sinus rhythm Borderline prolonged QT interval Confirmed by Taisha Erazo ([id number] on 10/23/2018 5:31:26 PM Referred By: Taisha Erazo Confirmed By:Taisha Erazo
== END 2018-10-20 13:01 | disposition home or self-care (01) ==
LOC: F1N 16:37
PROVIDERS: ADMIT Internal Medicine; ATTEND Family Medicine
PROC: 30233N1 Transfusion of Nonautologous Red Blood Cells into Peripheral Vein, Percutaneous Approach (ICD-10-PCS; principal; 2018-10-19)
DX: D63.1 Anemia in chronic kidney disease (principal); N18.6 End stage renal disease; I12.0 Hypertensive chronic kidney disease with stage 5 chronic kidney disease or end stage renal disease; E86.9 Volume depletion, unspecified; K22.70 Barrett's esophagus without dysplasia; J44.9 Chronic obstructive pulmonary disease, unspecified; K44.9 Diaphragmatic hernia without obstruction or gangrene; I25.10 Atherosclerotic heart disease of native coronary artery without angina pectoris; I48.0 Paroxysmal atrial fibrillation; F17.210 Nicotine dependence, cigarettes, uncomplicated; D12.3 Benign neoplasm of transverse colon; Z79.82 Long term (current) use of aspirin; Z99.2 Dependence on renal dialysis; Z95.1 Presence of aortocoronary bypass graft; Z90.5 Acquired absence of kidney
CPT/HCPCS: 36430; 93005; G0378; P9016; 84484-ER

== ENCOUNTER 2018-10-30 17:52 | Observation (INO) | payer OTHER, MEDICARE ==
--- NOTE | 2018-10-30 18:12 | EDPHY ---
H & P Time Seen by Provider: 10/30/18 18:12 HPI/ROS: CHIEF COMPLAINT: Severe weakness HISTORY OF PRESENT ILLNESS: Discharge summary dated 10/20/2018 personally reviewed showed transfusion with EGD showing gastritis. Per the friends were with her patient did not fill H2 xiang or proton pump inhibitor. She continues to smoke cigarettes. She presents today with diffuse generalized weakness. Worse with exertion. She thinks she might be anemic again. She denies black or bloody stools. Denies chest pain or any change in shortness of breath which is chronic with her COPD. REVIEW OF SYSTEMS: Eye: no change in vision ENT: no sore throat Cardiac: no chest pain or syncope Pulmonary: Chronic COPD unchanged Abdomen: no vomiting, diarrhea, abdominal pain Musculoskeletal: no back pain Skin: no rash Neuro: no headache Constitutional: no fever : Produces no urine A comprehensive 10 point review of systems is otherwise negative aside from elements mentioned in the history of present illness. PAST MEDICAL HISTORY: Includes renal failure with polycystic kidney disease, hypertension, anemia, COPD, bilateral nephrectomy, bypass surgery. Social history: Here with friends, continues to smoke General Appearance: Alert and conversant, cooperative. Eyes: No scleral icterus. ENT, Mouth: Slightly dry mucous membranes. Respiratory: Decreased breath sounds bilaterally. Cardiovascular: Regular rate and rhythm. Left arm fistula has a thrill. Gastrointestinal: Abdomen is soft and non tender. Neurological: Alert, face symmetric, normal motor and sensory in extremities. Skin: Warm and dry, no rashes. Musculoskeletal: No peripheral edema. Psychiatric: Not agitated. Emergency Department course/MDM: CBC chemistry LFT type and screen and EKG. 1905: Results discussed with the patient, admission for further evaluation, she is agreeable. Discussed with Andrew Borges who will arrange dialysis tomorrow, and Dr. Geiger. Smoking Status: Heavy smoker Constitutional: Initial Vital Signs Temperature (C) 36.4 C 10/30/18 17:54 Heart Rate 76 10/30/18 17:54 Respiratory Rate 22 H 10/30/18 17:54 Blood Pressure 163/55 H 10/30/18 17:54 O2 Sat (%) 96 10/30/18 17:54 O2 Delivery Mode Room Air Allergies/Adverse Reactions: corn Allergy (Verified 10/19/18 14:49) raw oninons Allergy (Uncoded 10/19/18 14:49) Home Medications: Medication Instructions Recorded Labetalol HCl [Trandate 200 mg (*)] 200 mg PO BID 02/26/17 Aspirin EC [Aspirin EC 81 mg (*)] 81 mg PO DAILY 07/13/17 Epoetin Milind [Epogen] 20,000 unit IV MOWEFR 07/13/17 Parenteral Amino Acid 20% No.1 2,000 ml IV MOWEFR 01/22/18 [Prosol] Lisinopril [Zestril 40 mg (*)] 40 mg PO DAILY 08/08/18 Sevelamer HCl [Renagel 800mg (*)] 2 each PO PRN PRN 10/19/18 Sevelamer HCl [Renagel 800mg (*)] 3 each PO TIDMEAL 10/19/18 Sodium Polystyrene Sulfonate 30 gm PO TU 10/19/18 amLODIPine BESYLATE [Norvasc 10 mg 10 mg PO DAILY 10/19/18 (*)] Famotidine [Pepcid 20 MG (*)] 20 mg PO MWF@2100 #90 tab 10/20/18 Pantoprazole Sodium [Protonix 40mg 40 mg PO DAILY #90 tab 10/20/18 (*)] Medical Decision Making - Diagnostics EKG Interpretation: 12-lead EKG interpreted by me; official reading is in computer system. My interpretation is sinus rhythm with left atrial enlargement otherwise normal. Imaging Results: Imaging Impressions Chest X-Ray 10/30/18 19:07 Impression: 1. Postoperative changes with probable congestive heart failure/fluid overload. 2. Persistent left pleural effusion with compressive atelectatic changes at the left lung base.. Imaging: I viewed and interpreted images myself ED Course/Re-evaluation: Differential diagnosis considered for weakness including but not limited to electrolyte abnormality, depression, anxiety, CVA, spinal cord abnormality, and infectious causes. Differential Diagnosis: Differential for weakness considered including but not limited to anemia, fluid overload, uremia, acute coronary syndrome, other metabolic. Consult/Admit Bed Type: [place] [id number] - Data Points Laboratory Results: Laboratory Results 10/30/18 18:17 10/30/18 18:17 10/30/18 10/30/18 10/30/18 18:43 18:17 18:17 WBC 3.81 10^3/uL 10^3/uL (3.80-9.50) RBC 3.00 10^6/uL L 10^6/uL (4.18-5.33) Hgb 9.0 g/dL L g/dL (12.6-16.3) Hct 28.8 % L % (38.0-47.0) MCV 96.0 fL fL (81.5-99.8) MCH 30.0 pg pg (27.9-34.1) MCHC 31.3 g/dL L g/dL (32.4-36.7) RDW 18.7 % H % (11.5-15.2) Plt Count 165 10^3/uL 10^3/uL (150-400) MPV 9.2 fL fL (8.7-11.7) Neut % (Auto) 86.3 % H % (39.3-74.2) Lymph % (Auto) 2.4 % L % (15.0-45.0) Haines % (Auto) 8.1 % % (4.5-13.0) Eos % (Auto) 2.1 % % (0.6-7.6) Baso % (Auto) 0.3 % % (0.3-1.7) Nucleat RBC Rel Count 0.0 % % (0.0-0.2) Absolute Neuts (auto) 3.29 10^3/uL 10^3/uL (1.70-6.50) Absolute Lymphs (auto) 0.09 10^3/uL L 10^3/uL (1.00-3.00) Absolute Monos (auto) 0.31 10^3/uL 10^3/uL (0.30-0.80) Absolute Eos (auto) 0.08 10^3/uL 10^3/uL (0.03-0.40) Absolute Basos (auto) 0.01 10^3/uL L 10^3/uL (0.02-0.10) Absolute Nucleated RBC 0.00 10^3/uL 10^3/uL (0-0.01) Immature Gran % 0.8 % % (0.0-1.1) Immature Gran # 0.03 10^3/uL 10^3/uL (0.00-0.10) RBC/WBC/PLT Morphology TNP Platelet Estimate ADEQUATE (ADEQ) Microcytic Cells 1+ H Echinocytes 1+ H Elliptocytes 1+ H Schistocytes 1+ H Sodium 138 mEq/L mEq/L (135-145) Potassium 5.0 mEq/L mEq/L (3.5-5.2) Chloride 100 mEq/L mEq/L (97-110) Carbon Dioxide 20 mEq/l L mEq/l (22-31) Anion Gap 18 mEq/L H mEq/L (6-14) BUN 105 mg/dL H* mg/dL (7-23) Creatinine 7.1 mg/dL H mg/dL (0.6-1.0) Estimated GFR 6 Glucose 85 mg/dL mg/dL (70-100) Calcium 8.2 mg/dL L mg/dL (8.5-10.4) Total Bilirubin 0.7 mg/dL mg/dL (0.1-1.4) Conjugated Bilirubin 0.7 mg/dL H mg/dL (0.0-0.5) Unconjugated Bilirubin 0.0 mg/dL mg/dL (0.0-1.1) AST 11 IU/L L IU/L (14-46) ALT 18 IU/L IU/L (9-52) Alkaline Phosphatase 90 IU/L IU/L (38-126) Total Protein 6.3 g/dL g/dL (6.3-8.2) Albumin 3.7 g/dL g/dL (3.5-5.0) Patient ABO/Rh O POSITIVE Antibody Screen POSITIVE Antibody Identification Pending Departure - Departure Disposition: [facility] Clinical Impression: Weakness Fluid overload Qualifiers: Hypervolemia type: unspecified Qualified Code(s): E87.70 - Fluid overload, unspecified Condition: Fair
[2018-10-30 18:33] LABS: PLATELET COUNT 165 10^3/uL (150-400)
--- NOTE | 2018-10-30 19:31 | CPEKG ---
Test Reason : OPEN Blood Pressure : / mmHG Vent. Rate : 072 BPM Atrial Rate : 072 BPM P-R Int : 169 ms QRS Dur : 092 ms QT Int : 429 ms P-R-T Axes : 024 069 056 degrees QTc Int : 470 ms Sinus rhythm Probable left atrial enlargement Confirmed by Pedro Klein ([id number]) on 10/30/2018 7:30:21 PM Referred By: Pedro Klein Confirmed By:Pedro Klein
[2018-10-30] MEDS ORDERED: ACETAMINOPHEN 325 MG TAB PO PRN (20:16)
[2018-10-30] MEDS: HEPARIN 5,000 UNIT/0.5 ML INJ SC SCH ×2 (22:01→22:07)
[2018-10-30] MEDS: SEVELAMER HCL 800 MG TAB PO PRN (22:01)
[2018-10-30] MEDS: LABETALOL HCL 200 MG TAB PO SCH (22:03)
[2018-10-30] MEDS ORDERED: CALCIUM CARBONATE 500 MG CHEWABLE TAB PO PRN (23:24)
[2018-10-30] MEDS ORDERED: ONDANSETRON DISINTEGRATING 4 MG TAB PO PRN (23:25)
[2018-10-30] MEDS ORDERED: ONDANSETRON 4 MG/2 ML VIAL IVP PRN (23:25)
--- NOTE | 2018-10-31 00:05 | GHP ---
[f rep st] HISTORY AND PHYSICAL DATE OF ADMISSION: 10/30/2018 CHIEF COMPLAINT: Feeling weak and missed hemodialysis. HISTORY OF PRESENT ILLNESS: The patient is a 78-year-old female with a past medical history of coron jeanne artery disease with history of CABG, as well as end-stage renal disease on hemodialysis secondary to polycystic kidney disease, who presented to the [facility] on 10/30/[address]ing that she just felt generally weak today. She has not had any symptoms in the days prior. She was recently found to be anemic and transfused blood. There was concern that she may have become ane jorge luis again. Her hemoglobin in the emergency room was measured at 9.0. Otherwise, no alarming finding s noted. She did miss hemodialysis today and the emergency room has been in contact with Nephrology to inform them of her admission today. Otherwise, no real localizing symptoms to account for her wea kness. There have been no fevers or chills. No upper respiratory illnesses. She does not make any significant amount urine. No localizing abdominal pain. No new skin rashes. PAST MEDICAL HISTORY: Coronary artery disease with history of CABG, hypertension, COPD, end-stage re nal disease on hemodialysis secondary to polycystic kidney disease. PAST SURGICAL HISTORY: Bilateral nephrectomy, coronary artery bypass grafting. MEDICATIONS: Amlodipine 10 mg daily, aspirin 81 mg daily, Epogen 2000 units, labetalol 200 mg twice a day, lisinopril 40 mg daily, Renagel 800 mg 2 tablets as needed with snacks and 800 mg 3 tablets 3 times a day with meals. ALLERGIES: No known drug allergies. FAMILY HISTORY: Mother also with polycystic kidney disease. SOCIAL HISTORY: The patient is a current smoker. Full code by prior documentation. The patient sta robert that her roommate is her medical power of securities attorney. REVIEW OF SYSTEMS: CONSTITUTIONAL: No complaints of fevers or chills. ENT: No recent upper respir atory illnesses. CARDIOVASCULAR: No complaints of any chest tightness or chest pressure. RESPIRATO RY: No complaints of worsening breathing today. GI: No nausea or vomiting. No focal abdominal edilia n. : No significant urine production at this time. NEUROLOGIC: No complaints of any headaches o r focal weakness. HEMATOLOGIC: No history of any deep vein thrombosis or pulmonary embolism. PSYCH IATRIC: No history of anxiety or depression. ENDOCRINE: No history of diabetes or thyroid abnormal ities. SKIN: No new rashes. MUSCULOSKELETAL: No focal joint pains. PHYSICAL EXAM: VITAL SIGNS: Temperature 36.4, blood pressure 163/55, heart rate 76 respirations 22, saturating 96% on room air. GENERAL: The patient resting comfortably when I first came into the ro om. Arousable, conversant, no acute distress. Nontoxic appearing. HEENT: Extraocular movements in tact. No scleral icterus. NECK: Supple. No thyroid enlargement noted. CHEST: Clear on auscultat ion with normal respiratory effort. HEART: Regular. No murmurs appreciated. She does have, howeve r, audible bruit from her left upper extremity fistula, which can be heard in her chest. ABDOMEN: S oft, nontender, nondistended. EXTREMITIES: No significant calf pain with palpation. Trace edema giuseppe th lower extremities. NEUROLOGIC: Cranial nerves 2-12 appear grossly intact with 5/5 strength in ex tremities. LABORATORIES: White blood cell count 3, hemoglobin 9, platelets 165. Sodium 138, potassium 5.0, chl oride 100, bicarb 20, BUN 105, creatinine 85. AST 11, ALT 18, alk phos 90, total bilirubin is 0.7. ECG: Normal sinus rhythm. ASSESSMENT/PLAN: 1. Weakness, uncertain etiology. It does not appear to be secondary to significant anemia. No jordy cation for blood transfusion at this point in time. I will check TSH with morning labs. Otherwise, I recommend we admit under observation and monitor for any changes or decline. 2. Coronary artery disease: History of coronary artery bypass grafting. Patient is on aspirin. I do not see that she is on statin therapy at this time. 3. Hypertension, uncertain control. Continue current amlodipine 10 mg daily, labetalol 200 mg twice a day, lisinopril 40 mg daily. 4. Chronic obstructive pulmonary disease. Nebulizers if needed. 5. End-stage renal disease on hemodialysis. This is secondary to polycystic kidney disease. The ten tative plan will be for hemodialysis tomorrow. 6. Deep venous thrombosis prophylaxis: Heparin. DISPOSITION: Admit under observation status. Likely could discharge after hemodialysis tomorrow if stable. /[id number]/MODL
[2018-10-31] MEDS: HEPARIN 5,000 UNIT/0.5 ML INJ SC SCH ×3 (01:06→15:23)
[2018-10-31 08:26] VITALS: BP 151/58
[2018-10-31] MEDS ORDERED: ASPIRIN EC 81 MG TAB PO SCH (09:00)
[2018-10-31] MEDS ORDERED: LISINOPRIL 40 MG TAB PO SCH (09:00)
[2018-10-31] MEDS: LABETALOL HCL 200 MG TAB PO SCH (09:02)
--- NOTE | 2018-10-31 09:07 | ASMTLACE ---
TRAVIS Acuity / Level of Answers: Yes Care: Did the patient have an inpatient admission? Comorbidities - select Answers: Chronic pulmonary disease all that apply Coronary Artery Disease Moderate or severe liver or renal disease Other Notes: HTN # of Emergency department Answers: 3-4 visits in the last 6 months Score: 15 Date Signed: 10/31/2018 09:05 AM Electronically Signed By:Elis oMsley
[2018-10-31] MEDS: SEVELAMER HCL 800 MG TAB PO PRN (09:15)
[2018-10-31] MEDS: SEVELAMER HCL 800 MG TAB PO SCH ×3 (09:15→19:25)
--- NOTE | 2018-10-31 10:23 | PDCONSULT ---
Eviction Specialist Note: RENAL CONSULT NOTE: CC: Weakness HPI: The patient is a 78 y/o F with a known h/o ESRD 2/2 to PCKD s/p bilateral nephrectomy on HD MWF who presented to the ED yesterday evening c/o weakness. She reportedly had felt similar recently and had required a blood transfusion for anemia of CKD. She missed HD yesterday. This am she states that she plans to leave as soon as she finishes HD. She continues to smoke 1/2 ppd and does not currently wear O2 at home. She isn't sure if she always makes her dry weight and admits that she had some cramping last week and they had to give back fluid. She denies CP or other infectious ROS. She was on 3L O2 NC this am and was saturating 86% so is now on 5L during HD. PMH: CAD, HTN, COPD, ESRD on HD, anemia, 2/2 hyperparathyroidism SURGICAL HX: CABG, bilateral nephrectomy SOCIAL HX: Current smoker, FAMILY HX: Family h/o PCKD (mother) ROS: Otherwise negative 10-point review except as above. ALLERGIES: NKDA MEDICATIONS: List reviewed. OBJECTIVE: Temp Pulse Resp BP Pulse Ox 36.6 C 78 20 151/58 H 92 10/31/18 08:23 10/31/18 09:02 10/31/18 08:23 10/31/18 09:03 10/31/18 08:23 O2 (L/minute) 3 PHYSICAL EXAM: General: alert, no distress HEENT: EOMI, no jaundice, MMM Neck: Supple, no thyromegaly CV: RRR, no murmurs or rub RESP: decreased b/l with crackles, mild expiratory wheeze ABD: Soft, ND, ND, +BS EXT: No edema, AVF intact SKIN: No rashes or lesions NEURO: Non-focal, oriented LABS: WBC 3.81 10^3/uL (3.80-9.50) 10/30/18 18:17 RBC 3.00 10^6/uL (4.18-5.33) L 10/30/18 18:17 Hgb 9.0 g/dL (12.6-16.3) L 10/30/18 18:17 Hct 28.8 % (38.0-47.0) L 10/30/18 18:17 MCV 96.0 fL (81.5-99.8) 10/30/18 18:17 MCH 30.0 pg (27.9-34.1) 10/30/18 18:17 MCHC 31.3 g/dL (32.4-36.7) L 10/30/18 18:17 RDW 18.7 % (11.5-15.2) H 10/30/18 18:17 Plt Count 165 10^3/uL (150-400) 10/30/18 18:17 MPV 9.2 fL (8.7-11.7) 10/30/18 18:17 Neut % (Auto) 86.3 % (39.3-74.2) H 10/30/18 18:17 Lymph % (Auto) 2.4 % (15.0-45.0) L 10/30/18 18:17 Kidder % (Auto) 8.1 % (4.5-13.0) 10/30/18 18:17 Eos % (Auto) 2.1 % (0.6-7.6) 10/30/18 18:17 Baso % (Auto) 0.3 % (0.3-1.7) 10/30/18 18:17 Nucleat RBC Rel Count 0.0 % (0.0-0.2) 10/30/18 18:17 Absolute Neuts (auto) 3.29 10^3/uL (1.70-6.50) 10/30/18 18:17 Absolute Lymphs (auto) 0.09 10^3/uL (1.00-3.00) L 10/30/18 18:17 Absolute Monos (auto) 0.31 10^3/uL (0.30-0.80) 10/30/18 18:17 Absolute Eos (auto) 0.08 10^3/uL (0.03-0.40) 10/30/18 18:17 Absolute Basos (auto) 0.01 10^3/uL (0.02-0.10) L 10/30/18 18:17 Absolute Nucleated RBC 0.00 10^3/uL (0-0.01) 10/30/18 18:17 Immature Gran % 0.8 % (0.0-1.1) 10/30/18 18:17 Immature Gran # 0.03 10^3/uL (0.00-0.10) 10/30/18 18:17 RBC/WBC/PLT Morphology TNP 10/30/18 18:17 Platelet Estimate ADEQUATE (ADEQ) 10/30/18 18:17 Microcytic Cells 1+ H 10/30/18 18:17 Echinocytes 1+ H 10/30/18 18:17 Elliptocytes 1+ H 10/30/18 18:17 Schistocytes 1+ H 10/30/18 18:17 Sodium 138 mEq/L (135-145) 10/30/18 18:17 Potassium 5.0 mEq/L (3.5-5.2) 10/30/18 18:17 Chloride 100 mEq/L (97-110) 10/30/18 18:17 Carbon Dioxide 20 mEq/l (22-31) L 10/30/18 18:17 Anion Gap 18 mEq/L (6-14) H 10/30/18 18:17 BUN 105 mg/dL (7-23) H* 10/30/18 18:17 Creatinine 7.1 mg/dL (0.6-1.0) H 10/30/18 18:17 Estimated GFR 6 10/30/18 18:17 Glucose 85 mg/dL (70-100) 10/30/18 18:17 Calcium 8.2 mg/dL (8.5-10.4) L 10/30/18 18:17 Total Bilirubin 0.7 mg/dL (0.1-1.4) 10/30/18 18:17 Conjugated Bilirubin 0.7 mg/dL (0.0-0.5) H 10/30/18 18:17 Unconjugated Bilirubin 0.0 mg/dL (0.0-1.1) 10/30/18 18:17 AST 11 IU/L (14-46) L 10/30/18 18:17 ALT 18 IU/L (9-52) 10/30/18 18:17 Alkaline Phosphatase 90 IU/L (38-126) 10/30/18 18:17 POC Troponin I 0.01 ng/mL (0.00-0.08) 10/30/18 19:30 Total Protein 6.3 g/dL (6.3-8.2) 10/30/18 18:17 Albumin 3.7 g/dL (3.5-5.0) 10/30/18 18:17 TSH 2.720 uIU/mL (0.465-4.680) 10/31/18 08:39 Patient ABO/Rh O POSITIVE 10/30/18 18:43 Antibody Screen POSITIVE 10/30/18 18:43 Antibody Identification Anti-E 10/30/18 18:43 DANIEL, Polyspecific NEGATIVE (NEGATIVE) 10/30/18 18:43 IMAGING: CXR results reviewed. ASSESSMENT/PLAN: The patient is a 78 y/o F with a known h/o ESRD on HD MWF who presented with weakness likely related to hypoxia and volume overload. ESRD on HD -MWF at [facility] with Dr. Banda -plan for HD today HTN/vol -will UF up to 3L if possible -may need another PUF tomorrow -may need assessment for home O2 therapy -continue other home meds Anemia -Hb stable at 9g/dL -EPO on HD as outpatient BMD -renal diet -check phos Will continue to follow, consult appreciated. Please contact if ?'veda Herbert, [facility] #[phone]
--- NOTE | 2018-10-31 11:12 | HOSPPROG ---
Hospitalist Progress Note Assessment/Plan: 78 yo F w esrd here w weakness neg initial workup wishes to leave, declines to satty further see dc summary Subjective: adamant she is leaving Objective: Vital Signs Temp Pulse Resp BP Pulse Ox 36.6 C 78 20 151/58 H 92 10/31/18 08:23 10/31/18 09:02 10/31/18 08:23 10/31/18 09:03 10/31/18 08:23 10/30/18 10/31/18 11/01/18 05:59 05:59 05:59 Intake Total 450 Balance 450 - Physical Exam Constitutional: no apparent distress, appears nourished Eyes: PERRL, anicteric sclera Ears, Nose, Mouth, Throat: moist mucous membranes, hearing normal Cardiovascular: regular rate and rhythym, no murmur, rub, or gallop Respiratory: no respiratory distress, no rales or rhonchi Gastrointestinal: normoactive bowel sounds, soft, non-tender abdomen Genitourinary: No shi in urethra Skin: warm, normal color Musculoskeletal: full muscle strength Neurologic: AAOx3 ICD10 Worksheet Patient Problems: Problems Problem Status Onset Fluid overload Acute Weakness Acute Acute bronchitis Acute CHF (congestive heart failure) Acute Closed right hip fracture Acute Leukopenia Acute Paroxysmal atrial fibrillation Acute Pleural effusion Acute S/P CABG x 4 Acute chronic disease mgmt/transitional care Acute Anemia Chronic Coronary arteriosclerosis Chronic ESRD (end stage renal disease) on dialysis Chronic Hypertension Chronic Polycystic kidney disease Chronic Thrombocytopenia Chronic
--- NOTE | 2018-10-31 11:26 | GDS ---
[f rep st] DISCHARGE SUMMARY DISCHARGE DIAGNOSES: Generalized weakness, End-stage renal disease, coronary artery disease, history of CABG, hypertension, COPD, end-stage renal disease on dialysis, polycystic kidney disease, current smoking. The patient presented to the hospital with weakness. She presented similarly with anemia. Her hemog lobin today on admission was 9 without evidence of active bleeding. Her labs were relatively typical labs for a patient on dialysis. She had a negative Point of Care troponin. She had a nonischemic E KG, no anginal symptoms and a chest x-ray showing only a persistent left pleural effusion. She did n ot have an oxygen requirement. On the first hospital day, the patient was seen by Physical Therapy w valentín felt she was possibly unsafe at home. She was informed that she is unwilling to stay, unwilling f or further inpatient therapies and is adamant at leaving. She accepts the risk of this. I am discha rging her home on an unchanged medication regimen. /[id number]/MODL
--- NOTE | 2018-10-31 15:14 | ASMTCMCOM ---
CM Note CM Note Notes: Pt admitted through ED last night for weakness. History of renal failure with end-stage renal disease, bilateral nephrectomy, coronary bypass, hypertension, anemia, and probable CHF. She was seen in the ED last month (D/C 10/19) for gastritis; per her friends who brought her to the ED this time, she did not fill her prescriptions from that visit and continues to smoke heavily. Pt lives with her friend Sudha Moe, who is her MDPOA. Currently Sudha is in [place] caring for a dying brother and is not available to participate in pt's care. CM discussed OT's recommendation of SNF upon D/C with pt. Pt is adamant that she will not go to a SNF. She states that she has friends and neighbors who help her with everything she needs and refuses to go. She is also refusing the possibility of homecare at this time. CM will continue to follow. CM D/C plan: TBD Date Signed: 10/31/2018 03:13 PM Electronically Signed By:Ruthy Leslie
== END 2018-10-31 18:57 | disposition home or self-care (01) ==
LOC: INTOOBSV 19:29 → F1N 20:45
PROVIDERS: ADMIT Internal Medicine; ATTEND Internal Medicine
PROC: 5A1D70Z Performance of Urinary Filtration, Intermittent, Less than 6 Hours Per Day (ICD-10-PCS; principal; 2018-10-30)
DX: E87.79 Other fluid overload (principal); J91.8 Pleural effusion in other conditions classified elsewhere; R09.02 Hypoxemia; R53.1 Weakness; N18.6 End stage renal disease; Z90.5 Acquired absence of kidney; Z99.2 Dependence on renal dialysis; N25.81 Secondary hyperparathyroidism of renal origin; D63.1 Anemia in chronic kidney disease; I10 Essential (primary) hypertension; I25.10 Atherosclerotic heart disease of native coronary artery without angina pectoris; Z95.1 Presence of aortocoronary bypass graft; J44.9 Chronic obstructive pulmonary disease, unspecified; F17.210 Nicotine dependence, cigarettes, uncomplicated
CPT/HCPCS: 71046; 93005; 97166; 99285; G0378; J1644; 84484-ER